=== PATIENT | male | born 1945 | race Caucasian/White ===

== ENCOUNTER 2021-12-27 08:45 | Observation (INO) | payer MEDICARE, OTHER, SELFPAY ==
[2021-12-14 14:57] LABS: Magnesium 2.3 mg/dL (1.6-2.6)
[2021-12-27] VITALS (10 sets, daily range): BP systolic 100–146; BP diastolic 70–91; PULSE 62–79; RESP 16–18; TEMP 36.1–36.7; O2SAT 94–100; BMI 33.5
--- NOTE | 2021-12-27 06:53 | RAD_ITS ---
STUDY: X-RAY - PELVIS AND LEFT HIP REASON FOR EXAM: Male, 76 years old. Post Op -- AP both hips on single anthony/lateral of op hip PACU TECHNIQUE: 2 views of the pelvis and hip. COMPARISON: None. FINDINGS: Status post surgical resection of the left femoral head and neck. The proximal one third femoral prosthetic component is well placed within the intramedullary cavity as well as the acetabular cup. Both prosthetic components demonstrate good bony contact and alignment. Expected postoperative changes of the overlying soft tissues including gas and swelling. Surgical kurtis are also present. No occult fractures are present. Pre-existing right hip prosthesis is unremarkable. Numerous surgical clips are seen in the left upper thigh region. Diffuse atherosclerotic calcifications noted. RAD/Hip Min 2 Views (Portable) IMPRESSION: Status post total left hip arthroplasty. Electronically Signed: Luigi Hensley MD at 13:45 EDT ,
--- NOTE | 2021-12-27 06:54 | OP.PCM_ITS ---
Report of Operation Date of Procedure: 12/27/21 Pre-Operative Diagnosis: Left hip primary osteoarthritis Post-Operative Diagnosis: Left hip primary osteoarthritis Surgery/Procedure Performed:: Left posterior robotic assisted total replacement Surgeon: Jeffery Black metal pattern maker: Roberth Smith Type of Anesthesia: Spinal Anesthesiologist: Bj Garcia Special Medications: 2 g Ancef, 1 g TXA at incision, 1 g TXA closure, 10 mg Decadron, joint cocktail (5 mg Duramorph, 30 mL of 0.5% Ropivicaine, 1000 units of epinephrine, 30 mg of Toradol) Specimen's removed: Bony cuts Estimated Blood Loss (mL): 250 Fluids Replaced: 1000 mL crystalloid Description of Procedure: Findings: Adequate reduction with stability of the hip and equal leg lengths measured intraoperatively. Components used: 1. Seymour Accolade 2 size 7 stem, 127 neck angle 2. Seymour trident 2 52 mm acetabular shell 3. Seymour X3 polyethylene liner, alpha code e 4. Rachel Biolox delta 36 mm, 0 mm neck femoral head Brief history operative indications: 76-year-old male with history of left femoral popliteal bypass presented with severe osteoarthritis. Patient failed conservative measures. X-rays were consistent with severe joint space narrowing, [id number] arthritis subchondral sclerosis and osteophyte formation. Risks and benefits were discussed with the patient which included but were not limited to blood loss, DVTs, PEs, infection, neurovascular damage, and dislocation. In light of all this patient did agree to proceed with a total hip arthroplasty. Procedure: On the date of procedure the patient's l hip was marked in the preoperative area. Patient was then taken back to the operating room where anesthesia assumed control of the C-spine and airway and administered anesthetic. Patient was transferred to the operating table and placed in the lateral decubitus position with the affected hip up. The patient was secured in the bed with the lateral positioners and leg lengths were checked. The L lower extremity was then prepped out in a sterile fashion using chlorhexidine while the surgeon scrubbed. Upon reentering the room the L lower extremity was draped in the standard orthopedic fashion and the incision was marked. A timeout was called and everyone agreed upon the side, the site, the procedure be performed, antibiotics given, and patient's identity. At this time our attention was directed towards the iliac crest where the pins were placed for the robotic assisted markers. Incision was made through skin, subcutaneous tissue, and fat down to fascia. The fascia was then incised and a Charley retractor was placed. The soft tissue was then cleared from the posterior external rotators and the piriformis was identified. Piriformis was taken down and tagged. The remainder of the short external rotators were taken down. Capsulotomy was made and the posterior capsule was tagged. The retractors were then placed inside the capsule. Prior to dislocating the hip preoperative leg lengths were registered. Hip was then dislocated and the femoral neck was identified and a cleanup cut was made. At this time a power corkscrew was used to remove the femoral head. At this time all bony debris was removed from the acetabulum. Attention was then turned to the femur where the proximal femur was appropriately exposed using a field retractor. The hot box operator was used to remove the lateral bone. Canal finder was used to verify the canal. The proximal femoral femur was then sequentially broached to a size 7 broach which had an appropriate fit. The broach was left in place. Our attention was then directed to the acetabulum and the anterior retractor was placed and a Gelpi was used to retract the posterior capsule superiorly. All soft tissue debris was removed from the pulvinar and labrum of the joint. The acetabulum was then sequentially reamed to 52 millimeters. At this time a and 52 mm Rachel tRIDENT 2 cup was opened and impacted into place. Once it was securely fastened our attention was again turned towards the femur and the high offset neck was chosen and a 36 mm head with 0 mm offset was trialed. The hip was properly reduced using traction and external rotation. Stability was checked with the appropriate amount of shuck, no impingement with external rotation, and stable at 90? flexion and 90? internal rotation. Leg lengths were checked and were found to be equal on the table. Once the hip was determined to be stable the trial components were dislocated, and the polyethylene liner was placed and security was verified. The proximal femur was again exposed and the components were removed from the wound. The final components were verified and opened. The wound was copiously irrigated out with normal saline. The acetabulum was checked for any residual debris. The final components were placed and impacted. Traction and external rotation were again used to reduce the hip. After adequate reduction the hip remained stable with appropriate leg lengths. The wound was then copiously irrigated with normal saline once more, and hemostasis was obtained. The posterior capsule and piriformis were repaired through drill holes to the greater trochanter . Robotic pins and checkpoints were removed. Closure was then done using #1 Vicryl to close the fascia. A 2-0 Vicryl interrupted sutures were used to close the subcutaneous skin. Skin kurtis were used for final skin closure. A sterile dressing was placed. Patient was awakened by anesthesia and [facility] Patient was then transferred to the PACU for recovery. Postoperative plan: Patient will get 24 hours postop antibiotics. Patient will get in-house physical therapy and will be weight-bear as tolerated. Patient will follow up in office in 2 weeks for a wound check and x-rays. Aspirin 81 mg p.o. twice daily for DVT prophylaxis. Also patient will begin his Plavix tomorrow. During the course of the procedure the physician collar sewer (PE) played a vital role. Their intimate knowledge of my steps in the procedure aided in safe and expedient completion of the procedure. The PE played a vital rolls in positioning particularly in obtaining the appropriate positioning of the sacral bump. The PE was also vital in the retraction of soft tissues during the exposure and especially the femoral work as this is a vital part of the procedure to prevent complications and fractures. The PE was also vital and protecting soft tissues during times of bony cuts and reaming. He also played a vital role in closure with my direct supervision. The PE was also important during reduction and dislocation of the joint and trials intraoperatively. Complications No intraoperative complications Admit VTE Documentation VTE Present on Admission: No VTE Mechan Device Prophylaxis: SCD's and Thigh High HENRY Hose VTE Pharm Prophylaxis ordered?: Yes
[2021-12-27] MEDS: Lactated Ringers 1,000 ML 999 ML IV ×2 (07:58→10:00)
[2021-12-27] MEDS: Magnesium 1 GM over 15 mins IV (07:59)
[2021-12-27] MEDS: Acetaminophen 500 MG Tablet 1000 MG PO ×2 (08:00→21:29)
[2021-12-27] MEDS: Gabapentin 600 MG Tablet PO (08:00)
--- NOTE | 2021-12-27 10:00 | HIP_PTH ---
PATIENT: MAGDALENO LUI LOC: MS3 U#:[id number] AGE/SX: 76/M ROOM: [facility] RE12/27/[address]: Dr. Jeffery Black MD : 1945 BED: 1 DIS: 12/28/2021 SPEC #: [id number] RECD: 12/27/21 13:54 STATUS: LIZ REQ #: [id number] SONJA: 12/27/21 10:[address]: Jeffery Black DEPT: SURGICAL PATHOLOGY RECD BY: Geoffrey Medina ENTERED: 12/28/21 07:44 SP TYPE: TOTAL HIP OTHR DR: MD Dr. Sahara Rice Dr., MD Dr. Joey Romar, DO Dr. Paige Pierce, MD Tissues: Hip, NOS Procedures: Decalcification bone/plaque Surgery Specimen Level IV HEADER OPERATION: ERAS, robotic assisted total hip arthroplasty, posterior PRE-OP DIAGNOSIS: Left hip primary osteoarthritis TISSUE SUBMITTED: Bone left hip MICROSCOPIC DIAGNOSIS Bone and tissue of left hip, total hip resection: Consistent with degenerative changes. AM:félix 01/03/2022 MICROSCOPIC DESCRIPTION Slides are reviewed. GROSS DESCRIPTION Received is one container labeled with the patient's name and designated bone of left hip. The specimen consists of a chery femoral head measuring 6.5 x 5 x 5 cm. The articular surface is smooth and glistening. No bone erosions are identified. Minimal osteophyte formation is noted. Also present in the specimen container are multiple bone reamings measuring in aggregate 6 x 5 x 1.5 cm. [place] [employer] Assessor sections are submitted in two cassettes after decalcification. / AM:félix 12/28/2021 TC:5 [facility]: [id number], [id number]
[2021-12-27] MEDS: Cefazolin 2 GM in 0.9% Normal Saline 100 ML IV (10:22)
[2021-12-27] MEDS: dexAMETHasone 10 MG/ML Vial IV (10:36)
[2021-12-27 10:50] LABS: Bedside Glucose 138 mg/dL (74-106)
[2021-12-27] MEDS: Lactated Ringers 1,000 ML 15 ML IV (11:16)
--- NOTE | 2021-12-27 14:58 | PCM.PN.HOSP ---
Subjective Subjective Consult requested for postoperative medical management Patient underwent a left posterior robotic assisted total hip replacement by Dr. Black today. Postoperatively, the patient feels well. Objective Data Objective Data Vital Signs: Vital Signs Temp Pulse Resp BP Pulse Ox O2 Del Method O2 Flow Rate 36.4 C L 68 18 119/71 100 Nasal Cannula 2 12/27/21 13:58 12/27/21 13:58 12/27/21 13:58 12/27/21 13:58 12/27/21 13:58 12/27/21 13:58 12/27/21 13:58 Oxygen Flow Rate (L/min) 2 Oxygen Delivery Method Nasal Cannula Weight: 97 kg Body Mass Index (BMI) 33.5 Intake & Output: Intake and Output for Last 24 Hours 12/25/21 12/26/21 12/27/21 23:59 23:59 23:59 Intake Total 2332 / 2332 Balance 233 / 233 Lab / Micro Data Labs: Laboratory Results - last 24 hr 12/27/21 07:56: POC Glucose 138 H Micro: Microbiology 12/14/21 14:11 Swab (Method) Nasal Screen MRSA/MSSA - Final Radiography Diagnostic Testing: Radiology Impression Hip X-Ray 12/27/21 06:53 IMPRESSION: Status post total left hip arthroplasty. Electronically Signed: Luigi Hensley MD at 13:45 EDT Reading Location ID and State: [facility] / [place] , Service support , Physical Exam Const alert and no apparent distress HEENT head/scalp atraumatic Resp normal respiratory effort, no retractions, no use of accessory muscles and clear to auscultation bilaterally Cardio regular rate, regular rhythm, S1 normal heart sound and S2 normal heart sound GI normal to inspection, nondistended, normoactive bowel sounds, soft to palpation, non-tender and non-distended Extremity normal to inspection Extremity Narrative: +1 dorsalis pedal and pedal pulses bilaterally. Normal cap refill of the lower extremities. Sensation grossly intact in lower extremities. Psych affect normal Assessment & Plan Assessment/Plan (1) Peripheral arterial disease: PLAN: Patient is status post AAA repair, left carotid endarterectomy as well as a femoral bypass on the left. His femoral bypass was complicated by hematoma. They proceeded with a posterior approach with this surgery for his hip today given his history. Pulse checks have been ordered hourly for the next 24hours by orthopedics. Continue with aspirin, atorvastatin, clopidogrel. Any changes to his leg indicating ischemia such as increased pain, cyanosis and so forth, patient may need emergent scans to evaluate that and/or vascular surgery consultation. Thus far, however, the patient is very stable and I am not anticipating any complications such as that. (2) S/P hip replacement: PLAN: Status post left posterior robotic assisted total replacement on the . Management per orthopedics PLAN: Plan VTE prophylaxis: Per orthopedics. Patient has been ordered aspirin 81 mg twice daily. Thank you for the consult. The hospital service will follow along while patient is in the hospital. Case was discussed with the patient's segment other who is at bedside. Charges/Coding Visit Charges Inpatient E&M: 45991 Subs Hosp L2
[2021-12-27] MEDS: Ensure Surgery 237 ML LIQUID PO (17:39)
[2021-12-27] MEDS: Cefazolin 1 GM/50 ML BAG IV (17:40)
[2021-12-27] MEDS: Aspirin 81 MG TAB.CHEW PO (21:29)
[2021-12-27] MEDS: Atorvastatin Calcium 80 MG Tablet PO (21:29)
[2021-12-27] MEDS: Senna/Docusate Sodium 1 Tablet 2 TABLET PO (21:29)
[2021-12-28 01:58] VITALS: BMI 33.5
[2021-12-28] MEDS: Cefazolin 1 GM/50 ML BAG IV (03:08)
[2021-12-28 03:23] VITALS: BP 139/84; PULSE 70; RESP 18; TEMP 36.6; O2SAT 97
[2021-12-28 05:28] LABS: Hematocrit 36.8 % (40-54); Hemoglobin 12.5 g/dL (13.0-16.5); Mean Corpuscular Hgb 30.9 pg (27.0-32.0); Mean Corpuscular Volume 91.1 fL (80-94); Mean Platelet Vol. 9.5 fl (6.2-12.0); Platelet Count 234 K/mm3 (150-450); RBC Distribution Width SD 50.1 fl (35.1-43.9); Red Blood Count 4.04 M/mm3 (4.6-6.2); White Blood Count 14.2 K/mm3 (4.4-11.0)
[2021-12-28 05:53] LABS: Anion Gap 7 (5-15); BUN 17 mg/dL (7-18); BUN/Creat Ratio 19.6 RATIO (10-20); Calcium,Total 8.5 mg/dL (8.5-10.1); Chloride 106 mmol/L (98-107); Creatinine, Serum 0.87 mg/dL (0.70-1.30); EST Glomerular Filtration Rate 90 mL/min (>60); Est Glom Filt Rate - Afr Amer 109 mL/min (>60); Estimated Creatinine Clearance 65.42 ml/min; Glucose 110 mg/dL (74-106); Potassium 4.6 mmol/L (3.5-5.1); Sodium Level 138 mmol/L (136-145)
[2021-12-28] MEDS: Acetaminophen 500 MG Tablet 1000 MG PO ×2 (05:54→13:59)
[2021-12-28 05:58] VITALS: BMI 33.5
--- NOTE | 2021-12-28 07:26 | PCM.PN.HOSP ---
Subjective Subjective DOS 12/28/21 CC: Frequent urination overnight Pt reports feeling well with minimal pain. Denies any known bleeding. No cp or SOB. Drinking well, no nausea. Reports he was thirsty and urinated frequently overnight but no other complaints. Pt underwent L posterior robotic assisted total hip replacement by Dr. Black 12/27. Objective Data Objective Data Vital Signs: Vital Signs Temp Pulse Resp BP Pulse Ox O2 Del Method O2 Flow Rate 97.8 F 70 18 139/84 H 97 Room Air 4 12/28/21 03:23 12/28/21 03:23 12/28/21 03:23 12/28/21 03:23 12/28/21 03:23 12/28/21 03:23 12/27/21 14:10 Oxygen Flow Rate (L/min) 4 Oxygen Delivery Method Room Air Weight: 97 kg Body Mass Index (BMI) 33.5 Intake & Output: Intake and Output for Last 24 Hours 12/26/21 12/27/21 12/28/21 23:59 23:59 23:59 Intake Total 4382 / 4382 650 / 650 Output Total 200 / 200 400 / 400 Balance 4182 / 4182 250 / 250 Lab / Micro Data Result Diagrams: 12/28/21 05:00 12/28/21 05:00 Labs: Laboratory Results - last 24 hr 12/27/21 07:56: POC Glucose 138 H 12/28/21 05:00: WBC 14.2 H, RBC 4.04 L, Hgb 12.5 L, Hct 36.8 L, MCV 91.1, MCH 30.9, MCHC 34.0, RDW Std Deviation 50.1 H, RDW Coeff of Valeria 15.0 H, Plt Count 234, MPV 9.5 12/28/21 05:00: Sodium 138, Potassium 4.6, Chloride 106, Carbon Dioxide 25.0, Anion Gap 7, BUN 17, Creatinine 0.87, Estim Creat Clear Calc 65.42, Est GFR (MDRD) Af Amer 109, Est GFR (MDRD) Non-Af 90, BUN/Creatinine Ratio 19.6, Glucose 110 H, Calcium 8.5 Micro: Microbiology 12/14/21 14:11 Swab (Method) Nasal Screen MRSA/MSSA - Final Radiography Diagnostic Testing: Radiology Impression Hip X-Ray 12/27/21 06:53 IMPRESSION: Status post total left hip arthroplasty. Electronically Signed: Luigi Hensley MD at 13:45 EDT Reading Location ID and State: [facility] / [place] , Service support , Physical Exam Const alert and oriented x3 HEENT head/scalp atraumatic Eyes EOMs intact bilaterally Neck supple Resp normal respiratory effort and clear to auscultation bilaterally Cardio regular rate and regular rhythm GI soft to palpation, non-tender and non-distended Extremity Extremity Narrative: No edema Neuro moves all extremities Psych affect normal Assessment & Plan Assessment/Plan (1) Peripheral arterial disease: (2) S/P hip replacement: PLAN: Plan 1. Peripheral Arterial disease hx of AAA repair, L CEA, and L femoral bypass Continue asa, statin, clopidogrel Pulse checks ordere Pt denies pain, bleeding, swelling, or other concerns 2. s/p hip replacement L post robetic assisted total replacement on 12/27 Management per primary 3. Elevated glucose Glucose 110 this AM Minimally elevated, can f/u outpt with PCP for A1c and further monitoring No hx of diabetes noted Radha Dawkins MD Charges/Coding Visit Charges OBSV E&M: 56940 Subsequent observation care L2
[2021-12-28 08:28] VITALS: O2SAT 96
[2021-12-28 08:45] VITALS: O2SAT 96
[2021-12-28 09:03] VITALS: BP 126/68; PULSE 68; RESP 18; TEMP 36.8; O2SAT 97
[2021-12-28 09:16] VITALS: BMI 33.5
[2021-12-28] MEDS: Senna/Docusate Sodium 1 Tablet 2 TABLET PO (09:25)
[2021-12-28] MEDS: Ensure Surgery 237 ML LIQUID PO (09:25)
[2021-12-28] MEDS: Famotidine 20 MG Tablet PO (09:25)
[2021-12-28] MEDS: Clopidogrel Bisulfate 75 MG Tablet PO (09:25)
[2021-12-28] MEDS: Cholecalciferol (VIT D3) 25 MCG TABLET (1,000 UNITS) PO (09:25)
[2021-12-28] MEDS: Aspirin 81 MG TAB.CHEW PO (09:25)
--- NOTE | 2021-12-28 09:49 | CASEMGMT ---
Social Work SW in to meet with pt and validate advanced directives. Pt confirmed has HCPOA and LW. Pt named , Jenny Latif, as agent. Pt made aware documents are not on file at [facility]. SW informed pt if would like documents on file to bring in copy and drop off at Medical Records department. Pt voiced understanding. IRENA Samuels
--- NOTE | 2021-12-28 10:43 | PN.ORTHO_ITS ---
Subjective Subjective The patient was sitting in bedside chair upon examination. Patient denies any chest pain, shortness of breath, dizziness, lightheadedness, nausea or vomiting, or calf pain. Pain is controlled on medications. No adverse overnight events. Patient just finished physical therapy and states overall he did well. He has very little pain. Patient denies any numbness and tingling or complaints in the left lower extremity. He did have a previous history of femoral artery bypass. He has neurovascularly intact. Objective Data Objective Data Vital Signs: Vital Signs Temp Pulse Resp BP Pulse Ox O2 Del Method O2 Flow Rate 98.2 F 68 18 126/68 H 97 Room Air 4 12/28/21 09:03 12/28/21 09:03 12/28/21 09:03 12/28/21 09:03 12/28/21 09:03 12/28/21 09:03 12/27/21 14:10 Oxygen Flow Rate (L/min) 4 Oxygen Delivery Method Room Air Weight: 97 kg Body Mass Index (BMI) 33.5 Intake & Output: Intake and Output for Last 24 Hours 12/26/21 12/27/21 12/28/21 23:59 23:59 23:59 Intake Total 4382 / 4382 650 / 650 Output Total 200 / 200 700 / 700 Balance 4182 / 4182 -50 / -50 Lab / Micro Data Result Diagrams: 12/28/21 05:00 12/28/21 05:00 Labs: Laboratory Results - last 24 hr 12/27/21 07:56: POC Glucose 138 H 12/28/21 05:00: WBC 14.2 H, RBC 4.04 L, Hgb 12.5 L, Hct 36.8 L, MCV 91.1, MCH 30.9, MCHC 34.0, RDW Std Deviation 50.1 H, RDW Coeff of Valeria 15.0 H, Plt Count 234, MPV 9.5 12/28/21 05:00: Sodium 138, Potassium 4.6, Chloride 106, Carbon Dioxide 25.0, Anion Gap 7, BUN 17, Creatinine 0.87, Estim Creat Clear Calc 65.42, Est GFR (MDRD) Af Amer 109, Est GFR (MDRD) Non-Af 90, BUN/Creatinine Ratio 19.6, Glucose 110 H, Calcium 8.5 Micro: Microbiology 12/14/21 14:11 Swab (Method) Nasal Screen MRSA/MSSA - Final Radiography Diagnostic Testing: Radiology Impression Hip X-Ray 12/27/21 06:53 IMPRESSION: Status post total left hip arthroplasty. Electronically Signed: Luigi Hensley MD at 13:45 EDT Reading Location ID and State: [facility] / [place] , Service support , Physical Exam Narrative Vital signs stable and afebrile. SCDs and HENRY hose are in place bilaterally. Patient is able to plantarflex and dorsiflex actively. Sensation is intact to light touch to saphenous, sural, superficial and deep peroneal, and tibial distribution. Dressing is clean dry and intact. Negative Homans bilaterally, negative signs and symptoms of DVT. Const alert, oriented x3 and no apparent distress Assessment & Plan Assessment/Plan (1) Status post total hip replacement, left: PLAN: 1. S/P left posterior total hip arthroplasty POD #1 2. Continue Pain Medications: Tylenol and oxycodone. 3. DVT Prophylaxis: Take 81 mg aspirin twice daily for 4 weeks postoperatively for DVT prophylaxis. Patient denies previous history of DVT or pulmonary emb olism 4. PT/OT: Weightbearing as tolerated with walker. He will continue with posterior hip dislocation precautions for 3 months postoperatively. These were discussed with the patient in the room. He voiced understanding agreement. 5. H & H: 12.5/36.8, asymptomatic. Postoperative anemia secondary to acute blood loss from surgery without any intra operative complications. 6. Reactive leukocytosis: Currently 14.2, afebrile. Patient did receive Decadron intraoperatively 7. Continue postoperative medical management per medicine 8. Encouraged Incentive Spirometry 9. Disposition: Overall patient is doing very well. I discussed case with the hospitalist and they are okay for patient being discharged home. Patient's pain is very well controlled. He does not want to take any narcotics and only wants to utilize extra strength Tylenol. I did explain to them that I will give him a very small amount of the narcotic just in case he has [id number] pain that he needs something in addition to Tylenol. He voiced understanding agreement with this. He would like his medications E scribed to [facility]. He will follow-up per postop instructions. He will contact her office upon discharge with any concerns or questions. I have reviewed the [place] Automated Rx Reporting System (OARRS) report for this patient for refill pattern and other prescriber involvement as part of the appropriate surveillance for the provision of acute and chronic controlled medications. The report was requested and reviewed on the date of this entry and was considered in the prescribing process. This dictation was created using voice recognition software. Phonetic and/or grammatical errors may exist.
--- NOTE | 2021-12-28 10:46 | DCINST_ITS ---
Discharge Instructions Diet Discharge Diet: No restrictions Activity Discharge Activity: May Not Drive (No driving until you can walk 100 feet without the use of cane or walker and no longer taking narcotics) May shower in (days): 1 (only if incision is dry and without drainage. Do NOT soak/submerge in tub/pool/parsons/stream/hot tub.)) Ice area for (Minutes): 20 (Every 1-2 hours while [address] barrier between ice and skin.) Weight Bearing Status: Weight bearing as tolerated Keep extremity elevated above heart level: Operative Extremity Additional Activity Instructions:: Follow [facility] Post-op Instructions. Once postoperative dressing has been removed only use gentle soap and water over the incision. Do not use any ointments, Neosporin, salves, alcohol pads over the incision for 6 weeks postoperatively. Do not submerge underwater for 6 weeks postoperatively. Wear elastic stockings for 2 weeks. Do NOT use alcohol with narcotic pain medication. Do NOT make important decisions while taking narcotic medication. If you have problems with taking your medication (rash, itching, nausea, etc.) call the office at once. Continue with posterior hip dislocation precautions for 3 months postoperatively Dressing / Incision Call your doctor if your incision/area has: Continuous Slow Oozing, Sudden Increased Bleeding, Increased Pain/ Swelling, Increased Redness and Foul Smelling Discharge Call your doctor if you observe: Fever of 101 or Higher, Shortness of breath, Chest pain, Calf discomfort and Uncontrolled pain Remove Dressing in: 4 days (Okay to remove on January 01, 2022) Additional Dressing/Incision Instructions:: Follow [facility] Post-op Instructions. Once postoperative dressing has been removed, only use gentle soap and water over the incision. Do not use any ointments, Neosporin, salves, alcohol pads over the incision for 6 weeks postoperatively. Do not submerge underwater for 6 weeks postoperatively. Continue with HENRY hose/elastic stockings for 2 weeks postoperatively. May remove at nighttime but needs to be placed back on the leg during the day. Do NOT use alcohol with narcotic pain medication. Do NOT make important decisions while taking narcotic medication. If you have problems with taking your medication (rash, itching, nausea, etc.) call the office at once. Follow Up Care Test Results: Test results from this visit will be discussed in further detail at your follow- up appointment, if applicable. Discharge Plan Admission Admit Date/Time: 12/27/21 08:45 Attending Provider: Jeffery Black Primary Care Provider: Malvin Freire Consulting Providers: Anna Sevilla ; Sahara Penn ; Sahara Betancourt ; Radha Dawkins Discharge Orders/Prescriptions Prescriptions: New acetaminophen 500 mg Tablet 1,000 mg PO TID Qty: 100 0RF Rx Instructions: Do not take more than 3000 mg Tylenol in a 24-hour period. famotidine 20 mg Tablet 20 mg PO DAILY Qty: 30 0RF aspirin 81 mg Tablet,Chewable 81 mg PO BID Qty: 0 0RF Rx Instructions: Take 81 mg aspirin twice daily for 4 weeks postoperatively for DVT prophyl axis. oxycodone 5 mg Tablet 5 - 10 mg PO Q4H PRN PRN (Reason: Pain Score 4-10) 2 Days Qty: 8 0RF sennosides-docusate sodium [Stool Softener-Stimulant Laxat] 8.6-50 mg Tablet 2 tab PO BID Qty: 20 0RF Rx Instructions: Take until first bowel movement, then as needed Continued atorvastatin 80 mg tablet 80 mg PO QHS Label Comments: TAKE 1 TABLET BY MOUTH EVERY DAY clopidogrel 75 mg tablet 75 mg PO DAILY Label Comments: STOP 6 DAYS PRIOR, LAST DOSE ON 12/20/21 amoxicillin-pot clavulanate 875-125 mg tablet 1 tab PO BID Label Comments: TAKE 1 TABLET BY MOUTH TWICE A DAY FOR 14 DAYS- HAS 2 DAYS LEFT WILL COMPLETE ON 12/15/21 cholecalciferol (vitamin D3) [Vitamin D3] 25 mcg (1,000 unit) Tablet 1,000 mcg PO DAILY aspirin 81 mg Capsule 81 mg PO DAILY Referrals / Follow Up: Mlavin Freire DO [Primary Care Provider] - Roberth Smith PA-C [Med Staff - [facility]] - 01/08/22 2:00 pm Physical,Therapy [Other] - 01/01/22 1:00 pm Disposition Disposition (needs filled in before D/C Order can be placed): Home, Self Care
[2021-12-28 11:46] VITALS: BP 124/70; PULSE 87; RESP 18; TEMP 36.5; O2SAT 95
[2021-12-28] MEDS: Amox/Clavulanate 875 MG Tablet PO (11:47)
--- NOTE | 2021-12-28 12:03 | CASEMGMT ---
ITALO KAUR Assessment: Face to Face with pt for initial transition planning/care coordination assessment. ITALO KAUR introduced self and role at [facility], pt voices understanding and consents to assessment. Pt is A/O x4 and answers all questions appropriately at this time. Pt lying in bed in no distress. Care providers, pharmacy, and demographics verified/updated. Admitting Dx: L total hip with DEMI, post PCP:Mouna Specialists:diallo Black; Vascular team at [facility] Preferred Pharmacy: [facility] Insurance: [facility], [employer] Prescription Benefit: yes LW/HPOA: Pt reports he has a LW/DPOA and his DPOA is his Jenny Latif. He is aware this is not on file at [facility] and he may bring in to be scanned into his chart. LNOK: Jenny Latif, Living Arrangements: Pt lives with in a two story house with 2 steps to enter with a rail. Pt reports he was I in ADL's prior and denies concerns at home. Transportation: Pt drives self and denies concerns with transportation. Pt will transport him to medical appts post surgery. DME/HHC/SNF: Pt has a walk in shower, FWW, cane, shower chair and grab bars in the bathroom. [facility] and denies SNF stays. Pt states no concerns with going home at time of dc. Pt has outpt therapy set up at [facility] to start on Saturday. Pt states no further concerns/needs. CM to follow. Advised pt to ask CM if any further question/concerns/needs arise, voices understanding. Pt Goal: Home with outpt therapy set up Plan: Home with outpt therapy set up
--- NOTE | 2021-12-28 12:08 | CASEMGMT ---
ITALO CM in to discuss WANG form with patient. RN CM explained WANG form, patient voiced understanding. Pt signed form and filed in chart. Pt provided with a copy of signed WANG form. Patient had no further questions or concerns at this time.
[2021-12-28 12:59] VITALS: O2SAT 97
[2021-12-28 13:53] VITALS: BMI 33.5
== END 2021-12-28 14:29 | disposition home or self-care (01) ==
LOC: SDC 08:49 → MS3 08:49
PROVIDERS: Anesthesiology; Admitting Provider Specialist; PCP Student in an Organized Health Care Education/Training Program; Referring Provider Specialist; Visit Provider Specialist
PROC: 8E0Y0CZ Robotic Assisted Procedure of Lower Extremity, Open Approach (ICD-10-PCS; CPT 27130; principal; 2021-12-27 09:30)
DX: M16.12 Unilateral primary osteoarthritis, left hip (principal); I73.9 Peripheral vascular disease, unspecified; R35.0 Frequency of micturition; Z87.891 Personal history of nicotine dependence; Z79.02 Long term (current) use of antithrombotics/antiplatelets; Z79.82 Long term (current) use of aspirin; Z79.899 Other long term (current) drug therapy; R73.9 Hyperglycemia, unspecified
CPT/HCPCS: 27130; S2900; 01214; 36415; 73502; 80048; 82962; 83735; 85027; 87077; 87081; 88305; 88311; 96365; 96366; 97110; 97116; 97162; 97166; 97530; 97535; 99218; 99251; C1776; J7050; J7120; G0378; G0463; J2405; J3475

== ENCOUNTER 2023-07-16 14:30 | Outpatient (RCR) | payer MEDICARE, OTHER, SELFPAY ==
[2023-07-09 13:09] VITALS: BP 160/75; PULSE 91; RESP 18; TEMP 36.2; BMI 34.4
--- NOTE | 2023-07-09 16:19 | PCM.WC.HP ---
History of Present Illness Date of Service: 07/09/23 Chief Complaint: Surgical wound dehiscence/nonhealing abdominal surgical wound History of Wound: This is a 77-year-old male with a very extensive and complicated past medical history. The patient underwent surgical repair of a ventral hernia in December [address] Pierce at [facility]. The hernia had developed at a prior surgical site, as the patient has multiple previous surgical on September 28, 2008, the patient underwent left femoral?tibial artery bypass surgery. He underwent open ruptured abdominal aneurysm repair on July 11, 2012. It appears as though the patient subsequently required a second surgical intervention for an abdominal aortic aneurysm. He underwent left carotid endarterectomy on June 04, 2017. A left femoral pseudoaneurysm repair was performed in 2021. Subsequent to his abdominal surgeries, the patient underwent his ventral abdominal hernia repair in December 2022. He has developed a draining sinus in the inferior third of his vertical midline incision. The draining sinus is to the right and slightly inferior to his umbilicus. Cultures of the drainage from the site were performed at [facility] on July 03, 2023. Attempts have been made to obtain the culture results, which are awaited. According to the patient, he was told he had a staph infection, and has been treated with Bactrim double strength every 12 hours for total of 14 days, which continues to this day. He remains under the care of his surgeon, Dr. Pierce, and has an appointment with Dr. Pierce in 2 weeks. In an effort to identify the possible cause of the persistent sinus tract, the patient has had a CT scan at [facility] within the last 6 to 8 weeks, and effort will be made to obtain the results. The patient also informs that he is scheduled to undergo an ultrasound of the abdominal wall next week, at [facility]. It has been confirmed by the patient that prosthetic mesh was utilized in the repair of his ventral abdominal hernia. The patient has been using dilute peroxide to the small sinus tract opening on the anterior abdominal wall. The patient is on chronic systemic anticoagulation with apixaban 5 mg p.o. twice daily. He is mildly obese, with a BMI of 34.4. [facility] Medical History Arthritis BPH (benign prostatic hyperplasia) Carotid artery stenosis Dehiscence of postoperative wound of abdomen Diverticulosis Former smoker History of anemia History of cerebrovascular accident History of deep vein thrombosis History of echocardiogram History of steroid therapy Hx of abdominal aortic aneurysm Hyperlipidemia Insomnia Irritable bowel syndrome Osteoarthritis PAC (premature atrial contraction) Peripheral arterial disease Peripheral arterial occlusive disease PVCs (premature ventricular contractions) Stroke/cerebrovascular accident TIA (transient ischemic attack) Ventral hernia Home Medications aspirin 81 mg capsule 81 mg PO DAILY 12/13/21 [History Last Taken 12/23/21] atorvastatin 80 mg tablet 80 mg PO QHS 12/13/21 [History Last Taken Unknown] cholecalciferol (vitamin D3) 25 mcg (1,000 unit) tablet (Vitamin D3) 1,000 mcg PO DAILY 12/13/21 [History Last Taken Unknown] acetaminophen 500 mg tablet 1,000 mg (2 x 500 mg) PO TID #100 tabs 12/28/21 [Rx Last Taken Unknown] aspirin 81 mg chewable tablet 81 mg PO BID #0 tabs 12/28/21 [Rx Last Taken Unknown] famotidine 20 mg tablet 20 mg PO DAILY #30 tabs 12/28/21 [Rx Last Taken Unknown] oxycodone 5 mg tablet 5 - 10 mg (1 - 2 x 5 mg) PO Q4H PRN PRN Pain Score 4-10 2 days #8 tabs 12/28/21 [Rx Last Taken Unknown] sennosides 8.6 mg-docusate sodium 50 mg tablet (Stool Softener-Stimulant Laxative) 2 tab PO BID #20 tabs 12/28/21 [Rx Last Taken Unknown] apixaban 5 mg (74 tabs) tablets in a dose pack (Eliquis DVT-PE Treat 30D Start) mg PO 07/09/23 [History Last Taken Unknown] cephalexin 500 mg capsule 500 mg PO Q12.TCU 07/09/23 [History Last Taken Unknown] finasteride 5 mg tablet 5 mg PO DAILY 07/09/23 [History Last Taken Unknown] pantoprazole 40 mg tablet,delayed release 40 mg PO BID 07/09/23 [History Last Taken Unknown] sulfamethoxazole 800 mg-trimethoprim 160 mg tablet 1 tab PO BID 07/09/23 [History Last Taken Unknown] tamsulosin 0.4 mg capsule 0.4 mg PO DAILY 07/09/23 [History Last Taken Unknown] Allergy/AdvReac Type Severity Reaction Status Date / Time No Known Allergies Allergy Verified 12/27/21 07:48 Surgical History History of aortic aneurysm repair History of evacuation of hematoma History of femoropopliteal bypass History of left-sided carotid endarterectomy History of ventral hernia repair Hx of abdominal surgery Hx of surgical procedure Hx of total hip arthroplasty Hx of tracheostomy S/P hip replacement Status post carotid endarterectomy Social History Smoking Status: Former smoker Vital Signs Vital Signs Vital Signs: 07/09/23 13:09 Temperature 97.2 F L Temperature Source Temporal Pulse Rate 91 Respiratory Rate 18 Blood Pressure 160/75 H Blood Pressure Mean 103 Blood Pressure Source Monitor Blood Pressure Position Semi-Fowlers Blood Pressure Location Left Arm Oxygen Delivery Method Room Air Weight Weight: 220 lb Body Mass Index (BMI) 34.4 Physical Exam Const alert, oriented x3, no apparent distress and well nourished Constitutional Narrative: The patient is alert, oriented, and appropriate. He is mildly obese, with a BMI of 34.4. General Appearance: cooperative, comfortable, well kempt and well developed Orientation / Consciousness: awake, oriented to person, oriented to place and oriented to time Exam Limitations: no limitations HEENT normocephalic, head/scalp atraumatic and hearing grossly normal bilaterally Head and Scalp: normal to inspection, normocephalic and atraumatic Nose: external nose normal External Ear: external ears normal Eyes PERRL and EOMs intact bilaterally General Eye: normal appearance of both eyes Resp normal respiratory effort, normal air movement, no retractions, no use of accessory muscles and clear to auscultation bilaterally Effort and Inspection: able to speak in complete sentences and symmetric chest movement Cardio regular rate, regular rhythm, S1 normal heart sound and S2 normal heart sound Extremity no calf tenderness General Extremity: Negative for clubbing or cyanosis Skin Wound Narrative: The patient's abdomen is mildly obese. A generally well-healed vertical midline incision is noted on the abdomen, extending both above and below the umbilicus. There is a small sinus tract opening to the right and slightly inferior to the patient's umbilicus. There is no surrounding erythema. Gentle probing of the opening reveals a sinus tract which extends tangentially and superiorly approximately 8 cm. The external opening is only several millimeters in diameter. No drainage is noted at this time. Neuro oriented x3, CN's II-XII intact bilaterally, moves all extremities and no focal motor deficits Sensorium / Orientation: awake, alert, oriented to person, oriented to place and oriented to time Psych Appearance: grossly normal and appropriate Attitude: calm Activity / Motor Behavior: appropriate eye contact Speech: normal speech Mood & Affect: euthymic mood Thought Process: normal thought process Thought Content: normal thought content Attention / Concentration: attention grossly intact Debridement Note Debridement Note Post-Debridement Measurements and Additional Note: Post-Debridement Measurements/Treatment - Nurse 1 - General Ulcer Assessment Start: 07/09/23 13:03 Freq: Status: Active Protocol: LIA Activity Type Activity Date Activity User E-sign Co-sign Detail Recorded Client Recorded Date Recorded By Document 07/09/23 13:09 [employer] 07/09/23 13:14 [employer] 07/09/23 13:09 WC - Today's Visit Information Type of service Follow-up Visit (Physician/BUSINESS SPECIALIST ) Arrival Mode Ambulatory Accompanied by Patient Identification Verified (Name & Yes ) Height and Weight Height 5 ft 7 in Weight 220 lb Weight in Pounds 220.0 lbs Body Mass Index (BMI) 34.4 BMI Classification Obese BSA - Nany 2.11 Vital Signs Temperature (97.8 F-99.1 F) 97.2 F L Temperature Source Temporal Pulse Rate (60-100) 91 Pulse Location Monitor Respiratory Rate (12-18) 18 Respiratory rate source Observation Oxygen Delivery Method Room Air Blood Pressure (90/60-120/80) 160/75 H Blood Pressure Mean 103 Source Monitor Position Semi-Fowlers Blood Pressure Location Left Arm History Since Last Visit- (Skip if this is Patient's initial visit) Left Footwear Regular Shoe Right Footwear Regular Shoe Pain Scale: 0-10 Numeric Is Patient Pain Free? Yes - Nurse 1 - General Ulcer Measurement Start: 07/09/23 13:03 Freq: Status: Active Protocol: Activity Type Activity Date Activity User E-sign Co-sign Detail Recorded Client Recorded Date Recorded By Document 07/09/23 13:09 [employer] 07/09/23 13:14 [employer] 07/09/23 13:09 Wound Center Nurse 1 #1 abd -Current Size (cm) - Length 0.3 -Current Size (cm) - Width 0.5 -Current Size (cm) - Depth 0.8 -Total Square Cm 0.15 -Date of Last Picture (Recall this 07/09/23 field) -Photo Taken Yes -Exudate Amt Medium -Exudate Type Serosanguineous -Wound Margin Distinct, Outline Attached -Granulation Amt Large (67-100%) -Granulation Quality Red -Texture (Cleo-wound Skin Appearance) Assessed -Moisture (Cleo-wound Skin Appearance) Assessed -Color (Cleo-wound Skin Appearance) Assessed -Temperature (Cleo-wound Skin No Abnormality Appearance) (Pt Warm) -Tenderness on Palpation (Cleo-wound No Skin Appearance) -Ulcer Cleansing Rinsed/ Irrigated with Saline -Foul Odor after Cleansing No -Anesthetic Used 5% Lidocaine Gel - Nurse 2 - General Ulcer CM Notes Start: 07/09/23 13:03 Freq: Status: Active Protocol: Activity Type Activity Date Activity User E-sign Co-sign Detail Recorded Client Recorded Date Recorded By Document 07/09/23 13:45 Laptop 07/09/23 13:49 07/09/23 13:45 Wound Center Nurse 2 -Correct Patient No -Correct Side, Site, Position No -Correct Procedure No -Procedure Performed No -Wound/Ulcer Outcome Not Healed Pain Scale: 0-10 Numeric Is Patient Pain Free? Yes - Nurse 3 - General Ulcer D/C NN Start: 07/09/23 13:03 Freq: Status: Active Protocol: Activity Type Activity Date Activity User E-sign Co-sign Detail Recorded Client Recorded Date Recorded By Document 07/09/23 14:26 Desktop 07/09/23 14:27 07/09/23 14:26 Wound Care Center Nurse 3 #1 abd -Ulcer Cleansing Wound Cleanser -Primary Dressing Applied Nugauze, Plain 1/4in -Other Dressing saline moistened nugauze -Primary Dressing Covered/Secured with Dry Gauze, Secured with Tape -Nugauze, Plain 1/4in 1 Treatment Response Procedure Tolerated Well Pain Scale: 0-10 Numeric Is Patient Pain Free? Yes Teaching: Wound Center Dressing Your Wound -Person Taught Patient,Family -Teaching Method Discussion, Demonstration -Response to teaching Verbalize understanding WC - Visit Discharge Discharge Condition Stable Ambulatory Status Ambulatory Transportation Private Auto Medication Reconcilliation completed & No provided to patient/care provider Clinical Summary of Care Provided Yes Assessment/Plan Assessment/Plan (1) Dehiscence of postoperative wound of abdomen: CODE(S): T81.31XA - Disruption of external operation (surgical) wound, not elsewhere classified, initial encounter (2) History of ventral hernia repair: CODE(S): Z98.890 - Other specified postprocedural states; Z87.19 - Personal history of other diseases of the digestive system (3) Status post total hip replacement, left: CODE(S): Z96.642 - Presence of left artificial hip joint (4) Peripheral arterial disease: CODE(S): I73.9 - Peripheral vascular disease, unspecified (5) S/P hip replacement: CODE(S): Z96.649 - Presence of unspecified artificial hip joint (6) Status post carotid endarterectomy: CODE(S): Z98.890 - Other specified postprocedural states (7) History of aortic aneurysm repair: CODE(S): Z98.890 - Other specified postprocedural states; Z86.79 - Personal history of other diseases of the circulatory system (8) History of femoropopliteal bypass: CODE(S): Z98.890 - Other specified postprocedural states (9) PVCs (premature ventricular contractions): CODE(S): I49.3 - Ventricular premature depolarization (10) PAC (premature atrial contraction): CODE(S): I49.1 - Atrial premature depolarization (11) History of anemia: CODE(S): Z86.2 - Personal history of diseases of the blood and blood-forming organs and certain disorders involving the immune mechanism (12) History of cerebrovascular accident: CODE(S): Z86.73 - Personal history of transient ischemic attack (TIA), and cerebral infarction without residual deficits (13) History of deep vein thrombosis: CODE(S): Z86.718 - Personal history of other venous thrombosis and embolism (14) Hyperlipidemia: CODE(S): E78.5 - Hyperlipidemia, unspecified (15) Irritable bowel syndrome: CODE(S): K58.9 - Irritable bowel syndrome without diarrhea (16) Insomnia: CODE(S): G47.00 - Insomnia, unspecified (17) Osteoarthritis: CODE(S): M19.90 - Unspecified osteoarthritis, unspecified site (18) Carotid artery stenosis: CODE(S): I65.29 - Occlusion and stenosis of unspecified carotid artery (19) Peripheral arterial occlusive disease: CODE(S): I77.9 - Disorder of arteries and arterioles, unspecified (20) Ventral hernia: CODE(S): K43.9 - Ventral hernia without obstruction or gangrene (21) BPH (benign prostatic hyperplasia): CODE(S): N40.0 - Benign prostatic hyperplasia without lower urinary tract symptoms (22) Diverticulosis: CODE(S): K57.90 - Diverticulosis of intestine, part unspecified, without perforation or abscess without bleeding PLAN: Plan This is a 77-year-old male with a very complicated and extensive medical history, and multiple prior surgical procedures. He has had open abdominal surgery in the past, for repair of a a ruptured abdominal aneurysm. Patient developed a ventral incisional hernia, for which she underwent surgical repair by Dr. Pierce at [facility] in [facility] in December 2022. He has developed a draining sinus tract within his incision, and the lower third of the incision. He has been using peroxide topically. We are to implement the use of quarter inch moistened Nu Gauze which will be packed into the wound on a daily basis. The patient and his have been instructed in the appropriate means of packing. There is concern with respect to the healing of the site. These concerns involve the possibility of a draining sinus secondary to prosthetic mesh infection, or a stitch abscess. It would appear as though his other managing physicians may be suspicious of a similar etiology, as the patient has previously undergone a CT scan of the area, the report of which will be soft. Furthermore, another of the patient's medical providers has ordered an ultrasound of the abdominal wall which is scheduled for next week. We will await these results. The patient is scheduled for the ultrasound study 1 week from today, and will follow-up henceforth the following week for reevaluation, at which time it is hoped that the results of recent cultures, prior CT scan, and abdominal wall ultrasound will be available to us. In the event that there is evidence of infected prosthetic mesh, there may be a poor prognosis in terms of healing the patient's draining sinus tract. In addition, the morphology of the patient's nonhealing site is not optimal for healing by secondary intention. Total time: 55 minutes
[2023-07-16 14:57] VITALS: BP 119/86; PULSE 62; RESP 18; TEMP 36.4; BMI 34.4
--- NOTE | 2023-07-16 16:05 | PCM.WC.HP ---
History of Present Illness Date of Service: 07/16/23 Chief Complaint: Surgical wound dehiscence/nonhealing abdominal surgical wound History of Wound: This is a 77-year-old male with a very extensive and complicated past medical history. The patient underwent surgical repair of a ventral hernia in December [address] Pierce at [facility]. The hernia had developed at a prior surgical site, as the patient has had multiple previous surgeries. On September 28, 2008, the patient underwent left femoral?tibial artery bypass surgery. He underwent open ruptured abdominal aneurysm repair on July 11, 2012. It appears as though the patient subsequently required a second surgical intervention for an abdominal aortic aneurysm. He underwent left carotid endarterectomy on June 04, 2017. A left femoral pseudoaneurysm repair was performed in 2021. Subsequent to his abdominal surgeries, the patient underwent his ventral abdominal hernia repair in December 2022. He has developed a draining sinus in the inferior third of his vertical midline incision. The draining sinus is to the right and slightly inferior to his umbilicus. Cultures of the drainage from the site were performed at [facility] on July 03, 2023. Culture results were positive for Staphylococcus aureus, the patient has been treated with Bactrim double strength orally twice daily since that time, and has several doses remaining. He remains under the care of his surgeon, Dr. Pierce, and has an appointment with Dr. Pierce in several weeks. In an effort to identify the possible cause of the persistent sinus tract, the patient had a CT scan at [facility] on April 19, 2023, which revealed postsurgical changes of the anterior abdominal wall, without definite focal rim-enhancing fluid collection to suggest an abscess. The other soft tissues including abdominopelvic wall are unremarkable. The patient also informs that he underwent an ultrasound of the abdominal wall earlier today at [facility], the results of which will be sought. It has been confirmed by the patient that prosthetic mesh was utilized in the repair of his ventral abdominal hernia. The patient had been using dilute peroxide to the small sinus tract opening on the anterior abdominal wall prior to his presentation. The patient is on chronic systemic anticoagulation with apixaban 5 mg p.o. twice daily. He is mildly obese, with a BMI of 34.4. [facility] Medical History Arthritis BPH (benign prostatic hyperplasia) Carotid artery stenosis Dehiscence of postoperative wound of abdomen Diverticulosis Former smoker History of anemia History of cerebrovascular accident History of deep vein thrombosis History of echocardiogram History of steroid therapy Hx of abdominal aortic aneurysm Hyperlipidemia Insomnia Irritable bowel syndrome Osteoarthritis PAC (premature atrial contraction) Peripheral arterial disease Peripheral arterial occlusive disease PVCs (premature ventricular contractions) Stroke/cerebrovascular accident TIA (transient ischemic attack) Ventral hernia Home Medications aspirin 81 mg capsule 81 mg PO DAILY 12/13/21 [History Last Taken 12/23/21] atorvastatin 80 mg tablet 80 mg PO QHS 12/13/21 [History Last Taken Unknown] cholecalciferol (vitamin D3) 25 mcg (1,000 unit) tablet (Vitamin D3) 1,000 mcg PO DAILY 12/13/21 [History Last Taken Unknown] acetaminophen 500 mg tablet 1,000 mg (2 x 500 mg) PO TID #100 tabs 12/28/21 [Rx Last Taken Unknown] aspirin 81 mg chewable tablet 81 mg PO BID #0 tabs 12/28/21 [Rx Last Taken Unknown] famotidine 20 mg tablet 20 mg PO DAILY #30 tabs 12/28/21 [Rx Last Taken Unknown] oxycodone 5 mg tablet 5 - 10 mg (1 - 2 x 5 mg) PO Q4H PRN PRN Pain Score 4-10 2 days #8 tabs 12/28/21 [Rx Last Taken Unknown] sennosides 8.6 mg-docusate sodium 50 mg tablet (Stool Softener-Stimulant Laxative) 2 tab PO BID #20 tabs 12/28/21 [Rx Last Taken Unknown] apixaban 5 mg (74 tabs) tablets in a dose pack (Eliquis DVT-PE Treat 30D Start) mg PO 07/09/23 [History Last Taken Unknown] cephalexin 500 mg capsule 500 mg PO Q12.TCU 07/09/23 [History Last Taken Unknown] finasteride 5 mg tablet 5 mg PO DAILY 07/09/23 [History Last Taken Unknown] pantoprazole 40 mg tablet,delayed release 40 mg PO BID 07/09/23 [History Last Taken Unknown] sulfamethoxazole 800 mg-trimethoprim 160 mg tablet 1 tab PO BID 07/09/23 [History Last Taken Unknown] tamsulosin 0.4 mg capsule 0.4 mg PO DAILY 07/09/23 [History Last Taken Unknown] Allergy/AdvReac Type Severity Reaction Status Date / Time No Known Allergies Allergy Verified 12/27/21 07:48 Surgical History History of aortic aneurysm repair History of evacuation of hematoma History of femoropopliteal bypass History of left-sided carotid endarterectomy History of ventral hernia repair Hx of abdominal surgery Hx of surgical procedure Hx of total hip arthroplasty Hx of tracheostomy S/P hip replacement Status post carotid endarterectomy Social History Smoking Status: Former smoker Vital Signs Vital Signs Vital Signs: 07/16/23 14:57 Temperature 97.6 F L Temperature Source Temporal Pulse Rate 62 Respiratory Rate 18 Blood Pressure 119/86 H Blood Pressure Mean 97 Blood Pressure Source Monitor Blood Pressure Position Semi-Fowlers Blood Pressure Location Left Arm Weight Weight: 220 lb Body Mass Index (BMI) 34.4 Physical Exam Const alert, oriented x3, no apparent distress and well nourished Constitutional Narrative: The patient is alert, oriented, and appropriate. He is mildly obese, with a BMI of 34.4. General Appearance: cooperative, comfortable, well kempt and well developed Orientation / Consciousness: awake, oriented to person, oriented to place and oriented to time Exam Limitations: no limitations HEENT normocephalic, head/scalp atraumatic and hearing grossly normal bilaterally Head and Scalp: normal to inspection, normocephalic and atraumatic Nose: external nose normal External Ear: external ears normal Eyes PERRL and EOMs intact bilaterally General Eye: normal appearance of both eyes Resp normal respiratory effort, normal air movement, no retractions, no use of accessory muscles and clear to auscultation bilaterally Effort and Inspection: able to speak in complete sentences and symmetric chest movement Cardio regular rate, regular rhythm, S1 normal heart sound and S2 normal heart sound Extremity no calf tenderness General Extremity: Negative for clubbing or cyanosis Skin Wound Narrative: The patient's abdomen is mildly obese. A generally well-healed vertical midline incision is noted on the abdomen, extending both above and below the umbilicus. There is a small sinus tract opening to the right and slightly inferior to the patient's umbilicus. There is no surrounding erythema. Gentle probing of the opening reveals a sinus tract which extends tangentially and superiorly. Dimensions are documented elsewhere. The external opening is only several millimeters in diameter. No drainage is noted at this time. Neuro oriented x3, CN's II-XII intact bilaterally, moves all extremities and no focal motor deficits Sensorium / Orientation: awake, alert, oriented to person, oriented to place and oriented to time Psych Appearance: grossly normal and appropriate Attitude: calm Activity / Motor Behavior: appropriate eye contact Speech: normal speech Mood & Affect: euthymic mood Thought Process: normal thought process Thought Content: normal thought content Attention / Concentration: attention grossly intact Debridement Note Debridement Note Wound debrided: Nonhealing surgical abdominal wound. Laterality: Not Applicable Type of Debridement: Excisional debridement Anesthesia Used: 5% Lidocaine Gel Depth: Down to and including healthy tissue and in the subcutaneous layer Percentage of wound debrided: 100 Instrument Used: 3mm curette Tissue Removed: Bioburden and nonviable tissue Severity: Fat Layer Exposed Amount of bleeding with debridement: Mild Bleeding Controlled with: Compression and gauze Patient tolerated procedure: Patient tolerated procedure well Post-Debridement Measurements and Additional Note: Post-Debridement Measurements/Treatment - Nurse 1 - General Ulcer Assessment Start: 07/09/23 13:03 Freq: Status: Active Protocol: .FENG Activity Type Activity Date Activity User E-sign Co-sign Detail Recorded Client Recorded Date Recorded By Document 07/09/23 13:09 KW Desktop 07/09/23 13:14 KW Document 07/16/23 14:57 RB Desktop 07/16/23 14:59 RB 07/09/23 07/16/23 13:09 14:57 - Today's Visit Information Type of service Follow-up Visit Follow-up Visit (Physician/WHARF TALLY CLERK (Physician/WHARF TALLY CLERK ) ) Arrival Mode Ambulatory Ambulatory Transfer Assistance None Accompanied by Patient Identification Verified (Name & Yes Yes ) Patient Requires Transmission-Based No Precautions Height and Weight Height 5 ft 7 in Weight 220 lb Weight in Pounds 220.0 lbs Body Mass Index (BMI) 34.4 34.4 BMI Classification Obese Obese BSA - Nany 2.11 Vital Signs Temperature (97.8 F-99.1 F) 97.2 F L 97.6 F L Temperature Source Temporal Temporal Pulse Rate (60-100) 91 62 Pulse Location Monitor Monitor Respiratory Rate (12-18) 18 18 Respiratory rate source Observation Observation Oxygen Delivery Method Room Air Blood Pressure (90/60-120/80) 160/75 H 119/86 H Blood Pressure Mean 103 97 Source Monitor Monitor Position Semi-Fowlers Semi-Fowlers Blood Pressure Location Left Arm Left Arm History Since Last Visit- (Skip if this is Patient's initial visit) Have you changed medications since your No last visit? Any new allergies or adverse reactions No Had a fall/change in ADL's that may No increase risk of falls Signs or symptoms of abuse and/or No neglect since last visit Have you been in the hospital since your No last visit? Has dressing in place as prescribed Yes Has compression in place as prescribed No Has offloadiing in place as prescribed No Experienced any changes in pain level or No management Left Footwear Regular Shoe Right Footwear Regular Shoe Pain Scale: 0-10 Numeric Is Patient Pain Free? Yes Yes WC - Nurse 1 - General Ulcer Measurement Start: 07/09/23 13:03 Freq: Status: Active Protocol: Activity Type Activity Date Activity User E-sign Co-sign Detail Recorded Client Recorded Date Recorded By Document 07/09/23 13:09 KW Desktop 07/09/23 13:14 KW Document 07/16/23 14:57 RB Desktop 07/16/23 14:59 RB 07/09/23 07/16/23 13:09 14:57 Wound Center Nurse 1 #1 abd -Combined with other wound No -Current Size (cm) - Length 0.3 0.6 -Current Size (cm) - Width 0.5 0.7 -Current Size (cm) - Depth 0.8 1.5 -Total Square Cm 0.15 0.42 -Date of Last Picture (Recall this 07/09/23 field) -Photo Taken Yes -Tunneling Yes -Tunneling Position (O'clock) 12 -Tunneling Distance (cm) 1.5 -Exudate Amt Medium Medium -Exudate Type Serosanguineous Serosanguineous -Wound Margin Distinct, Distinct, Outline Outline Attached Attached -Granulation Amt Large (67-100%) Medium (34-66%) -Granulation Quality [place] -Slough/Fibrin Yes -Necrosis Amt Medium (34-66%) -Necrotic Tissue Type Adherent Slough -Structure Exposed N/A -Texture (Cleo-wound Skin Appearance) Assessed Assessed, Scarring -Moisture (Cleo-wound Skin Appearance) Assessed Assessed -Color (Cleo-wound Skin Appearance) Assessed Assessed -Temperature (Cleo-wound Skin No Abnormality No Abnormality Appearance) (Pt Warm) (Pt Warm) -Tenderness on Palpation (Cleo-wound No No Skin Appearance) -Ulcer Cleansing Rinsed/ Wound Cleanser Irrigated with Saline -Foul Odor after Cleansing No No -Anesthetic Used 5% Lidocaine 5% Lidocaine Gel Gel WC - Nurse 2 - General Ulcer CM Notes Start: 07/09/23 13:03 Freq: Status: Active Protocol: Activity Type Activity Date Activity User E-sign Co-sign Detail Recorded Client Recorded Date Recorded By Document 07/09/23 13:45 Laptop 07/09/23 13:49 Document 07/16/23 15:14 Laptop 07/16/23 15:15 07/09/23 07/16/23 13:45 15:14 Wound Center Nurse 2 #1 abd -Time 15:14 -Correct Patient No Yes -Correct Side, Site, Position No Yes -Correct Procedure No Yes -Procedure Performed No Yes -Type of Procedure Debridement -Clinical Debridement Subcutaneous -Tissue Removed Subcutaneous -Post Debridement (cm) - Length 0.8 -Post Debridement (cm) - Width 0.9 -Post Debridement (cm) - Depth 4.8 -Total Square (Post) (cm) 0.72 -Area of Debridement (cm) - Length 0.8 -Area of Debridement (cm) - Width 0.9 -Total Square (Area) (cm) 0.72 -Tunneling No -Undermining/Tunneling Yes -Undermining/Tunneling Starts (O'clock 12 ) -Maximum Distance (cm) 4.8 -Circular Undermining No -Wound/Ulcer Outcome Not Healed Not Healed -Ulcer Cleansing Rinsed/ Irrigated with Saline -Foul Odor after Cleansing No -Bioengineered Tissue No -Bleeding Controlled with Pressure -Treatment Response Procedure Tolerated Well -Offloading No -Debridement - Subq, 1st 20sq cm Yes Pain Scale: 0-10 Numeric Is Patient Pain Free? Yes Yes GINNA - Nurse 3 - General Ulcer D/C NN Start: 07/09/23 13:03 Freq: Status: Active Protocol: Activity Type Activity Date Activity User E-sign Co-sign Detail Recorded Client Recorded Date Recorded By Document 07/09/23 14:26 RB Desktop 07/09/23 14:27 RB Document 07/16/23 15:38 RB Desktop 07/16/23 15:38 RB 07/09/23 07/16/23 14:26 15:38 Wound Care Center Nurse 3 #1 abd -Ulcer Cleansing Wound Cleanser -Primary Dressing Applied Nugauze, Plain Nugauze, 1/4in Iodoform 1/4in -Other Dressing saline moistened moistened nugauze nugauze -Primary Dressing Covered/Secured with Dry Gauze, Dry Gauze, Secured with Secured with Tape Tape -Nugauze, Iodoform 1/4in 1 -Nugauze, Plain 1/4in 1 Treatment Response Procedure Procedure Tolerated Well Tolerated Well Pain Scale: 0-10 Numeric Is Patient Pain Free? Yes Yes Teaching: Wound Center Dressing Your Wound -Person Taught Patient,Family -Teaching Method Discussion, Demonstration -Response to teaching Verbalize understanding WC - Visit Discharge Discharge Condition Stable Stable Ambulatory Status Ambulatory Ambulatory Transportation Private Auto Private Auto Medication Reconcilliation completed & No No provided to patient/care provider Clinical Summary of Care Provided Yes Yes Assessment/Plan Assessment/Plan (1) Dehiscence of postoperative wound of abdomen: CODE(S): T81.31XA - Disruption of external operation (surgical) wound, not elsewhere classified, initial encounter (2) History of ventral hernia repair: CODE(S): Z98.890 - Other specified postprocedural states; Z87.19 - Personal history of other diseases of the digestive system (3) Status post total hip replacement, left: CODE(S): Z96.642 - Presence of left artificial hip joint (4) Peripheral arterial disease: CODE(S): I73.9 - Peripheral vascular disease, unspecified (5) S/P hip replacement: CODE(S): Z96.649 - Presence of unspecified artificial hip joint (6) Status post carotid endarterectomy: CODE(S): Z98.890 - Other specified postprocedural states (7) History of aortic aneurysm repair: CODE(S): Z98.890 - Other specified postprocedural states; Z86.79 - Personal history of other diseases of the circulatory system (8) History of femoropopliteal bypass: CODE(S): Z98.890 - Other specified postprocedural states (9) PVCs (premature ventricular contractions): CODE(S): I49.3 - Ventricular premature depolarization (10) PAC (premature atrial contraction): CODE(S): I49.1 - Atrial premature depolarization (11) History of anemia: CODE(S): Z86.2 - Personal history of diseases of the blood and blood-forming organs and certain disorders involving the immune mechanism (12) History of cerebrovascular accident: CODE(S): Z86.73 - Personal history of transient ischemic attack (TIA), and cerebral infarction without residual deficits (13) History of deep vein thrombosis: CODE(S): Z86.718 - Personal history of other venous thrombosis and embolism (14) Hyperlipidemia: CODE(S): E78.5 - Hyperlipidemia, unspecified (15) Irritable bowel syndrome: CODE(S): K58.9 - Irritable bowel syndrome without diarrhea (16) Insomnia: CODE(S): G47.00 - Insomnia, unspecified (17) Osteoarthritis: CODE(S): M19.90 - Unspecified osteoarthritis, unspecified site (18) Carotid artery stenosis: CODE(S): I65.29 - Occlusion and stenosis of unspecified carotid artery (19) Peripheral arterial occlusive disease: CODE(S): I77.9 - Disorder of arteries and arterioles, unspecified (20) Ventral hernia: CODE(S): K43.9 - Ventral hernia without obstruction or gangrene (21) BPH (benign prostatic hyperplasia): CODE(S): N40.0 - Benign prostatic hyperplasia without lower urinary tract symptoms (22) Diverticulosis: CODE(S): K57.90 - Diverticulosis of intestine, part unspecified, without perforation or abscess without bleeding PLAN: Plan This is a 77-year-old male with a very complicated and extensive medical history, and multiple prior surgical procedures. He has had open abdominal surgery in the past, for repair of a a ruptured abdominal aneurysm. The patient developed a ventral incisional hernia, for which she underwent surgical repair by Dr. Pierce at [facility] in [facility] in December 2022. He has developed a draining sinus tract within his incision, and the lower third of the incision. He had been using peroxide topically. We are to continue the use of quarter inch moistened Nu Gauze which will be packed into the wound on a daily basis. The patient and his have been instructed in the appropriate means of packing. There is concern with respect to the healing of the site. These concerns involve the possibility of a draining sinus secondary to prosthetic mesh infection, or a stitch abscess. It would appear as though his other managing physicians may be suspicious of a similar etiology, as the patient has previously undergone a CT scan of the area, the report of which will be soft. Furthermore, another of the patient's medical providers has ordered an ultrasound of the abdominal wall, and an ultrasound of the abdominal wall earlier today. The results of today's diagnostic study will be requested. In the event that there is evidence of infected prosthetic mesh, there may be a poor prognosis in terms of healing the patient's draining sinus tract. In addition, the morphology of the patient's nonhealing site is not optimal for healing by secondary intention. Total time: 26 minutes
--- NOTE | 2023-07-23 16:26 | HP.PCM_ITS ---
History of Present Illness Date of Service: 07/23/23 Chief Complaint: Surgical wound dehiscence/nonhealing abdominal surgical wound History of Wound: This is a 77-year-old male with a very extensive and complicated past medical history. The patient underwent surgical repair of a ventral hernia in December [address] Pierce at [facility]. The hernia had developed at a prior surgical site, as the patient has had multiple previous surgeries. On September 28, 2008, the patient underwent left femoral?tibial artery bypass surgery. He underwent open ruptured abdominal aneurysm repair on July 11, 2012. It appears as though the patient subsequently required a second surgical intervention for an abdominal aortic aneurysm. He underwent left carotid endarterectomy on June 04, 2017. A left femoral pseudoaneurysm repair was performed in 2021. Subsequent to his abdominal surgeries, the patient underwent his ventral abdominal hernia repair in December 2022. He has developed a draining sinus in the inferior third of his vertical midline incision. The draining sinus is to the right and slightly inferior to his umbilicus. Cultures of the drainage from the site were performed at [facility] on July 03, 2023. Culture results were positive for Staphylococcus aureus, the patient has been treated with Bactrim double strength orally twice daily since that time, and has several doses remaining. He remains under the care of his surgeon, Dr. Pierce, and has an appointment with Dr. Pierce in several weeks. In an effort to identify the possible cause of the persistent sinus tract, the patient had a CT scan at [facility] on April 19, 2023, which revealed postsurgical changes of the anterior abdominal wall, without definite focal rim-enhancing fluid collection to suggest an abscess. The other soft tissues including abdominopelvic wall are unremarkable. The patient also informs that he underwent an ultrasound of the abdominal wall earlier today at [facility], the results of which will be sought. It has been confirmed by the patient that prosthetic mesh was utilized in the repair of his ventral abdominal hernia. The patient had been using dilute peroxide to the small sinus tract opening on the anterior abdominal wall prior to his presentation. The patient is on chronic systemic anticoagulation with apixaban 5 mg p.o. twice daily. He is mildly obese, with a BMI of 34.4. [facility] Medical History Arthritis BPH (benign prostatic hyperplasia) Carotid artery stenosis Dehiscence of postoperative wound of abdomen Diverticulosis Former smoker History of anemia History of cerebrovascular accident History of deep vein thrombosis History of echocardiogram History of steroid therapy Hx of abdominal aortic aneurysm Hyperlipidemia Insomnia Irritable bowel syndrome Osteoarthritis PAC (premature atrial contraction) Peripheral arterial disease Peripheral arterial occlusive disease PVCs (premature ventricular contractions) Stroke/cerebrovascular accident TIA (transient ischemic attack) Ventral hernia Home Medications aspirin 81 mg capsule 81 mg PO DAILY 12/13/21 [History Last Taken 12/23/21] atorvastatin 80 mg tablet 80 mg PO QHS 12/13/21 [History Last Taken Unknown] cholecalciferol (vitamin D3) 25 mcg (1,000 unit) tablet (Vitamin D3) 1,000 mcg PO DAILY 12/13/21 [History Last Taken Unknown] acetaminophen 500 mg tablet 1,000 mg (2 x 500 mg) PO TID #100 tabs 12/28/21 [Rx Last Taken Unknown] aspirin 81 mg chewable tablet 81 mg PO BID #0 tabs 12/28/21 [Rx Last Taken U nknown] famotidine 20 mg tablet 20 mg PO DAILY #30 tabs 12/28/21 [Rx Last Taken Unknown] oxycodone 5 mg tablet 5 - 10 mg (1 - 2 x 5 mg) PO Q4H PRN PRN Pain Score 4-10 2 days #8 tabs 12/28/21 [Rx Last Taken Unknown] sennosides 8.6 mg-docusate sodium 50 mg tablet (Stool Softener-Stimulant Laxative) 2 tab PO BID #20 tabs 12/28/21 [Rx Last Taken Unknown] apixaban 5 mg (74 tabs) tablets in a dose pack (Eliquis DVT-PE Treat 30D Start) mg PO 07/09/23 [History Last Taken Unknown] cephalexin 500 mg capsule 500 mg PO Q12.TCU 07/09/23 [History Last Taken Unknown] finasteride 5 mg tablet 5 mg PO DAILY 07/09/23 [History Last Taken Unknown] pantoprazole 40 mg tablet,delayed release 40 mg PO BID 07/09/23 [History Last Taken Unknown] sulfamethoxazole 800 mg-trimethoprim 160 mg tablet 1 tab PO BID 07/09/23 [History Last Taken Unknown] tamsulosin 0.4 mg capsule 0.4 mg PO DAILY 07/09/23 [History Last Taken Unknown] Allergy/AdvReac Type Severity Reaction Status Date / Time No Known Allergies Allergy Verified 12/27/21 07:48 Surgical History History of aortic aneurysm repair History of evacuation of hematoma History of femoropopliteal bypass History of left-sided carotid endarterectomy History of ventral hernia repair Hx of abdominal surgery Hx of surgical procedure Hx of total hip arthroplasty Hx of tracheostomy S/P hip replacement Status post carotid endarterectomy Social History Smoking Status: Former smoker Vital Signs Vital Signs Vital Signs: Weight Weight: 220 lb Body Mass Index (BMI) 34.4 Physical Exam Const alert, oriented x3, no apparent distress and well nourished Constitutional Narrative: The patient is alert, oriented, and appropriate. He is mildly obese, with a BMI of 34.4. General Appearance: cooperative, comfortable, well kempt and well developed Orientation / Consciousness: awake, oriented to person, oriented to place and oriented to time Exam Limitations: no limitations HEENT normocephalic, head/scalp atraumatic and hearing grossly normal bilaterally Head and Scalp: normal to inspection, normocephalic and atraumatic Nose: external nose normal External Ear: external ears normal Eyes PERRL and EOMs intact bilaterally General Eye: normal appearance of both eyes Resp normal respiratory effort, normal air movement, no retractions, no use of accessory muscles and clear to auscultation bilaterally Effort and Inspection: able to speak in complete sentences and symmetric chest movement Cardio regular rate, regular rhythm, S1 normal heart sound and S2 normal heart sound Extremity no calf tenderness General Extremity: Negative for clubbing or cyanosis Skin Wound Narrative: The patient's abdomen is mildly obese. A generally well-healed vertical midline incision is noted on the abdomen, extending both above and below the umbilicus. There is a small sinus tract opening to the right and slightly inferior to the patient's umbilicus. There is no surrounding erythema. Gentle probing of the opening reveals a tunneled wound which extends tangentially and superiorly. Dimensions are documented elsewhere. The external opening is only several millimeters in diameter. No drainage is noted at this time. There is no odor. Neuro oriented x3, CN's II-XII intact bilaterally, moves all extremities and no focal motor deficits Sensorium / Orientation: awake, alert, oriented to person, oriented to place and oriented to time Psych Appearance: grossly normal and appropriate Attitude: calm Activity / Motor Behavior: appropriate eye contact Speech: normal speech Mood & Affect: euthymic mood Thought Process: normal thought process Thought Content: normal thought content Attention / Concentration: attention grossly intact Debridement Note Debridement Note Wound debrided: Nonhealing surgical abdominal wound. Laterality: Not Applicable Type of Debridement: Excisional debridement Anesthesia Used: 5% Lidocaine Gel Depth: Down to and including healthy tissue and in the subcutaneous layer Percentage of wound debrided: 100 Instrument Used: 3mm curette Tissue Removed: Bioburden and nonviable tissue Severity: Fat Layer Exposed Amount of bleeding with debridement: Mild Bleeding Controlled with: Compression and gauze Patient tolerated procedure: Patient tolerated procedure well Post-Debridement Measurements and Additional Note: Post-Debridement Measurements/Treatment - Nurse 1 - General Ulcer Assessment Start: 07/09/23 13:03 Freq: Status: Active Protocol: LIA Activity Type Activity Date Activity User E-sign Co-sign Detail Recorded Client Recorded Date Recorded By Document 07/09/23 13:09 KW Desktop 07/09/23 13:14 KW Document 07/16/23 14:57 RB Desktop 07/16/23 14:59 RB 07/09/23 07/16/23 13:09 14:57 - Today's Visit Information Type of service Follow-up Visit Follow-up Visit (Physician/FASHION STYLING INTERN (Physician/FASHION STYLING INTERN ) ) Arrival Mode Ambulatory Ambulatory Transfer Assistance None Accompanied by Patient Identification Verified (Name & Yes Yes ) Patient Requires Transmission-Based No Precautions Height and Weight Height 5 ft 7 in Weight 220 lb Weight in Pounds 220.0 lbs Body Mass Index (BMI) 34.4 34.4 BMI Classification Obese Obese BSA - Nany 2.11 Vital Signs Temperature (97.8 F-99.1 F) 97.2 F L 97.6 F L Temperature Source Temporal Temporal Pulse Rate (60-100) 91 62 Pulse Location Monitor Monitor Respiratory Rate (12-18) 18 18 Respiratory rate source Observation Observation Oxygen Delivery Method Room Air Blood Pressure (90/60-120/80) 160/75 H 119/86 H Blood Pressure Mean 103 97 Source Monitor Monitor Position Semi-Fowlers Semi-Fowlers Blood Pressure Location Left Arm Left Arm History Since Last Visit- (Skip if this is Patient's initial visit) Have you changed medications since your No last visit? Any new allergies or adverse reactions No Had a fall/change in ADL's that may No increase risk of falls Signs or symptoms of abuse and/or No neglect since last visit Have you been in the hospital since your No last visit? Has dressing in place as prescribed Yes Has compression in place as prescribed No Has offloadiing in place as prescribed No Experienced any changes in pain level or No management Left Footwear Regular Shoe Right Footwear Regular Shoe Pain Scale: 0-10 Numeric Is Patient Pain Free? Yes Yes WC - Nurse 1 - General Ulcer Measurement Start: 07/09/23 13:03 Freq: Status: Active Protocol: Activity Type Activity Date Activity User E-sign Co-sign Detail Recorded Client Recorded Date Recorded By Document 07/09/23 13:09 KW Desktop 07/09/23 13:14 KW Document 07/16/23 14:57 RB Desktop 07/16/23 14:59 RB 07/09/23 07/16/23 13:09 14:57 Wound Center Nurse 1 #1 abd -Combined with other wound No -Current Size (cm) - Length 0.3 0.6 -Current Size (cm) - Width 0.5 0.7 -Current Size (cm) - Depth 0.8 1.5 -Total Square Cm 0.15 0.42 -Date of Last Picture (Recall this 07/09/23 field) -Photo Taken Yes -Tunneling Yes -Tunneling Position (O'clock) 12 -Tunneling Distance (cm) 1.5 -Exudate Amt Medium Medium -Exudate Type Serosanguineous Serosanguineous -Wound Margin Distinct, Distinct, Outline Outline Attached Attached -Granulation Amt Large (67-100%) Medium (34-66%) -Granulation Quality Red Excello -Slough/Fibrin Yes -Necrosis Amt Medium (34-66%) -Necrotic Tissue Type Adherent Slough -Structure Exposed N/A -Texture (Cleo-wound Skin Appearance) Assessed Assessed, Scarring -Moisture (Cleo-wound Skin Appearance) Assessed Assessed -Color (Cleo-wound Skin Appearance) Assessed Assessed -Temperature (Cleo-wound Skin No Abnormality No Abnormality Appearance) (Pt Warm) (Pt Warm) -Tenderness on Palpation (Cleo-wound No No Skin Appearance) -Ulcer Cleansing Rinsed/ Wound Cleanser Irrigated with Saline -Foul Odor after Cleansing No No -Anesthetic Used 5% Lidocaine 5% Lidocaine Gel Gel WC - Nurse 2 - General Ulcer CM Notes Start: 07/09/23 13:03 Freq: Status: Active Protocol: Activity Type Activity Date Activity User E-sign Co-sign Detail Recorded Client Recorded Date Recorded By Document 07/09/23 13:45 Laptop 07/09/23 13:49 Document 07/16/23 15:14 Laptop 07/16/23 15:15 07/09/23 07/16/23 13:45 15:14 Wound Center Nurse 2 #1 abd -Time 15:14 -Correct Patient No Yes -Correct Side, Site, Position No Yes -Correct Procedure No Yes -Procedure Performed No Yes -Type of Procedure Debridement -Clinical Debridement Subcutaneous -Tissue Removed Subcutaneous -Post Debridement (cm) - Length 0.8 -Post Debridement (cm) - Width 0.9 -Post Debridement (cm) - Depth 4.8 -Total Square (Post) (cm) 0.72 -Area of Debridement (cm) - Length 0.8 -Area of Debridement (cm) - Width 0.9 -Total Square (Area) (cm) 0.72 -Tunneling No -Undermining/Tunneling Yes -Undermining/Tunneling Starts (O'clock 12 ) -Maximum Distance (cm) 4.8 -Circular Undermining No -Wound/Ulcer Outcome Not Healed Not Healed -Ulcer Cleansing Rinsed/ Irrigated with Saline -Foul Odor after Cleansing No -Bioengineered Tissue No -Bleeding Controlled with Pressure -Treatment Response Procedure Tolerated Well -Offloading No -Debridement - Subq, 1st 20sq cm Yes Pain Scale: 0-10 Numeric Is Patient Pain Free? Yes Yes WC - Nurse 3 - General Ulcer D/C NN Start: 07/09/23 13:03 Freq: Status: Active Protocol: Activity Type Activity Date Activity User E-sign Co-sign Detail Recorded Client Recorded Date Recorded By Document 07/09/23 14:26 RB Desktop 07/09/23 14:27 RB Document 07/16/23 15:38 RB Desktop 07/16/23 15:38 RB 07/09/23 07/16/23 14:26 15:38 Wound Care Center Nurse 3 #1 abd -Ulcer Cleansing Wound Cleanser -Primary Dressing Applied Nugauze, Plain Nugauze, 1/4in Iodoform 1/4in -Other Dressing saline moistened moistened nugauze nugauze -Primary Dressing Covered/Secured with Dry Gauze, Dry Gauze, Secured with Secured with Tape Tape -Nugauze, Iodoform 1/4in 1 -Nugauze, Plain 1/4in 1 Treatment Response Procedure Procedure Tolerated Well Tolerated Well Pain Scale: 0-10 Numeric Is Patient Pain Free? Yes Yes Teaching: Wound Center Dressing Your Wound -Person Taught Patient,Family -Teaching Method Discussion, Demonstration -Response to teaching Verbalize understanding WC - Visit Discharge Discharge Condition Stable Stable Ambulatory Status Ambulatory Ambulatory Transportation Private Auto Private Auto Medication Reconcilliation completed & No No provided to patient/care provider Clinical Summary of Care Provided Yes Yes Assessment/Plan Assessment/Plan (1) Dehiscence of postoperative wound of abdomen: CODE(S): T81.31XA - Disruption of external operation (surgical) wound, not elsewhere classified, initial encounter (2) History of ventral hernia repair: CODE(S): Z98.890 - Other specified postprocedural states; Z87.19 - Personal history of other diseases of the digestive system (3) Status post total hip replacement, left: CODE(S): Z96.642 - Presence of left artificial hip joint (4) Peripheral arterial disease: CODE(S): I73.9 - Peripheral vascular disease, unspecified (5) S/P hip replacement: CODE(S): Z96.649 - Presence of unspecified artificial hip joint (6) Status post carotid endarterectomy: CODE(S): Z98.890 - Other specified postprocedural states (7) History of aortic aneurysm repair: CODE(S): Z98.890 - Other specified postprocedural states; Z86.79 - Personal history of other diseases of the circulatory system (8) History of femoropopliteal bypass: CODE(S): Z98.890 - Other specified postprocedural states (9) PVCs (premature ventricular contractions): CODE(S): I49.3 - Ventricular premature depolarization (10) PAC (premature atrial contraction): CODE(S): I49.1 - Atrial premature depolarization (11) History of anemia: CODE(S): Z86.2 - Personal history of diseases of the blood and blood-fo rming organs and certain disorders involving the immune mechanism (12) History of cerebrovascular accident: CODE(S): Z86.73 - Personal history of transient ischemic attack (TIA), and cerebral infarction without residual deficits (13) History of deep vein thrombosis: CODE(S): Z86.718 - Personal history of other venous thrombosis and embolism (14) Hyperlipidemia: CODE(S): E78.5 - Hyperlipidemia, unspecified (15) Irritable bowel syndrome: CODE(S): K58.9 - Irritable bowel syndrome without diarrhea (16) Insomnia: CODE(S): G47.00 - Insomnia, unspecified (17) Osteoarthritis: CODE(S): M19.90 - Unspecified osteoarthritis, unspecified site (18) Carotid artery stenosis: CODE(S): I65.29 - Occlusion and stenosis of unspecified carotid artery (19) Peripheral arterial occlusive disease: CODE(S): I77.9 - Disorder of arteries and arterioles, unspecified (20) Ventral hernia: CODE(S): K43.9 - Ventral hernia without obstruction or gangrene (21) BPH (benign prostatic hyperplasia): CODE(S): N40.0 - Benign prostatic hyperplasia without lower urinary tract symptoms (22) Diverticulosis: CODE(S): K57.90 - Diverticulosis of intestine, part unspecified, without perforation or abscess without bleeding PLAN: Plan This is a 77-year-old male with a very complicated and extensive medical history, and multiple prior surgical procedures. He has had open abdominal s urgery in the past, for repair of a a ruptured abdominal aneurysm. The patient developed a ventral incisional hernia, for which he underwent surgical repair by Dr. Pierce at [facility] in [place], [place] in December 2022. He has developed a draining sinus tract within his incision, in the lower third of the incision. He had been using peroxide topically. We are to continue the use of quarter-inch moistened Nu Gauze which will be packed into the wound on a daily basis. The patient and his have been instructed in the appropriate means of packing. There is concern with respect to the healing of the site. These concerns involve the possibility of a draining sinus secondary to prosthetic mesh infection, or a stitch abscess. It would appear as though his other managing physicians may be suspicious of a similar etiology, as the patient has previously undergone a CT scan of the area. More recently, the patient underwent an ultrasound of the abdominal wall. These radiological studies were performed at [facility]. I have spoken by phone earlier this week with Dr. Shah, a radiologist at [facility]. According to reports, in discussion with Dr. Shah, there appears to be a fluid collection adjacent to the hernia mesh on the anterior abdominal wall. There remains a question as to whether there is evidence of infected prosthetic mesh. Ther efore, we are to request discs of the radiology images, which will then be reviewed with Dr. Earl, at [facility]. Will then be determined whether additional imaging studies will be warranted in an effort to determine whether the mass may be infected. In the event that there is evidence of infected prosthetic mesh, there may be a poor prognosis in terms of healing the patient's draining sinus tract. Furthermore, the morphology of the patient's nonhealing site is not optimal for healing by secondary intention, given that it is a tunneled wound with extension subcutaneously. The patient has a conflict and returning in 1 week for reassessment, and will follow-up, therefore, in 2 weeks. Consideration may be given to the use of negative pressure wound therapy using a Wound VAC. Total time: 28 minutes
== END 2023-07-16 23:59 | disposition home or self-care (01) ==
LOC: WC 14:30
PROVIDERS: PCP Student in an Organized Health Care Education/Training Program; Referring Provider Student in an Organized Health Care Education/Training Program; Visit Provider Surgery
DX: T81.31XA Disruption of external operation (surgical) wound, not elsewhere classified, initial encounter (principal); Z96.642 Presence of left artificial hip joint; I49.1 Atrial premature depolarization; M19.90 Unspecified osteoarthritis, unspecified site; K57.90 Diverticulosis of intestine, part unspecified, without perforation or abscess without bleeding; I73.9 Peripheral vascular disease, unspecified; K58.9 Irritable bowel syndrome, unspecified; E78.5 Hyperlipidemia, unspecified; I65.29 Occlusion and stenosis of unspecified carotid artery; N40.0 Benign prostatic hyperplasia without lower urinary tract symptoms; I49.3 Ventricular premature depolarization; G47.00 Insomnia, unspecified; E66.9 Obesity, unspecified; Z68.34 Body mass index [BMI] 34.0-34.9, adult; Z79.82 Long term (current) use of aspirin; Z79.01 Long term (current) use of anticoagulants; Z98.890 Other specified postprocedural states; Z86.73 Personal history of transient ischemic attack (TIA), and cerebral infarction without residual deficits; Z87.891 Personal history of nicotine dependence; Z86.718 Personal history of other venous thrombosis and embolism; Z86.79 Personal history of other diseases of the circulatory system
CPT/HCPCS: 11042; 99213; G0463

== ENCOUNTER 2023-08-06 10:00 | Outpatient (RCR) | payer MEDICARE, OTHER, SELFPAY ==
[2023-07-17 00:57] VITALS: BP 119/86; PULSE 62; RESP 18; TEMP 36.4; BMI 34.4
[2023-07-23 15:12] VITALS: BP 145/94; PULSE 80; RESP 18; TEMP 36.2; BMI 34.4
[2023-08-06 10:03] VITALS: BP 135/71; PULSE 78; RESP 18; TEMP 35.7; BMI 34.4
--- NOTE | 2023-08-06 10:22 | HP.PCM_ITS ---
History of Present Illness Date of Service: 08/06/23 Chief Complaint: Surgical wound dehiscence/nonhealing abdominal surgical wound History of Wound: This is a 77-year-old male with a very extensive and complicated past medical history. The patient underwent surgical repair of a ventral hernia in December [address] Pierce at [facility]. The hernia had developed at a prior surgical site, as the patient has had multiple previous surgeries. On September 28, 2008, the patient underwent left femoral?tibial artery bypass surgery. He underwent open ruptured abdominal aneurysm repair on July 11, 2012. It appears as though the patient subsequently required a second surgical intervention for an abdominal aortic aneurysm. He underwent left carotid endarterectomy on June 04, 2017. A left femoral pseudoaneurysm repair was performed in 2021. Subsequent to his abdominal surgeries, the patient underwent his ventral abdominal hernia repair in December 2022. He has developed a draining sinus in the inferior third of his vertical midline incision. The draining sinus is to the right and slightly inferior to his umbilicus. Cultures of the drainage from the site were performed at [facility] on July 03, 2023. Culture results were positive for Staphylococcus aureus, the patient has been treated with Bactrim double strength orally twice daily since that time, and has several doses remaining. He remains under the care of his surgeon, Dr. Pierce, and has an appointment with Dr. Pierce in several weeks. In an effort to identify the possible cause of the persistent sinus tract, the patient had a CT scan at [facility] on April 19, 2023, which revealed postsurgical changes of the anterior abdominal wall, without definite focal rim-enhancing fluid collection to suggest an abscess. The other soft tissues including abdominopelvic wall are unremarkable. The patient also informs that he underwent an ultrasound of the abdominal wall earlier today at [facility], the results of which will be sought. It has been confirmed by the patient that prosthetic mesh was utilized in the repair of his ventral abdominal hernia. The patient had been using dilute peroxide to the small sinus tract opening on the anterior abdominal wall prior to his presentation. The patient is on chronic systemic anticoagulation with apixaban 5 mg p.o. twice daily. He is mildly obese, with a BMI of 34.4. [facility] Medical History (Updated 08/06/23 @ 10:[address] Soren Hancock MD) Surgical wound dehiscence Dehiscence of postoperative wound of abdomen Diverticulosis BPH (benign prostatic hyperplasia) Ventral hernia Peripheral arterial occlusive disease Carotid artery stenosis Osteoarthritis Insomnia Irritable bowel syndrome Hyperlipidemia History of deep vein thrombosis History of cerebrovascular accident History of anemia PAC (premature atrial contraction) PVCs (premature ventricular contractions) Peripheral arterial disease History of steroid therapy Arthritis TIA (transient ischemic attack) Stroke/cerebrovascular accident Former smoker History of echocardiogram Hx of abdominal aortic aneurysm Home Medications ?Medication ?Instructions ?Recorded ?Last Taken ?Type aspirin 81 mg capsule 81 mg PO DAILY 12/13/21 12/23/21 History atorvastatin 80 mg tablet 80 mg PO QHS 12/13/21 Unknown History cholecalciferol (vitamin D3) 25 1,000 mcg PO DAILY 12/13/21 Unknown History mcg (1,000 unit) tablet (Vitamin D3) acetaminophen 500 mg tablet 1,000 mg (2 x 500 mg) PO TID #100 12/28/21 Unknown Rx tabs aspirin 81 mg chewable tablet 81 mg PO BID #0 tabs 12/28/21 Unknown Rx famotidine 20 mg tablet 20 mg PO DAILY #30 tabs 12/28/21 Unknown Rx oxycodone 5 mg tablet 5 - 10 mg (1 - 2 x 5 mg) PO Q4H 12/28/21 Unknown Rx PRN PRN Pain Score 4-10 2 days #8 tabs sennosides 8.6 mg-docusate sodium 2 tab PO BID #20 tabs 12/28/21 Unknown Rx 50 mg tablet (Stool Softener-Stimulant Laxative) apixaban 5 mg (74 tabs) tablets in mg PO 07/09/23 Unknown History a dose pack (Eliquis DVT-PE Treat 30D Start) cephalexin 500 mg capsule 500 mg PO Q12.TCU 07/09/23 Unknown History finasteride 5 mg tablet 5 mg PO DAILY 07/09/23 Unknown History pantoprazole 40 mg tablet,delayed 40 mg PO BID 07/09/23 Unknown History release sulfamethoxazole 800 1 tab PO BID 07/09/23 Unknown History mg-trimethoprim 160 mg tablet tamsulosin 0.4 mg capsule 0.4 mg PO DAILY 07/09/23 Unknown History Allergy/AdvReac Type Severity Reaction Status Date / Time No Known Allergies Allergy Verified 12/27/21 07:48 Surgical History History of ventral hernia repair History of femoropopliteal bypass History of aortic aneurysm repair Status post carotid endarterectomy S/P hip replacement Hx of tracheostomy History of evacuation of hematoma Hx of total hip arthroplasty Hx of surgical procedure History of left-sided carotid endarterectomy Hx of abdominal surgery Social History Smoking Status: Former smoker Vital Signs Vital Signs Vital Signs: 08/06/23 10:03 Temperature 96.3 F L Temperature Source Temporal Pulse Rate 78 Respiratory Rate 18 Blood Pressure 135/71 H Blood Pressure Mean 92 Blood Pressure Source Monitor Blood Pressure Position Semi-Fowlers Blood Pressure Location Left Arm Weight Weight: 220 lb Body Mass Index (BMI) 34.4 Physical Exam Const alert, oriented x3, no apparent distress and well nourished Constitutional Narrative: The patient is alert, oriented, and appropriate. He is mildly obese, with a BMI of 34.4. General Appearance: cooperative, comfortable, well kempt and well developed Orientation / Consciousness: awake, oriented to person, oriented to place and oriented to time Exam Limitations: no limitations HEENT normocephalic, head/scalp atraumatic and hearing grossly normal bilaterally Head and Scalp: normal to inspection, normocephalic and atraumatic Nose: external nose normal External Ear: external ears normal Eyes PERRL and EOMs intact bilaterally General Eye: normal appearance of both eyes Resp normal respiratory effort, normal air movement, no retractions, no use of accessory muscles and clear to auscultation bilaterally Effort and Inspection: able to speak in complete sentences and symmetric chest movement Cardio regular rate, regular rhythm, S1 normal heart sound and S2 normal heart sound Extremity no calf tenderness General Extremity: Negative for clubbing or cyanosis Skin Wound Narrative: The patient's abdomen is mildly obese. A generally well-healed vertical midline incision is noted on the abdomen, extending both above and below the umbilicus. There is a small opening to the right and slightly inferior to the patient's umbilicus. There is no surrounding erythema. Gentle probing of the opening reveals a tunneled wound which extends tangentially and superiorly. Dimensions are documented elsewhere. The depth of the wound has decreased significantly. The base of the wound appears generally pink and healthy in appearance, with active granulation tissue. The external opening is several millimeters in diameter. No drainage is noted at this time. There is no odor. Neuro oriented x3, CN's II-XII intact bilaterally, moves all extremities and no focal motor deficits Sensorium / Orientation: awake, alert, oriented to person, oriented to place and oriented to time Psych Appearance: grossly normal and appropriate Attitude: calm Activity / Motor Behavior: appropriate eye contact Speech: normal speech Mood & Affect: euthymic mood Thought Process: normal thought process Thought Content: normal thought content Attention / Concentration: attention grossly intact Debridement Note Debridement Note Wound debrided: Nonhealing surgical abdominal wound. Laterality: Not Applicable Type of Debridement: Excisional debridement Anesthesia Used: 5% Lidocaine Gel Depth: Down to and including healthy tissue and in the subcutaneous layer Percentage of wound debrided: 100 Instrument Used: 3mm curette Tissue Removed: Bioburden and nonviable tissue Severity: Fat Layer Exposed Amount of bleeding with debridement: Mild Bleeding Controlled with: Compression and gauze Patient tolerated procedure: Patient tolerated procedure well Post-Debridement Measurements and Additional Note: Post-Debridement Measurements/Treatment [facility] Nurse 1 - General Ulcer Assessment Start: 07/23/23 15:12 Freq: Status: Active Protocol: GINNA.FENG Activity Type Activity Date Activity User E-sign Co-sign Detail Recorded Client Recorded Date Recorded By Document 07/23/23 15:12 Desktop 07/23/23 15:14 Document 08/06/23 10:03 wound center 08/06/23 10:05 RB 07/23/23 08/06/23 15:12 10:03 - Today's Visit Information Type of service Follow-up Visit Follow-up Visit (Physician/RN PSYCHIATRIC (Physician/RN PSYCHIATRIC ) ) Arrival Mode Ambulatory Ambulatory Transfer Assistance None None Patient Identification Verified (Name & Yes Yes ) Patient Requires Transmission-Based No No Precautions Height and Weight Body Mass Index (BMI) 34.4 34.4 BMI Classification Obese Obese Vital Signs Temperature (97.8 F-99.1 F) 97.2 F L 96.3 F L Temperature Source Oral Temporal Pulse Rate (60-100) 80 78 Pulse Location Monitor Monitor Respiratory Rate (12-18) 18 18 Respiratory rate source Observation Observation Blood Pressure (90/60-120/80) 145/94 H 135/71 H Blood Pressure Mean 111 92 Source Monitor Monitor Position Semi-Fowlers Semi-Fowlers Blood Pressure Location Left Arm Left Arm History Since Last Visit- (Skip if this is Patient's initial visit) Have you changed medications since your No No last visit? Any new allergies or adverse reactions No No Had a fall/change in ADL's that may No No increase risk of falls Signs or symptoms of abuse and/or No No neglect since last visit Have you been in the hospital since your No No last visit? Has dressing in place as prescribed Yes Yes Has compression in place as prescribed No No Has offloadiing in place as prescribed No No Experienced any changes in pain level or No No management Pain Scale: 0-10 Numeric Is Patient Pain Free? Yes Yes WC - Nurse 1 - General Ulcer Measurement Start: 07/23/23 15:12 Freq: Status: Active Protocol: Activity Type Activity Date Activity User E-sign Co-sign Detail Recorded Client Recorded Date Recorded By Document 07/23/23 15:12 Desktop 07/23/23 15:14 RB Document 08/06/23 10:03 wound center 08/06/23 10:05 RB 07/23/23 08/06/23 15:12 10:03 Wound Center Nurse 1 #1 abd -Combined with other wound No No -Current Size (cm) - Length 0.7 0.9 -Current Size (cm) - Width 0.8 0.9 -Current Size (cm) - Depth 5.5 1 -Total Square Cm 0.56 0.81 -Tunneling Yes Yes -Tunneling Position (O'clock) 12 1 -Tunneling Distance (cm) 5.5 2 -Undermining/Tunneling No No -Circular Undermining No No -Exudate Amt Large Large -Exudate Type Serosanguineous Serosanguineous -Wound Margin Distinct, Thickened & Outline Rolled Under Attached -Granulation Amt Medium (34-66%) Medium (34-66%) -Granulation Quality [place] -Slough/Fibrin Yes Yes -Necrosis Amt Medium (34-66%) Medium (34-66%) -Necrotic Tissue Type Adherent Slough Adherent Slough -Structure Exposed N/A N/A -Texture (Cleo-wound Skin Appearance) Assessed Scarring -Moisture (Cleo-wound Skin Appearance) Assessed Assessed -Color (Cleo-wound Skin Appearance) Erythema Assessed -Temperature (Cleo-wound Skin No Abnormality No Abnormality Appearance) (Pt Warm) (Pt Warm) -Tenderness on Palpation (Cleo-wound No No Skin Appearance) -Ulcer Cleansing Wound Cleanser Wound Cleanser -Foul Odor after Cleansing No No -Anesthetic Used 5% Lidocaine 4% Lidocaine Gel Solution - Nurse 2 - General Ulcer CM Notes Start: 07/23/23 15:12 Freq: Status: Active Protocol: Activity Type Activity Date Activity User E-sign Co-sign Detail Recorded Client Recorded Date Recorded By Document 07/23/23 15:37 Laptop 07/23/23 15:39 Document 08/06/23 10:15 [place] [id number] 08/06/23 10:18 DS 07/23/23 08/06/23 15:37 10:15 Wound Center Nurse 2 #1 abd -Time 15:38 10:15 -Correct Patient Yes Yes -Correct Side, Site, Position Yes Yes -Correct Procedure Yes Yes -Procedure Performed Yes Yes -Type of Procedure Debridement Debridement -Clinical Debridement Subcutaneous Subcutaneous -Tissue Removed Subcutaneous Subcutaneous -Post Debridement (cm) - Length 0.8 1.0 -Post Debridement (cm) - Width 0.8 0.9 -Post Debridement (cm) - Depth 4.8 2.0 -Total Square (Post) (cm) 0.64 0.90 -Area of Debridement (cm) - Length 0.8 1.0 -Area of Debridement (cm) - Width 0.8 0.9 -Total Square (Area) (cm) 0.64 0.90 -Tunneling No No -Undermining/Tunneling No No -Circular Undermining No No -Wound/Ulcer Outcome Not Healed Not Healed -Ulcer Cleansing Rinsed/ Rinsed/ Irrigated with Irrigated with Saline Saline -Foul Odor after Cleansing No -Bioengineered Tissue No -Bleeding Controlled with Pressure Pressure -Treatment Response Procedure Procedure Tolerated Well Tolerated Well -Offloading No -Debridement - Subq, 1st 20sq cm Yes Yes Pain Scale: 0-10 Numeric Is Patient Pain Free? Yes Yes GINNA - Nurse 3 - General Ulcer D/C NN Start: 07/23/23 15:12 Freq: Status: Active Protocol: Activity Type Activity Date Activity User E-sign Co-sign Detail Recorded Client Recorded Date Recorded By Document 07/23/23 15:39 Laptop 07/23/23 15:40 07/23/23 15:39 Wound Care Center Nurse 3 #1 abd -Ulcer Cleansing Rinsed/ Irrigated with Saline -Foul Odor after Cleansing No -Primary Dressing Applied Nugauze, Plain 1/4in -Nugauze, Plain 1/4in 1 Pain Scale: 0-10 Numeric Is Patient Pain Free? Yes WC - Visit Discharge Discharge Condition Stable Ambulatory Status Ambulatory Transportation Private Auto Accompanied by Medication Reconcilliation completed & Yes provided to patient/care provider Clinical Summary of Care Provided Yes Assessment/Plan Assessment/Plan (1) Surgical wound dehiscence: CODE(S): T81.31XA - Disruption of external operation (surgical) wound, not elsewhere classified, initial encounter QUALIFIERS: Encounter type: subsequent encounter Qualified Code(s): T81.31XD - Disruption of external operation (surgical) wound, not elsewhere classified, subsequent encounter (2) History of ventral hernia repair: CODE(S): Z98.890 - Other specified postprocedural states; Z87.19 - Personal history of other diseases of the digestive system (3) Status post total hip replacement, left: CODE(S): Z96.642 - Presence of left artificial hip joint (4) Peripheral arterial disease: CODE(S): I73.9 - Peripheral vascular disease, unspecified (5) S/P hip replacement: CODE(S): Z96.649 - Presence of unspecified artificial hip joint (6) Status post carotid endarterectomy: CODE(S): Z98.890 - Other specified postprocedural states (7) History of aortic aneurysm repair: CODE(S): Z98.890 - Other specified postprocedural states; Z86.79 - Personal history of other diseases of the circulatory system (8) History of femoropopliteal bypass: CODE(S): Z98.890 - Other specified postprocedural states (9) PVCs (premature ventricular contractions): CODE(S): I49.3 - Ventricular premature depolarization (10) PAC (premature atrial contraction): CODE(S): I49.1 - Atrial premature depolarization (11) History of anemia: CODE(S): Z86.2 - Personal history of diseases of the blood and blood-for abby organs and certain disorders involving the immune mechanism (12) History of cerebrovascular accident: CODE(S): Z86.73 - Personal history of transient ischemic attack (TIA), and cerebral infarction without residual deficits (13) History of deep vein thrombosis: CODE(S): Z86.718 - Personal history of other venous thrombosis and embolism (14) Hyperlipidemia: CODE(S): E78.5 - Hyperlipidemia, unspecified (15) Irritable bowel syndrome: CODE(S): K58.9 - Irritable bowel syndrome without diarrhea (16) Insomnia: CODE(S): G47.00 - Insomnia, unspecified (17) Osteoarthritis: CODE(S): M19.90 - Unspecified osteoarthritis, unspecified site (18) Carotid artery stenosis: CODE(S): I65.29 - Occlusion and stenosis of unspecified carotid artery (19) Peripheral arterial occlusive disease: CODE(S): I77.9 - Disorder of arteries and arterioles, unspecified (20) Ventral hernia: CODE(S): K43.9 - Ventral hernia without obstruction or gangrene (21) BPH (benign prostatic hyperplasia): CODE(S): N40.0 - Benign prostatic hyperplasia without lower urinary tract symptoms (22) Diverticulosis: CODE(S): K57.90 - Diverticulosis of intestine, part unspecified, without perforation or abscess without bleeding PLAN: Plan This is a 77-year-old male with a very complicated and extensive medical history, and multiple prior surgical procedures. He has had open abdominal baig rgery in the past, for repair of a a ruptured abdominal aneurysm. The patient developed a ventral incisional hernia, for which he underwent surgical repair by Dr. Pierce at [facility] in [place], [place] in December 2022. He has developed a draining sinus tract within his incision, in the lower third of the incision. He had been using peroxide topically. We are to continue the use of quarter-inch moistened Nu Gauze which will be packed into the wound on a daily basis. The patient and his have been instructed in the appropriate means of packing. There has been significant improvement within the last several weeks. There is concern, however, with respect to the healing of the site. These concerns involve the possibility of a draining sinus secondary to prosthetic mesh infection, or a stitch abscess. It would appear as though his other managing physicians may be suspicious of a similar etiology, as the patient has previously undergone a CT scan of the area. More recently, the patient underwent an ultrasound of the abdominal wall. These radiological studies were performed at [facility]. I have spoken by phone earlier this week with Dr. Shah, a radiologist at [facility]. According to reports, in discussion with Dr. Shah, there appears to be a fluid collection adjacent to the hernia mesh on the anterior abdominal wall. There remains a question as to whether there is evidence of infected prosthetic mesh. Therefore, we have requested the discs of the radiology images to be sent to [facility]. They were received yesterday. The intent was to review with our local radiologist. However, he is on vacation this week, and unavailable. Therefore, review and discussion regarding these discs will await his return. It will then be determined whether additional imaging studies will be warranted in an effort to determine whether the mass may be infected. In the event that there is evidence of infected prosthetic mesh, there may be a poor prognosis in terms of healing the patient's draining sinus tract. Furthermore, the morphology of the patient's nonhealing site is not optimal for healing by secondary intention, given that it is a tunneled wound with extension subcutaneously. However, the improvement noted today is encouraging, as the tunneled wound demonstrates less depth and with evidence of healing. The patient is to follow-up in 2 weeks for reassessment. Consideration may be given to the use of negative pressure wound therapy using a Wound VAC. Total time: 26 minutes
== END 2023-08-16 23:59 | disposition home or self-care (01) ==
LOC: WC 10:00
PROVIDERS: PCP Student in an Organized Health Care Education/Training Program; Referring Provider Student in an Organized Health Care Education/Training Program; Visit Provider Surgery
DX: T81.31XA Disruption of external operation (surgical) wound, not elsewhere classified, initial encounter (principal); T81.89XA Other complications of procedures, not elsewhere classified, initial encounter; Z96.642 Presence of left artificial hip joint; N40.0 Benign prostatic hyperplasia without lower urinary tract symptoms; M19.90 Unspecified osteoarthritis, unspecified site; Z79.01 Long term (current) use of anticoagulants; G47.00 Insomnia, unspecified; K57.90 Diverticulosis of intestine, part unspecified, without perforation or abscess without bleeding; I73.9 Peripheral vascular disease, unspecified; I49.3 Ventricular premature depolarization; Z87.891 Personal history of nicotine dependence; E78.5 Hyperlipidemia, unspecified; K43.9 Ventral hernia without obstruction or gangrene; K58.9 Irritable bowel syndrome, unspecified; Y84.9 Medical procedure, unspecified as the cause of abnormal reaction of the patient, or of later complication, without mention of misadventure at the time of the procedure; Z79.899 Other long term (current) drug therapy
CPT/HCPCS: 11042

== ENCOUNTER → 2023-08-23 | Outpatient (CLI) | payer MEDICARE, OTHER, SELFPAY ==
--- NOTE | 2023-08-23 12:46 | CT_ITS ---
STUDY: CT ABDOMEN AND PELVIS WITH CONTRAST REASON FOR EXAM: Male, 78 years old. DRAIING WOUND, SUSPECT MESH INFECTION. Prior ventral hernia repair with mesh. RADIATION DOSAGE (If Supplied By Facility): CTDIvol = ( 24.3 ) mGy, DLP = ( 1740.04 ) mGycm TECHNIQUE: Transaxial images were obtained from the dome of the diaphragm to the symphysis pubis without oral contrast. Oral and amp; IV Readi-CAT and amp; 100mL Isovue-370 was administered. Sagittal and coronal images were reconstructed. Individualized dose optimization techniques were used for this CT. COMPARISON: None. FINDINGS: Mild increased linear markings at the lung bases suggestive of linear atelectasis and/or scarring. Coronary artery calcification. There is decreased attenuation of the liver consistent with steatosis. Findings suggestive of small gallstones along the dependent portion of the gallbladder lumen. Normal spleen. There is diffuse atrophy of the pancreas. Normal bilateral adrenal glands. There is a 4.2 cm x 3 cm cyst in the lower lateral aspect of the right kidney. There is a 3.9 cm x 3.9 sono persistent anterior lower pole of the left kidney. Normal left kidney. Normal visualized stomach. Normal small intestine. Normal colon. The appendix is visualized and appears normal. There is diffuse atherosclerotic calcification of the abdominal aorta and its major visceral branches. There is evidence of aneurysmal dilatation of the distal abdominal aorta with a transverse dimension of 2.7 cm. Mural thrombus is seen. There is also evidence of aneurysmal dilatation of the right common iliac artery measuring 2.1 cm. Normal inferior vena cava. Normal retroperitoneum. There is evidence of prior ventral hernia repair. There is evidence of a soft tissue prominence deep to the umbilicus within the subcutaneous tissue in the midline measuring 2.6 cm x 2.8 cm. I suspect a 2.3 cm x 0.8 cm subtle fluid collection along the superior aspect of the operative site.. Normal abdominal wall. The patient is status post bilateral hip replacements with beam hardening artifact in the pelvis limiting evaluation. CT/Abdomen/Pelvis W IV Cont ONLY IMPRESSION: Postoperative changes at the site of the ventral hernia repair with a tiny subtle fluid collection. A tiny air bubble is seen deep to the anterior abdominal wall at the operative site. Infrarenal abdominal aortic aneurysm as well as aneurysmal dilatation of the right common iliac artery. Bilateral renal cysts. Electronically Signed: Jose Ramon Earl MD at 14:29 EDT ,
[2023-08-23 13:25] LABS: CREATININE FINGERSTICK < 1.0 mg/dL (0.70-1.30); EGFR FINGERSTICK > 60.0000 mL/min (>60)
[2023-09-03 14:51] VITALS: BP 130/67; PULSE 66; RESP 18; TEMP 35.9
== END | disposition home or self-care (01) ==
PROVIDERS: PCP Student in an Organized Health Care Education/Training Program; Referring Provider Surgery; Visit Provider Surgery
DX: T81.89XA Other complications of procedures, not elsewhere classified, initial encounter (principal)
CPT/HCPCS: 74177; Q9967; A4216

== ENCOUNTER 2023-09-03 15:00 | Outpatient (RCR) | payer MEDICARE, OTHER, SELFPAY ==
[2023-08-17 01:13] VITALS: BP 119/86; PULSE 62; RESP 18; TEMP 36.4; BMI 34.4
[2023-08-20 14:17] VITALS: BP 122/47; PULSE 69; RESP 18; TEMP 36.3; BMI 34.4
--- NOTE | 2023-08-20 16:35 | HP.PCM_ITS ---
History of Present Illness Date of Service: 08/20/23 Chief Complaint: Surgical wound dehiscence/nonhealing abdominal surgical wound History of Wound: This is an 78-year-old male with a very extensive and complicated past medical history. The patient underwent surgical repair of a ventral hernia in December [address] Pierce at [facility]. The hernia had developed at a prior surgical site, as the patient has had multiple previous surgeries. On September 28, 2008, the patient underwent left femoral?tibial artery bypass surgery. He underwent open ruptured abdominal aneurysm repair on July 11, 2012. It appears as though the patient subsequently required a second surgical intervention for an abdominal aortic aneurysm. He underwent left carotid endarterectomy on June 04, 2017. A left femoral pseudoaneurysm repair was performed in 2021. Subsequent to his abdominal surgeries, the patient underwent his ventral abdominal hernia repair in December 2022. He has developed a draining sinus in the inferior third of his vertical midline incision. The draining sinus is to the right and slightly inferior to his umbilicus. Cultures of the drainage from the site were performed at [facility] on July 03, 2023. Culture results were positive for Staphylococcus aureus. The p atient was treated with Bactrim double strength orally twice daily. He remains under the care of his surgeon, Dr. Pierce. In an effort to identify the possible cause of the persistent sinus tract, the patient had a CT scan at [facility] on April 19, 2023, which revealed postsurgical changes of the anterior abdominal wall, without definite focal rim-enhancing fluid collection to suggest an abscess. The other soft tissues including abdominopelvic wall are unremarkable. The patient also informed that he underwent an ultrasound of the abdominal wall at [facility]. It has been confirmed by the patient that prosthetic mesh was utilized in the repair of his ventral abdominal hernia. The patient had been using dilute peroxide to the small sinus tract opening on the anterior abdominal wall prior to his presentation. The patient is on chronic systemic anticoagulation with apixaban 5 mg p.o. twice daily. He is mildly obese, with a BMI of 34.4. [facility] Medical History Surgical wound dehiscence Dehiscence of postoperative wound of abdomen Diverticulosis BPH (benign prostatic hyperplasia) Ventral hernia Peripheral arterial occlusive disease Carotid artery stenosis Osteoarthritis Insomnia Irritable bowel syndrome Hyperlipidemia History of deep vein thrombosis History of cerebrovascular accident History of anemia PAC (premature atrial contraction) PVCs (premature ventricular contractions) Peripheral arterial disease History of steroid therapy Arthritis TIA (transient ischemic attack) Stroke/cerebrovascular accident Former smoker History of echocardiogram Hx of abdominal aortic aneurysm Home Medications ?Medication ?Instructions ?Recorded ?Last Taken ?Type aspirin 81 mg capsule 81 mg PO DAILY 12/13/21 12/23/21 History atorvastatin 80 mg tablet 80 mg PO QHS 12/13/21 Unknown History cholecalciferol (vitamin D3) 25 1,000 mcg PO DAILY 12/13/21 Unknown History mcg (1,000 unit) tablet (Vitamin D3) acetaminophen 500 mg tablet 1,000 mg (2 x 500 mg) PO TID #100 12/28/21 Unknown Rx tabs aspirin 81 mg chewable tablet 81 mg PO BID #0 tabs 12/28/21 Unknown Rx famotidine 20 mg tablet 20 mg PO DAILY #30 tabs 12/28/21 Unknown Rx oxycodone 5 mg tablet 5 - 10 mg (1 - 2 x 5 mg) PO Q4H 12/28/21 Unknown Rx PRN PRN Pain Score 4-10 2 days #8 tabs sennosides 8.6 mg-docusate sodium 2 tab PO BID #20 tabs 12/28/21 Unknown Rx 50 mg tablet (Stool Softener-Stimulant Laxative) apixaban 5 mg (74 tabs) tablets in mg PO 07/09/23 Unknown History a dose pack ([place] DVT-PE Treat 30D Start) cephalexin 500 mg capsule 500 mg PO Q12.TCU 07/09/23 Unknown History finasteride 5 mg tablet 5 mg PO DAILY 07/09/23 Unknown History pantoprazole 40 mg tablet,delayed 40 mg PO BID 07/09/23 Unknown History release sulfamethoxazole 800 1 tab PO BID 07/09/23 Unknown History mg-trimethoprim 160 mg tablet tamsulosin 0.4 mg capsule 0.4 mg PO DAILY 07/09/23 Unknown History Allergy/AdvReac Type Severity Reaction Status Date / Time No Known Allergies Allergy Verified 12/27/21 07:48 Surgical History History of ventral hernia repair History of femoropopliteal bypass History of aortic aneurysm repair Status post carotid endarterectomy S/P hip replacement Hx of tracheostomy History of evacuation of hematoma Hx of total hip arthroplasty Hx of surgical procedure History of left-sided carotid endarterectomy Hx of abdominal surgery Social History Smoking Status: Former smoker Vital Signs Vital Signs Vital Signs: 08/20/23 14:17 Temperature 97.4 F L Temperature Source Temporal Pulse Rate 69 Respiratory Rate 18 Blood Pressure 122/47 H Blood Pressure Mean 72 Blood Pressure Source Monitor Blood Pressure Position Semi-Fowlers Blood Pressure Location Left Arm Weight Weight: 220 lb Body Mass Index (BMI) 34.4 Physical Exam Const alert, oriented x3, no apparent distress and well nourished Constitutional Narrative: The patient is alert, oriented, and appropriate. He is mildly obese, with a BMI of 34.4. General Appearance: cooperative, comfortable, well kempt and well developed Orientation / Consciousness: awake, oriented to person, oriented to place and oriented to time Exam Limitations: no limitations HEENT normocephalic, head/scalp atraumatic and hearing grossly normal bilaterally Head and Scalp: normal to inspection, normocephalic and atraumatic Nose: external nose normal External Ear: external ears normal Eyes PERRL and EOMs intact bilaterally General Eye: normal appearance of both eyes Resp normal respiratory effort, normal air movement, no retractions, no use of accessory muscles and clear to auscultation bilaterally Effort and Inspection: able to speak in complete sentences and symmetric chest movement Cardio regular rate, regular rhythm, S1 normal heart sound and S2 normal heart sound Extremity no calf tenderness General Extremity: Negative for clubbing or cyanosis Skin Wound Narrative: The patient's abdomen is mildly obese. A generally well-healed vertical midline incision is noted on the abdomen, extending both above and below the umbilicus. There is a small opening to the right and slightly inferior to the patient's umbilicus. There is no surrounding erythema. Gentle probing of the opening reveals a tunneled wound, with a current depth of approximately 3 cm. Overall dimensions are documented elsewhere. The depth of the wound has decreased slightly. The base of the wound appears generally pink and healthy in appearance, with active granulation tissue. The external opening is several millimeters in diameter. Purulent drainage is noted. Therefore, swab cultures have been obtained today for aerobic and anaerobic bacterial growth. Neuro oriented x3, CN's II-XII intact bilaterally, moves all extremities and no focal motor deficits Sensorium / Orientation: awake, alert, oriented to person, oriented to place and oriented to time Psych Appearance: grossly normal and appropriate Attitude: calm Activity / Motor Behavior: appropriate eye contact Speech: normal speech Mood & Affect: euthymic mood Thought Process: normal thought process Thought Content: normal thought content Attention / Concentration: attention grossly intact Debridement Note Debridement Note Wound debrided: Nonhealing surgical abdominal wound. Laterality: Not Applicable Type of Debridement: Excisional debridement Anesthesia Used: 5% Lidocaine Gel Depth: Down to and including healthy tissue and in the subcutaneous layer Percentage of wound debrided: 100 Instrument Used: 5mm curette Tissue Removed: Bioburden and nonviable tissue Severity: Fat Layer Exposed Amount of bleeding with debridement: Mild Bleeding Controlled with: Compression and gauze Patient tolerated procedure: Patient tolerated procedure well Debridement Free Text: Because of the presence of purulent drainage, swab cultures have been obtained today for the purpose of aerobic and anaerobic bacterial culture. 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 ) Arrival Mode Ambulatory Patient Identification Verified (Name & Yes ) Patient Requires Transmission-Based No Precautions Height and Weight Body Mass Index (BMI) 34.4 BMI Classification Obese Vital Signs Temperature (97.8 F-99.1 F) 97.4 F L Temperature Source Temporal Pulse Rate (60-100) 69 Pulse Location Monitor Respiratory Rate (12-18) 18 Respiratory rate source Observation Blood Pressure (90/60-120/80) 122/47 H Blood Pressure Mean 72 Source Monitor Position Semi-Fowlers Blood Pressure Location Left Arm History Since Last Visit- (Skip if this is Patient's initial visit) Have you changed medications since your Yes last visit? Any new allergies or adverse reactions No Had a fall/change in ADL's that may No increase risk of falls Signs or symptoms of abuse and/or No neglect since last visit Have you been in the hospital since your No last visit? Has dressing in place as prescribed Yes Has compression in place as prescribed N/A Has offloadiing in place as prescribed N/A Experienced any changes in pain level or No management Left Footwear Regular Shoe Right Footwear Regular Shoe Pain Scale: 0-10 Numeric Is Patient Pain Free? Yes WC - Nurse 1 - General Ulcer Measurement Start: 08/20/23 14:16 Freq: Status: Active Protocol: Activity Type Activity Date Activity User E-sign Co-sign Detail Recorded Client Recorded Date Recorded By Document 08/20/23 14:17 [id number] 08/20/23 14:25 JF 08/20/23 14:17 Wound Center Nurse 1 #1 abd -Combined with other wound No -Current Size (cm) - Length 0.7 -Current Size (cm) - Width 0.8 -Current Size (cm) - Depth 1.2 -Total Square Cm 0.56 -Photo Taken Yes -Epithelialization Small 1-33% -Tunneling No -Undermining/Tunneling No -Circular Undermining No -Exudate Amt Medium -Exudate Type Yellow/Green -Wound Margin Flat & Intact -Granulation Amt Large (67-100%) -Granulation Quality Red -Slough/Fibrin Yes -Necrosis Amt Small (1-33%) -Necrotic Tissue Type Eschar -Structure Exposed N/A -Texture (Cleo-wound Skin Appearance) Assessed -Color (Cleo-wound Skin Appearance) Assessed -Temperature (Cleo-wound Skin No Abnormality Appearance) (Pt Warm) -Tenderness on Palpation (Cleo-wound No Skin Appearance) -Ulcer Cleansing Wound Cleanser -Foul Odor after Cleansing No -Anesthetic Used 5% Lidocaine Gel Lower Limb Edema Present NA WC - Nurse 2 - General Ulcer CM Notes Start: 08/20/23 14:16 Freq: Status: Active Protocol: Activity Type Activity Date Activity User E-sign Co-sign Detail Recorded Client Recorded Date Recorded By Document 08/20/23 14:45 DS [id number] 08/20/23 14:54 DS 08/20/23 14:45 Wound Center Nurse 2 #1 abd -Time 14:40 -Correct Patient Yes -Correct Side, Site, Position Yes -Correct Procedure Yes -Procedure Performed Yes -Type of Procedure Debridement -Clinical Debridement Subcutaneous -Tissue Removed Subcutaneous -Post Debridement (cm) - Length 0.8 -Post Debridement (cm) - Width 0.8 -Post Debridement (cm) - Depth 3.0 -Total Square (Post) (cm) 0.64 -Area of Debridement (cm) - Length 0.8 -Area of Debridement (cm) - Width 0.8 -Total Square (Area) (cm) 0.64 -Tunneling No -Undermining/Tunneling No -Circular Undermining No -Wound/Ulcer Outcome Not Healed -Ulcer Cleansing Rinsed/ Irrigated with Saline -Bleeding Controlled with Pressure -Treatment Response Procedure Tolerated Well -Debridement - Subq, 1st 20sq cm Yes Pain Scale: 0-10 Numeric Is Patient Pain Free? Yes - Nurse 3 - General Ulcer D/C NN Start: 08/20/23 14:16 Freq: Status: Active Protocol: Activity Type Activity Date Activity User E-sign Co-sign Detail Recorded Client Recorded Date Recorded By Document 08/20/23 14:58 wound center 08/20/23 14:59 08/20/23 14:58 Wound Care Center Nurse 3 #1 abd -Other Dressing PT OWN NUGAUZE 03/21 IN -Primary Dressing Covered/Secured with Dry Gauze, Secured with Tape Pain Scale: 0-10 Numeric Is Patient Pain Free? Yes - Visit Discharge Discharge Condition Stable Ambulatory Status Ambulatory,Cane Transportation Private Auto Medication Reconcilliation completed & No provided to patient/care provider Clinical Summary of Care Provided Yes Assessment/Plan Assessment/Plan (1) Surgical wound dehiscence: CODE(S): T81.31XA - Disruption of external operation (surgical) wound, not elsewhere classified, initial encounter QUALIFIERS: Encounter type: subsequent encounter Qualified Code(s): T81.31XD - Disruption of external operation (surgical) wound, not elsewhere classified, subsequent encounter (2) History of ventral hernia repair: CODE(S): Z98.890 - Other specified postprocedural states; Z87.19 - Personal history of other diseases of the digestive system (3) Status post total hip replacement, left: CODE(S): Z96.642 - Presence of left artificial hip joint (4) Peripheral arterial disease: CODE(S): I73.9 - Peripheral vascular disease, unspecified (5) S/P hip replacement: CODE(S): Z96.649 - Presence of unspecified artificial hip joint (6) Status post carotid endarterectomy: CODE(S): Z98.890 - Other specified postprocedural states (7) History of aortic aneurysm repair: CODE(S): Z98.890 - Other specified postprocedural states; Z86.79 - Personal history of other diseases of the circulatory system (8) History of femoropopliteal bypass: CODE(S): Z98.890 - Other specified postprocedural states (9) PVCs (premature ventricular contractions): CODE(S): I49.3 - Ventricular premature depolarization (10) PAC (premature atrial contraction): CODE(S): I49.1 - Atrial premature depolarization (11) History of anemia: CODE(S): Z86.2 - Personal history of diseases of the blood and blood- forming organs and certain disorders involving the immune mechanism (12) History of cerebrovascular accident: CODE(S): Z86.73 - Personal history of transient ischemic attack (TIA), and cerebral infarction without residual deficits (13) History of deep vein thrombosis: CODE(S): Z86.718 - Personal history of other venous thrombosis and embolism (14) Hyperlipidemia: CODE(S): E78.5 - Hyperlipidemia, unspecified (15) Irritable bowel syndrome: CODE(S): K58.9 - Irritable bowel syndrome without diarrhea (16) Insomnia: CODE(S): G47.00 - Insomnia, unspecified (17) Osteoarthritis: CODE(S): M19.90 - Unspecified osteoarthritis, unspecified site (18) Carotid artery stenosis: CODE(S): I65.29 - Occlusion and stenosis of unspecified carotid artery (19) Peripheral arterial occlusive disease: CODE(S): I77.9 - Disorder of arteries and arterioles, unspecified (20) Ventral hernia: CODE(S): K43.9 - Ventral hernia without obstruction or gangrene (21) BPH (benign prostatic hyperplasia): CODE(S): N40.0 - Benign prostatic hyperplasia without lower urinary tract symptoms (22) Diverticulosis: CODE(S): K57.90 - Diverticulosis of intestine, part unspecified, without perforation or abscess without bleeding PLAN: Plan This is an 78-year-old male with a very complicated and extensive medical history, and multiple prior surgical procedures. He has had open abdominal surgery in the past, for repair of a a ruptured abdominal aneurysm. The patient developed a ventral incisional hernia, for which he underwent surgical repair by Dr. Pierce at [facility] in [place], [place] in December 2022. He has developed a draining sinus tract within his incision, in the lower third of the incision. He had been using peroxide topically. We are to continue the use of quarter-inch moistened Nu Gauze which will be packed into the wound on a daily basis. The patient and his have been instructed in the appropriate means of packing. Overall, there has been little change in the status of the patient's wound, though its depth has slowly decreased. There has recently been noted to be purulent drainage from the site. There is concern involving the possibility of a draining sinus secondary to prosthetic mesh infection. It would appear as though his other managing physicians may be suspicious of a similar etiology, as the patient has previously undergone a CT scan of the area, as well as an ultrasound. These radiological studies were performed at [facility]. I have spoken by phone with Dr. Shah, a radiologist at [facility]. According to reports, in discussion with Dr. Shah, there appears to be a fluid collection adjacent to the hernia mesh on the anterior abdominal wall. There remains a question as to whether there is evidence of infected prosthetic mesh. Therefore, we requested the discs of the radiology images to be sent to [facility]. They have been received, and I have reviewed these films with Dr. Earl, [facility]'s radiologist. It has been recommended that a repeat CT scan of the abdomen and pelvis be performed with oral and intravenous contrast. This diagnostic imaging study is to be ordered. In the event that there is evidence of infected prosthetic mesh, there may be a poor prognosis in terms of healing the patient's draining sinus tract. Furthermore, the morphology of the patient's nonhealing site is not optimal for healing by secondary intention, given that it is a tunneled wound with extension subcutaneously. The patient is to follow-up in 2 weeks for reassessment. Culture results will be reviewed once available, and antibiotic management prescribed accordingly. It is hoped that the patient's CT scan will be completed prior to his next clinic visit. Finally, the patient is scheduled to undergo cardiac catheterization at [facility] in [place], [place], on September 04, 2023. Total time: 28 minutes
--- NOTE | 2023-09-03 16:47 | HP.PCM_ITS ---
History of Present Illness Date of Service: 09/03/23 Chief Complaint: Surgical wound dehiscence/nonhealing abdominal surgical wound History of Wound: This is an 78-year-old male with a very extensive and complicated past medical history. The patient underwent surgical repair of a ventral hernia in December [address] Pierce at [facility]. The hernia had developed at a prior surgical site, as the patient has had multiple previous surgeries. On September 28, 2008, the patient underwent left femoral?tibial artery bypass surgery. He underwent open ruptured abdominal aneurysm repair on July 11, 2012. It appears as though the patient subsequently required a second surgical intervention for an abdominal aortic aneurysm. He underwent left carotid endarterectomy on June 04, 2017. A left femoral pseudoaneurysm repair was performed in 2021. Subsequent to his abdominal surgeries, the patient underwent his ventral abdominal hernia repair in December 2022. He has developed a draining sinus in the inferior third of his vertical midline incision. The draining sinus is to the right and slightly inferior to his umbilicus. Cultures of the drainage from the site were performed at [facility] on July 03, 2023. Culture results were positive for Staphylococcus aureus. The p atient was treated with Bactrim double strength orally twice daily. He remains under the care of his surgeon, Dr. Pierce. In an effort to identify the possible cause of the persistent sinus tract, the patient had a CT scan at [facility] on April 19, 2023, which revealed postsurgical changes of the anterior abdominal wall, without definite focal rim-enhancing fluid collection to suggest an abscess. The other soft tissues including abdominopelvic wall are unremarkable. The patient also informed that he underwent an ultrasound of the abdominal wall at [facility]. It has been confirmed by the patient that prosthetic mesh was utilized in the repair of his ventral abdominal hernia. The patient had been using dilute peroxide to the small sinus tract opening on the anterior abdominal wall prior to his presentation. The patient is on chronic systemic anticoagulation with apixaban 5 mg p.o. twice daily. He is mildly obese, with a BMI of 34.4. [facility] Medical History Surgical wound dehiscence Dehiscence of postoperative wound of abdomen Diverticulosis BPH (benign prostatic hyperplasia) Ventral hernia Peripheral arterial occlusive disease Carotid artery stenosis Osteoarthritis Insomnia Irritable bowel syndrome Hyperlipidemia History of deep vein thrombosis History of cerebrovascular accident History of anemia PAC (premature atrial contraction) PVCs (premature ventricular contractions) Peripheral arterial disease History of steroid therapy Arthritis TIA (transient ischemic attack) Stroke/cerebrovascular accident Former smoker History of echocardiogram Hx of abdominal aortic aneurysm Home Medications ?Medication ?Instructions ?Recorded ?Last Taken ?Type aspirin 81 mg capsule 81 mg PO DAILY 12/13/21 12/23/21 History atorvastatin 80 mg tablet 80 mg PO QHS 12/13/21 Unknown History cholecalciferol (vitamin D3) 25 1,000 mcg PO DAILY 12/13/21 Unknown History mcg (1,000 unit) tablet (Vitamin D3) acetaminophen 500 mg tablet 1,000 mg (2 x 500 mg) PO TID #100 12/28/21 Unknown Rx tabs aspirin 81 mg chewable tablet 81 mg PO BID #0 tabs 12/28/21 Unknown Rx famotidine 20 mg tablet 20 mg PO DAILY #30 tabs 12/28/21 Unknown Rx oxycodone 5 mg tablet 5 - 10 mg (1 - 2 x 5 mg) PO Q4H 12/28/21 Unknown Rx PRN PRN Pain Score 4-10 2 days #8 tabs sennosides 8.6 mg-docusate sodium 2 tab PO BID #20 tabs 12/28/21 Unknown Rx 50 mg tablet (Stool Softener-Stimulant Laxative) apixaban 5 mg (74 tabs) tablets in mg PO 07/09/23 Unknown History a dose pack ([facility] DVT-PE Treat 30D Start) cephalexin 500 mg capsule 500 mg PO Q12.TCU 07/09/23 Unknown History finasteride 5 mg tablet 5 mg PO DAILY 07/09/23 Unknown History pantoprazole 40 mg tablet,delayed 40 mg PO BID 07/09/23 Unknown History release sulfamethoxazole 800 1 tab PO BID 07/09/23 Unknown History mg-trimethoprim 160 mg tablet tamsulosin 0.4 mg capsule 0.4 mg PO DAILY 07/09/23 Unknown History Allergy/AdvReac Type Severity Reaction Status Date / Time No Known Allergies Allergy Verified 12/27/21 07:48 Surgical History History of ventral hernia repair History of femoropopliteal bypass History of aortic aneurysm repair Status post carotid endarterectomy S/P hip replacement Hx of tracheostomy History of evacuation of hematoma Hx of total hip arthroplasty Hx of surgical procedure History of left-sided carotid endarterectomy Hx of abdominal surgery Social History Smoking Status: Former smoker Vital Signs Vital Signs Vital Signs: Weight Weight: 220 lb Body Mass Index (BMI) 34.4 Physical Exam Const alert, oriented x3, no apparent distress and well nourished Constitutional Narrative: The patient is alert, oriented, and appropriate. He is mildly obese, with a BMI of 34.4. General Appearance: cooperative, comfortable, well kempt and well developed Orientation / Consciousness: awake, oriented to person, oriented to place and oriented to time Exam Limitations: no limitations HEENT normocephalic, head/scalp atraumatic and hearing grossly normal bilaterally Head and Scalp: normal to inspection, normocephalic and atraumatic Nose: external nose normal External Ear: external ears normal Eyes PERRL and EOMs intact bilaterally General Eye: normal appearance of both eyes Resp normal respiratory effort, normal air movement, no retractions, no use of accessory muscles and clear to auscultation bilaterally Effort and Inspection: able to speak in complete sentences and symmetric chest movement Cardio regular rate, regular rhythm, S1 normal heart sound and S2 normal heart sound Extremity no calf tenderness General Extremity: Negative for clubbing or cyanosis Skin Wound Narrative: The patient's abdomen is mildly obese. A generally well-healed vertical midline incision is noted on the abdomen, extending both above and below the umbilicus. There is a small opening to the right and slightly inferior to the patient's umbilicus. There is no surrounding erythema. Gentle probing of the opening reveals that the tunneled wound persists, but has decreased significantly in depth. Overall dimensions are documented elsewhere. The wound appears generally pink and healthy in appearance, with active granulation tissue. The external opening is only several millimeters in diameter. No drainage or odor are noted. Neuro oriented x3, CN's II-XII intact bilaterally, moves all extremities and no focal motor deficits Sensorium / Orientation: awake, alert, oriented to person, oriented to place and oriented to time Psych Appearance: grossly normal and appropriate Attitude: calm Activity / Motor Behavior: appropriate eye contact Speech: normal speech Mood & Affect: euthymic mood Thought Process: normal thought process Thought Content: normal thought content Attention / Concentration: attention grossly intact Debridement Note Debridement Note Wound debrided: Nonhealing surgical abdominal wound. Laterality: Not Applicable Type of Debridement: Excisional debridement Anesthesia Used: 5% Lidocaine Gel Depth: Down to and including healthy tissue and in the subcutaneous layer Percentage of wound debrided: 100 Instrument Used: 3mm curette Tissue Removed: Bioburden and nonviable tissue Severity: Fat Layer Exposed Amount of bleeding with debridement: Mild Bleeding Controlled with: Compression and gauze Patient tolerated procedure: Patient tolerated procedure well Post-Debridement Measurements and Additional Note: Post-Debridement Measurements/Treatment - Nurse 1 - General Ulcer Assessment Start: 08/20/23 14:16 Freq: Status: Active Protocol: LIA Activity Type Activity Date Activity User E-sign Co-sign Detail Recorded Client Recorded Date Recorded By Document 08/20/23 14:17 BETHANY [id number] 08/20/23 14:25 BETHANY 08/20/23 14:17 - Today's Visit Information Type of service Follow-up Visit (Physician/[employer] STENOGRAPHER ) Arrival Mode Ambulatory Patient Identification Verified (Name & Yes ) Patient Requires Transmission-Based No Precautions Height and Weight Body Mass Index (BMI) 34.4 BMI Classification Obese Vital Signs Temperature (97.8 F-99.1 F) 97.4 F L Temperature Source Temporal Pulse Rate (60-100) 69 Pulse Location Monitor Respiratory Rate (12-18) 18 Respiratory rate source Observation Blood Pressure (90/60-120/80) 122/47 H Blood Pressure Mean 72 Source Monitor Position Semi-Fowlers Blood Pressure Location Left Arm History Since Last Visit- (Skip if this is Patient's initial visit) Have you changed medications since your Yes last visit? Any new allergies or adverse reactions No Had a fall/change in ADL's that may No increase risk of falls Signs or symptoms of abuse and/or No neglect since last visit Have you been in the hospital since your No last visit? Has dressing in place as prescribed Yes Has compression in place as prescribed N/A Has offloadiing in place as prescribed N/A Experienced any changes in pain level or No management Left Footwear Regular Shoe Right Footwear Regular Shoe Pain Scale: 0-10 Numeric Is Patient Pain Free? Yes - Nurse 1 - General Ulcer Measurement Start: 08/20/23 14:16 Freq: Status: Active Protocol: Activity Type Activity Date Activity User E-sign Co-sign Detail Recorded Client Recorded Date Recorded By Document 08/20/23 14:17 [id number] 08/20/23 14:25 08/20/23 14:17 Wound Center Nurse 1 #1 abd -Combined with other wound No -Current Size (cm) - Length 0.7 -Current Size (cm) - Width 0.8 -Current Size (cm) - Depth 1.2 -Total Square Cm 0.56 -Photo Taken Yes -Epithelialization Small 1-33% -Tunneling No -Undermining/Tunneling No -Circular Undermining No -Exudate Amt Medium -Exudate Type Yellow/Green -Wound Margin Flat & Intact -Granulation Amt Large (67-100%) -Granulation Quality Red -Slough/Fibrin Yes -Necrosis Amt Small (1-33%) -Necrotic Tissue Type Eschar -Structure Exposed N/A -Texture (Cleo-wound Skin Appearance) Assessed -Color (Cleo-wound Skin Appearance) Assessed -Temperature (Cleo-wound Skin No Abnormality Appearance) (Pt Warm) -Tenderness on Palpation (Cleo-wound No Skin Appearance) -Ulcer Cleansing Wound Cleanser -Foul Odor after Cleansing No -Anesthetic Used 5% Lidocaine Gel Lower Limb Edema Present NA WC - Nurse 2 - General Ulcer CM Notes Start: 08/20/23 14:16 Freq: Status: Active Protocol: Activity Type Activity Date Activity User E-sign Co-sign Detail Recorded Client Recorded Date Recorded By Document 08/20/23 14:45 DS [id number] 08/20/23 14:54 DS Document 09/03/23 15:00 DS 1 09/03/23 15:03 DS 08/20/23 09/03/23 14:45 15:00 Wound Center Nurse 2 #1 abd -Time 14:40 15:02 -Correct Patient Yes Yes -Correct Side, Site, Position Yes Yes -Correct Procedure Yes Yes -Procedure Performed Yes Yes -Type of Procedure Debridement Debridement -Clinical Debridement Subcutaneous Subcutaneous -Tissue Removed Subcutaneous Subcutaneous -Post Debridement (cm) - Length 0.8 0.3 -Post Debridement (cm) - Width 0.8 0.9 -Post Debridement (cm) - Depth 3.0 0.8 -Total Square (Post) (cm) 0.64 0.27 -Area of Debridement (cm) - Length 0.8 0.3 -Area of Debridement (cm) - Width 0.8 0.9 -Total Square (Area) (cm) 0.64 0.27 -Tunneling No No -Undermining/Tunneling No No -Circular Undermining No No -Wound/Ulcer Outcome Not Healed Not Healed -Ulcer Cleansing Rinsed/ Rinsed/ Irrigated with Irrigated with Saline Saline -Bleeding Controlled with Pressure Pressure -Treatment Response Procedure Procedure Tolerated Well Tolerated Well -Debridement - Subq, 1st 20sq cm Yes Yes Pain Scale: 0-10 Numeric Is Patient Pain Free? Yes Yes - Nurse 3 - General Ulcer D/C NN Start: 08/20/23 14:16 Freq: Status: Active Protocol: Activity Type Activity Date Activity User E-sign Co-sign Detail Recorded Client Recorded Date Recorded By Document 08/20/23 14:58 KW wound center 08/20/23 14:59 KW Document 09/03/23 15:10 KW g 09/03/23 15:11 KW 08/20/23 09/03/23 14:58 15:10 Wound Care Center Nurse 3 #1 abd -Other Dressing PT OWN NUGAUZE PT OWN NUGAUZE 1/4 IN MOISTENED -Primary Dressing Covered/Secured with Dry Gauze, Dry Gauze, Secured with Secured with Tape Tape Pain Scale: 0-10 Numeric Is Patient Pain Free? Yes Yes - Visit Discharge Discharge Condition Stable Stable Ambulatory Status Ambulatory,Cane Ambulatory,Cane Transportation Private Auto Private Auto Medication Reconcilliation completed & No No provided to patient/care provider Clinical Summary of Care Provided Yes Yes Charges/Coding Procedures Integumentary [id number]: [id number] Rhonda subq tissue 20 sq cm/< Assessment/Plan Assessment/Plan (1) Surgical wound dehiscence: CODE(S): T81.31XA - Disruption of external operation (surgical) wound, not elsewhere classified, initial encounter QUALIFIERS: Encounter type: subsequent encounter Qualified Code(s): T81.31XD - Disruption of external operation (surgical) wound, not elsewhere classified, subsequent encounter (2) History of ventral hernia repair: CODE(S): Z98.890 - Other specified postprocedural states; Z87.19 - Personal history of other diseases of the digestive system (3) Status post total hip replacement, left: CODE(S): Z96.642 - Presence of left artificial hip joint (4) Peripheral arterial disease: CODE(S): I73.9 - Peripheral vascular disease, unspecified (5) S/P hip replacement: CODE(S): Z96.649 - Presence of unspecified artificial hip joint (6) Status post carotid endarterectomy: CODE(S): Z98.890 - Other specified postprocedural states (7) History of aortic aneurysm repair: CODE(S): Z98.890 - Other specified postprocedural states; Z86.79 - Personal history of other diseases of the circulatory system (8) History of femoropopliteal bypass: CODE(S): Z98.890 - Other specified postprocedural states (9) PVCs (premature ventricular contractions): CODE(S): I49.3 - Ventricular premature depolarization (10) PAC (premature atrial contraction): CODE(S): I49.1 - Atrial premature depolarization (11) History of anemia: CODE(S): Z86.2 - Personal history of diseases of the blood and blood- forming organs and certain disorders involving the immune mechanism (12) History of cerebrovascular accident: CODE(S): Z86.73 - Personal history of transient ischemic attack (TIA), and cerebral infarction without residual deficits (13) History of deep vein thrombosis: CODE(S): Z86.718 - Personal history of other venous thrombosis and embolism (14) Hyperlipidemia: CODE(S): E78.5 - Hyperlipidemia, unspecified (15) Irritable bowel syndrome: CODE(S): K58.9 - Irritable bowel syndrome without diarrhea (16) Insomnia: CODE(S): G47.00 - Insomnia, unspecified (17) Osteoarthritis: CODE(S): M19.90 - Unspecified osteoarthritis, unspecified site (18) Carotid artery stenosis: CODE(S): I65.29 - Occlusion and stenosis of unspecified carotid artery (19) Peripheral arterial occlusive disease: CODE(S): I77.9 - Disorder of arteries and arterioles, unspecified (20) Ventral hernia: CODE(S): K43.9 - Ventral hernia without obstruction or gangrene (21) BPH (benign prostatic hyperplasia): CODE(S): N40.0 - Benign prostatic hyperplasia without lower urinary tract symptoms (22) Diverticulosis: CODE(S): K57.90 - Diverticulosis of intestine, part unspecified, without perforation or abscess without bleeding PLAN: Plan This is an 78-year-old male with a very complicated and extensive medical history, and multiple prior surgical procedures. He has had open abdominal surgery in the past, for repair of a a ruptured abdominal aneurysm. The patient developed a ventral incisional hernia, for which he underwent surgical repair by Dr. Pierce at [facility] in [place], [place] in December 2022. He developed a draining sinus tract within his incision, in the lower third of the incision. He had been using peroxide topically. We are to continue the use of quarter- inch moistened Nu Gauze which will be packed into the wound on a daily basis. The patient and his have been instructed in the appropriate means of packin g. Overall, there has been improvement in the status of the patient's wound, with decrease in depth of the tunneled wound. With concern involving the possibility of a draining sinus secondary to prosthetic mesh infection, the patient underwent a CT scan of the abdomen on August 23, 2023. The results revealed no suspicion of infection or abscess related to the mesh which was suspected to be implanted at the time of the patient's recent hernia repair. The morphology of the patient's nonhealing site is not optimal for healing by secondary intention, given that it is a tunneled wound with extension subcutaneously. Nonetheless, there has been improvement in recent weeks. Culture results from 2 weeks ago were positive for Staphylococcus aureus, and the patient is soon to complete a course of Bactrim double strength p.o. twice daily, for total of 14 days. At this juncture, the patient's wound shows significant improvement since his last visit, likely due to current management and the course of antibiotics which is nearly completed. The patient is to follow-up in 2 weeks for reassessment. The patient is scheduled to undergo cardiac catheterization at [facility] in [place], [place], tomorrow. 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 His rotary lithographic press operator may feel inclined to postpone cardiac intervention temporarily. Total time: 25 minutes
--- NOTE | 2023-09-09 13:38 | HP.PCM_ITS ---
History of Present Illness Chief Complaint: Surgical wound dehiscence/nonhealing abdominal surgical wound History of Wound: This is an 78-year-old male with a very extensive and complicated past medical history. The patient underwent surgical repair of a ventral hernia in December [address] Pierce at [facility]. The hernia had developed at a prior surgical site, as the patient has had multiple previous surgeries. On September 28, 2008, the patient underwent left femoral?tibial artery bypass surgery. He underwent open ruptured abdominal aneurysm repair on July 11, 2012. It appears as though the patient subsequently required a second surgical intervention for an abdominal aortic aneurysm. He underwent left ca rotid endarterectomy on June 04, 2017. A left femoral pseudoaneurysm repair was performed in 2021. Subsequent to his abdominal surgeries, the patient underwent his ventral abdominal hernia repair in December 2022. He has developed a draining sinus in the inferior third of his vertical midline incision. The draining sinus is to the right and slightly inferior to his umbilicus. Cultures of the drainage from the site were performed at [facility] on July 03, 2023. Culture results were positive for Staphylococcus aureus. The patient was treated with Bactrim double strength orally twice daily. He remains under the care of his surgeon, Dr. Pierce. In an effort to identify the possible cause of the persistent sinus tract, the patient had a CT scan at [facility] on April 19, 2023, which revealed postsurgical changes of the anterior abdominal wall, without definite focal rim-enhancing fluid collection to suggest an abscess. The other soft tissues including abdominopelvic wall are unremarkable. The patient also informed that he underwent an ultrasound of the abdominal wall at [facility]. It has been confirmed by the patient that prosthetic mesh was utilized in the repair of his ventral abdominal hernia. The patient had been using dilute peroxide to the small sinus tract opening on the anterior abdominal wall prior to his presentation. The patient is on chronic systemic anticoagulation with apixaban 5 mg p.o. twice daily. He is mildly obese, with a BMI of 34.4. ON LICENSE OF [facility] Medical History Surgical wound dehiscence Dehiscence of postoperative wound of abdomen Diverticulosis BPH (benign prostatic hyperplasia) Ventral hernia Peripheral arterial occlusive disease Carotid artery stenosis Osteoarthritis Insomnia Irritable bowel syndrome Hyperlipidemia History of deep vein thrombosis History of cerebrovascular accident History of anemia PAC (premature atrial contraction) PVCs (premature ventricular contractions) Peripheral arterial disease History of steroid therapy Arthritis TIA (transient ischemic attack) Stroke/cerebrovascular accident Former smoker History of echocardiogram Hx of abdominal aortic aneurysm Home Medications ?Medication ?Instructions ?Recorded ?Last Taken ?Type aspirin 81 mg capsule 81 mg PO DAILY 12/13/21 12/23/21 History atorvastatin 80 mg tablet 80 mg PO QHS 12/13/21 Unknown History cholecalciferol (vitamin D3) 25 1,000 mcg PO DAILY 12/13/21 Unknown History mcg (1,000 unit) tablet (Vitamin D3) acetaminophen 500 mg tablet 1,000 mg (2 x 500 mg) PO TID #100 12/28/21 Unknown Rx tabs aspirin 81 mg chewable tablet 81 mg PO BID #0 tabs 12/28/21 Unknown Rx famotidine 20 mg tablet 20 mg PO DAILY #30 tabs 12/28/21 Unknown Rx oxycodone 5 mg tablet 5 - 10 mg (1 - 2 x 5 mg) PO Q4H 12/28/21 Unknown Rx PRN PRN Pain Score 4-10 2 days #8 tabs sennosides 8.6 mg-docusate sodium 2 tab PO BID #20 tabs 12/28/21 Unknown Rx 50 mg tablet (Stool Softener-Stimulant Laxative) apixaban 5 mg (74 tabs) tablets in mg PO 07/09/23 Unknown History a dose pack (Eliquis DVT-PE Treat 30D Start) cephalexin 500 mg capsule 500 mg PO Q12.TCU 07/09/23 Unknown History finasteride 5 mg tablet 5 mg PO DAILY 07/09/23 Unknown History pantoprazole 40 mg tablet,delayed 40 mg PO BID 07/09/23 Unknown History release sulfamethoxazole 800 1 tab PO BID 07/09/23 Unknown History mg-trimethoprim 160 mg tablet tamsulosin 0.4 mg capsule 0.4 mg PO DAILY 07/09/23 Unknown History Allergy/AdvReac Type Severity Reaction Status Date / Time No Known Allergies Allergy Verified 12/27/21 07:48 Surgical History History of ventral hernia repair History of femoropopliteal bypass History of aortic aneurysm repair Status post carotid endarterectomy S/P hip replacement Hx of tracheostomy History of evacuation of hematoma Hx of total hip arthroplasty Hx of surgical procedure History of left-sided carotid endarterectomy Hx of abdominal surgery Social History Smoking Status: Former smoker Vital Signs Vital Signs Vital Signs: Weight Weight: 220 lb Body Mass Index (BMI) 34.4 Debridement Note Debridement Note Post-Debridement Measurements and Additional Note: Post-Debridement Measurements/Treatment WC - Nurse 1 - General Ulcer Assessment Start: 08/20/23 14:16 Freq: Status: Active Protocol: LIA Activity Type Activity Date Activity User E-sign Co-sign Detail Recorded Client Recorded Date Recorded By Document 08/20/23 14:17 BETHANY [id number] 08/20/23 14:25 BETHANY 08/20/23 14:17 GINNA - Today's Visit Information Type of service Follow-up Visit (Physician/[employer] ) Arrival Mode Ambulatory Patient Identification Verified (Name & Yes ) Patient Requires Transmission-Based No Precautions Height and Weight Body Mass Index (BMI) 34.4 BMI Classification Obese Vital Signs Temperature (97.8 F-99.1 F) 97.4 F L Temperature Source Temporal Pulse Rate (60-100) 69 Pulse Location Monitor Respiratory Rate (12-18) 18 Respiratory rate source Observation Blood Pressure (90/60-120/80) 122/47 H Blood Pressure Mean 72 Source Monitor Position Semi-Fowlers Blood Pressure Location Left Arm History Since Last Visit- (Skip if this is Patient's initial visit) Have you changed medications since your Yes last visit? Any new allergies or adverse reactions No Had a fall/change in ADL's that may No increase risk of falls Signs or symptoms of abuse and/or No neglect since last visit Have you been in the hospital since your No last visit? Has dressing in place as prescribed Yes Has compression in place as prescribed N/A Has offloadiing in place as prescribed N/A Experienced any changes in pain level or No management Left Footwear Regular Shoe Right Footwear Regular Shoe Pain Scale: 0-10 Numeric Is Patient Pain Free? Yes WC - Nurse 1 - General Ulcer Measurement Start: 08/20/23 14:16 Freq: Status: Active Protocol: Activity Type Activity Date Activity User E-sign Co-sign Detail Recorded Client Recorded Date Recorded By Document 08/20/23 14:17 BETHANY [id number] 08/20/23 14:25 08/20/23 14:17 Wound Center Nurse 1 #1 abd -Combined with other wound No -Current Size (cm) - Length 0.7 -Current Size (cm) - Width 0.8 -Current Size (cm) - Depth 1.2 -Total Square Cm 0.56 -Photo Taken Yes -Epithelialization Small 1-33% -Tunneling No -Undermining/Tunneling No -Circular Undermining No -Exudate Amt Medium -Exudate Type Yellow/Green -Wound Margin Flat & Intact -Granulation Amt Large (67-100%) -Granulation Quality Red -Slough/Fibrin Yes -Necrosis Amt Small (1-33%) -Necrotic Tissue Type Eschar -Structure Exposed N/A -Texture (Cleo-wound Skin Appearance) Assessed -Color (Cleo-wound Skin Appearance) Assessed -Temperature (Cleo-wound Skin No Abnormality Appearance) (Pt Warm) -Tenderness on Palpation (Cleo-wound No Skin Appearance) -Ulcer Cleansing Wound Cleanser -Foul Odor after Cleansing No -Anesthetic Used 5% Lidocaine Gel Lower Limb Edema Present NA - Nurse 2 - General Ulcer CM Notes Start: 08/20/23 14:16 Freq: Status: Active Protocol: Activity Type Activity Date Activity User E-sign Co-sign Detail Recorded Client Recorded Date Recorded By Document 08/20/23 14:45 DS [id number] 08/20/23 14:54 DS Document 09/03/23 15:00 DS 1 09/03/23 15:03 DS 08/20/23 09/03/23 14:45 15:00 Wound Center Nurse 2 #1 abd -Time 14:40 15:02 -Correct Patient Yes Yes -Correct Side, Site, Position Yes Yes -Correct Procedure Yes Yes -Procedure Performed Yes Yes -Type of Procedure Debridement Debridement -Clinical Debridement Subcutaneous Subcutaneous -Tissue Removed Subcutaneous Subcutaneous -Post Debridement (cm) - Length 0.8 0.3 -Post Debridement (cm) - Width 0.8 0.9 -Post Debridement (cm) - Depth 3.0 0.8 -Total Square (Post) (cm) 0.64 0.27 -Area of Debridement (cm) - Length 0.8 0.3 -Area of Debridement (cm) - Width 0.8 0.9 -Total Square (Area) (cm) 0.64 0.27 -Tunneling No No -Undermining/Tunneling No No -Circular Undermining No No -Wound/Ulcer Outcome Not Healed Not Healed -Ulcer Cleansing Rinsed/ Rinsed/ Irrigated with Irrigated with Saline Saline -Bleeding Controlled with Pressure Pressure -Treatment Response Procedure Procedure Tolerated Well Tolerated Well -Debridement - Subq, 1st 20sq cm Yes Yes Pain Scale: 0-10 Numeric Is Patient Pain Free? Yes Yes WC - Nurse 3 - General Ulcer D/C NN Start: 08/20/23 14:16 Freq: Status: Active Protocol: Activity Type Activity Date Activity User E-sign Co-sign Detail Recorded Client Recorded Date Recorded By Document 08/20/23 14:58 KW wound center 08/20/23 14:59 KW Document 09/03/23 15:10 KW g 09/03/23 15:11 KW 08/20/23 09/03/23 14:58 15:10 Wound Care Center Nurse 3 #1 abd -Other Dressing PT OWN NUGAUZE PT OWN NUGAUZE /4 IN MOISTENED -Primary Dressing Covered/Secured with Dry Gauze, Dry Gauze, Secured with Secured with Tape Tape Pain Scale: 0-10 Numeric Is Patient Pain Free? Yes Yes WC - Visit Discharge Discharge Condition Stable Stable Ambulatory Status Ambulatory,Cane Ambulatory,Cane Transportation Private Auto Private Auto Medication Reconcilliation completed & No No provided to patient/care provider Clinical Summary of Care Provided Yes Yes Lab / Micro Data Attestation: I reviewed the patient's lab results. Lab results narrative: Laboratory Tests 12/28/21 05:00 WBC 14.2 H Hgb 12.5 L Hct 36.8 L Plt Count 234 Labs: CT/Abdomen/Pelvis W IV Cont ONLY IMPRESSION: Postoperative changes at the site of the ventral hernia repair with a tiny subtle fluid collection. A tiny air bubble is seen deep to the anterior abdominal wall at the operative site. Infrarenal abdominal aortic aneurysm as well as aneurysmal dilatation of the right common iliac artery. Bilateral renal cysts.
== END 2023-09-15 23:59 | disposition home or self-care (01) ==
LOC: WC 15:00
PROVIDERS: PCP Student in an Organized Health Care Education/Training Program; Referring Provider Student in an Organized Health Care Education/Training Program; Visit Provider Surgery
DX: T81.31XA Disruption of external operation (surgical) wound, not elsewhere classified, initial encounter (principal); I49.1 Atrial premature depolarization; I49.3 Ventricular premature depolarization; G47.00 Insomnia, unspecified; I73.9 Peripheral vascular disease, unspecified; N40.0 Benign prostatic hyperplasia without lower urinary tract symptoms; I65.29 Occlusion and stenosis of unspecified carotid artery; K58.9 Irritable bowel syndrome, unspecified; M19.90 Unspecified osteoarthritis, unspecified site; E78.5 Hyperlipidemia, unspecified; K57.90 Diverticulosis of intestine, part unspecified, without perforation or abscess without bleeding; E66.9 Obesity, unspecified; Z68.34 Body mass index [BMI] 34.0-34.9, adult; Z79.82 Long term (current) use of aspirin; Z79.01 Long term (current) use of anticoagulants; Z79.899 Other long term (current) drug therapy; Z87.891 Personal history of nicotine dependence; Z86.14 Personal history of Methicillin resistant Staphylococcus aureus infection; Z86.718 Personal history of other venous thrombosis and embolism; Z86.73 Personal history of transient ischemic attack (TIA), and cerebral infarction without residual deficits; Z96.642 Presence of left artificial hip joint
CPT/HCPCS: 11042; 87070; 87075; 87077; 87186; 87205

== ENCOUNTER 2023-09-10 13:26 | Inpatient (IN) | payer MEDICARE, OTHER, SELFPAY ==
[2023-09-10 13:34] VITALS: BP 117/74; PULSE 94; RESP 16; TEMP 36.3; BMI 32.7; BMI 35.6
[2023-09-10 17:00] VITALS: O2SAT 94
[2023-09-10] MEDS: Potassium Chloride Oral Tablet 20 MEQ PO (17:25)
--- NOTE | 2023-09-10 20:20 | HP.PCM_ITS ---
[facility] - General General Date of Admission: 09/10/23 Date of Service: 09/10/23 Chief Complaint: Here for rehabilitation. HPI Narrative MAGDALENO LUI, is a 78 Male with past medical history of hyperlipidemia, ventral hernia s/p hernia repair with mesh (12/2022) complicated with upper GI bleed, cellulitis of lower leg and right lower leg DVT (completed 6 months of Eliquis - last taken 07/2023), AAA s/p repair in 2012, CVA in 2012, (residual right upper extremity tremors)- had been previously on Plavix, but hasn't taken since December 2022, PVD s/p left femoral-tibial bypass graft 2008 and left leg aneurysm repair 2021, BPH, history of urinary retention, and carotid stenosis s/p left carotid endarterectomy in 2017. He has chronic lower abdominal wound following his ventral hernia repair and follows with [facility] wound center every 2 weeks. He packs his abdominal wound with rope gauze daily and is on Bactrim. He was doing well and had a routine follow up with his PCP where he was noted to have accelerated heart rate and had irregular heart rhythm. EKG performed in PCP office showing sinus tachycardia, frequent PVC's, Holter monitor revealed short runs of NSVT, short runs of SVT, no atrial fibrillation. He denies any chest pain, shortness of breath, syncope, PND, or orthopnea. He underwent nuclear medicine stress test on May 22, 2023, which revealed a small area of inferior lateral ischemia and moderate size inferior infarct. Transthoracic echocardiogram on 05/22/2023 revleaed EF of 55 to 60%, mild aortic stenosis. He presented for elective heart catheterization which revealed multivessel disease. He underwent coronary artery bypass graft x 2, on pump with beating heart on 09/06/[address] Starks. His postop JABARI showed EF 35%. He tolerated the procedure well was transferred to the CV SICU in stable condition. Epinephrine for hemodynamic support and Levophed for blood pressure support. Extubated his operative day and tolerated oxygen per nasal cannula. Postop day #1. Levophed is off. Will wean epinephrine off. 1gm calcium chloride IV today. Keep in ICU today. Diuresed. Started on low dose beta ollie in the afternoon after epi was off. Postop day #2. Beta ollie titrated up. PO amiodarone added for PVCs and short run of atrial fibrillation. Added mag oxide. Daily Lasix with po potassium, Discontinue pleural chest tubes. Transfer to stepdown. POD #3- discontinue mediastinal chest tube today, add oral calcium replacement in the form of TUMs. LifeVest fitting is pending. Patient has been skilled for inpatient rehab. Continue to increase activity and ambulation as able with a walker. Patient cleared for discharge to SNF. Continue Lasix 20mg daily for 5 days, Amiodarone 400mg bid for 4 days, then decrease to Amiodarone 200mg daily for 4 days. Lower chest/upper abdominal sutures may be removed 09/17/2023. LifeVest in place. 09/10/2023 Admit to TCU with debility, here for rehabilitation, strengthening, prior to discharge home with . [facility] Medical History (Updated 09/10/23 @ 20:[address] Yusuf Corbett MD) Surgical wound dehiscence Dehiscence of postoperative wound of abdomen Diverticulosis BPH (benign prostatic hyperplasia) Ventral hernia Peripheral arterial occlusive disease Carotid artery stenosis Osteoarthritis Insomnia Irritable bowel syndrome Hyperlipidemia History of deep vein thrombosis History of cerebrovascular accident History of anemia PAC (premature atrial contraction) PVCs (premature ventricular contractions) Peripheral arterial disease History of steroid therapy Arthritis TIA (transient ischemic attack) Stroke/cerebrovascular accident Former smoker History of echocardiogram Hx of abdominal aortic aneurysm Home Medications ?Medication ?Instructions ?Recorded ?Last Taken ?Type aspirin 81 mg capsule 81 mg PO DAILY blood thinner 12/13/21 12/23/21 History atorvastatin 80 mg tablet 80 mg PO QHS cholesterol 12/13/21 Unknown History cholecalciferol (vitamin D3) 25 1,000 mcg PO DAILY 12/13/21 Unknown History mcg (1,000 unit) tablet (Vitamin D3) aspirin 81 mg chewable tablet 81 mg PO BID #0 tabs 12/28/21 Unknown Rx famotidine 20 mg tablet 20 mg PO DAILY #30 tabs 12/28/21 Unknown Rx sennosides 8.6 mg-docusate sodium 2 tab PO BID #20 tabs 12/28/21 Unknown Rx 50 mg tablet (Stool Softener-Stimulant Laxative) apixaban 5 mg (74 tabs) tablets in mg PO 07/09/23 Unknown History a dose pack (Eliquis DVT-PE Treat 30D Start) cephalexin 500 mg capsule 500 mg PO Q12.TCU 07/09/23 Unknown History finasteride 5 mg tablet 5 mg PO DAILY bladder 07/09/23 Unknown History pantoprazole 40 mg tablet,delayed 40 mg PO BID reflux 07/09/23 Unknown History release sulfamethoxazole 800 1 tab PO BID 07/09/23 Unknown History mg-trimethoprim 160 mg tablet tamsulosin 0.4 mg capsule 0.4 mg PO DAILY bladder 07/09/23 Unknown History acetaminophen 500 mg tablet 650 mg PO Q4H PRN pain 09/10/23 Unknown History amiodarone 200 mg tablet 200 mg PO BID heart 09/10/23 Unknown History calcium carbonate 400 mg PO TID supplement 09/10/23 Unknown History docusate calcium 240 mg capsule 240 mg PO BID bowels 09/10/23 Unknown History (Surfak) ergocalciferol (vitamin D2) 50 mcg 25 mcg PO DAILY supplement 09/10/23 Unknown History (2,000 unit) capsule furosemide 20 mg tablet 20 mg PO DAILY fluid pill 09/10/23 Unknown History magnesium oxide 400 mg PO BID supplement 09/10/23 Unknown History metoprolol succinate 25 mg 25 mg PO DAILY BP/pulse 09/10/23 Unknown History tablet,extended release 24 hr (Toprol XL) oxycodone 5 mg tablet 5 mg PO Q6H PRN PRN Pain Score 4-10 09/10/23 Unknown History potassium chloride 20 mEq 20 meq PO BID supplement 09/10/23 Unknown History tablet,extended release (K-Tab) Allergy/AdvReac Type Severity Reaction Status Date / Time No Known Allergies Allergy Verified 12/27/21 07:48 Family History (Updated 09/10/23 @ 20:[address] Yusuf Corbett MD) Father Ruptured aneurysm of artery Mother Myocardial infarction Sister Cancer Brother CVA (cerebral vascular accident) Son Diabetes CAD (coronary artery disease) s/p stent. Daughter No problems noted. Surgical History (Updated 09/10/23 @ 20:[address] Yusuf Corbett MD) History of coronary artery bypass graft x 2 History of ventral hernia repair History of femoropopliteal bypass History of aortic aneurysm repair Status post carotid endarterectomy S/P hip replacement Hx of tracheostomy History of evacuation of hematoma Hx of total hip arthroplasty Hx of surgical procedure History of left-sided carotid endarterectomy Hx of abdominal surgery Social History (Updated 09/10/23 @ 20:[address] Yusuf Corbett MD) household members: spouse Smoking Status: Former smoker alcohol intake: never substance use type: does not use ROS Constitutional Constitutional: Denies chills, fever(s) or weight gain ENT HEENT: Denies headache(s), nasal congestion or nasal discharge Cardiovascular Cardiovascular: Denies chest pain or palpitations Respiratory/Chest Respiratory/Chest: Denies cough, excessive phlegm production or shortness of breath with exertion Gastrointestinal Gastrointestinal: Denies abdominal pain, nausea or vomiting Genitourinary Genitourinary: Denies dysuria Musculoskeletal Musculoskeletal: Denies joint pain or joint swelling Integumentary Integumentary: Denies rash or wounds Neurologic Neurologic: Denies focal weakness, numbness or tingling Psychiatric Psychiatric: Denies anxiety, auditory hallucinations, depression, homicidal ideation or suicidal ideation Vital Signs Vital Signs Vital Signs: 09/10/23 13:34 09/10/23 13:34 09/10/23 17:00 Temperature 97.4 F L Temperature Source Temporal Pulse Rate 94 Pulse Rhythm Regular Pulse Strength Normal (2+) Respiratory Rate 16 Respiratory Effort Normal Non-Labored Respiratory Depth Normal Respiratory Pattern Normal Blood Pressure 117/74 Blood Pressure Mean 88 Blood Pressure Source Monitor Blood Pressure Position Semi-Fowlers Blood Pressure Location Left Arm Pulse Ox 94 Oxygen Delivery Method Room Air Room Air Room Air Oxygen Flow Rate (L/min) 95 Weight Weight: 103.419 kg Body Mass Index (BMI) 32.7 Physical Exam Const alert General Appearance: cooperative HEENT normocephalic Eyes PERRL and EOMs intact bilaterally Neck supple, no JVD and no carotid bruits Chest Chest Narrative: LifeVest. Midline sternal incision clean/dry/intact. Resp normal respiratory effort, normal air movement and clear to auscultation bilaterally Cardio regular rate and regular rhythm GI normal to inspection, nondistended, normoactive bowel sounds, non-tender and non-distended Extremity normal capillary refill General Extremity: Negative for edema Skin no rashes or lesions noted Wound Narrative: Abdominal wound dressed. Psych affect normal Appearance: appropriate Assessment & Plan Assessment/Plan (1) Debility: (2) Coronary artery disease: (3) Status post coronary artery bypass graft: (4) NSVT (nonsustained ventricular tachycardia): (5) Atrial fibrillation: (6) Acute HFrEF (heart failure with reduced ejection fraction): (7) Stroke/cerebrovascular accident: (8) Peripheral vascular disease: (9) Carotid artery stenosis: (10) BPH (benign prostatic hyperplasia): (11) Dehiscence of postoperative wound of abdomen: PLAN: Plan 78 year old male with below past medical history hospitalized for cabg x [address] Starks, complicated by nsvt, atrial fibrillation, admitted to TCU with debility, here for rehabilitation, strengthening, prior to discharge home with . * Debility - PT/OT. * Pain - Tylenol 1000mg q6 prn pain (1-3), Oxycodone 5mg q6 prn pain (4-10). * Bowel - Miralax 17gm daily, senna/colace 2 tablets bid. * Adult immunization - Administer pneumonia vaccine, covid vaccine, flu vaccine as appropriate. * DVT prophylaxis - Hold, monitor. * Atrial fibrillation - Metoprolol succinate 25mg daily, Amiodarone 400mg bid thru 09/14/2023, then 200mg daily thru 09/19/2023. * CAD s/p cabg x 2 - Metoprolol succinate 25mg daily, Aspirin 81mg daily. * Hyperlipidemia - Atorvastatin 80mg qhs. * Indigestion - TUMS 500mg tidcm prn. * Vitamin D deficiency - D3 25mcg daily. * BPH - Finasteride 5mg daily, Tamsulosin 0.4mg daily. * Acute HFrEF (EF 35%) - Metoprolol succinate 25mg daily, Furosemide 20mg daily thru 09/16/2023. * Hypomagnesemia - Magnesium Chloride 128mg bid. * Tinea Corporis - Nystatin powder topical bid. * Gastric ulcer - Pantoprazole 40mg bid. * Hypokalemia - KCL 20meq bidcm. * NSVT - LifeVest x 3 months. * Abdominal wound - Consult wound nurse.
[2023-09-10] MEDS: Nystatin Powder 15gm Bottle 1 APPLIC TOPICAL (21:10)
[2023-09-10] MEDS: Senna/Docusate Sodium 1 Tablet 2 TABLET PO (21:11)
[2023-09-10] MEDS: Amiodarone 200 MG Tablet 400 MG PO (21:11)
[2023-09-10] MEDS: Pantoprazole Sodium 40 MG Tablet PO (21:12)
[2023-09-10] MEDS: Magnesium Chloride 64 MG Delay Rel.Tablet 128 MG PO (21:12)
[2023-09-10] MEDS: Atorvastatin Calcium 80 MG Tablet PO (21:12)
[2023-09-10 21:25] VITALS: PULSE 84; RESP 16; O2SAT 93
[2023-09-11 05:34] LABS: Absolute Lymphocyte Count 0.98 X10^3/uL (0.83-4.51); Absolute Neutrophil Count 7.3 X10^3/uL (2.0-7.7); Basophil# 0.07 X10^3/uL; Basophil% 0.7 % (0-1); Eosinophil# 0.57 X10^3/uL; Eosinophils% 5.8 % (0-5); Hematocrit 35.1 % (40-54); Hemoglobin 11.2 g/dL (13.0-16.5); Lymphocyte # 0.98 X10^3/ul (0.83-4.51); Lymphocyte % 9.9 % (19-41); Mean Corp Hgb Conc 31.9 g/dL (32-36); Mean Corpuscular Hgb 29.2 pg (27.0-32.0); Mean Corpuscular Volume 91.6 fL (80-94); Mean Platelet Vol. 8.5 fl (6.2-12.0); Monocyte# 0.87 X10^3/uL; Monocyte% 8.8 % (0-10); NRBC Flagged by Analyzer 0 % (0-5); Platelet Count 276 K/mm3 (150-450); RBC Distribution Width CV 15.5 % (11.6-14.6); RBC Distribution Width SD 52.5 fl (35.1-43.9); Red Blood Count 3.83 M/mm3 (4.6-6.2); White Blood Count 9.9 K/mm3 (4.4-11.0)
[2023-09-11 05:53] LABS: Anion Gap 5 (5-15); BUN 25 mg/dL (7-18); BUN/Creat Ratio 22.5 RATIO (10-20); Calcium,Total 9.4 mg/dL (8.5-10.1); Chloride 106 mmol/L (98-107); Creatinine, Serum 1.11 mg/dL (0.70-1.30); EST Glomerular Filtration Rate 68 mL/min (>60); Est Glom Filt Rate - Afr Amer 82 mL/min (>60); Estimated Creatinine Clearance 63.94 ml/min; Glucose 117 mg/dL (74-106); Potassium 4.4 mmol/L (3.5-5.1); Sodium Level 139 mmol/L (136-145)
[2023-09-11 06:00] VITALS: BMI 32.7
[2023-09-11] MEDS: Potassium Chloride Oral Tablet 20 MEQ PO ×2 (08:45→17:15)
[2023-09-11] MEDS: Cholecalciferol (VIT D3) 25 MCG TABLET (1,000 UNITS) PO (08:45)
[2023-09-11] MEDS: Finasteride 5 MG Tablet PO (08:45)
[2023-09-11] MEDS: Senna/Docusate Sodium 1 Tablet 2 TABLET PO (08:45)
[2023-09-11] MEDS: Tamsulosin HCl 0.4 MG Capsule PO (08:45)
[2023-09-11] MEDS: Magnesium Chloride 64 MG Delay Rel.Tablet 128 MG PO ×2 (08:45→21:33)
[2023-09-11 08:46] VITALS: BP 140/81; PULSE 79
[2023-09-11] MEDS: Amiodarone 200 MG Tablet 400 MG PO ×2 (08:46→21:33)
[2023-09-11] MEDS: Furosemide 20 MG Tablet PO (08:46)
[2023-09-11] MEDS: Polyethylene Glycol 3350 17 GM PACKET PO (08:46)
[2023-09-11] MEDS: Metoprolol(XL)Succ 25 MG Tablet PO (08:46)
[2023-09-11] MEDS: Pantoprazole Sodium 40 MG Tablet PO ×2 (08:46→21:34)
[2023-09-11] MEDS: Aspirin 81 MG TAB.CHEW PO (08:46)
[2023-09-11] MEDS: Nystatin Powder 15gm Bottle 1 APPLIC TOPICAL ×2 (08:47→21:32)
--- NOTE | 2023-09-11 09:41 | PCM.PN.DRR ---
Documented by User: Renuka Alejandro 09/11/23 10:30 TCU RX Drug Regimen Review Subjective/Objective Subjective/Objective: Subjective: TCU Admission. 78 YOM hospitalized for cabg x [address] Starks, complicated by nsvt, atrial fibrillation. Admitted to TCU with debility for strengthening and rehabilitation. Objective: Allergies No Known Allergies Allergy (Verified 12/27/21 07:48) Current Medications Generic Name Dose Route Start Last Admin Trade Name Freq PRN Reason Stop Dose Admin Acetaminophen 1,000 mg 09/10/23 20:52 Acetaminophen 500 Mg Tablet PO Q6H PRN PRN Pain Score 1-3 Amiodarone HCl 200 mg 09/15/23 10:00 Amiodarone 200 Mg Tablet PO 09/19/23 10:01 DAILY VICKIE Amiodarone HCl 400 mg 09/10/23 22:00 09/11/23 08:46 Amiodarone 200 Mg Tablet PO 09/14/23 22:01 400 mg BID VICKIE Administration Aspirin 81 mg 09/11/23 08:00 09/11/23 08:46 Aspirin 81 Mg Tab.Chew PO 81 mg DAILYCM VICKIE Administration Atorvastatin Calcium 80 mg 09/10/23 22:00 09/10/23 21:12 Atorvastatin Calcium 80 Mg Tablet PO 80 mg QHS VICKIE Administration Calcium Carbonate 500 mg 09/10/23 16:37 Calcium Carbonate 500 Mg Tablet PO 10/10/23 16:38 TIDCM PRN HEARTBURN OR INDIGESTION Cholecalciferol 25 mcg 09/11/23 08:00 09/11/23 08:45 Cholecalciferol (Vit D3) 25 Mcg Tablet (1,000 Units) PO 25 mcg DAILYCM VICKIE Administration Finasteride 5 mg 09/11/23 10:00 09/11/23 08:45 Finasteride 5 Mg Tablet PO 5 mg DAILY VICKIE Administration Furosemide 20 mg 09/11/23 10:00 09/11/23 08:46 Furosemide 20 Mg Tablet PO 09/16/23 10:01 20 mg DAILY VICKIE Administration Protocol Magnesium Chloride 128 mg 09/10/23 22:00 09/11/23 08:45 Magnesium Chloride 64 Mg Delay Rel.Tablet PO 128 mg BID VICKIE Administration Metoprolol Succinate 25 mg 09/11/23 10:00 09/11/23 08:46 Metoprolol(Xl)Succ 25 Mg Tablet PO 25 mg DAILY VICKIE Administration Protocol Nystatin 1 applic 09/10/23 22:00 09/11/23 08:47 Nystatin Powder 15gm Bottle TOPICAL 1 applic BID VICKIE Administration Protocol Oxycodone HCl 5 mg 09/10/23 20:52 Oxycodone 5 Mg Tablet PO Q4H PRN PRN Pain Score 4-10 Pantoprazole Sodium 40 mg 09/10/23 22:00 09/11/23 08:46 Pantoprazole Sodium 40 Mg Tablet PO 40 mg BID VICKIE Administration Polyethylene Glycol 17 gm 09/11/23 10:00 09/11/23 08:46 Polyethylene Glycol 3350 17 Gm Packet PO 17 gm DAILY VICKIE Administration Potassium Chloride 20 meq 09/10/23 17:00 09/11/23 08:45 Potassium Chloride Oral Tablet 20 Meq PO 09/15/23 17:01 20 meq BIDCM VICKIE Administration Senna/Docusate Sodium 2 tablet 09/10/23 22:00 09/11/23 08:45 Senna/Docusate Sodium 1 Tablet PO 2 tablet BID VICKIE Administration Tamsulosin HCl 0.4 mg 09/11/23 08:30 09/11/23 08:45 Tamsulosin Hcl 0.4 Mg Capsule PO 0.4 mg DAILY@0830 VICKIE Administration Tuberculin PPD 0.1 ml 09/11/23 10:00 Tuberculin,Purif.Prot.Deriv. 50 Tu/Ml Vial ID 09/11/23 10:01 X1 ONE Tuberculin PPD 0.1 ml 09/18/23 10:00 Tuberculin,Purif.Prot.Deriv. 50 Tu/Ml Vial ID 09/18/23 10:01 X1 ONE Problem List Peripheral vascular disease (Acute) Stroke/cerebrovascular accident (Acute) Acute HFrEF (heart failure with reduced ejection fraction) (Acute) Atrial fibrillation (Acute) NSVT (nonsustained ventricular tachycardia) (Acute) Status post coronary artery bypass graft (Acute) Coronary artery disease (Acute) Debility (Acute) Dehiscence of postoperative wound of abdomen (Acute) BPH (benign prostatic hyperplasia) (Acute) Carotid artery stenosis (Acute) Vital Signs Temp Pulse Resp BP Pulse Ox O2 Del Method O2 Flow Rate 97.4 F L 79 16 140/81 H 93 Room Air 95 09/10/23 13:34 09/11/23 08:46 09/10/23 21:25 09/11/23 08:46 09/10/23 21:25 09/10/23 21:25 09/10/23 13:34 Oxygen Flow Rate (L/min) 95 Oxygen Delivery Method Room Air Weight: 103.419 kg Body Mass Index (BMI) 32.7 Sodium 139 mmol/L (136-145) 09/11/23 05:24 Potassium 4.4 mmol/L (3.5-5.1) 09/11/23 05:24 Chloride 106 mmol/L (98-107) 09/11/23 05:24 Carbon Dioxide 28.0 mmol/L (21.0-32.0) 09/11/23 05:24 Anion Gap 5 (5-15) 09/11/23 05:24 BUN 25 mg/dL (7-18) H 09/11/23 05:24 Creatinine 1.11 mg/dL (0.70-1.30) 09/11/23 05:24 Est GFR (MDRD) Af Amer 82 mL/min (>60) 09/11/23 05:24 Est GFR (MDRD) Non-Af 68 mL/min (>60) 09/11/23 05:24 BUN/Creatinine Ratio 22.5 RATIO (10-20) H 09/11/23 05:24 Glucose 117 mg/dL (74-106) H 09/11/23 05:24 Assessment/Plan: 1. Pain: acetaminophen 1000mg PO Q6H PRN pain 1-3 and oxycodone 5mg PO Q6H PRN pain 4-10. Resident has not had any PRN doses. Please continue to monitor for increased pain and PRN usage. 2. Bowel: Miralax 17gm PO daily and senna/docusate 2T PO BID. No documented bowel movement at this time. Please continue to monitor for constipation and diarrhea. 3. Atrial fibrillation/CAD s/p CABG/Acute HFrEF: metoprolol succinate 25mg PO daily, amiodarone 400mg PO BID thru 09/13 then 200mg daily thru 09/19/23, aspirin 81mg PO daily and furosemide 20mg PO daily thru 09/16/23. Please continue to monitor BP (last 140/81), HR (last 79), potassium (last 4.4mmol/L), sodium (last 139mmol/L), SOB, S/S of bleeding, hemoglobin (last 11.2g/dL), edema and renal function (SCr 1.11mg/dL). Per H&P, resident had PVCs and a short run of atrial fibrillation post-op. Please consider anticoagulation if clinically indicated, CHADsVASC >2. Thanks. However, with only a short run of atrial fibrillation, anticoagulation may not be necessary. Resident with LifeVest for NSVT. 4. Hyperlipidemia: atorvastatin 80mg PO QHS. Please consider ordering a lipid panel or obtaining a previous panel from PCP if available. No lipid panel in the chart. Thanks. Please continue to monitor for muscle pain. 5. BPH: finasteride 5mg PO daily and tamsulosin 0.4mg PO daily. Please continue to monitor for S/S of BPH and BP. 6. Gastric ulcer: pantoprazole 40mg PO BID. Please continue to monitor for S/S of bleeding and diarrhea (BEERs medication). 7. Hypokalemia: potassium chloride 20mEq PO BIDCM. Please continue to monitor potassium (last 4.4mmol/L). 8. Indigestion: calcium carbonate 500mg PO TIDCM PRN indigestion or heartburn. No PRN doses have been given. Please continue to monitor for PRN usage, indigestion and calcium (last 9.4mmo/L). 9. Hypomagnesemia: magnesium chloride 128mg PO BID. Please continue to monitor magnesium (last from 2021). 10. Vitamin D deficiency: cholecalciferol 25mcg PO daily. Please consider ordering a vitamin D level as there is no level on the chart. Thanks. Assessment/Plan for indications treated with psychotropic medications: None Medical chart and medication regimen reviewed. The following medication irregularities or issues were identified: 1. Atrial fibrillation: metoprolol succinate 25mg PO daily, amiodarone 400mg PO BID thru 09/13 then 200mg daily thru 09/19/23. Per H&P, resident had PVCs and a short run of atrial fibrillation post-op. Please consider anticoagulation if clinically indicated, CHADsVASC >2. Thanks. However, with only a short run of atrial fibrillation, anticoagulation may not be necessary. 2. Atorvastatin 80mg PO QHS. Please consider ordering a lipid panel or obtaining a previous panel from PCP if available. No lipid panel in the chart. Thanks. 3. Cholecalciferol 25mcg PO daily. Please consider ordering a vitamin D level as there is no level on the chart. Thanks. Date Date of Note:: 09/11/23 Documented by User: Dr. Yusuf Corbett MD 09/11/23 11:35 TCU RX Drug Regimen Review Provider Comments Provider responsibility Provider Comments to Recommendations by Pharmacy: Agree
[2023-09-11] MEDS: Tuberculin,Purif.prot.deriv. 50 TU/ML Vial 0.1 ML ID (10:13)
[2023-09-11 13:19] VITALS: BP 111/63; PULSE 68; RESP 18; TEMP 36.2; O2SAT 96
--- NOTE | 2023-09-11 13:35 | NURSING ---
student accounts coordinator Note, Activity Asset: Duong Alfonso is independent in his choice of daily activities. Kaden stated he welcomes visits from the grinder needle tip and therapy dog when available. He will watch tv and read the paper. He also asked for crossword and word search puzzles and was given several. His will visits when she can and bring him items he may need. Staff will remind him of weekly activities, encourage social activities and respect his right to say no.
--- NOTE | 2023-09-11 13:45 | CASEMGMT ---
Social Work SW received copy of patient's Medical Directive and Living Will from , Jenny. Copy of Health Directive has been placed in patient chart and sent to medical records. SIXTO Ramos
--- NOTE | 2023-09-11 16:21 | CASEMGMT ---
Social Work- TCU Admit note SW met with patient and , Jenny at bedside to complete initial intake admission. SW introduced self and role. Patient confirmed demographics and contact information. Patient informed SW that prior to admission he was residing in home with his , Jenny. Patient informed SW that he ambulate with cane outside. Patient informed SW that he has Advance Directive; Living Will and POA with , Jenny Latif is decision maker. Patient confirmed code status: Full Code. Patient informed SW that prior to admission, he was receiving home health care via [facility] wound care and previously had PT/OT. In addition, patient goes to wound clinic. SW educated patient on Medicare coverage and benefits. Patient has /Medicare covered 100% first 20 day; 20th day is 09/28. Patient was informed of co-pay 204/day for days 21-100. Patient's goal is to return home with resumption of home health care. SW will continue to follow for discharge planning. SIXTO Ramos
[2023-09-11 19:56] VITALS: PULSE 75; RESP 16; O2SAT 95
[2023-09-11] MEDS: Atorvastatin Calcium 80 MG Tablet PO (21:34)
[2023-09-12 05:52] LABS: Cholesterol 116 mg/dL (200); High Density Lipoprotein 34 mg/dL; Triglycerides 118 mg/dL; Very Low Density Lipoprotein 24 mg/dL (5-40)
[2023-09-12] MEDS: Potassium Chloride Oral Tablet 20 MEQ PO ×2 (07:38→18:10)
[2023-09-12] MEDS: Aspirin 81 MG TAB.CHEW PO (07:38)
[2023-09-12] MEDS: Tamsulosin HCl 0.4 MG Capsule PO (07:39)
[2023-09-12] MEDS: Magnesium Chloride 64 MG Delay Rel.Tablet 128 MG PO ×2 (07:39→23:37)
[2023-09-12] MEDS: Amiodarone 200 MG Tablet 400 MG PO ×2 (07:39→23:39)
[2023-09-12] MEDS: Furosemide 20 MG Tablet PO (07:39)
[2023-09-12] MEDS: Cholecalciferol (VIT D3) 25 MCG TABLET (1,000 UNITS) PO (07:39)
[2023-09-12] MEDS: Pantoprazole Sodium 40 MG Tablet PO ×2 (07:40→23:37)
[2023-09-12] MEDS: Finasteride 5 MG Tablet PO (07:40)
[2023-09-12 07:41] VITALS: BP 149/78; PULSE 72
[2023-09-12] MEDS: Metoprolol(XL)Succ 25 MG Tablet PO (07:41)
[2023-09-12] MEDS: Nystatin Powder 15gm Bottle 1 APPLIC TOPICAL (07:44)
[2023-09-12 09:04] LABS: Vitamin D,25 Hydroxy 22.5 ng/mL
[2023-09-12 14:55] VITALS: BP 123/66; PULSE 72; RESP 19; TEMP 36; O2SAT 93
[2023-09-12 23:30] VITALS: BP 131/82; PULSE 77; O2SAT 96
[2023-09-12] MEDS: Senna/Docusate Sodium 1 Tablet 2 TABLET PO (23:37)
[2023-09-12] MEDS: Atorvastatin Calcium 80 MG Tablet PO (23:38)
[2023-09-13 06:00] VITALS: BMI 32.5
[2023-09-13] MEDS: Potassium Chloride Oral Tablet 20 MEQ PO ×2 (09:39→17:28)
[2023-09-13] MEDS: Aspirin 81 MG TAB.CHEW PO (09:39)
[2023-09-13] MEDS: Cholecalciferol (VIT D3) 25 MCG TABLET (1,000 UNITS) PO (09:39)
[2023-09-13] MEDS: Magnesium Chloride 64 MG Delay Rel.Tablet 128 MG PO ×2 (09:40→21:43)
[2023-09-13] MEDS: Amiodarone 200 MG Tablet 400 MG PO ×2 (09:40→21:43)
[2023-09-13] MEDS: Tamsulosin HCl 0.4 MG Capsule PO (09:40)
[2023-09-13] MEDS: Furosemide 20 MG Tablet PO (09:40)
[2023-09-13] MEDS: Polyethylene Glycol 3350 17 GM PACKET PO (09:40)
[2023-09-13 09:41] VITALS: BP 110/64; PULSE 80
[2023-09-13] MEDS: Finasteride 5 MG Tablet PO (09:41)
[2023-09-13] MEDS: Metoprolol(XL)Succ 25 MG Tablet PO (09:41)
[2023-09-13] MEDS: Senna/Docusate Sodium 1 Tablet 2 TABLET PO ×2 (09:41→21:45)
[2023-09-13] MEDS: Pantoprazole Sodium 40 MG Tablet PO ×2 (09:41→21:43)
[2023-09-13] MEDS: Nystatin Powder 15gm Bottle 1 APPLIC TOPICAL ×2 (09:48→21:43)
[2023-09-13 15:20] VITALS: BP 127/70; PULSE 63; RESP 16; TEMP 36.3; O2SAT 93
--- NOTE | 2023-09-13 16:12 | CHAPLAIN ---
Type of Pastoral Visit ___ Initial Visit ___ Follow-up Visit ___ On-call Visit ___ General Patient Visit ___ Spiritual Assessment ___ Family Conference ___ Bereavement ___ Rapid Response ___ Code Blue ___ Other (describe below) Pastoral Care Referral From ___ Patient ___ Family ___ Nurse ___ Physician ___ Bulk Tank Car Unloader ___ Observation Nurse ___ Other (describe below) Sacrament/Intervention ___ Active listening ___ Anointing ___ Moravian ___ Bereavement ___ Communion ___ Anastacia exploration ___ ___ Life review ___ Prayer ___ Reconciliation ___ Sacrament of Sick ___ Supportive presence ___ Wedding ___ Other (describe below) Pastoral Comments brief introduction to self and role as patient is resting in bed; spouse is with him; pt and spouse are welcoming but express that patient is feeling tired due to a busy day in TCU; offer of return next week is welcomed
[2023-09-13] MEDS: Atorvastatin Calcium 80 MG Tablet PO (21:44)
[2023-09-14 06:00] VITALS: BMI 32.5
[2023-09-14] MEDS: Aspirin 81 MG TAB.CHEW PO (08:23)
[2023-09-14] MEDS: Potassium Chloride Oral Tablet 20 MEQ PO ×2 (08:24→17:30)
[2023-09-14] MEDS: Cholecalciferol (VIT D3) 25 MCG TABLET (1,000 UNITS) PO (08:24)
[2023-09-14] MEDS: Amiodarone 200 MG Tablet 400 MG PO ×2 (08:25→23:01)
[2023-09-14] MEDS: Tamsulosin HCl 0.4 MG Capsule PO (08:25)
[2023-09-14] MEDS: Furosemide 20 MG Tablet PO (08:26)
[2023-09-14] MEDS: Magnesium Chloride 64 MG Delay Rel.Tablet 128 MG PO ×2 (08:26→23:02)
[2023-09-14] MEDS: Polyethylene Glycol 3350 17 GM PACKET PO (08:27)
[2023-09-14] MEDS: Finasteride 5 MG Tablet PO (08:27)
[2023-09-14] MEDS: Senna/Docusate Sodium 1 Tablet 2 TABLET PO (08:28)
[2023-09-14] MEDS: Pantoprazole Sodium 40 MG Tablet PO ×2 (08:28→23:02)
[2023-09-14 08:29] VITALS: BP 122/58; PULSE 70
[2023-09-14] MEDS: Metoprolol(XL)Succ 25 MG Tablet PO (08:29)
[2023-09-14] MEDS: Nystatin Powder 15gm Bottle 1 APPLIC TOPICAL ×2 (08:31→23:07)
[2023-09-14 15:26] VITALS: BP 118/61; PULSE 71; RESP 16; TEMP 36.4; O2SAT 94
--- NOTE | 2023-09-14 15:56 | NURSING ---
Patient c/o not being able to sleep. Dr. Corbett notified. New order received for Melatonin 10mg po qhs. Patient updated, verbalized understanding.
[2023-09-14 20:07] VITALS: PULSE 66
[2023-09-14] MEDS: Atorvastatin Calcium 80 MG Tablet PO (23:02)
[2023-09-14] MEDS: MELATONIN 10 MG TABLET PO (23:07)
[2023-09-15 06:00] VITALS: BMI 32.2
[2023-09-15] MEDS: Potassium Chloride Oral Tablet 20 MEQ PO ×2 (08:52→16:46)
[2023-09-15] MEDS: Cholecalciferol (VIT D3) 25 MCG TABLET (1,000 UNITS) PO (08:52)
[2023-09-15] MEDS: Aspirin 81 MG TAB.CHEW PO (08:52)
[2023-09-15] MEDS: Tamsulosin HCl 0.4 MG Capsule PO (08:52)
[2023-09-15 09:54] VITALS: BP 109/64; PULSE 70
[2023-09-15] MEDS: Metoprolol(XL)Succ 25 MG Tablet PO (09:54)
[2023-09-15] MEDS: Magnesium Chloride 64 MG Delay Rel.Tablet 128 MG PO ×2 (09:54→21:49)
[2023-09-15] MEDS: Furosemide 20 MG Tablet PO (09:54)
[2023-09-15] MEDS: Pantoprazole Sodium 40 MG Tablet PO ×2 (09:54→21:50)
[2023-09-15] MEDS: Amiodarone 200 MG Tablet PO (09:55)
[2023-09-15] MEDS: Nystatin Powder 15gm Bottle 1 APPLIC TOPICAL ×2 (09:56→21:50)
[2023-09-15] MEDS: Finasteride 5 MG Tablet PO (09:56)
[2023-09-15 11:20] VITALS: PULSE 70; RESP 16; O2SAT 96
[2023-09-15 12:33] VITALS: BP 109/64; PULSE 70; RESP 16; TEMP 35.9; O2SAT 96
[2023-09-15] MEDS: MELATONIN 10 MG TABLET PO (21:49)
[2023-09-15] MEDS: Atorvastatin Calcium 80 MG Tablet PO (21:49)
[2023-09-16 06:00] VITALS: BMI 35.4
[2023-09-16 09:08] VITALS: BP 118/66; PULSE 92
[2023-09-16] MEDS: Finasteride 5 MG Tablet PO (09:08)
[2023-09-16] MEDS: Metoprolol(XL)Succ 25 MG Tablet PO (09:08)
[2023-09-16] MEDS: Magnesium Chloride 64 MG Delay Rel.Tablet 128 MG PO ×2 (09:09→20:41)
[2023-09-16] MEDS: Furosemide 20 MG Tablet PO (09:09)
[2023-09-16] MEDS: Nystatin Powder 15gm Bottle 1 APPLIC TOPICAL ×2 (09:09→20:42)
[2023-09-16] MEDS: Aspirin 81 MG TAB.CHEW PO (09:09)
[2023-09-16] MEDS: Amiodarone 200 MG Tablet PO (09:09)
[2023-09-16] MEDS: Cholecalciferol (VIT D3) 25 MCG TABLET (1,000 UNITS) PO (09:09)
[2023-09-16] MEDS: Pantoprazole Sodium 40 MG Tablet PO ×2 (09:09→20:42)
[2023-09-16] MEDS: Tamsulosin HCl 0.4 MG Capsule PO (09:09)
[2023-09-16 13:40] VITALS: BP 119/65; PULSE 73; RESP 16; TEMP 36.1; O2SAT 95
[2023-09-16] MEDS: Atorvastatin Calcium 80 MG Tablet PO (20:41)
[2023-09-16] MEDS: MELATONIN 10 MG TABLET PO (20:42)
[2023-09-16 20:48] VITALS: RESP 16
[2023-09-17 06:00] VITALS: BMI 35.6
--- NOTE | 2023-09-17 08:32 | NURSING ---
Partner Alliance Manager Note; MDS for 09/17/2023 Compete
[2023-09-17 09:25] VITALS: BP 128/69; PULSE 66
[2023-09-17] MEDS: Pantoprazole Sodium 40 MG Tablet PO ×2 (09:25→21:22)
[2023-09-17] MEDS: Amiodarone 200 MG Tablet PO (09:25)
[2023-09-17] MEDS: Tamsulosin HCl 0.4 MG Capsule PO (09:25)
[2023-09-17] MEDS: Aspirin 81 MG TAB.CHEW PO (09:25)
[2023-09-17] MEDS: Nystatin Powder 15gm Bottle 1 APPLIC TOPICAL ×2 (09:25→21:22)
[2023-09-17] MEDS: Cholecalciferol (VIT D3) 25 MCG TABLET (1,000 UNITS) PO (09:25)
[2023-09-17] MEDS: Metoprolol(XL)Succ 25 MG Tablet PO (09:25)
[2023-09-17] MEDS: Magnesium Chloride 64 MG Delay Rel.Tablet 128 MG PO ×2 (09:25→21:22)
[2023-09-17] MEDS: Finasteride 5 MG Tablet PO (09:25)
[2023-09-17] MEDS: COVID VAC 23-24(12UP)(ANDU)/PF 50 MCG/0.5 ML SYR/VIAL IM (11:07)
--- NOTE | 2023-09-17 14:27 | RAD_ITS ---
STUDY: X-RAY CHEST REASON FOR EXAM: Male, 78 years old. Follow up status post coronary artery bypass grafting. TECHNIQUE: Frontal and lateral views of the chest. COMPARISON: March 09, 2005 FINDINGS: Cardiomegaly, sternotomy wires, changes of coronary artery bypass grafting, left atrial appendage closure device, mild hyperinflation with mild interstitial prominence and scarring at the left base with diffuse thoracic osteopenia with moderate spondylosis and increased kyphosis. No abnormality of the visualized soft tissue structures of the upper abdomen. RAD/Chest PA and Lateral IMPRESSION: Postcoronary artery bypass graft changes without acute or active cardiopulmonary disease. Electronically Signed: Rogers Nichols MD at 14:53 EDT ,
[2023-09-17 15:14] VITALS: BP 112/70; PULSE 69; RESP 15; TEMP 36.5
--- NOTE | 2023-09-17 15:58 | CASEMGMT ---
Social Work BIMS () and PHQ-9 (0) completed for MDS assessment. Rachel Faustin, PLAYER MANAGER DESULFURIZER HAND
[2023-09-17] MEDS: Atorvastatin Calcium 80 MG Tablet PO (21:22)
[2023-09-17] MEDS: MELATONIN 10 MG TABLET PO (21:22)
[2023-09-18 05:51] LABS: Absolute Neutrophil Count 7.9 X10^3/uL (2.0-7.7); Eosinophil# 0.52 X10^3/uL; Eosinophils% 5.1 % (0-5); Hematocrit 31.7 % (40-54); Hemoglobin 10.2 g/dL (13.0-16.5); Lymphocyte % 6.9 % (19-41); Mean Corp Hgb Conc 32.2 g/dL (32-36); Mean Corpuscular Hgb 29.1 pg (27.0-32.0); Mean Corpuscular Volume 90.6 fL (80-94); Mean Platelet Vol. 8.6 fl (6.2-12.0); Monocyte# 0.73 X10^3/uL; Monocyte% 7.2 % (0-10); NRBC Flagged by Analyzer 0 % (0-5); Neutrophil # 7.88 X10^3/uL (2.7-7.7); Neutrophil % 78.1 % (47-70); Platelet Count 357 K/mm3 (150-450); RBC Distribution Width CV 15.8 % (11.6-14.6); RBC Distribution Width SD 51.3 fl (35.1-43.9); White Blood Count 10.1 K/mm3 (4.4-11.0)
[2023-09-18 06:00] VITALS: BMI 35.0
[2023-09-18 07:04] LABS: Anion Gap 6 (5-15); BUN 26 mg/dL (7-18); BUN/Creat Ratio 23.6 RATIO (10-20); Calcium,Total 9.1 mg/dL (8.5-10.1); Chloride 107 mmol/L (98-107); EST Glomerular Filtration Rate 68 mL/min (>60); Est Glom Filt Rate - Afr Amer 83 mL/min (>60); Estimated Creatinine Clearance 64.52 ml/min; Glucose 114 mg/dL (74-106); Potassium 4.5 mmol/L (3.5-5.1); Sodium Level 137 mmol/L (136-145)
[2023-09-18] MEDS: Amiodarone 200 MG Tablet PO (09:39)
[2023-09-18] MEDS: Magnesium Chloride 64 MG Delay Rel.Tablet 128 MG PO ×2 (09:39→22:27)
[2023-09-18] MEDS: Pantoprazole Sodium 40 MG Tablet PO ×2 (09:39→22:28)
[2023-09-18] MEDS: Finasteride 5 MG Tablet PO (09:39)
[2023-09-18] MEDS: Cholecalciferol (VIT D3) 25 MCG TABLET (1,000 UNITS) PO (09:39)
[2023-09-18] MEDS: Aspirin 81 MG TAB.CHEW PO (09:39)
[2023-09-18 09:40] VITALS: BP 119/61; PULSE 76
[2023-09-18] MEDS: Metoprolol(XL)Succ 25 MG Tablet PO (09:40)
[2023-09-18] MEDS: Tamsulosin HCl 0.4 MG Capsule PO (09:40)
[2023-09-18] MEDS: Nystatin Powder 15gm Bottle 1 APPLIC TOPICAL (09:41)
--- NOTE | 2023-09-18 11:10 | CASEMGMT ---
Social Work IDT met with patient, and son for care plan meeting. Discussed patient's progress in PT/OT/SN. Educated to Medicare benefit. Inquired about DC plans. Pt would like to develop more strength prior to homegoing. SW agreed with pt/family to follow up on 09/22 to reevaluate and set DC date. Pt would prefer OP therapy; no DME needs. SW will continue to follow. Rachel Faustin, BUSINESS EDUCATION TEACHER ART TRACER
[2023-09-18] MEDS: Tuberculin,Purif.prot.deriv. 50 TU/ML Vial 0.1 ML ID (12:16)
[2023-09-18 12:25] VITALS: BP 111/66; PULSE 75; RESP 14; TEMP 36.7; O2SAT 93
--- NOTE | 2023-09-18 13:14 | CHAPLAIN ---
Type of Pastoral Visit ___ Initial Visit __x_ Follow-up Visit ___ On-call Visit ___ General Patient Visit ___ Spiritual Assessment ___ Family Conference ___ Bereavement ___ Rapid Response ___ Code Blue ___ Other (describe below) Pastoral Care Referral From _x__ Patient ___ Family ___ Nurse ___ Physician ___ Business And Services Instructor ___ Salesperson Toy Trains And Accessories ___ Other (describe below) Sacrament/Intervention _x__ Active listening ___ Anointing ___ Zoroastrian ___ Bereavement ___ Communion _x__ Anastacia exploration ___ ___ Life review _x__ Prayer ___ Reconciliation ___ Sacrament of Sick ___ Supportive presence ___ Wedding ___ Other (describe below) Pastoral Comments patient is more alert and vocal at this visit from a previous brief attempt; pt is resting up before therapy but is able and willing to talk; pt is more upbeat and optimistic about his progress, his going home in a few days, and his plans for more recovery time; pt has strong anastacia and long time connection to a local hoahaoism; casual visit with words of hope and support
[2023-09-18] MEDS: Senna/Docusate Sodium 1 Tablet 2 TABLET PO (22:26)
[2023-09-18] MEDS: Atorvastatin Calcium 80 MG Tablet PO (22:27)
[2023-09-18] MEDS: MELATONIN 10 MG TABLET PO (22:27)
[2023-09-18 22:30] VITALS: O2SAT 96
[2023-09-19 06:00] VITALS: BMI 35.1
[2023-09-19] MEDS: Magnesium Chloride 64 MG Delay Rel.Tablet 128 MG PO ×2 (08:43→20:28)
[2023-09-19] MEDS: Amiodarone 200 MG Tablet PO (08:43)
[2023-09-19] MEDS: Senna/Docusate Sodium 1 Tablet 2 TABLET PO (08:43)
[2023-09-19] MEDS: Pantoprazole Sodium 40 MG Tablet PO ×2 (08:44→20:29)
[2023-09-19] MEDS: Finasteride 5 MG Tablet PO (08:44)
[2023-09-19] MEDS: Aspirin 81 MG TAB.CHEW PO (08:44)
[2023-09-19] MEDS: Cholecalciferol (VIT D3) 25 MCG TABLET (1,000 UNITS) PO (08:45)
[2023-09-19 08:50] VITALS: BP 116/65; PULSE 79
[2023-09-19] MEDS: Metoprolol(XL)Succ 25 MG Tablet PO (08:50)
[2023-09-19 10:00] VITALS: PULSE 70; RESP 18
[2023-09-19 15:27] VITALS: BP 142/74; PULSE 82; RESP 21; TEMP 36.6; O2SAT 96
[2023-09-19] MEDS: Atorvastatin Calcium 80 MG Tablet PO (20:28)
[2023-09-19] MEDS: Tamsulosin HCl 0.4 MG Capsule PO (20:28)
[2023-09-19] MEDS: MELATONIN 10 MG TABLET PO (20:28)
[2023-09-20 06:00] VITALS: BMI 34.9
[2023-09-20 08:28] VITALS: BP 112/70; PULSE 74
[2023-09-20] MEDS: Metoprolol(XL)Succ 25 MG Tablet PO (08:28)
[2023-09-20] MEDS: Pantoprazole Sodium 40 MG Tablet PO ×2 (08:29→21:39)
[2023-09-20] MEDS: Cholecalciferol (VIT D3) 25 MCG TABLET (1,000 UNITS) PO (08:29)
[2023-09-20] MEDS: Magnesium Chloride 64 MG Delay Rel.Tablet 128 MG PO ×2 (08:29→21:38)
[2023-09-20] MEDS: Aspirin 81 MG TAB.CHEW PO (08:29)
[2023-09-20] MEDS: Finasteride 5 MG Tablet PO (08:29)
[2023-09-20 08:30] VITALS: BP 112/70; PULSE 74; RESP 16; TEMP 36.1; O2SAT 95
[2023-09-20] MEDS: Senna/Docusate Sodium 1 Tablet 2 TABLET PO (21:38)
[2023-09-20] MEDS: MELATONIN 10 MG TABLET PO (21:40)
[2023-09-20] MEDS: Tamsulosin HCl 0.4 MG Capsule PO (21:40)
[2023-09-20] MEDS: Atorvastatin Calcium 80 MG Tablet PO (21:40)
[2023-09-21 09:33] VITALS: BP 140/73; PULSE 69; RESP 16; TEMP 36.9; O2SAT 98
[2023-09-21] MEDS: Aspirin 81 MG TAB.CHEW PO (09:36)
[2023-09-21 09:37] VITALS: PULSE 69
[2023-09-21] MEDS: Magnesium Chloride 64 MG Delay Rel.Tablet 128 MG PO ×2 (09:37→22:52)
[2023-09-21] MEDS: Finasteride 5 MG Tablet PO (09:37)
[2023-09-21] MEDS: Cholecalciferol (VIT D3) 25 MCG TABLET (1,000 UNITS) PO (09:37)
[2023-09-21] MEDS: Metoprolol(XL)Succ 25 MG Tablet PO (09:37)
[2023-09-21] MEDS: Pantoprazole Sodium 40 MG Tablet PO ×2 (09:37→22:53)
--- NOTE | 2023-09-21 14:50 | NURSING ---
dressing changed to umbilical area, beverly ring noted to old drsg. 4x4 folded in quarters placed after cleansing w/0.9 NS. at side, feels its trying to close. states he has been going to wound center for awhile to heal this area.
[2023-09-21 16:57] VITALS: BMI 34.5
[2023-09-21 18:09] VITALS: PULSE 68; RESP 17; O2SAT 94
[2023-09-21] MEDS: Tamsulosin HCl 0.4 MG Capsule PO (22:52)
[2023-09-21] MEDS: Atorvastatin Calcium 80 MG Tablet PO (22:53)
[2023-09-21] MEDS: MELATONIN 10 MG TABLET PO (22:53)
[2023-09-22 06:00] VITALS: BMI 34.6
[2023-09-22 08:01] VITALS: BP 133/70; PULSE 72; RESP 16; TEMP 36.3; O2SAT 96
[2023-09-22] MEDS: Cholecalciferol (VIT D3) 25 MCG TABLET (1,000 UNITS) PO (08:05)
[2023-09-22] MEDS: Aspirin 81 MG TAB.CHEW PO (08:05)
[2023-09-22 08:06] VITALS: PULSE 72
[2023-09-22] MEDS: Magnesium Chloride 64 MG Delay Rel.Tablet 128 MG PO ×2 (08:06→20:46)
[2023-09-22] MEDS: Finasteride 5 MG Tablet PO (08:06)
[2023-09-22] MEDS: Metoprolol(XL)Succ 25 MG Tablet PO (08:06)
[2023-09-22] MEDS: Pantoprazole Sodium 40 MG Tablet PO ×2 (08:06→20:47)
[2023-09-22 17:21] VITALS: PULSE 63; RESP 16; O2SAT 96
[2023-09-22] MEDS: Atorvastatin Calcium 80 MG Tablet PO (20:46)
[2023-09-22] MEDS: Tamsulosin HCl 0.4 MG Capsule PO (20:47)
[2023-09-22] MEDS: MELATONIN 10 MG TABLET PO (20:47)
--- NOTE | 2023-09-22 20:52 | NURSING ---
Addendum entered by Ishaan Doll 09/22/23 20:56: Life vest education provided during battery change, patient able to follow life vest prompts appropriately. A&Ox4 to person/place/time/situation. Original Note: Life vest battery changed at this time, Life vest on and functioning properly.
[2023-09-23 06:00] VITALS: BMI 34.5
[2023-09-23 08:00] VITALS: BP 104/69; PULSE 88; RESP 18; TEMP 36.2; O2SAT 95
[2023-09-23 08:12] VITALS: PULSE 88
[2023-09-23] MEDS: Aspirin 81 MG TAB.CHEW PO (08:12)
[2023-09-23] MEDS: Pantoprazole Sodium 40 MG Tablet PO ×2 (08:12→20:36)
[2023-09-23] MEDS: Finasteride 5 MG Tablet PO (08:12)
[2023-09-23] MEDS: Cholecalciferol (VIT D3) 25 MCG TABLET (1,000 UNITS) PO (08:12)
[2023-09-23] MEDS: Metoprolol(XL)Succ 25 MG Tablet PO (08:12)
[2023-09-23] MEDS: Magnesium Chloride 64 MG Delay Rel.Tablet 128 MG PO ×2 (08:12→20:37)
--- NOTE | 2023-09-23 09:03 | CASEMGMT ---
Addendum entered by Rachel Faustin 09/23/23 10:24: SW spoke with pt to update on DC plans. Pt agreed. BIMS () and PHQ-2 () completed for MDS assessment. Original Note: Social Work SW phoned to follow up on DC plans. stated she and pt were expecting to DC today. SW denied as pt nor contacted this worker or told another staff member about request to DC. SW reminded this worker would follow up today on setting DC date, if pt was ready as per the POC meeting, pt requested continued stay and agreed to follow up today. and this worker each apologized for misunderstanding. SW offered to set DC for 09/23, which will allow time for DC needs to be coordinated and DC paperwork completed by Dr and IDT. agreeable. SW inquired about HHC vs OP. Pt is electing OP at [facility] until cardiac rehab starts mid-October, per . SW agreed to make referral and [facility] to contact pt to schedule first appts. Pt has no DME needed. inquired about HHC for an RN. SW educated to homebound restrictions with HHC and cannot have OP and HHC. agreed to OP. SW updated IDT. Plan: DC 09/23 home with , Leatha Hansen PT/OT TIM JohnsonW
--- NOTE | 2023-09-23 12:25 | MDS.RN ---
Information for the MDS was obtained from review of the clinical record, interview of resident, staff, and direct observation of resident?s care.
--- NOTE | 2023-09-23 20:08 | DS.PCM_ITS ---
Providers Date of Admission: 09/10/23 Primary Care Physician: Dr. Malvin Freire DO Reason For Visit: CAD S/P CABGx2 Diagnosis Discharge Diagnosis (1) Debility: Status: Acute Code(s): R53.81 - Other malaise (2) Coronary artery disease: Status: Acute Code(s): I25.10 - Atherosclerotic heart disease of poarch coronary artery without angina pectoris (3) Status post coronary artery bypass graft: Status: Acute Code(s): Z95.1 - Presence of aortocoronary bypass graft (4) NSVT (nonsustained ventricular tachycardia): Status: Acute Code(s): I47.29 - Other ventricular tachycardia (5) Atrial fibrillation: Status: Acute Code(s): I48.91 - Unspecified atrial fibrillation (6) Acute HFrEF (heart failure with reduced ejection fraction): Status: Acute Code(s): I50.21 - Acute systolic (congestive) heart failure (7) Stroke/cerebrovascular accident: Status: Acute Code(s): I63.9 - Cerebral infarction, unspecified (8) Peripheral vascular disease: Status: Acute Code(s): I73.9 - Peripheral vascular disease, unspecified (9) Carotid artery stenosis: Status: Acute Code(s): I65.29 - Occlusion and stenosis of unspecified carotid artery (10) BPH (benign prostatic hyperplasia): Status: Acute Code(s): N40.0 - Benign prostatic hyperplasia without lower urinary tract symptoms (11) Dehiscence of postoperative wound of abdomen: Status: Acute Code(s): T81.31XA - Disruption of external operation (surgical) wound, not elsewhere classified, initial encounter Plan 78 year old male with below past medical history hospitalized for cabg x [address] Starks, complicated by nsvt, atrial fibrillation, admitted to TCU with debility, here for rehabilitation, strengthening, prior to discharge home with . * Debility - PT/OT. * Pain - Tylenol 1000mg q6 prn pain (1-3), Oxycodone 5mg q6 prn pain (4-10). * Bowel - Miralax 17gm daily, senna/colace 2 tablets bid. * Adult immunization - Administer pneumonia vaccine, covid vaccine, flu vaccine as appropriate. * DVT prophylaxis - Hold, monitor. * Atrial fibrillation - Metoprolol succinate 25mg daily, Amiodarone 400mg bid thru 09/14/2023, then 200mg daily thru 09/19/2023. * CAD s/p cabg x 2 - Metoprolol succinate 25mg daily, Aspirin 81mg daily. * Hyperlipidemia - Atorvastatin 80mg qhs. * Indigestion - TUMS 500mg tidcm prn. * Vitamin D deficiency - D3 25mcg daily. * BPH - Finasteride 5mg daily, Tamsulosin 0.4mg daily. * Acute HFrEF (EF 35%) - Metoprolol succinate 25mg daily, Furosemide 20mg daily thru 09/16/2023. * Hypomagnesemia - Magnesium Chloride 128mg bid. * Tinea Corporis - Nystatin powder topical bid. * Gastric ulcer - Pantoprazole 40mg bid. * Hypokalemia - KCL 20meq bidcm. * NSVT - LifeVest x 3 months. * Abdominal wound - Consult wound nurse. Medications at Discharge Home Medications aspirin 81 mg capsule 81 mg PO DAILY blood thinner 12/13/21 atorvastatin 80 mg tablet 80 mg PO QHS cholesterol 12/13/21 finasteride 5 mg tablet 5 mg PO DAILY bladder 07/09/23 tamsulosin 0.4 mg capsule 0.4 mg PO DAILY bladder 07/09/23 ergocalciferol (vitamin D2) 50 mcg (2,000 unit) capsule 25 mcg PO DAILY supplement 09/10/23 magnesium chloride 64 mg (magnesium chloride) tablet,delayed release (Mag 64) 128 mg (2 x 64 mg) PO BID 30 days #120 tabs 09/23/23 metoprolol succinate 25 mg tablet,extended release 24 hr 25 mg PO DAILY 30 days #30 tabs 09/23/23 pantoprazole 40 mg tablet,delayed release 40 mg PO BID 30 days #60 tabs 09/23/23 sennosides 8.6 mg-docusate sodium 50 mg tablet (Stool Softener-Stimulant Laxative) 2 tab PO BID 30 days #120 tabs 09/23/23 Hospital Course Operations - (cabg x 2.) Procedures None Summary of Care Provided Minutes Spent on Discharge: 35 Hospital Course: 78 year old male with below past medical history hospitalized for cabg x [address] Starks, complicated by nsvt, atrial fibrillation, admitted to TCU with debility, here for rehabilitation, strengthening, prior to discharge home with . Discharge home with 09/24/2023, Leatha Hansen PT/OT. Physical Exam Const alert General Appearance: cooperative HEENT normocephalic Eyes PERRL and EOMs intact bilaterally Neck supple, no JVD and no carotid bruits Resp normal respiratory effort, normal air movement and clear to auscultation bilaterally Cardio regular rate and regular rhythm GI normal to inspection, nondistended, normoactive bowel sounds, non-tender and non-distended Extremity normal capillary refill General Extremity: Negative for edema Skin no rashes or lesions noted General Skin Exam: no breakdown Psych affect normal Appearance: appropriate Weight / BMI Weight Weight: 100.153 kg Body Mass Index (BMI) 34.5 ABG / Lab / Microbiology Data 09/18/23 05:24 09/18/23 05:24 Microbiology: Microbiology 09/13/23 05:30 Nasal Secretion SARS-CoV-2 Antigen (Rapid) - Final D/C Instructions Discharge Diet: No restrictions Discharge Activity: Return to Normal Activity, May Shower and Use Walker Weight Bearing Status: Weight bearing as tolerated Call your doctor if you observe: Fever of 101 or Higher, Inability to urinate, Inability to have a bowel movement, Shortness of breath, Dizziness, Fainting spells, Swelling in the ankles, Chest pain and Uncontrolled pain Additional Instructions: Discharge home with 09/24/2023, Leatha Hansen PT/OT. Please Follow Up With: Amanuel Ashton MD When: As scheduled. Meaningful Use Info Meaningful Use Meaningful Use Diagnoses (Choose all that apply): None applicable Ischemic Stroke Statin Dosing Therapy Reference: STATIN DOSE THERAPY REFERENCE: * Patients > 75 years receive moderate or high dose statin therapy. * Patients 75 years or YOUNGER should receive HIGH intensity statin dose unless contraindicated. You will be required to document reason for non-treatment if statin daily dose does not meet guidelines. HIGH DOSE STATIN THERAPY DAILY Atorvastatin > than or = to 40 mg Rosuvastatin > than or = to 20 mg Amlodipine + Atorvastatin > than or = to 2.5/40 mg Ezetimibe + Simvastatin 10/80 mg Simvastatin 80mg Discharge Plan Admission Admit Date/Time: 09/10/23 13:26 Primary Reason for Your Visit: Debility. Attending Provider: Yusuf Corbett Chi Primary Care Provider: Romar,Malvin Instructions Additional Instructions / Restrictions: Discharge home with 09/24/2023, Leatha Hansen PT/OT. Discharge Orders/Prescriptions Prescriptions: New sennosides-docusate sodium [Stool Softener-Stimulant Laxat] 8.6-50 mg Tablet 2 tab PO BID 30 Days Qty: 120 0RF pantoprazole 40 mg Tablet,Delayed Release (Dr/Ec) 40 mg PO BID 30 Days Qty: 60 0RF metoprolol succinate 25 mg Tablet Extended Release 24 Hr 25 mg PO DAILY 30 Days Qty: 30 0RF magnesium chloride [Mag 64] 64 mg Tablet,Delayed Release (Dr/Ec) 128 mg PO BID 30 Days Qty: 120 0RF Continued atorvastatin 80 mg tablet 80 mg PO QHS Patient Comments: TAKE 1 TABLET BY MOUTH EVERY DAY aspirin 81 mg Capsule 81 mg PO DAILY ergocalciferol (vitamin D2) 50 mcg (2,000 unit) capsule 25 mcg PO DAILY tamsulosin 0.4 mg capsule 0.4 mg PO DAILY finasteride 5 mg tablet 5 mg PO DAILY Discontinued cholecalciferol (vitamin D3) [Vitamin D3] 25 mcg (1,000 unit) Tablet 1,000 mcg PO DAILY famotidine 20 mg Tablet 20 mg PO DAILY Qty: 30 0RF aspirin 81 mg Tablet,Chewable 81 mg PO BID Qty: 0 0RF Rx Instructions: Take 81 mg aspirin twice daily for 4 weeks postoperatively for DVT prophylaxis. sennosides-docusate sodium [Stool Softener-Stimulant Laxat] 8.6-50 mg Tablet 2 tab PO BID Qty: 20 0RF Rx Instructions: Take until first bowel movement, then as needed amiodarone 200 mg tablet 200 mg PO BID calcium carbonate 200 mg calcium (500 mg) tablet,chewable 400 mg PO TID docusate calcium [Surfak] 240 mg capsule 240 mg PO BID furosemide 20 mg tablet 20 mg PO DAILY magnesium oxide 400 mg magnesium tablet 400 mg PO BID potassium chloride [K-Tab] 20 mEq tablet extended release 20 meq PO BID metoprolol succinate [Toprol XL] 25 mg tablet extended release 24 hr 25 mg PO DAILY acetaminophen 500 mg Tablet 650 mg PO Q4H PRN (Reason: pain) Rx Instructions: Do not take more than 3000 mg Tylenol in a 24-hour period. oxycodone 5 mg Tablet 5 mg PO Q6H PRN PRN (Reason: Pain Score 4-10) sulfamethoxazole-trimethoprim 800-160 mg tablet 1 tab PO BID cephalexin 500 mg capsule 500 mg PO Q12.TCU pantoprazole 40 mg tablet,delayed release (DR/EC) 40 mg PO BID Eliquis DVT-PE Treat 30D Start 5 mg (74 tabs) tablets,dose pack PO Referrals / Follow Up: Shraddha Starks [Other] (Needs to f/u with surgeon after DC from TCU. ) Malvin Freire DO [Primary Care Provider] - Amanuel Ashton MD [Non-Staff] - 10/04/23 1:30 pm () Disposition Disposition (needs filled in before D/C Order can be placed): Home, Self Care
[2023-09-23] MEDS: Tamsulosin HCl 0.4 MG Capsule PO (20:37)
[2023-09-23] MEDS: Atorvastatin Calcium 80 MG Tablet PO (20:37)
[2023-09-23] MEDS: Senna/Docusate Sodium 1 Tablet 2 TABLET PO (20:38)
[2023-09-23] MEDS: MELATONIN 10 MG TABLET PO (20:38)
[2023-09-23 20:41] VITALS: BP 138/73; PULSE 69
[2023-09-24 05:40] LABS: Absolute Lymphocyte Count 0.89 X10^3/uL (0.83-4.51); Absolute Neutrophil Count 5.5 X10^3/uL (2.0-7.7); Basophil# 0.09 X10^3/uL; Basophil% 1.2 % (0-1); Eosinophils% 6.5 % (0-5); Hemoglobin 11.2 g/dL (13.0-16.5); Lymphocyte # 0.89 X10^3/ul (0.83-4.51); Lymphocyte % 11.5 % (19-41); Mean Corpuscular Hgb 29.2 pg (27.0-32.0); Mean Corpuscular Volume 91.1 fL (80-94); Mean Platelet Vol. 8.6 fl (6.2-12.0); Monocyte# 0.67 X10^3/uL; Monocyte% 8.7 % (0-10); NRBC Flagged by Analyzer 0 % (0-5); Neutrophil # 5.46 X10^3/uL (2.7-7.7); Neutrophil % 70.8 % (47-70); Platelet Count 313 K/mm3 (150-450); RBC Distribution Width SD 52.4 fl (35.1-43.9); Red Blood Count 3.84 M/mm3 (4.6-6.2); White Blood Count 7.7 K/mm3 (4.4-11.0)
[2023-09-24 08:56] VITALS: BP 138/68; PULSE 70
[2023-09-24] MEDS: Magnesium Chloride 64 MG Delay Rel.Tablet 128 MG PO (08:56)
[2023-09-24] MEDS: Senna/Docusate Sodium 1 Tablet 2 TABLET PO (08:56)
[2023-09-24] MEDS: Cholecalciferol (VIT D3) 25 MCG TABLET (1,000 UNITS) PO (08:56)
[2023-09-24] MEDS: Aspirin 81 MG TAB.CHEW PO (08:56)
[2023-09-24] MEDS: Finasteride 5 MG Tablet PO (08:56)
[2023-09-24] MEDS: Metoprolol(XL)Succ 25 MG Tablet PO (08:56)
[2023-09-24] MEDS: Pantoprazole Sodium 40 MG Tablet PO (08:56)
[2023-09-24 12:00] VITALS: BP 132/74; PULSE 65; RESP 18; TEMP 36.4; O2SAT 98
== END 2023-09-24 11:55 | disposition home or self-care (01) | DRG 949 ==
PROVIDERS: Admitting Provider Family Medicine Geriatric Medicine; PCP Student in an Organized Health Care Education/Training Program; Referring Provider Family Medicine Geriatric Medicine; Visit Provider Family Medicine Geriatric Medicine
DX: Z48.812 Encounter for surgical aftercare following surgery on the circulatory system (principal); I50.21 Acute systolic (congestive) heart failure; I47.29 Other ventricular tachycardia; E55.9 Vitamin D deficiency, unspecified; B35.4 Tinea corporis; I25.10 Atherosclerotic heart disease of native coronary artery without angina pectoris; I48.91 Unspecified atrial fibrillation; I73.9 Peripheral vascular disease, unspecified; I69.398 Other sequelae of cerebral infarction; E78.5 Hyperlipidemia, unspecified; E87.6 Hypokalemia; R25.1 Tremor, unspecified; K25.9 Gastric ulcer, unspecified as acute or chronic, without hemorrhage or perforation; Z79.01 Long term (current) use of anticoagulants; Z95.1 Presence of aortocoronary bypass graft; T81.31XD Disruption of external operation (surgical) wound, not elsewhere classified, subsequent encounter; N40.0 Benign prostatic hyperplasia without lower urinary tract symptoms; Z87.891 Personal history of nicotine dependence; Z86.718 Personal history of other venous thrombosis and embolism; Z79.899 Other long term (current) drug therapy; Z79.82 Long term (current) use of aspirin; Z23 Encounter for immunization; Y83.8 Other surgical procedures as the cause of abnormal reaction of the patient, or of later complication, without mention of misadventure at the time of the procedure
CPT/HCPCS: 36415; 71046; 80048; 80061; 80299; 82306; 85025; 87811; 90480; 94668; 97110; 97116; 97162; 97166; 97530; 97535; 97802; 91322

== ENCOUNTER 2023-10-15 13:30 | Outpatient (RCR) | payer MEDICARE, OTHER, SELFPAY ==
[2023-09-16 00:15] VITALS: BP 119/86; PULSE 62; RESP 18; TEMP 36.4; BMI 34.4
[2023-10-08 13:12] VITALS: BP 120/72; PULSE 78; RESP 18; TEMP 35.5; BMI 34.4
--- NOTE | 2023-10-09 12:47 | HP.PCM_ITS ---
History of Present Illness Date of Service: 10/08/23 Chief Complaint: Surgical wound dehiscence/nonhealing abdominal surgical wound History of Wound: This is an 78 year-old male with a very extensive and complicated past medical history. The patient underwent surgical repair of a ventral hernia in December [address] Pierce at [facility]. The hernia had developed at a prior surgical site, as the patient has had multiple previous surgeries. On September 28, 2008, the patient underwent left femoral?tibial artery bypass surgery. He underwent open ruptured abdominal aneurysm repair on July 11, 2012. It appears as though the patient subsequently required a second surgical intervention for an abdominal aortic aneurysm. He underwent left carotid endarterectomy on June 04, 2017. A left femoral pseudoaneurysm repair was performed in 2021. Subsequent to his abdominal surgeries, the patient underwent his ventral abdominal hernia repair in December 2022. 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 The draining sinus is to the right and slightly inferior to his umbilicus. Cultures of the drainage from the site were performed at [facility] on July 03, 2023. Culture results were positive for Staphylococcus aureus, and the patient was treated with Bactrim double strength orally twice daily since that time, and has several doses remaining. He remains under the care of his surgeon, Dr. Pierce. In an effort to identify the possible cause of the persistent sinus tract, the patient had a CT scan at [facility] on April 19, 2023, which revealed postsurgical changes of the anterior abdominal wall, without definite focal rim-enhancing fluid collection to suggest an abscess. The other soft tissues including abdominopelvic wall are unremarkable. The patient also underwent an ultrasound of the abdominal wall at [facility], the results of which were requested. It has been confirmed by the patient that prosthetic mesh was utilized in the repair of his ventral abdominal hernia. The patient had been using dilute peroxide to the small sinus tract opening on the anterior abdominal wall prior to his presentation. The patient is on chronic systemic anticoagulation with apixaban 5 mg p.o. twice daily. He is mildly obese, with a BMI of 34.4. [facility] Medical History Coronary artery disease Surgical wound dehiscence Dehiscence of postoperative wound of abdomen Diverticulosis BPH (benign prostatic hyperplasia) Ventral hernia Peripheral arterial occlusive disease Carotid artery stenosis Osteoarthritis Insomnia Irritable bowel syndrome Hyperlipidemia History of deep vein thrombosis History of cerebrovascular accident History of anemia PAC (premature atrial contraction) PVCs (premature ventricular contractions) Peripheral arterial disease History of steroid therapy Arthritis TIA (transient ischemic attack) Stroke/cerebrovascular accident Former smoker History of echocardiogram Hx of abdominal aortic aneurysm Home Medications ?Medication ?Instructions ?Recorded ?Last Taken ?Type aspirin 81 mg capsule 81 mg PO DAILY blood thinner 12/13/21 12/23/21 History atorvastatin 80 mg tablet 80 mg PO QHS cholesterol 12/13/21 Unknown History finasteride 5 mg tablet 5 mg PO DAILY bladder 07/09/23 Unknown History tamsulosin 0.4 mg capsule 0.4 mg PO DAILY bladder 07/09/23 Unknown History ergocalciferol (vitamin D2) 50 mcg 25 mcg PO DAILY supplement 09/10/23 Unknown History (2,000 unit) capsule magnesium chloride 64 mg 128 mg (2 x 64 mg) PO BID 30 days 09/23/23 Unknown Rx (magnesium chloride) #120 tabs tablet,delayed release (Mag 64) metoprolol succinate 25 mg 25 mg PO DAILY 30 days #30 tabs 09/23/23 Unknown Rx tablet,extended release 24 hr pantoprazole 40 mg tablet,delayed 40 mg PO BID 30 days #60 tabs 09/23/23 Unknown Rx release sennosides 8.6 mg-docusate sodium 2 tab PO BID 30 days #120 tabs 09/23/23 Unknown Rx 50 mg tablet (Stool Softener-Stimulant Laxative) Allergy/AdvReac Type Severity Reaction Status Date / Time No Known Allergies Allergy Verified 12/27/21 07:48 Family History Father Ruptured aneurysm of artery Mother Myocardial infarction Sister Cancer Brother CVA (cerebral vascular accident) Son Diabetes CAD (coronary artery disease) s/p stent. Daughter No problems noted. Surgical History History of coronary artery bypass graft History of coronary artery bypass graft x 2 History of ventral hernia repair History of femoropopliteal bypass History of aortic aneurysm repair Status post carotid endarterectomy S/P hip replacement Hx of tracheostomy History of evacuation of hematoma Hx of total hip arthroplasty Hx of surgical procedure History of left-sided carotid endarterectomy Hx of abdominal surgery Social History household members: spouse Smoking Status: Former smoker alcohol intake: never substance use type: does not use Vital Signs Vital Signs Vital Signs: 10/08/23 13:12 Temperature 95.9 F L Temperature Source Temporal Pulse Rate 78 Respiratory Rate 18 Blood Pressure 120/72 Blood Pressure Mean 88 Blood Pressure Source Monitor Blood Pressure Position Sitting Blood Pressure Location Left Arm Oxygen Delivery Method Room Air Weight Weight: 220 lb Body Mass Index (BMI) 34.4 Physical Exam Const alert, oriented x3 and no apparent distress Constitutional Narrative: The patient is obese. General Appearance: cooperative, comfortable, well kempt and well developed Orientation / Consciousness: awake, oriented to person, oriented to place and oriented to time Exam Limitations: no limitations HEENT normocephalic and head/scalp atraumatic Head and Scalp: normal to inspection Face and Sinus: normal facial exam Nose: external nose normal External Ear: external ears normal Eyes EOMs intact bilaterally General Eye: normal appearance of both eyes Neck no JVD Resp normal respiratory effort, normal air movement, no retractions and no use of accessory muscles Extremity normal to inspection and full ROM General Extremity: Negative for edema Skin Wound Narrative: The patient's abdomen is mildly obese. A well-healed vertical midline incision is noted on the abdomen, extending both above and below the umbilicus. There is a small opening within the incision to the right and slightly inferior to the patient's umbilicus. This opening is several millimeters in width, appearing to be larger in width than when the patient was last examined on September 03, 2023. There is no surrounding erythema or obvious signs of infection. Approximately 5 cm in depth, extending superiorly. There is no odor or drainage. The mid are documented elsewhere. Neuro oriented x3, CN's II-XII intact bilaterally, moves all extremities, no focal motor deficits and no sensory deficits noted Sensorium / Orientation: awake, alert, oriented to person, oriented to place and oriented to time Psych affect normal Appearance: appropriate Debridement Note Debridement Note Wound debrided: Nonhealing surgical abdominal wound. Laterality: Not Applicable Type of Debridement: Excisional debridement Anesthesia Used: 5% Lidocaine Gel Depth: Down to and including healthy tissue and in the subcutaneous layer Percentage of wound debrided: 100 Instrument Used: 3mm curette Tissue Removed: Bioburden and nonviable tissue Severity: Fat Layer Exposed Amount of bleeding with debridement: Mild Bleeding Controlled with: Compression and gauze Patient tolerated procedure: Patient tolerated procedure well Post-Debridement Measurements and Additional Note: Post-Debridement Measurements/Treatment GINNA - Nurse 1 - General Ulcer Assessment Start: 10/08/23 13:08 Freq: Status: Active Protocol: LIA Activity Type Activity Date Activity User E-sign Co-sign Detail Recorded Client Recorded Date Recorded By Document 10/08/23 13:12 KW l 10/08/23 13:23 KW 10/08/23 13:12 WC - Today's Visit Information Type of service Follow-up Visit (Physician/[employer]ER ) Arrival Mode Ambulatory,Cane Accompanied by Patient Identification Verified (Name & Yes ) Height and Weight Body Mass Index (BMI) 34.4 BMI Classification Obese Vital Signs Temperature (97.8 F-99.1 F) 95.9 F L Temperature Source Temporal Pulse Rate (60-100) 78 Pulse Location Monitor Respiratory Rate (12-18) 18 Respiratory rate source Observation Oxygen Delivery Method Room Air Blood Pressure (90/60-120/80) 120/72 Blood Pressure Mean 88 Source Monitor Position Sitting Blood Pressure Location Left Arm History Since Last Visit- (Skip if this is Patient's initial visit) Have you changed medications since your No last visit? Any new allergies or adverse reactions No Had a fall/change in ADL's that may No increase risk of falls Signs or symptoms of abuse and/or No neglect since last visit Have you been in the hospital since your Yes last visit? Has dressing in place as prescribed Yes Has compression in place as prescribed N/A Has offloadiing in place as prescribed N/A Experienced any changes in pain level or No management Left Footwear Regular Shoe Right Footwear Regular Shoe Pain Scale: 0-10 Numeric Is Patient Pain Free? Yes - Nurse 1 - General Ulcer Measurement Start: 10/08/23 13:08 Freq: Status: Active Protocol: Activity Type Activity Date Activity User E-sign Co-sign Detail Recorded Client Recorded Date Recorded By Document 10/08/23 13:12 KW l 10/08/23 13:23 KW 10/08/23 13:12 Wound Center Nurse 1 #1 abd -Current Size (cm) - Length 0.5 -Current Size (cm) - Width 0.8 -Current Size (cm) - Depth 2 -Total Square Cm 0.40 -Date of Last Picture (Recall this 10/08/23 field) -Exudate Amt Small -Exudate Type Serosanguineous -Wound Margin Distinct, Outline Attached -Granulation Amt Large (67-100%) -Granulation Quality Red -Texture (Cleo-wound Skin Appearance) Assessed,Rash -Moisture (Cleo-wound Skin Appearance) Assessed,Dry/ Scaly -Color (Cleo-wound Skin Appearance) Assessed, Erythema -Temperature (Cleo-wound Skin No Abnormality Appearance) (Pt Warm) -Tenderness on Palpation (Cleo-wound No Skin Appearance) -Ulcer Cleansing Rinsed/ Irrigated with Saline -Foul Odor after Cleansing No -Anesthetic Used 5% Lidocaine Gel WC - Nurse 2 - General Ulcer CM Notes Start: 10/08/23 13:08 Freq: Status: Active Protocol: Activity Type Activity Date Activity User E-sign Co-sign Detail Recorded Client Recorded Date Recorded By Document 10/08/23 13:32 DS 1 10/08/23 13:33 DS 10/08/23 13:32 Wound Center Nurse 2 -Time 13:25 -Correct Patient Yes -Correct Side, Site, Position Yes -Correct Procedure Yes -Procedure Performed Yes -Type of Procedure Debridement -Clinical Debridement Subcutaneous -Tissue Removed Subcutaneous -Post Debridement (cm) - Length 0.5 -Post Debridement (cm) - Width 0.7 -Post Debridement (cm) - Depth 5.0 -Total Square (Post) (cm) 0.35 -Area of Debridement (cm) - Length 0.5 -Area of Debridement (cm) - Width 0.7 -Total Square (Area) (cm) 0.35 -Tunneling No -Undermining/Tunneling No -Circular Undermining No -Wound/Ulcer Outcome Not Healed -Bleeding Controlled with Pressure -Treatment Response Procedure Tolerated Well -Debridement - Subq, 1st 20sq cm Yes Pain Scale: 0-10 Numeric Is Patient Pain Free? Yes - Nurse 3 - General Ulcer D/C NN Start: 10/08/23 13:08 Freq: Status: Active Protocol: Activity Type Activity Date Activity User E-sign Co-sign Detail Recorded Client Recorded Date Recorded By Document 10/08/23 13:44 RB wound 10/08/23 13:47 RB 10/08/23 13:44 Wound Care Center Nurse 3 #1 abd -Ulcer Cleansing Rinsed/ Irrigated with Saline -Primary Dressing Applied Nugauze, Plain 4in -Primary Dressing Covered/Secured with Dry Gauze, Secured with Tape -Other Covering silicone -Nugauze, Plain /4in 1 Treatment Response Procedure Tolerated Well Pain Scale: 0-10 Numeric Is Patient Pain Free? Yes WC - Visit Discharge Discharge Condition Stable Ambulatory Status Ambulatory Transportation Private [facility] Medication Reconcilliation completed & No provided to patient/care provider Clinical Summary of Care Provided Yes Charges/Coding Procedures Integumentary [id number]: [id number] Rhonda subq tissue 20 sq cm/< Assessment/Plan Assessment/Plan (1) Surgical wound dehiscence: CODE(S): T81.31XA - Disruption of external operation (surgical) wound, not elsewhere classified, initial encounter QUALIFIERS: Encounter type: subsequent encounter Qualified Code(s): T81.31XD - Disruption of external operation (surgical) wound, not elsewhere classified, subsequent encounter (2) History of ventral hernia repair: CODE(S): Z98.890 - Other specified postprocedural states; Z87.19 - Personal history of other diseases of the digestive system (3) Status post total hip replacement, left: CODE(S): Z96.642 - Presence of left artificial hip joint (4) Peripheral arterial disease: CODE(S): I73.9 - Peripheral vascular disease, unspecified (5) S/P hip replacement: CODE(S): Z96.649 - Presence of unspecified artificial hip joint (6) Status post carotid endarterectomy: CODE(S): Z98.890 - Other specified postprocedural states (7) History of aortic aneurysm repair: CODE(S): Z98.890 - Other specified postprocedural states; Z86.79 - Personal history of other diseases of the circulatory system (8) History of femoropopliteal bypass: CODE(S): Z98.890 - Other specified postprocedural states (9) PVCs (premature ventricular contractions): CODE(S): I49.3 - Ventricular premature depolarization (10) PAC (premature atrial contraction): CODE(S): I49.1 - Atrial premature depolarization (11) History of anemia: CODE(S): Z86.2 - Personal history of diseases of the blood and blood- forming organs and certain disorders involving the immune mechanism (12) History of cerebrovascular accident: CODE(S): Z86.73 - Personal history of transient ischemic attack (TIA), and cerebral infarction without residual deficits (13) History of deep vein thrombosis: CODE(S): Z86.718 - Personal history of other venous thrombosis and embolism (14) Hyperlipidemia: CODE(S): E78.5 - Hyperlipidemia, unspecified (15) Irritable bowel syndrome: CODE(S): K58.9 - Irritable bowel syndrome without diarrhea (16) Insomnia: CODE(S): G47.00 - Insomnia, unspecified (17) Osteoarthritis: CODE(S): M19.90 - Unspecified osteoarthritis, unspecified site (18) Carotid artery stenosis: CODE(S): I65.29 - Occlusion and stenosis of unspecified carotid artery (19) Peripheral arterial occlusive disease: CODE(S): I77.9 - Disorder of arteries and arterioles, unspecified (20) Ventral hernia: CODE(S): K43.9 - Ventral hernia without obstruction or gangrene (21) BPH (benign prostatic hyperplasia): CODE(S): N40.0 - Benign prostatic hyperplasia without lower urinary tract symptoms (22) Diverticulosis: CODE(S): K57.90 - Diverticulosis of intestine, part unspecified, without perforation or abscess without bleeding (23) Coronary artery disease: CODE(S): I25.10 - Atherosclerotic heart disease of torres martinez coronary artery without angina pectoris (24) History of coronary artery bypass graft: CODE(S): Z95.1 - Presence of aortocoronary bypass graft PLAN: Plan This is an 78-year-old male with a very complicated and extensive medical history, and multiple prior surgical procedures. He has had open abdominal surgery in the past, for repair of a a ruptured abdominal aneurysm. The patient developed a ventral incisional hernia, for which he underwent surgical repair by Dr. Pierce at [facility] in [place], [place] in December 2022. He developed a draining sinus tract within his incision, in the lower third of the incision. He had been using peroxide topically. Treatment was initiated at [facility] in June 2023. However, following the patient's most recent visit on September 03, 2023, the patient underwent cardiac catheterization at [facility] in [place], [place], following which she required urgent coronary revascularization by means of bypass grafting, which was performed on September 06, 2023. He was subsequently admitted to the [facility] on September 10, 2023, and discharged on September 23, 2023. He returns now to resume his care related to the surgical wound dehiscence of his abdominal wound. The wound to be somewhat larger than that noted at his last visit. We are to continue the use of quarter-inch moistened Nu Gauze which will be packed into the wound on a daily basis. The patient and his have been instructed in the appropriate means of packing. With concern involving the possibility of a draining sinus secondary to prosthetic mesh infection, the patient underwent a CT scan of the abdomen on August 23, 2023. The results revealed no suspicion of infection or abscess related to the mesh which was suspected to be implanted at the time of the patient's recent hernia repair. The morphology of the patient's nonhealing site is not optimal for healing by secondary intention, given that it is a tunneled wound with extension subcutaneously. If conservative manner failed to produce improvement, and aggressive approach may be necessary, and duration may be given to consultation with the Plastic Surgery service. The patient is to follow-up in 1 week for reassessment. Total time: 26 minutes
[2023-10-15 13:58] VITALS: BP 121/76; PULSE 92; RESP 18; TEMP 35.2; BMI 34.4
--- NOTE | 2023-10-16 09:59 | WC ---
PHOTO 10/08/23 ABD
--- NOTE | 2023-10-16 11:54 | PCM.WC.HP ---
History of Present Illness Date of Service: 10/15/23 Chief Complaint: Surgical wound dehiscence/nonhealing abdominal surgical wound History of Wound: This is an 78 year-old male with a very extensive and complicated past medical history. The patient underwent surgical repair of a ventral abdominal wall hernia in December [address] Pierce at [facility]. The hernia had developed at a prior surgical site, as the patient has had multiple previous surgeries. On September 28, 2008, the patient underwent left femoral?tibial artery bypass surgery. He underwent open ruptured abdominal aneurysm repair on July 11, 2012. It appears as though the patient subsequently required a second surgical intervention for an abdominal aortic aneurysm. He underwent left carotid endarterectomy on June 04, 2017. A left femoral pseudoaneurysm repair was performed in 2021. Subsequent to his abdominal surgeries, the patient underwent his ventral abdominal hernia repair in December 2022. 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 The draining sinus was to the right and slightly inferior to his umbilicus. Cultures of the drainage from the site were performed at [facility] on July 03, 2023. Culture results were positive for Staphylococcus aureus, and the patient was treated with Bactrim double strength orally twice daily at that time. He remains under the care of his surgeon, Dr. Pierce. In an effort to identify the possible cause of the persistent sinus tract, the patient had a CT scan at [facility] on April 19, 2023, which revealed postsurgical changes of the anterior abdominal wall, without definite focal rim-enhancing fluid collection to suggest an abscess. The other soft tissues including abdominopelvic wall are unremarkable. The patient also underwent an ultrasound of the abdominal wall at [facility], the results of which were requested. It has been confirmed by the patient that prosthetic mesh was utilized in the repair of his ventral abdominal hernia. The patient had been using dilute peroxide to the small sinus tract opening on the anterior abdominal wall prior to his presentation. The patient is on chronic systemic anticoagulation with Apixaban 5 mg p.o. twice daily. He is mildly obese, with a BMI of 34.4. [facility] Medical History Coronary artery disease Surgical wound dehiscence Dehiscence of postoperative wound of abdomen Diverticulosis BPH (benign prostatic hyperplasia) Ventral hernia Peripheral arterial occlusive disease Carotid artery stenosis Osteoarthritis Insomnia Irritable bowel syndrome Hyperlipidemia History of deep vein thrombosis History of cerebrovascular accident History of anemia PAC (premature atrial contraction) PVCs (premature ventricular contractions) Peripheral arterial disease History of steroid therapy Arthritis TIA (transient ischemic attack) Stroke/cerebrovascular accident Former smoker History of echocardiogram Hx of abdominal aortic aneurysm Home Medications ?Medication ?Instructions ?Recorded ?Last Taken ?Type aspirin 81 mg capsule 81 mg PO DAILY blood thinner 12/13/21 12/23/21 History atorvastatin 80 mg tablet 80 mg PO QHS cholesterol 12/13/21 Unknown History finasteride 5 mg tablet 5 mg PO DAILY bladder 07/09/23 Unknown History tamsulosin 0.4 mg capsule 0.4 mg PO DAILY bladder 07/09/23 Unknown History ergocalciferol (vitamin D2) 50 mcg 25 mcg PO DAILY supplement 09/10/23 Unknown History (2,000 unit) capsule magnesium chloride 64 mg 128 mg (2 x 64 mg) PO BID 30 days 09/23/23 Unknown Rx (magnesium chloride) #120 tabs tablet,delayed release (Mag 64) metoprolol succinate 25 mg 25 mg PO DAILY 30 days #30 tabs 09/23/23 Unknown Rx tablet,extended release 24 hr pantoprazole 40 mg tablet,delayed 40 mg PO BID 30 days #60 tabs 09/23/23 Unknown Rx release sennosides 8.6 mg-docusate sodium 2 tab PO BID 30 days #120 tabs 09/23/23 Unknown Rx 50 mg tablet (Stool Softener-Stimulant Laxative) Allergy/AdvReac Type Severity Reaction Status Date / Time No Known Allergies Allergy Verified 12/27/21 07:48 Family History Father Ruptured aneurysm of artery Mother Myocardial infarction Sister Cancer Brother CVA (cerebral vascular accident) Son Diabetes CAD (coronary artery disease) s/p stent. Daughter No problems noted. Surgical History History of coronary artery bypass graft History of coronary artery bypass graft x 2 History of ventral hernia repair History of femoropopliteal bypass History of aortic aneurysm repair Status post carotid endarterectomy S/P hip replacement Hx of tracheostomy History of evacuation of hematoma Hx of total hip arthroplasty Hx of surgical procedure History of left-sided carotid endarterectomy Hx of abdominal surgery Social History household members: spouse Smoking Status: Former smoker alcohol intake: never substance use type: does not use Vital Signs Vital Signs Vital Signs: 10/15/23 13:58 Temperature 95.3 F L Temperature Source Temporal Pulse Rate 92 Respiratory Rate 18 Blood Pressure 121/76 H Blood Pressure Mean 91 Blood Pressure Source Monitor Blood Pressure Position Semi-Fowlers Blood Pressure Location Left Arm Weight Weight: 220 lb Body Mass Index (BMI) 34.4 Physical Exam Const alert, oriented x3 and no apparent distress Constitutional Narrative: The patient is obese. General Appearance: cooperative, comfortable, well kempt and well developed Orientation / Consciousness: awake, oriented to person, oriented to place and oriented to time Exam Limitations: no limitations HEENT normocephalic and head/scalp atraumatic Head and Scalp: normal to inspection Face and Sinus: normal facial exam Nose: external nose normal External Ear: external ears normal Eyes EOMs intact bilaterally General Eye: normal appearance of both eyes Neck no JVD Resp normal respiratory effort, normal air movement, no retractions and no use of accessory muscles Extremity normal to inspection and full ROM General Extremity: Negative for edema Skin Wound Narrative: The patient's abdomen is mildly obese. A well-healed vertical midline incision is noted on the abdomen, extending both above and below the umbilicus. There is a small opening within the incision to the right and slightly inferior to the patient's umbilicus. This opening is several millimeters in width. The wound demonstrates a depth of approximately 5 cm, with tunneling extending superiorly. There is no surrounding erythema, though slight drainage is noted, which is purulent in appearance. There is also slight odor. Because of the presence of apparent purulent drainage, a swab culture has been obtained for aerobic and anaerobic bacterial culture. Wound dimensions are documented elsewhere. Neuro oriented x3, CN's II-XII intact bilaterally, moves all extremities, no focal motor deficits and no sensory deficits noted Sensorium / Orientation: awake, alert, oriented to person, oriented to place and oriented to time Psych affect normal Appearance: appropriate Debridement Note Debridement Note Wound debrided: Nonhealing surgical abdominal wound. Laterality: Not Applicable Type of Debridement: Excisional debridement Anesthesia Used: 5% Lidocaine Gel Depth: Down to and including healthy tissue and in the subcutaneous layer Percentage of wound debrided: 100 Instrument Used: 3mm curette Tissue Removed: Bioburden and nonviable tissue Severity: Fat Layer Exposed Amount of bleeding with debridement: Mild Bleeding Controlled with: Compression and gauze Patient tolerated procedure: Patient tolerated procedure well Debridement Free Text: Following the debridement, swab cultures were obtained for aerobic and anaerobic bacterial growth. Post-Debridement Measurements and Additional Note: Post-Debridement Measurements/Treatment - Nurse 1 - General Ulcer Assessment Start: 10/08/23 13:08 Freq: Status: Active Protocol: GINNA.WallitEXT Activity Type Activity Date Activity User E-sign Co-sign Detail Recorded Client Recorded Date Recorded By Document 10/08/23 13:12 KW l 10/08/23 13:23 KW Document 10/15/23 13:58 RB wound 10/15/23 14:00 RB 10/08/23 10/15/23 13:12 13:58 - Today's Visit Information Type of service Follow-up Visit Follow-up Visit (Physician/MANAGER OF SUSTAINABILITY (Physician/MANAGER OF SUSTAINABILITY ) ) Arrival Mode Ambulatory,Cane Ambulatory Transfer Assistance None Accompanied by Patient Identification Verified (Name & Yes Yes ) Patient Requires Transmission-Based No Precautions Height and Weight Body Mass Index (BMI) 34.4 34.4 BMI Classification Obese Obese Vital Signs Temperature (97.8 F-99.1 F) 95.9 F L 95.3 F L Temperature Source Temporal Temporal Pulse Rate (60-100) 78 92 Pulse Location Monitor Monitor Respiratory Rate (12-18) 18 18 Respiratory rate source Observation Observation Oxygen Delivery Method Room Air Blood Pressure (90/60-120/80) 120/72 121/76 H Blood Pressure Mean 88 91 Source Monitor Monitor Position Sitting Semi-Fowlers Blood Pressure Location Left Arm Left Arm History Since Last Visit- (Skip if this is Patient's initial visit) Have you changed medications since your No No last visit? Any new allergies or adverse reactions No No Had a fall/change in ADL's that may No No increase risk of falls Signs or symptoms of abuse and/or No No neglect since last visit Have you been in the hospital since your Yes No last visit? Has dressing in place as prescribed Yes Yes Has compression in place as prescribed N/A No Has offloadiing in place as prescribed N/A No Experienced any changes in pain level or No No management Left Footwear Regular Shoe Right Footwear Regular Shoe Pain Scale: 0-10 Numeric Is Patient Pain Free? Yes Yes WC - Nurse 1 - General Ulcer Measurement Start: 10/08/23 13:08 Freq: Status: Active Protocol: Activity Type Activity Date Activity User E-sign Co-sign Detail Recorded Client Recorded Date Recorded By Document 10/08/23 13:12 KW l 10/08/23 13:23 KW Document 10/15/23 13:58 RB wound 10/15/23 14:00 RB 10/08/23 10/15/23 13:12 13:58 Wound Center Nurse 1 #1 abd -Combined with other wound No -Current Size (cm) - Length 0.5 0.6 -Current Size (cm) - Width 0.8 0.6 -Current Size (cm) - Depth 2 2 -Total Square Cm 0.40 0.36 -Date of Last Picture (Recall this 10/08/23 field) -Photo Taken Yes -Tunneling No -Undermining/Tunneling No -Circular Undermining No -Exudate Amt Small Medium -Exudate Type Serosanguineous Serosanguineous -Wound Margin Distinct, Thickened & Outline Rolled Under Attached -Granulation Amt Large (67-100%) Medium (34-66%) -Granulation Quality [place] -Slough/Fibrin Yes -Necrosis Amt Medium (34-66%) -Necrotic Tissue Type Adherent Slough -Structure Exposed N/A -Texture (Cleo-wound Skin Appearance) Assessed,Rash Assessed -Moisture (Cleo-wound Skin Appearance) Assessed,Dry/ Assessed Scaly -Color (Cleo-wound Skin Appearance) Assessed, Assessed Erythema -Temperature (Cleo-wound Skin No Abnormality No Abnormality Appearance) (Pt Warm) (Pt Warm) -Tenderness on Palpation (Cleo-wound No No Skin Appearance) -Ulcer Cleansing Rinsed/ Wound Cleanser Irrigated with Saline -Foul Odor after Cleansing No No -Anesthetic Used 5% Lidocaine 5% Lidocaine Gel Gel WC - Nurse 2 - General Ulcer CM Notes Start: 10/08/23 13:08 Freq: Status: Active Protocol: Activity Type Activity Date Activity User E-sign Co-sign Detail Recorded Client Recorded Date Recorded By Document 10/08/23 13:32 DS 1 10/08/23 13:33 DS Document 10/15/23 14:27 JF 0000 07/30/24 14:31 JF 10/08/23 10/15/23 13:32 14:27 Wound Center Nurse 2 #1 abd -Time 13:25 14:27 -Correct Patient Yes Yes -Correct Side, Site, Position Yes Yes -Correct Procedure Yes Yes -Procedure Performed Yes Yes -Type of Procedure Debridement Debridement -Clinical Debridement Subcutaneous Subcutaneous -Tissue Removed Subcutaneous Subcutaneous -Post Debridement (cm) - Length 0.5 0.4 -Post Debridement (cm) - Width 0.7 0.7 -Post Debridement (cm) - Depth 5.0 4.8 -Total Square (Post) (cm) 0.35 0.28 -Area of Debridement (cm) - Length 0.5 0.4 -Area of Debridement (cm) - Width 0.7 0.7 -Total Square (Area) (cm) 0.35 0.28 -Tunneling No No -Undermining/Tunneling No No -Circular Undermining No No -Wound/Ulcer Outcome Not Healed Not Healed -Ulcer Cleansing Rinsed/ Irrigated with Saline -Foul Odor after Cleansing No -Bioengineered Tissue No -Bleeding Controlled with Pressure Pressure -Treatment Response Procedure Procedure Tolerated Well Tolerated Well -Offloading No -Debridement - Subq, 1st 20sq cm Yes Yes Pain Scale: 0-10 Numeric Is Patient Pain Free? Yes Yes - Nurse 3 - General Ulcer D/C NN Start: 10/08/23 13:08 Freq: Status: Active Protocol: Activity Type Activity Date Activity User E-sign Co-sign Detail Recorded Client Recorded Date Recorded By Document 10/08/23 13:44 RB wound 10/08/23 13:47 RB Document 10/15/23 16:24 [id number] 10/15/23 16:26 10/08/23 10/15/23 13:44 16:24 Wound Care Center Nurse 3 #1 abd -Ulcer Cleansing Rinsed/ Irrigated with Saline -Primary Dressing Applied Nugauze, Plain NonAdherent 1/4in Contact Layer, [place] -Primary Dressing Covered/Secured with Dry Gauze, Dry Gauze, Secured with Secured with Tape Tape -Other Covering silicone -Nugauze, Plain 1/4in 1 -Silvercel 1 Treatment Response Procedure Tolerated Well Pain Scale: 0-10 Numeric Is Patient Pain Free? Yes Yes - Visit Discharge Discharge Condition Stable Stable Ambulatory Status Ambulatory Ambulatory Transportation Private Auto Private Auto Medication Reconcilliation completed & No No provided to patient/care provider Clinical Summary of Care Provided Yes Yes Charges/Coding Procedures Integumentary [id number]: [id number] Rhonda subq tissue 20 sq cm/< Assessment/Plan Assessment/Plan (1) Surgical wound dehiscence: CODE(S): T81.31XA - Disruption of external operation (surgical) wound, not elsewhere classified, initial encounter QUALIFIERS: Encounter type: subsequent encounter Qualified Code(s): T81.31XD - Disruption of external operation (surgical) wound, not elsewhere classified, subsequent encounter (2) History of ventral hernia repair: CODE(S): Z98.890 - Other specified postprocedural states; Z87.19 - Personal history of other diseases of the digestive system (3) Status post total hip replacement, left: CODE(S): Z96.642 - Presence of left artificial hip joint (4) Peripheral arterial disease: CODE(S): I73.9 - Peripheral vascular disease, unspecified (5) S/P hip replacement: CODE(S): Z96.649 - Presence of unspecified artificial hip joint (6) Status post carotid endarterectomy: CODE(S): Z98.890 - Other specified postprocedural states (7) History of aortic aneurysm repair: CODE(S): Z98.890 - Other specified postprocedural states; Z86.79 - Personal history of other diseases of the circulatory system (8) History of femoropopliteal bypass: CODE(S): Z98.890 - Other specified postprocedural states (9) PVCs (premature ventricular contractions): CODE(S): I49.3 - Ventricular premature depolarization (10) PAC (premature atrial contraction): CODE(S): I49.1 - Atrial premature depolarization (11) History of anemia: CODE(S): Z86.2 - Personal history of diseases of the blood and blood-forming organs and certain disorders involving the immune mechanism (12) History of cerebrovascular accident: CODE(S): Z86.73 - Personal history of transient ischemic attack (TIA), and cerebral infarction without residual deficits (13) History of deep vein thrombosis: CODE(S): Z86.718 - Personal history of other venous thrombosis and embolism (14) Hyperlipidemia: CODE(S): E78.5 - Hyperlipidemia, unspecified (15) Irritable bowel syndrome: CODE(S): K58.9 - Irritable bowel syndrome without diarrhea (16) Insomnia: CODE(S): G47.00 - Insomnia, unspecified (17) Osteoarthritis: CODE(S): M19.90 - Unspecified osteoarthritis, unspecified site (18) Carotid artery stenosis: CODE(S): I65.29 - Occlusion and stenosis of unspecified carotid artery (19) Peripheral arterial occlusive disease: CODE(S): I77.9 - Disorder of arteries and arterioles, unspecified (20) Ventral hernia: CODE(S): K43.9 - Ventral hernia without obstruction or gangrene (21) BPH (benign prostatic hyperplasia): CODE(S): N40.0 - Benign prostatic hyperplasia without lower urinary tract symptoms (22) Diverticulosis: CODE(S): K57.90 - Diverticulosis of intestine, part unspecified, without perforation or abscess without bleeding (23) Coronary artery disease: CODE(S): I25.10 - Atherosclerotic heart disease of [place] coronary artery without angina pectoris (24) History of coronary artery bypass graft: CODE(S): Z95.1 - Presence of aortocoronary bypass graft PLAN: Plan This is an 78-year-old male with a very complicated and extensive medical history, and multiple prior surgical procedures. He has had open abdominal surgery in the past, for repair of a a ruptured abdominal aneurysm. The patient developed a ventral incisional hernia, for which he underwent surgical repair by Dr. Pierce at [facility] in [place], [place], in December 2022. He developed a draining sinus tract in the lower third of the incision. He had been using peroxide topically. Treatment was initiated at [facility] in June 2023. However, following the patient's most recent visit on September 03, 2023, the patient underwent cardiac catheterization at [facility] in [place], [place], following which he required urgent coronary revascularization by means of bypass grafting, which was performed on September 06, 2023. He was subsequently admitted to the [facility] on September 10, 2023, and discharged on September 23, 2023. [facility] to resume his care related to the surgical wound dehiscence of his abdominal wall. The patient's wound care regimen was interrupted by virtue of his coronary revascularization and subsequent rehabilitation, and little improvement has been noted in the dehiscent surgical wound. We are to continue the use of quarter-inch moistened Nu Gauze which will be packed into the wound on a daily basis. The patient and his have been instructed in the appropriate means of packing. With concern involving the possibility of a draining sinus secondary to prosthetic mesh infection, the patient underwent a CT scan of the abdomen on August 23, 2023. The results revealed no suspicion of infection or abscess related to the mesh which was suspected to be implanted at the time of the patient's recent hernia repair. The morphology of the patient's nonhealing site is not optimal for healing by secondary intention, given that it is a tunneled wound with extension subcutaneously. We are to seek consultation with the Plastic Surgery service to determine whether a more aggressive approach might be considered. Wound excision with primary closure may be an option, as well as other procedures that may involve a stage approach. As mentioned, a wound culture has been obtained for aerobic and anaerobic bacterial growth. Results will be awaited, responsive which will be tailored to the findings. The patient is to follow-up in 1 week for reassessment. Total time: 25 minutes
== END 2023-10-16 23:59 | disposition home or self-care (01) ==
LOC: WC 13:30
PROVIDERS: PCP Student in an Organized Health Care Education/Training Program; Referring Provider Student in an Organized Health Care Education/Training Program; Visit Provider Surgery
DX: T81.31XA Disruption of external operation (surgical) wound, not elsewhere classified, initial encounter (principal); I49.1 Atrial premature depolarization; I49.3 Ventricular premature depolarization; N40.0 Benign prostatic hyperplasia without lower urinary tract symptoms; E78.5 Hyperlipidemia, unspecified; I73.9 Peripheral vascular disease, unspecified; I25.10 Atherosclerotic heart disease of native coronary artery without angina pectoris; I65.29 Occlusion and stenosis of unspecified carotid artery; K58.9 Irritable bowel syndrome, unspecified; M19.90 Unspecified osteoarthritis, unspecified site; G47.00 Insomnia, unspecified; K57.90 Diverticulosis of intestine, part unspecified, without perforation or abscess without bleeding; E66.9 Obesity, unspecified; Z68.34 Body mass index [BMI] 34.0-34.9, adult; Z98.890 Other specified postprocedural states; Z79.01 Long term (current) use of anticoagulants; Z79.82 Long term (current) use of aspirin; Z79.899 Other long term (current) drug therapy; Z87.891 Personal history of nicotine dependence; Z86.718 Personal history of other venous thrombosis and embolism; Z86.73 Personal history of transient ischemic attack (TIA), and cerebral infarction without residual deficits; Z95.828 Presence of other vascular implants and grafts; Z95.820 Peripheral vascular angioplasty status with implants and grafts; Z96.642 Presence of left artificial hip joint; Z95.1 Presence of aortocoronary bypass graft
CPT/HCPCS: 11042; 87070; 87075; 87077; 87186; 87205

== ENCOUNTER 2023-11-04 13:30 | Outpatient (RCR) | payer MEDICARE, OTHER, SELFPAY ==
[2023-10-17 00:11] VITALS: BP 119/86; PULSE 62; RESP 18; TEMP 36.4; BMI 34.4
[2023-10-22 15:23] VITALS: BP 83/49; PULSE 66; RESP 18; TEMP 35.8; BMI 34.4
--- NOTE | 2023-10-23 09:02 | WC ---
PHOTO ABD 10/22/23
--- NOTE | 2023-10-23 13:33 | HP.PCM_ITS ---
History of Present Illness Date of Service: 10/22/23 Chief Complaint: Surgical wound dehiscence/nonhealing abdominal surgical wound History of Wound: This is an 78 year-old male with a very extensive and complicated past medical history. The patient underwent surgical repair of a ventral abdominal wall hernia in December [address] Pierce at [facility]. The hernia had developed at a prior surgical site, as the patient has had multiple previous surgeries. On September 28, 2008, the patient underwent left femoral?tibial artery bypass surgery. He underwent open ruptured abdominal aneurysm repair on July 11, 2012. It appears as though the patient subsequently required a second surgical intervention for an abdominal aortic aneurysm. He underwent left carotid endarterectomy on June 04, 2017. A left femoral pseudoaneurysm repair was performed in 2021. Subsequent to his abdominal surgeries, the patient underwent his ventral abdominal hernia repair in December 2022. 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 The draining sinus was to the right and slightly inferior to his umbilicus. Cultures of the drainage from the site were performed at [facility] on July 03, 2023. Culture results were positive for Staphylococcus aureus, and the patient was treated with Bactrim double strength orally twice daily at that time. He remains under the care of his surgeon, Dr. Pierce. 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 The other soft tissues including abdominopelvic wall are unremarkable. The patient also underwent an ultrasound of the abdominal wall at [facility], the results of which were requested. It has been stated by the patient that prosthetic mesh was utilized in the repair of his ventral abdominal hernia. The patient had been using dilute peroxide to the small sinus tract opening on the anterior abdominal wall prior to his presentation. The patient is on chronic systemic anticoagulation with Apixaban 5 mg p.o. twice daily. He is mildly obese, with a BMI of 34.4. [facility] Medical History Coronary artery disease Surgical wound dehiscence Dehiscence of postoperative wound of abdomen Diverticulosis BPH (benign prostatic hyperplasia) Ventral hernia Peripheral arterial occlusive disease Carotid artery stenosis Osteoarthritis Insomnia Irritable bowel syndrome Hyperlipidemia History of deep vein thrombosis History of cerebrovascular accident History of anemia PAC (premature atrial contraction) PVCs (premature ventricular contractions) Peripheral arterial disease History of steroid therapy Arthritis TIA (transient ischemic attack) Stroke/cerebrovascular accident Former smoker History of echocardiogram Hx of abdominal aortic aneurysm Home Medications ?Medication ?Instructions ?Recorded ?Last Taken ?Type aspirin 81 mg capsule 81 mg PO DAILY blood thinner 12/13/21 12/23/21 History atorvastatin 80 mg tablet 80 mg PO QHS cholesterol 12/13/21 Unknown History finasteride 5 mg tablet 5 mg PO DAILY bladder 07/09/23 Unknown History tamsulosin 0.4 mg capsule 0.4 mg PO DAILY bladder 07/09/23 Unknown History ergocalciferol (vitamin D2) 50 mcg 25 mcg PO DAILY supplement 09/10/23 Unknown History (2,000 unit) capsule magnesium chloride 64 mg 128 mg (2 x 64 mg) PO BID 30 days 09/23/23 Unknown Rx (magnesium chloride) #120 tabs tablet,delayed release (Mag 64) metoprolol succinate 25 mg 25 mg PO DAILY 30 days #30 tabs 09/23/23 Unknown Rx tablet,extended release 24 hr pantoprazole 40 mg tablet,delayed 40 mg PO BID 30 days #60 tabs 09/23/23 Unknown Rx release sennosides 8.6 mg-docusate sodium 2 tab PO BID 30 days #120 tabs 09/23/23 Unknown Rx 50 mg tablet (Stool Softener-Stimulant Laxative) Allergy/AdvReac Type Severity Reaction Status Date / Time No Known Allergies Allergy Verified 12/27/21 07:48 Family History Father Ruptured aneurysm of artery Mother Myocardial infarction Sister Cancer Brother CVA (cerebral vascular accident) Son Diabetes CAD (coronary artery disease) s/p stent. Daughter No problems noted. Surgical History History of coronary artery bypass graft History of coronary artery bypass graft x 2 History of ventral hernia repair History of femoropopliteal bypass History of aortic aneurysm repair Status post carotid endarterectomy S/P hip replacement Hx of tracheostomy History of evacuation of hematoma Hx of total hip arthroplasty Hx of surgical procedure History of left-sided carotid endarterectomy Hx of abdominal surgery Social History household members: spouse Smoking Status: Former smoker alcohol intake: never substance use type: does not use Vital Signs Vital Signs Vital Signs: 10/22/23 15:23 Temperature 96.5 F L Temperature Source Temporal Pulse Rate 66 Respiratory Rate 18 Blood Pressure 83/49 L Blood Pressure Mean 60 Blood Pressure Source Monitor Blood Pressure Position Semi-Fowlers Blood Pressure Location Left Arm Oxygen Delivery Method Room Air Weight Weight: 220 lb Body Mass Index (BMI) 34.4 Physical Exam Const alert, oriented x3 and no apparent distress Constitutional Narrative: The patient is obese. General Appearance: cooperative, comfortable, well kempt and well developed Orientation / Consciousness: awake, oriented to person, oriented to place and oriented to time Exam Limitations: no limitations HEENT normocephalic and head/scalp atraumatic Head and Scalp: normal to inspection Face and Sinus: normal facial exam Nose: external nose normal External Ear: external ears normal Eyes EOMs intact bilaterally General Eye: normal appearance of both eyes Neck no JVD Resp normal respiratory effort, normal air movement, no retractions and no use of accessory muscles Extremity normal to inspection and full ROM General Extremity: Negative for edema Skin Wound Narrative: The patient's abdomen is obese. A well-healed vertical midline incision is noted on the abdomen, extending both above and below the umbilicus. There is a small opening within the incision to the right and slightly inferior to the patient's umbilicus. This opening is several millimeters in width. The wound demonstrates a depth of more than 4 cm, with tunneling extending superiorly. There is no surrounding erythema, though slight drainage is noted, which is purulent in appearance. There is also slight odor. Because of the presence of purulent drainage, a swab culture was obtained 1 week ago, results of which were positive for Staphylococcus aureus. Wound dimensions are documented elsewhere. Neuro oriented x3, CN's II-XII intact bilaterally, moves all extremities, no focal motor deficits and no sensory deficits noted Sensorium / Orientation: awake, alert, oriented to person, oriented to place and oriented to time Psych affect normal Appearance: appropriate Debridement Note Debridement Note Wound debrided: Nonhealing surgical abdominal wound Laterality: Not Applicable Type of Debridement: Excisional debridement Anesthesia Used: 5% Lidocaine Gel Depth: Down to and including healthy tissue and in the subcutaneous layer Percentage of wound debrided: 100 Instrument Used: 3mm curette Tissue Removed: Bioburden and nonviable tissue Severity: Fat Layer Exposed Amount of bleeding with debridement: Mild Bleeding Controlled with: Compression and gauze Patient tolerated procedure: Patient tolerated procedure well Post-Debridement Measurements and Additional Note: Post-Debridement Measurements/Treatment GINNA - Nurse 1 - General Ulcer Assessment Start: 10/22/23 15:23 Freq: Status: Active Protocol: LIA Activity Type Activity Date Activity User E-sign Co-sign Detail Recorded Client Recorded Date Recorded By Document 10/22/23 15:23 DUANE 10/22/23 15:32 10/22/23 15:23 WC - Today's Visit Information Type of service Initial Visit Arrival Mode Ambulatory Accompanied by Patient Identification Verified (Name & Yes ) Height and Weight Body Mass Index (BMI) 34.4 BMI Classification Obese Vital Signs Temperature (97.8 F-99.1 F) 96.5 F L Temperature Source Temporal Pulse Rate (60-100) 66 Pulse Location Monitor Respiratory Rate (12-18) 18 Respiratory rate source Observation Oxygen Delivery Method Room Air Blood Pressure (90/60-120/80) 83/49 L Blood Pressure Mean 60 Source Monitor Position Semi-Fowlers Blood Pressure Location Left Arm History Since Last Visit- (Skip if this is Patient's initial visit) Have you changed medications since your No last visit? Any new allergies or adverse reactions No Had a fall/change in ADL's that may No increase risk of falls Signs or symptoms of abuse and/or No neglect since last visit Have you been in the hospital since your No last visit? Has dressing in place as prescribed Yes Has compression in place as prescribed N/A Has offloadiing in place as prescribed N/A Experienced any changes in pain level or No management Left Footwear Regular Shoe Right Footwear Regular Shoe Pain Scale: 0-10 Numeric Is Patient Pain Free? Yes GINNA - Nurse 1 - General Ulcer Measurement Start: 10/22/23 15:23 Freq: Status: Active Protocol: Activity Type Activity Date Activity User E-sign Co-sign Detail Recorded Client Recorded Date Recorded By Document 10/22/23 15:23 DUANE 10/22/23 15:32 KW 10/22/23 15:23 Wound Center Nurse 1 #1 abd -Current Size (cm) - Length 0.6 -Current Size (cm) - Width 0.8 -Current Size (cm) - Depth 1.2 -Total Square Cm 0.48 -Date of Last Picture (Recall this 10/22/23 field) -Epithelialization Small 1-33% -Exudate Amt Medium -Exudate Type Serosanguineous -Wound Margin Distinct, Outline Attached -Granulation Amt Large (67-100%) -Granulation Quality [place],Red -Texture (Cleo-wound Skin Appearance) Assessed -Moisture (Cleo-wound Skin Appearance) Assessed -Color (Cleo-wound Skin Appearance) Assessed -Temperature (Cleo-wound Skin No Abnormality Appearance) (Pt Warm) -Tenderness on Palpation (Cleo-wound No Skin Appearance) -Ulcer Cleansing Rinsed/ Irrigated with Saline -Foul Odor after Cleansing No -Anesthetic Used 5% Lidocaine Gel - Nurse 2 - General Ulcer CM Notes Start: 10/22/23 15:23 Freq: Status: Active Protocol: Activity Type Activity Date Activity User E-sign Co-sign Detail Recorded Client Recorded Date Recorded By Document 10/22/23 15:56 DS 1 10/22/23 15:58 DS 10/22/23 15:56 Wound Center Nurse 2 -Time 15:56 -Correct Patient Yes -Correct Side, Site, Position Yes -Correct Procedure Yes -Procedure Performed Yes -Type of Procedure Debridement -Clinical Debridement Subcutaneous -Tissue Removed Subcutaneous -Post Debridement (cm) - Length 0.5 -Post Debridement (cm) - Width 0.7 -Post Debridement (cm) - Depth 4.6 -Total Square (Post) (cm) 0.35 -Area of Debridement (cm) - Length 0.5 -Area of Debridement (cm) - Width 0.7 -Total Square (Area) (cm) 0.35 -Tunneling No -Undermining/Tunneling No -Circular Undermining No -Wound/Ulcer Outcome Not Healed -Bleeding Controlled with Pressure -Treatment Response Procedure Tolerated Well -Debridement - Subq, 1st 20sq cm Yes Pain Scale: 0-10 Numeric Is Patient Pain Free? Yes - Nurse 3 - General Ulcer D/C NN Start: 10/22/23 15:23 Freq: Status: Active Protocol: Activity Type Activity Date Activity User E-sign Co-sign Detail Recorded Client Recorded Date Recorded By Document 10/22/23 16:19 KW kl 10/22/23 16:20 KW 10/22/23 16:19 Wound Care Center Nurse 3 #1 abd -Primary Dressing Applied Nugauze, Plain 1/4in -Primary Dressing Covered/Secured with Dry Gauze, Secured with Tape -Nugauze, Plain 1/4in 1 Pain Scale: 0-10 Numeric Is Patient Pain Free? Yes Charges/Coding Procedures Integumentary [id number]: [id number] Rhonda subq tissue 20 sq cm/< Assessment/Plan Assessment/Plan (1) Surgical wound dehiscence: CODE(S): T81.31XA - Disruption of external operation (surgical) wound, not elsewhere classified, initial encounter QUALIFIERS: Encounter type: subsequent encounter Qualified Code(s): T81.31XD - Disruption of external operation (surgical) wound, not elsewhere classified, subsequent encounter (2) History of ventral hernia repair: CODE(S): Z98.890 - Other specified postprocedural states; Z87.19 - Personal history of other diseases of the digestive system (3) Status post total hip replacement, left: CODE(S): Z96.642 - Presence of left artificial hip joint (4) Peripheral arterial disease: CODE(S): I73.9 - Peripheral vascular disease, unspecified (5) S/P hip replacement: CODE(S): Z96.649 - Presence of unspecified artificial hip joint (6) Status post carotid endarterectomy: CODE(S): Z98.890 - Other specified postprocedural states (7) History of aortic aneurysm repair: CODE(S): Z98.890 - Other specified postprocedural states; Z86.79 - Personal history of other diseases of the circulatory system (8) History of femoropopliteal bypass: CODE(S): Z98.890 - Other specified postprocedural states (9) PVCs (premature ventricular contractions): CODE(S): I49.3 - Ventricular premature depolarization (10) PAC (premature atrial contraction): CODE(S): I49.1 - Atrial premature depolarization (11) History of anemia: CODE(S): Z86.2 - Personal history of diseases of the blood and blood- forming organs and certain disorders involving the immune mechanism (12) History of cerebrovascular accident: CODE(S): Z86.73 - Personal history of transient ischemic attack (TIA), and cerebral infarction without residual deficits (13) History of deep vein thrombosis: CODE(S): Z86.718 - Personal history of other venous thrombosis and embolism (14) Hyperlipidemia: CODE(S): E78.5 - Hyperlipidemia, unspecified (15) Irritable bowel syndrome: CODE(S): K58.9 - Irritable bowel syndrome without diarrhea (16) Insomnia: CODE(S): G47.00 - Insomnia, unspecified (17) Osteoarthritis: CODE(S): M19.90 - Unspecified osteoarthritis, unspecified site (18) Carotid artery stenosis: CODE(S): I65.29 - Occlusion and stenosis of unspecified carotid artery (19) Peripheral arterial occlusive disease: CODE(S): I77.9 - Disorder of arteries and arterioles, unspecified (20) Ventral hernia: CODE(S): K43.9 - Ventral hernia without obstruction or gangrene (21) BPH (benign prostatic hyperplasia): CODE(S): N40.0 - Benign prostatic hyperplasia without lower urinary tract symptoms (22) Diverticulosis: CODE(S): K57.90 - Diverticulosis of intestine, part unspecified, without perforation or abscess without bleeding (23) Coronary artery disease: CODE(S): I25.10 - Atherosclerotic heart disease of [place] coronary artery without angina pectoris (24) History of coronary artery bypass graft: CODE(S): Z95.1 - Presence of aortocoronary bypass graft PLAN: Plan This is an 78-year-old male with a very complicated and extensive medical history, and multiple prior surgical procedures. He has had open abdominal surgery in the past, for repair of a a ruptured abdominal aneurysm. The patient developed a ventral incisional hernia, for which he underwent surgical repair by Dr. Pierce at [facility] in [place], [place], in December 2022. He developed a draining sinus tract in the lower third of the incision. He had been using peroxide topically. Treatment was initiated at [facility] in June 2023. However, following the patient's Wound Center visit on September 03, 2023, the patient underwent cardiac catheterization at [facility] in [place], [place], following which he required urgent coronary revascularization by means of bypass grafting, which was performed on September 06, 2023. He was subsequently admitted to the [facility] on September 10, 2023, and discharged on September 23, 2023. He returned to the [facility] to resume his care related to the surgical wound dehiscence of his abdominal wall. The patient's wound care regimen was interrupted by virtue of his coronary revascularization and subsequent rehabilitation, and little change was noted in the dehiscent surgical wound. We are to continue the use of quarter-inch moistened Nu Gauze which will be packed into the wound on a daily basis. The patient and his have been instructed in the appropriate means of packing. With concern involving the possibility of a draining sinus secondary to prosthetic mesh infection, the patient underwent a CT scan of the abdomen on August 23, 2023. The results revealed no suspicion of infection or abscess related to the mesh which was suspected to be implanted at the time of the patient's recent hernia repair. The morphology of the patient's nonhealing site is not optimal for healing by secondary intention, given that it is a tunneled wound with extension subcutaneously. We are to seek consultation with the Plastic Surgery service to determine whether a more aggressive approach might be considered. Wound excision with primary closure may be an option, as well as other procedures that may involve a staged approach. A wound culture which was obtained 1 week ago was positive for Staphylococcus aureus, and the patient has been placed on doxycycline 100 mg p.o. twice daily for 10 days. The patient is to follow-up in 2 weeks with the Plastic Surgery service, Dr. Snell, for determination as to whether surgical intervention may be a viable option. The patient will return in routine follow-up in 3 weeks. Total time: 26 minutes
--- NOTE | 2023-11-04 12:13 | HP.PCM_ITS ---
History of Present Illness Date of Service: 11/04/23 Chief Complaint: Surgical wound dehiscence/nonhealing abdominal surgical wound History of Wound: Magdaleno Latif is a 78 year-old male with a complicated past medical history who presents for abdominal wound from a ventral hernia repair dehiscence. The hernia had developed at a prior surgical site, as the patient has had multiple previous aortic repairs and other vascular surgeries. On September 28, 2008, the patient underwent left femoral?tibial artery bypass surgery. He underwent open ruptured abdominal aneurysm repair on July 11, 2012. It appears as though the patient subsequently required a second surgical intervention for an abdominal aortic aneurysm. He underwent left carotid endarterectomy on June 04, 2017. A left femoral pseudoaneurysm repair was performed in 2021. The patient then underwent his abdominal hernia repair in December [address] Pierce at [facility]. 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 Has had wound problems ever since. He developed a GI bleed last year and was admitted to the hospital, at which time he had a blood clot in his leg. He was treated with anticoagulation, but is no longer on any anticoagulation because it was considered provoked. He continue to do wound care to the abdominal incision. The most recent cultures of the drainage from the site were performed at [facility] on July 03, 2023. Culture results were positive for Staphylococcus aureus, and the patient was treated with Bactrim double strength orally twice daily at that time. In an effort to identify the possible cause of the persistent sinus tract, the patient had a CT scan at [facility] on April 19, 2023, which revealed postsurgical changes of the anterior abdominal wall, without definite focal rim-enhancing fluid collection to suggest an abscess. The other soft tissues including abdominopelvic wall are unremarkable. It has been stated by the patient that prosthetic mesh was used in the repair of his ventral abdominal hernia. He has been following at our [facility] in [place] with Dr. Hancock ever since. In August 2023, he underwent cardiac catheterization at [facility] in [place], [place], following which he required urgent coronary revascularization by means of bypass grafting, which was performed on September 06, 2023. He was subsequently admitted to the [facility] on September 10, 2023, and discharged on September 23, 2023. He returned to the [facility] to resume his care related to the surgical wound dehiscence of his abdominal wall with Dr. Hancock, who referred the patient to me for surgical management and possible reconstruction. Dr. Hancock has been treating the wound with Nu Gauze packing and weekly wound care/debridements in the wound care center. A wound culture which was again obtained earlier this month and was positive for Staphylococcus aureus, and the patient finished a course of doxycycline 100 mg p.o. twice daily for 10 days. CURRENT VISIT, 04 November 2023: Today patient reports that he is doing quite well. He feels like the wound is getting smaller and so does his . Patient does not smoke [facility] Medical History Coronary artery disease Surgical wound dehiscence Dehiscence of postoperative wound of abdomen Diverticulosis BPH (benign prostatic hyperplasia) Ventral hernia Peripheral arterial occlusive disease Carotid artery stenosis Osteoarthritis Insomnia Irritable bowel syndrome Hyperlipidemia History of deep vein thrombosis History of cerebrovascular accident History of anemia PAC (premature atrial contraction) PVCs (premature ventricular contractions) Peripheral arterial disease History of steroid therapy Arthritis TIA (transient ischemic attack) Stroke/cerebrovascular accident Former smoker History of echocardiogram Hx of abdominal aortic aneurysm Home Medications ?Medication ?Instructions ?Recorded ?Last Taken ?Type aspirin 81 mg capsule 81 mg PO DAILY blood thinner 12/13/21 12/23/21 History atorvastatin 80 mg tablet 80 mg PO QHS cholesterol 12/13/21 Unknown History finasteride 5 mg tablet 5 mg PO DAILY bladder 07/09/23 Unknown History tamsulosin 0.4 mg capsule 0.4 mg PO DAILY bladder 07/09/23 Unknown History ergocalciferol (vitamin D2) 50 mcg 25 mcg PO DAILY supplement 09/10/23 Unknown History (2,000 unit) capsule magnesium chloride 64 mg 128 mg (2 x 64 mg) PO BID 30 days 09/23/23 Unknown Rx (magnesium chloride) #120 tabs tablet,delayed release (Mag 64) metoprolol succinate 25 mg 25 mg PO DAILY 30 days #30 tabs 09/23/23 Unknown Rx tablet,extended release 24 hr pantoprazole 40 mg tablet,delayed 40 mg PO BID 30 days #60 tabs 09/23/23 Unknown Rx release sennosides 8.6 mg-docusate sodium 2 tab PO BID 30 days #120 tabs 09/23/23 Unknown Rx 50 mg tablet (Stool Softener-Stimulant Laxative) Allergy/AdvReac Type Severity Reaction Status Date / Time No Known Allergies Allergy Verified 12/27/21 07:48 Family History Father Ruptured aneurysm of artery Mother Myocardial infarction Sister Cancer Brother CVA (cerebral vascular accident) Son Diabetes CAD (coronary artery disease) s/p stent. Daughter No problems noted. Surgical History History of coronary artery bypass graft History of coronary artery bypass graft x 2 History of ventral hernia repair History of femoropopliteal bypass History of aortic aneurysm repair Status post carotid endarterectomy S/P hip replacement Hx of tracheostomy History of evacuation of hematoma Hx of total hip arthroplasty Hx of surgical procedure History of left-sided carotid endarterectomy Hx of abdominal surgery Social History household members: spouse Smoking Status: Former smoker alcohol intake: never substance use type: does not use Vital Signs Vital Signs Vital Signs: Weight Weight: 220 lb Body Mass Index (BMI) 34.4 Physical Exam Const alert and oriented x3 General Appearance: cooperative HEENT normocephalic Eyes EOMs intact bilaterally Lymph Lymphatic: no lymphadenopathy noted Chest inspection of chest normal Resp normal respiratory effort and clear to auscultation bilaterally Cardio regular rate and regular rhythm GI non-distended GI Narrative: Abdominal examination Vertical laparotomy incision with small wound just inferior lateral to the umbilicus. Tunnels vertically 4 cm. No purulent drainage. Wound is about 1 cm x 1 cm. No palpable ventral hernia or umbilical hernia Nursing Assessment and Debridement Post-Debridement Measurements and Additional Note: Post-Debridement Measurements/Treatment WC - Nurse 1 - General Ulcer Assessment Start: 10/22/23 15:23 Freq: Status: Active Protocol: LIA Activity Type Activity Date Activity User E-sign Co-sign Detail Recorded Client Recorded Date Recorded By Document 11/04/23 13:30 DL [id number] 11/04/23 13:37 DL 11/04/23 13:30 - Today's Visit Information Type of service Follow-up Visit (Physician/[facility] ) Arrival Mode Ambulatory Transfer Assistance None Patient Identification Verified (Name & Yes ) Patient Requires Transmission-Based No Precautions Height and Weight Body Mass Index (BMI) 34.4 BMI Classification Obese Vital Signs Temperature (97.8 F-99.1 F) 96.9 F L Temperature Source Oral Pulse Rate (60-100 beats/min) 72 Pulse Location Monitor Respiratory Rate (12-18 breaths/min) 18 Blood Pressure (90/60-120/80 mm Hg) 111/64 Blood Pressure Mean (mm Hg) 79 Source Monitor History Since Last Visit- (Skip if this is Patient's initial visit) Have you changed medications since your No last visit? Any new allergies or adverse reactions No Had a fall/change in ADL's that may No increase risk of falls Signs or symptoms of abuse and/or No neglect since last visit Have you been in the hospital since your No last visit? Has dressing in place as prescribed Yes Has compression in place as prescribed N/A Has offloadiing in place as prescribed N/A Experienced any changes in pain level or No management Pain Scale: 0-10 Numeric Is Patient Pain Free? Yes WC - Nurse 1 - General Ulcer Measurement Start: 10/22/23 15:23 Freq: Status: Active Protocol: Activity Type Activity Date Activity User E-sign Co-sign Detail Recorded Client Recorded Date Recorded By Document 11/04/23 13:30 DL [id number] 11/04/23 13:37 DL 11/04/23 13:30 Wound Center Nurse 1 #1 abd -Current Size (cm) - Length 0.7 -Current Size (cm) - Width 0.7 -Current Size (cm) - Depth 0.7 -Total Square Cm 0.49 -Photo Taken Yes -Tunneling Position (O'clock) 1 -Tunneling Distance (cm) 4.2 -Exudate Amt Medium -Exudate Type Serosanguineous -Wound Margin Distinct, Outline Attached -Granulation Amt Large (67-100%) -Granulation Quality Red -Necrosis Amt None Present (0 %) -Structure Exposed N/A -Texture (Cleo-wound Skin Appearance) Not Assessed, Scarring -Color (Cleo-wound Skin Appearance) No Abnormality -Temperature (Cleo-wound Skin No Abnormality Appearance) (Pt Warm) -Ulcer Cleansing Rinsed/ Irrigated with Saline -Foul Odor after Cleansing No -Anesthetic Used 5% Lidocaine Gel WC - Nurse 2 - General Ulcer CM Notes Start: 10/22/23 15:23 Freq: Status: Active Protocol: Activity Type Activity Date Activity User E-sign Co-sign Detail Recorded Client Recorded Date Recorded By Document 11/04/23 13:15 0000 11/05/23 07:36 Document 11/04/23 14:08 [id number] 11/04/23 14:16 11/04/23 11/04/23 13:15 14:08 Wound Center Nurse 2 #1 abd -Time 07:34 -Correct Patient Yes Yes -Correct Side, Site, Position Yes Yes -Correct Procedure Yes Yes -Procedure Performed Yes Yes -Type of Procedure Debridement Debridement -Clinical Debridement Subcutaneous Subcutaneous -Tissue Removed Subcutaneous Subcutaneous -Post Debridement (cm) - Length 0.5 0.5 -Post Debridement (cm) - Width 0.6 0.6 -Post Debridement (cm) - Depth 4.6 4.6 -Total Square (Post) (cm) 0.30 0.30 -Area of Debridement (cm) - Length 0.5 0.5 -Area of Debridement (cm) - Width 0.6 0.6 -Total Square (Area) (cm) 0.30 0.30 -Tunneling No No -Undermining/Tunneling No No -Circular Undermining No No -Wound/Ulcer Outcome Not Healed Not Healed -Ulcer Cleansing Rinsed/ Rinsed/ Irrigated with Irrigated with Saline Saline -Foul Odor after Cleansing No No -Bioengineered Tissue No No -Bleeding Controlled with Pressure Pressure -Treatment Response Procedure Procedure Tolerated Well Tolerated Well -Offloading No No -Debridement - Subq, 1st 20sq cm Yes Yes Pain Scale: 0-10 Numeric Is Patient Pain Free? Yes Yes - Nurse 3 - General Ulcer D/C NN Start: 10/22/23 15:23 Freq: Status: Active Protocol: Activity Type Activity Date Activity User E-sign Co-sign Detail Recorded Client Recorded Date Recorded By Document 11/04/23 14:29 [id number] 11/04/23 14:31 JF Document 11/05/23 07:36 0000 11/05/23 07:36 JF 11/04/23 11/05/23 14:29 07:36 Wound Care Center Nurse 3 #1 abd -Ulcer Cleansing Rinsed/ Rinsed/ Irrigated with Irrigated with Saline Saline -Foul Odor after Cleansing No No -Primary Dressing Applied Nugauze, Nugauze, Iodoform 1/4in Iodoform 1in -Primary Dressing Covered/Secured with Dry Gauze, Dry Gauze, Secured with Secured with Tape Tape -Nugauze, Iodoform 1/4in 1 -Nugauze, Iodoform 1in 1 -Wound Comment(s) Iodoform packed per Treatment Response Procedure Tolerated Well Pain Scale: 0-10 Numeric Is Patient Pain Free? Yes Yes WC - Visit Discharge Discharge Condition Stable Stable Ambulatory Status Ambulatory,Cane Ambulatory Transportation Private Auto Private Auto Medication Reconcilliation completed & Yes provided to patient/care provider Clinical Summary of Care Provided Yes Debridement Note Debridement Note Post-Debridement Measurements and Additional Note: Post-Debridement Measurements/Treatment - Nurse 1 - General Ulcer Assessment Start: 10/22/23 15:23 Freq: Status: Active Protocol: LIA Activity Type Activity Date Activity User E-sign Co-sign Detail Recorded Client Recorded Date Recorded By Document 10/22/23 15:23 DUANE 10/22/23 15:32 KW 10/22/23 15:23 - Today's Visit Information Type of service Initial Visit Arrival Mode Ambulatory Accompanied by Patient Identification Verified (Name & Yes ) Height and Weight Body Mass Index (BMI) 34.4 BMI Classification Obese Vital Signs Temperature (97.8 F-99.1 F) 96.5 F L Temperature Source Temporal Pulse Rate (60-100) 66 Pulse Location Monitor Respiratory Rate (12-18) 18 Respiratory rate source Observation Oxygen Delivery Method Room Air Blood Pressure (90/60-120/80) 83/49 L Blood Pressure Mean 60 Source Monitor Position Semi-Fowlers Blood Pressure Location Left Arm History Since Last Visit- (Skip if this is Patient's initial visit) Have you changed medications since your No last visit? Any new allergies or adverse reactions No Had a fall/change in ADL's that may No increase risk of falls Signs or symptoms of abuse and/or No neglect since last visit Have you been in the hospital since your No last visit? Has dressing in place as prescribed Yes Has compression in place as prescribed N/A Has offloadiing in place as prescribed N/A Experienced any changes in pain level or No management Left Footwear Regular Shoe Right Footwear Regular Shoe Pain Scale: 0-10 Numeric Is Patient Pain Free? Yes WC - Nurse 1 - General Ulcer Measurement Start: 10/22/23 15:23 Freq: Status: Active Protocol: Activity Type Activity Date Activity User E-sign Co-sign Detail Recorded Client Recorded Date Recorded By Document 10/22/23 15:23 KW kl 10/22/23 15:32 KW 10/22/23 15:23 Wound Center Nurse 1 #1 abd -Current Size (cm) - Length 0.6 -Current Size (cm) - Width 0.8 -Current Size (cm) - Depth 1.2 -Total Square Cm 0.48 -Date of Last Picture (Recall this 10/22/23 field) -Epithelialization Small 1-33% -Exudate Amt Medium -Exudate Type Serosanguineous -Wound Margin Distinct, Outline Attached -Granulation Amt Large (67-100%) -Granulation Quality [place],Red -Texture (Cleo-wound Skin Appearance) Assessed -Moisture (Cleo-wound Skin Appearance) Assessed -Color (Cleo-wound Skin Appearance) Assessed -Temperature (Cleo-wound Skin No Abnormality Appearance) (Pt Warm) -Tenderness on Palpation (Cleo-wound No Skin Appearance) -Ulcer Cleansing Rinsed/ Irrigated with Saline -Foul Odor after Cleansing No -Anesthetic Used 5% Lidocaine Gel WC - Nurse 2 - General Ulcer CM Notes Start: 10/22/23 15:23 Freq: Status: Active Protocol: Activity Type Activity Date Activity User E-sign Co-sign Detail Recorded Client Recorded Date Recorded By Document 10/22/23 15:56 DS 1 10/22/23 15:58 DS 10/22/23 15:56 Wound Center Nurse 2 -Time 15:56 -Correct Patient Yes -Correct Side, Site, Position Yes -Correct Procedure Yes -Procedure Performed Yes -Type of Procedure Debridement -Clinical Debridement Subcutaneous -Tissue Removed Subcutaneous -Post Debridement (cm) - Length 0.5 -Post Debridement (cm) - Width 0.7 -Post Debridement (cm) - Depth 4.6 -Total Square (Post) (cm) 0.35 -Area of Debridement (cm) - Length 0.5 -Area of Debridement (cm) - Width 0.7 -Total Square (Area) (cm) 0.35 -Tunneling No -Undermining/Tunneling No -Circular Undermining No -Wound/Ulcer Outcome Not Healed -Bleeding Controlled with Pressure -Treatment Response Procedure Tolerated Well -Debridement - Subq, 1st 20sq cm Yes Pain Scale: 0-10 Numeric Is Patient Pain Free? Yes WC - Nurse 3 - General Ulcer D/C NN Start: 10/22/23 15:23 Freq: Status: Active Protocol: Activity Type Activity Date Activity User E-sign Co-sign Detail Recorded Client Recorded Date Recorded By Document 10/22/23 16:19 KW kl 10/22/23 16:20 KW 10/22/23 16:19 Wound Care Center Nurse 3 #1 abd -Primary Dressing Applied Nugauze, Plain 1/4in -Primary Dressing Covered/Secured with Dry Gauze, Secured with Tape -Nugauze, Plain 1/4in 1 Pain Scale: 0-10 Numeric Is Patient Pain Free? Yes Lab / Micro Data Attestation: I reviewed the patient's lab results. Labs: [facility] Imaging Services [address] [place] [address] Abdomen/Pelvis W IV Cont ONLY MR#: [id number] Acct: [id number] Name: MAGDALENO LATIF Rep #: [id number] : 1945 M 78 From: Jose Ramon Earl MD PCP: Dr. Malvin Freire, DO Status: REG CLI Study: Abdomen/Pelvis W IV Cont ONLY Date of Exam: 08/23/23 Exam# [id number] Ordering Dr: Soren Hancock MD STUDY: CT ABDOMEN AND PELVIS WITH CONTRAST REASON FOR EXAM: Male, 78 years old. DRAIING WOUND, SUSPECT MESH INFECTION. Prior ventral hernia repair with mesh. RADIATION DOSAGE (If Supplied By Facility): CTDIvol = ( 24.3 ) mGy, DLP = ( 1740.04 ) mGycm TECHNIQUE: Transaxial images were obtained from the dome of the diaphragm to the symphysis pubis without oral contrast. Oral and amp; IV Readi-CAT and amp; 100mL Isovue-370 was administered. Sagittal and coronal images were reconstructed. Individualized dose optimization techniques were used for this CT. COMPARISON: None. FINDINGS: Mild increased linear markings at the lung bases suggestive of linear atelectasis and/or scarring. Coronary artery calcification. There is decreased attenuation of the liver consistent with steatosis. Findings suggestive of small gallstones along the dependent portion of the gallbladder lumen. Normal spleen. There is diffuse atrophy of the pancreas. Normal bilateral adrenal glands. There is a 4.2 cm x 3 cm cyst in the lower lateral aspect of the right kidney. There is a 3.9 cm x 3.9 sono persistent anterior lower pole of the left kidney. Normal left kidney. Normal visualized stomach. Normal small intestine. Normal colon. The appendix is visualized and appears normal. There is diffuse atherosclerotic calcification of the abdominal aorta and its major visceral branches. There is evidence of aneurysmal dilatation of the distal abdominal aorta with a transverse dimension of 2.7 cm. Mural thrombus is seen. There is also evidence of aneurysmal dilatation of the right common iliac artery measuring 2.1 cm. Normal inferior vena cava. Normal retroperitoneum. There is evidence of prior ventral hernia repair. There is evidence of a soft tissue prominence deep to the umbilicus within the subcutaneous tissue in the midline measuring 2.6 cm x 2.8 cm. I suspect a 2.3 cm x 0.8 cm subtle fluid collection along the superior aspect of the operative site.. Normal abdominal wall. The patient is status post bilateral hip replacements with beam hardening artifact in the pelvis limiting evaluation. CT/Abdomen/Pelvis W IV Cont ONLY IMPRESSION: Postoperative changes at the site of the ventral hernia repair with a tiny subtle fluid collection. A tiny air bubble is seen deep to the anterior abdominal wall at the operative site. Infrarenal abdominal aortic aneurysm as well as aneurysmal dilatation of the right common iliac artery. Bilateral renal cysts. Electronically Signed: Jose Ramon Earl MD at 14:29 EDT , Charges/Coding Visit Charges Office Visits / Consults: 05294 OV L5 New 60min (25 modifier for debridement ) Procedures Integumentary [id number]: 39032 Rhonda subq tissue 20 sq cm/< Assessment/Plan Assessment/Plan (1) Chronic abdominal wound infection: CODE(S): S31.109A - Unspecified open wound of abdominal wall, unspecified quadrant without penetration into peritoneal cavity, initial encounter; L08.9 - Local infection of the skin and subcutaneous tissue, unspecified PLAN: Plan At this point the wound is getting smaller and smaller. I am going to recommend continued oJslyn Morrison as this seems to be working. I will work on obtaining the operative note from the ventral hernia repair. I also discussed the CT scan from August with one of the radiologist here in the hospital (we talked about a small area of herniation of fat into the midline through possible abdominal wall defect). After discussion with the radiologist, and the chronicity of the wound, we are also going to repeat a CT scan, but I am optimistic that the wound is healing and there is unlikely to be any fistulas. Follow-up in 1 week in the wound care center
[2023-11-04 13:30] VITALS: BP 111/64; PULSE 72; RESP 18; TEMP 36.1; BMI 34.4
== END 2023-11-16 23:59 | disposition home or self-care (01) ==
LOC: WC 13:30
PROVIDERS: PCP Student in an Organized Health Care Education/Training Program; Referring Provider Student in an Organized Health Care Education/Training Program; Visit Provider Surgery Plastic and Reconstructive Surgery
DX: T81.31XA Disruption of external operation (surgical) wound, not elsewhere classified, initial encounter (principal); Y83.8 Other surgical procedures as the cause of abnormal reaction of the patient, or of later complication, without mention of misadventure at the time of the procedure; L08.9 Local infection of the skin and subcutaneous tissue, unspecified; G47.00 Insomnia, unspecified; I25.10 Atherosclerotic heart disease of native coronary artery without angina pectoris; I49.3 Ventricular premature depolarization; K58.9 Irritable bowel syndrome, unspecified; K57.90 Diverticulosis of intestine, part unspecified, without perforation or abscess without bleeding; M19.90 Unspecified osteoarthritis, unspecified site; E78.5 Hyperlipidemia, unspecified; I73.9 Peripheral vascular disease, unspecified; N40.0 Benign prostatic hyperplasia without lower urinary tract symptoms; Z95.820 Peripheral vascular angioplasty status with implants and grafts; Z87.891 Personal history of nicotine dependence; Z86.73 Personal history of transient ischemic attack (TIA), and cerebral infarction without residual deficits; Z96.642 Presence of left artificial hip joint; Z79.01 Long term (current) use of anticoagulants; Z86.718 Personal history of other venous thrombosis and embolism
CPT/HCPCS: 11042

== ENCOUNTER → 2023-11-14 | Outpatient (CLI) | payer MEDICARE, OTHER, SELFPAY ==
--- NOTE | 2023-11-14 16:42 | CT_ITS ---
EXAM: CT ABDOMEN AND PELVIS WITH INTRAVENOUS CONTRAST CLINICAL INDICATION: HX HERNIA REPAIR TECHNIQUE: Helically acquired images were obtained of the abdomen and pelvis with intravenous contrast. This CT exam was performed using one or more of the following dose reduction techniques: automated exposure control, adjustment of the mA and/or kV according to patient size, and/or use of iterative reconstruction technique. CONTRAST: Oral and amp; IV and amp; 100mL Isovue-370 RADIATION DOSE: CTDIvol = 16.58 mGy, DLP = 1201.83 mGy-cm COMPARISON: August 23, 2023. There was increased soft tissue density and small pocket of low-attenuation in the ventral periumbilical abdominal wall. FINDINGS: LOWER THORAX: Dense calcifications or stents throughout right coronary artery branches. The heart is not fully included. At least mild calcifications on the left. Minimal similar irregular presumed scarring in the left lung base. No significant pericardial effusion. ABDOMEN: LIVER: Unremarkable. Homogeneous. No focal mass. GALLBLADDER AND BILE DUCTS: The gallbladder is mildly prominent size, no obvious stones, 3.6 cm AP. No gallbladder distention or wall edema. PANCREAS: Very atrophic fatty replaced pancreas prior exam. No focal cystic or solid mass. SPLEEN: Borderline splenomegaly, 13.3 cm craniocaudal, stable. ADRENALS: Unremarkable. No nodules. KIDNEYS AND URETERS: Similar bilateral renal cysts. Normal renal size and position. No hydronephrosis. STOMACH AND BOWEL: There is moderate contrast in the stomach. Contrast reached mid to distal small bowel, no obstruction. Moderate stool throughout most of the proximal half of the colon. Mild gas and minimal stool in the distal colon and rectum. Moderate diverticulosis of the descending and proximal sigmoid colon, no evidence of acute diverticulitis. PELVIS: APPENDIX: Small appendix is best seen on axial images. BLADDER: Unremarkable. REPRODUCTIVE: Unremarkable as visualized. No mass. ABDOMEN and PELVIS: INTRAPERITONEAL SPACE: Unremarkable. No ascites or other fluid collection. No free air. BONES/JOINTS: The margins of the xiphoid of the sternum are not completely approximated, roughly 7 mm space, a few sternal wires are included, new soft tissue stranding anterior to the sternum and the partially included substernal region. Bilateral hip prostheses and degenerative spine changes. Vacuum disc and mild spondylosis at multiple lumbar levels. Moderate annular disc bulge and facet joint hypertrophic change at L4-5 contributes to at least mild spinal stenosis, AP diameter of the canal in the midline roughly 9 mm similar to prior exam. SOFT TISSUES: Small pocket of low-attenuation is no longer clearly seen within the soft tissue thickening in the periumbilical abdominal wall. Mild-moderate fat-containing inguinal hernias, no evidence of inflammation or strangulation. VASCULATURE: Complex appearance of the aorta with mild ectasia and peripheral calcification, also multifocal eccentric intraluminal noncalcified plaque or eccentric thrombus, similar to prior exam. Mild aneurysmal dilatation of the right common iliac artery proximal to the bifurcation and distal to a fairly high-grade apparent stenosis at the right common iliac artery origin. 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 Similar aneurysmal dilatation with low-attenuation leftward thrombosis in the right superficial femoral artery, but it is patent, outer diameter roughly 2 cm. Diffuse calcifications of long segments of proximal SMA and celiac axis, no evidence of high-grade stenosis. Patent bypass graft expected region of the left SFA, mildly opacified, anterior to small opacified nonpatent chicken [place] artery. 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 Infrarenal aortic diameter maximum 3.4 cm AP by 3.2 cm transverse. LYMPH NODES: Unremarkable. No enlarged lymph nodes. CT/Abdomen/Pelvis WITH Contrast IMPRESSION: 1. The small pocket of loculated fluid in the periumbilical postoperative soft tissue density in the body wall is no longer apparent. 2. There is new increased soft tissue density anterior to the distal sternum anterior to new median sternotomy. 3. Moderate diverticulosis. No evidence of acute diverticulitis or appendicitis. 4. Advanced vascular findings as described, similar to prior exam. Multifocal mild aneurysmal dilatation. Patent left groin bypass graft. 5. Degenerative spine changes and at least mild spinal stenosis. Electronically Signed: Hayley Mcleod MD at 3:09 EDT ,
[2023-11-14 17:20] LABS: CREATININE FINGERSTICK 1.1 mg/dL (0.70-1.30); EGFR FINGERSTICK > 60.0000 mL/min (>60)
== END | disposition home or self-care (01) ==
LOC: CT 16:39
PROVIDERS: PCP Student in an Organized Health Care Education/Training Program; Referring Provider Surgery Plastic and Reconstructive Surgery; Visit Provider Surgery Plastic and Reconstructive Surgery
DX: Z09 Encounter for follow-up examination after completed treatment for conditions other than malignant neoplasm (principal); Z98.890 Other specified postprocedural states
CPT/HCPCS: 74177; Q9967

== ENCOUNTER 2023-12-09 14:15 | Outpatient (RCR) | payer MEDICARE, OTHER, SELFPAY ==
[2023-11-17 00:13] VITALS: BP 119/86; PULSE 62; RESP 18; TEMP 36.4; BMI 34.4
[2023-11-25 14:37] VITALS: BP 100/57; PULSE 69; RESP 16; TEMP 35.5; BMI 34.4
--- NOTE | 2023-11-26 10:18 | PN.PCM_ITS ---
History of Present Illness Date of Service: 11/25/23 Chief Complaint: Surgical wound dehiscence/nonhealing abdominal surgical wound History of Wound: Kaden Latif is a 78 year-old male with a complicated past medical history who presents for abdominal wound from a ventral hernia repair dehiscence. The hernia had developed at a prior surgical site, as the patient has had multiple previous aortic repairs and other vascular surgeries. On September 28, 2008, the patient underwent left femoral?tibial artery bypass surgery. He underwent open ruptured abdominal aneurysm repair on July 11, 2012. It appears as though the patient subsequently required a second surgical intervention for an abdominal aortic aneurysm. He underwent left carotid endarterectomy on June 04, 2017. A left femoral pseudoaneurysm repair was performed in 2021. The patient then underwent his abdominal hernia repair in December [address] Pierce at [facility]. 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 Has had wound problems ever since. He developed a GI bleed last year and was admitted to the hospital, at which time he had a blood clot in his leg. He was treated with anticoagulation, but is no longer on any anticoagulation because it was considered provoked. He continue to do wound care to the abdominal incision. The most recent cultures of the drainage from the site were performed at [facility] on July 03, 2023. Culture results were positive for Staphylococcus aureus, and the patient was treated with Bactrim double strength orally twice daily at that time. In an effort to identify the possible cause of the persistent sinus tract, the patient had a CT scan at [facility] on April 19, 2023, which revealed postsurgical changes of the anterior abdominal wall, without definite focal rim-enhancing fluid collection to suggest an abscess. The other soft tissues including abdominopelvic wall are unremarkable. It has been stated by the patient that prosthetic mesh was used in the repair of his ventral abdominal hernia. He has been following at our [facility] in [place] with Dr. Hancock ever since. In August 2023, he underwent cardiac catheterization at [facility] in [place], [place], following which he required urgent coronary revascularization by means of bypass grafting, which was performed on September 06, 2023. He was subsequently admitted to the [facility] on September 10, 2023, and discharged on September 23, 2023. He returned to the [facility] to resume his care related to the surgical wound dehiscence of his abdominal wall with Dr. Hancock, who referred the patient to me for surgical management and possible reconstruction. Dr. Hancock has been treating the wound with Nu Gauze packing and weekly wound care/debridements in the wound care center. A wound culture which was again obtained earlier this month and was positive for Staphylococcus aureus, and the patient finished a course of doxycycline 100 mg p.o. twice daily for 10 days. We talked extensively today about pressure offloading and not being able to sit in a wheelchair, as well as expectations for postoperative admission and rehabilitation with pressure offloading (no sitting must lay on side or prone for several weeks postoperatively). They endorsed understanding. Plan for the visit today was to meet with the nutrition counselor today in the wound care center clinic as a multidisciplinary effort to prepare him for surgery. I have ordered preoperative nutrition labs including A1c, prealbumin , CBC and CMP. Subjective Subjective 04 November 2023: Today patient reports that he is doing quite well. He feels like the wound is getting smaller and so does his . Patient does not smoke CURRENT VISIT, 25 Nov 2023: Patient reports that the wound is about the same size and has been draining some serosanguineous fluid. They have made no improvement. He had a CT scan performed. Objective Data Objective Data Vital Signs: Vital Signs Temp Pulse Resp BP O2 Del Method 95.9 F L 69 16 100/57 L Room Air 11/25/23 14:37 11/25/23 14:37 11/25/23 14:37 11/25/23 14:37 11/25/23 14:37 Oxygen Delivery Method Room Air Weight: 220 lb Body Mass Index (BMI) 34.4 Lab / Micro Data Attestation: I reviewed the patient's lab results. Radiography Diagnostic Testing: CT scan performed I reviewed the imaging CT abdomen pelvis from 14 November 2023: CT/Abdomen/Pelvis WITH Contrast IMPRESSION: 1. The small pocket of loculated fluid in the periumbilical postoperative soft tissue density in the body wall is no longer apparent. 2. There is new increased soft tissue density anterior to the distal sternum anterior to new median sternotomy. 3. Moderate diverticulosis. No evidence of acute diverticulitis or appendicitis. 4. Advanced vascular findings as described, similar to prior exam. Multifocal mild aneurysmal dilatation. Patent left groin bypass graft. 5. Degenerative spine changes and at least mild spinal stenosis. Charges/Coding Procedures Integumentary [id number]: [id number] Rhonda subq tissue 20 sq cm/< Physical Exam Const alert and oriented x3 General Appearance: cooperative HEENT normocephalic Eyes EOMs intact bilaterally Lymph Lymphatic: no lymphadenopathy noted Chest inspection of chest normal Resp normal respiratory effort and clear to auscultation bilaterally Cardio regular rate and regular rhythm GI non-distended GI Narrative: Abdominal examination Vertical laparotomy incision with small wound just inferior lateral to the umbilicus. Continues to tunnel vertically 4.6 cm. No purulent drainage. Wound measures 0.8 x 0.7 cm, but is deep down to fascia. No palpable ventral hernia or umbilical hernia Debridement Note Debridement Note Post-Debridement Measurements and Additional Note: Post-Debridement Measurements/Treatment WC - Nurse 1 - General Ulcer Assessment Start: 11/25/23 14:35 Freq: Status: Active Protocol: GINNA.FENG Activity Type Activity Date Activity User E-sign Co-sign Detail Recorded Client Recorded Date Recorded By Document 11/25/23 14:37 [id number] 11/25/23 14:42 11/25/23 14:37 WC - Today's Visit Information Type of service Follow-up Visit (Physician/[employer] APPLICATOR ) Arrival Mode Ambulatory Accompanied by Patient Identification Verified (Name & Yes ) Height and Weight Body Mass Index (BMI) 34.4 BMI Classification Obese Vital Signs Temperature (97.8 F-99.1 F) 95.9 F L Temperature Source Temporal Pulse Rate (60-100) 69 Pulse Location Monitor Respiratory Rate (12-18) 16 Respiratory rate source Observation Oxygen Delivery Method Room Air Blood Pressure (90/60-120/80) 100/57 L Blood Pressure Mean (mm Hg) 71 Source Monitor Position Semi-Fowlers Blood Pressure Location Left Arm History Since Last Visit- (Skip if this is Patient's initial visit) Have you changed medications since your No last visit? Any new allergies or adverse reactions No Had a fall/change in ADL's that may No increase risk of falls Signs or symptoms of abuse and/or No neglect since last visit Have you been in the hospital since your No last visit? Has dressing in place as prescribed Yes Has compression in place as prescribed N/A Has offloadiing in place as prescribed N/A Experienced any changes in pain level or No management Left Footwear Regular Shoe Right Footwear Regular Shoe Pain Scale: 0-10 Numeric Is Patient Pain Free? Yes - Nurse 1 - General Ulcer Measurement Start: 11/25/23 14:35 Freq: Status: Active Protocol: Activity Type Activity Date Activity User E-sign Co-sign Detail Recorded Client Recorded Date Recorded By Document 11/25/23 14:37 DUANE [id number] 11/25/23 14:42 11/25/23 14:37 Wound Center Nurse 1 #1 abd -Current Size (cm) - Length 0.8 -Current Size (cm) - Width 0.7 -Current Size (cm) - Depth 1.8 -Total Square Cm 0.56 -Exudate Amt Medium -Exudate Type Serosanguineous -Wound Margin Thickened -Granulation Amt Large (67-100%) -Granulation Quality Red -Necrosis Amt Small (1-33%) -Necrotic Tissue Type Adherent Slough -Texture (Cleo-wound Skin Appearance) Assessed -Moisture (Cleo-wound Skin Appearance) Assessed,Dry/ Scaly -Color (Cleo-wound Skin Appearance) Assessed -Temperature (Cleo-wound Skin No Abnormality Appearance) (Pt Warm) -Tenderness on Palpation (Cleo-wound No Skin Appearance) -Ulcer Cleansing Rinsed/ Irrigated with Saline -Foul Odor after Cleansing No -Anesthetic Used 5% Lidocaine Gel - Nurse 2 - General Ulcer CM Notes Start: 11/25/23 14:35 Freq: Status: Active Protocol: Activity Type Activity Date Activity User E-sign Co-sign Detail Recorded Client Recorded Date Recorded By Document 11/25/23 15:29 [id number] 11/25/23 15:32 11/25/23 15:29 Wound Center Nurse 2 -Time 15:30 -Correct Patient Yes -Correct Side, Site, Position Yes -Correct Procedure Yes -Procedure Performed Yes -Type of Procedure Debridement -Clinical Debridement Subcutaneous -Tissue Removed Subcutaneous -Post Debridement (cm) - Length 0.8 -Post Debridement (cm) - Width 0.7 -Post Debridement (cm) - Depth 4.6 -Total Square (Post) (cm) 0.56 -Area of Debridement (cm) - Length 0.8 -Area of Debridement (cm) - Width 0.7 -Total Square (Area) (cm) 0.56 -Tunneling No -Undermining/Tunneling No -Circular Undermining No -Wound/Ulcer Outcome Not Healed -Ulcer Cleansing Rinsed/ Irrigated with Saline -Foul Odor after Cleansing No -Bioengineered Tissue No -Bleeding Controlled with Pressure -Treatment Response Procedure Tolerated Well -Offloading No -Debridement - Subq, 1st 20sq cm Yes Pain Scale: 0-10 Numeric Is Patient Pain Free? Yes WC - Nurse 3 - General Ulcer D/C NN Start: 11/25/23 14:35 Freq: Status: Active Protocol: Activity Type Activity Date Activity User E-sign Co-sign Detail Recorded Client Recorded Date Recorded By Document 11/25/23 15:42 DL [id number] 11/25/23 15:49 DL 11/25/23 15:42 Wound Care Center Nurse 3 #1 abd -Ulcer Cleansing Wound Cleanser -Foul Odor after Cleansing No -Other Dressing iodoform 1in -Primary Dressing Covered/Secured with Dry Gauze, Secured with Tape -Other Covering ABD Treatment Response Procedure Tolerated Well Pain Scale: 0-10 Numeric Is Patient Pain Free? Yes WC - Visit Discharge Discharge Condition Stable Ambulatory Status Ambulatory Transportation Private Auto Assessment/Plan Assessment/Plan (1) Chronic abdominal wound infection: CODE(S): S31.109A - Unspecified open wound of abdominal wall, unspecified quadrant without penetration into peritoneal cavity, initial encounter; L08.9 - Local infection of the skin and subcutaneous tissue, unspecified PLAN: Plan I reviewed the operative note from the outside hospital. The mesh was placed underneath the fascia but there are Prolene sutures that were used to close the midline abdominal incision. I think it is possible that one of the Prolene stitches is colonized and causing a subacute localized infection that is keeping the wound open. Now that we have new imaging of his abdomen and pelvis, I think it is appropriate for referral to Dr. Go and general surgery. He and I can come up with a plan for debridement and excision of the wound in the operating room together and potential removal of the Prolene suture. I think given the patient's comorbidity and recent open heart surgery earlier this spring, we would anticipate doing it under local with some sedation. I would consider placing an irrigating wound VAC on top of the wound for a couple of days and wait for cultures to result before doing any definitive closure method. I will see the patient in a week in clinic, and make the referral to general surgery.
[2023-12-09 14:22] VITALS: BP 145/78; PULSE 69; RESP 18; TEMP 35.8; BMI 34.4
--- NOTE | 2023-12-10 07:03 | PCM.WC.PN ---
History of Present Illness Date of Service: 12/09/23 Chief Complaint: Surgical wound dehiscence/nonhealing abdominal surgical wound History of Wound: Kaden Latif is a 78 year-old male with a complicated past medical history who presents for abdominal wound from a ventral hernia repair dehiscence. The hernia had developed at a prior surgical site, as the patient has had multiple previous aortic repairs and other vascular surgeries. On September 28, 2008, the patient underwent left femoral?tibial artery bypass surgery. He underwent open ruptured abdominal aneurysm repair on July 11, 2012. It appears as though the patient subsequently required a second surgical intervention for an abdominal aortic aneurysm. He underwent left carotid endarterectomy on June 04, 2017. A left femoral pseudoaneurysm repair was performed in 2021. The patient then underwent his abdominal hernia repair in December [address] Pierce at [facility]. 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 Has had wound problems ever since. He developed a GI bleed last year and was admitted to the hospital, at which time he had a blood clot in his leg. He was treated with anticoagulation, but is no longer on any anticoagulation because it was considered provoked. He continue to do wound care to the abdominal incision. The most recent cultures of the drainage from the site were performed at [facility] on July 03, 2023. Culture results were positive for Staphylococcus aureus, and the patient was treated with Bactrim double strength orally twice daily at that time. In an effort to identify the possible cause of the persistent sinus tract, the patient had a CT scan at [facility] on April 19, 2023, which revealed postsurgical changes of the anterior abdominal wall, without definite focal rim-enhancing fluid collection to suggest an abscess. The other soft tissues including abdominopelvic wall are unremarkable. It has been stated by the patient that prosthetic mesh was used in the repair of his ventral abdominal hernia. He has been following at our [facility] in [place] with Dr. Hancock ever since. In August 2023, he underwent cardiac catheterization at [facility] in [place], [place], following which he required urgent coronary revascularization by means of bypass grafting, which was performed on September 06, 2023. He was subsequently admitted to the [facility] on September 10, 2023, and discharged on September 23, 2023. He returned to the [facility] to resume his care related to the surgical wound dehiscence of his abdominal wall with Dr. Hancock, who referred the patient to me for surgical management and possible reconstruction. Dr. Hancock has been treating the wound with Nu Gauze packing and weekly wound care/debridements in the wound care center. A wound culture which was again obtained earlier this month and was positive for Staphylococcus aureus, and the patient finished a course of doxycycline 100 mg p.o. twice daily for 10 days. We talked extensively today about pressure offloading and not being able to sit in a wheelchair, as well as expectations for postoperative admission and rehabilitation with pressure offloading (no sitting must lay on side or prone for several weeks postoperatively). They endorsed understanding. Plan for the visit today was to meet with the automotive consultant today in the wound care center clinic as a multidisciplinary effort to prepare him for surgery. I have ordered preoperative nutrition labs including A1c, prealbumin , CBC and CMP. Subjective Subjective 04 November 2023: Today patient reports that he is doing quite well. He feels like the wound is getting smaller and so does his . Patient does not smoke 25 Nov 2023: Patient reports that the wound is about the same size and has been draining some serosanguineous fluid. They have made no improvement. He had a CT scan performed. CURRENT VISIT, 09 Dec 2023: Patient doing well today overall. He has seen Dr. Go with general surgery. Reports that the wound is about the same. Objective Data Objective Data Vital Signs: Vital Signs Temp Pulse Resp BP O2 Del Method 96.4 F L 69 18 145/78 H Room Air 12/09/23 14:12/09/23 14:12/09/23 14:12/09/23 14:11/25/23 14:37 Oxygen Delivery Method Room Air Weight: 220 lb Body Mass Index (BMI) 34.4 Charges/Coding Procedures Integumentary 111xxx-113xx: [id number] Rhonda subq tissue 20 sq cm/< Physical Exam Narrative Const alert and oriented x3 General Appearance: cooperative HEENT normocephalic Eyes EOMs intact bilaterally Lymph Lymphatic: no lymphadenopathy noted Chest inspection of chest normal Resp normal respiratory effort and clear to auscultation bilaterally Cardio regular rate and regular rhythm GI non-distended GI Narrative: Abdominal examination Vertical laparotomy incision with small wound just inferior lateral to the umbilicus. No purulent drainage. Wound measures 1 x 1 cm, but is deep down to fascia and tunnels 3 cm. No palpable ventral hernia or umbilical hernia Debridement Note Debridement Note Wound debrided: Right abdominal wound Laterality: Right Type of Debridement: Excisional debridement Anesthesia Used: 4% Lidocaine Solution Depth: Down to and including healthy tissue Percentage of wound debrided: 100 Instrument Used: 7mm curette Severity: Fat Layer Exposed (And fascia) Amount of bleeding with debridement: Mild Bleeding Controlled with: Compression and gauze Patient tolerated procedure: Patient tolerated procedure well Post-Debridement Measurements and Additional Note: Post-Debridement Measurements/Treatment - Nurse 1 - General Ulcer Assessment Start: 11/25/23 14:35 Freq: Status: Active Protocol: LIA Activity Type Activity Date Activity User E-sign Co-sign Detail Recorded Client Recorded Date Recorded By Document 11/25/23 14:37 KW [id number] 11/25/23 14:42 KW Document 12/09/23 14:22 DL [id number] 12/09/23 14:29 DL 11/25/23 12/09/23 14:37 14:22 - Today's Visit Information Type of service Follow-up Visit Follow-up Visit (Physician/BURIAL VAULT SETTER (Physician/BURIAL VAULT SETTER ) ) Arrival Mode Ambulatory Ambulatory Transfer Assistance None Accompanied by Patient Identification Verified (Name & Yes Yes ) Patient Requires Transmission-Based No Precautions Height and Weight Body Mass Index (BMI) 34.4 34.4 BMI Classification Obese Obese Vital Signs Temperature (97.8 F-99.1 F) 95.9 F L 96.4 F L Temperature Source Temporal Temporal Pulse Rate (60-100) 69 69 Pulse Location Monitor Monitor Respiratory Rate (12-18) 16 18 Respiratory rate source Observation Observation Oxygen Delivery Method Room Air Blood Pressure (90/60-120/80) 100/57 L 145/78 H Blood Pressure Mean (mm Hg) 71 100 Source Monitor Monitor Position Semi-Fowlers Blood Pressure Location Left Arm History Since Last Visit- (Skip if this is Patient's initial visit) Have you changed medications since your No No last visit? Any new allergies or adverse reactions No No Had a fall/change in ADL's that may No No increase risk of falls Signs or symptoms of abuse and/or No No neglect since last visit Have you been in the hospital since your No No last visit? Has dressing in place as prescribed Yes Yes Has compression in place as prescribed N/A N/A Has offloadiing in place as prescribed N/A N/A Experienced any changes in pain level or No management Left Footwear Regular Shoe Right Footwear Regular Shoe Pain Scale: 0-10 Numeric Is Patient Pain Free? Yes Yes GINNA - Nurse 1 - General Ulcer Measurement Start: 11/25/23 14:35 Freq: Status: Active Protocol: Activity Type Activity Date Activity User E-sign Co-sign Detail Recorded Client Recorded Date Recorded By Document 11/25/23 14:37 KW [id number] 11/25/23 14:42 KW Document 12/09/23 14:22 DL [id number] 12/09/23 14:29 DL 11/25/23 12/09/23 14:37 14:22 Wound Center Nurse 1 #1 abd -Current Size (cm) - Length 0.8 0.3 -Current Size (cm) - Width 0.7 0.3 -Current Size (cm) - Depth 1.8 2.4 -Total Square Cm 0.56 0.09 -Photo Taken Yes -Exudate Amt Medium Large -Exudate Type Serosanguineous Serosanguineous -Wound Margin Thickened Distinct, Outline Attached -Granulation Amt Large (67-100%) Small (1-33%) -Granulation Quality Red Red -Necrosis Amt Small (1-33%) None Present (0 %) -Necrotic Tissue Type Adherent Slough -Structure Exposed N/A -Texture (Cleo-wound Skin Appearance) Assessed Scarring,Rash -Moisture (Cleo-wound Skin Appearance) Assessed,Dry/ Weeping Scaly -Color (Cleo-wound Skin Appearance) Assessed No Abnormality -Temperature (Cleo-wound Skin No Abnormality No Abnormality Appearance) (Pt Warm) (Pt Warm) -Tenderness on Palpation (Cleo-wound No Skin Appearance) -Ulcer Cleansing Rinsed/ Soap and Water Irrigated with Saline -Foul Odor after Cleansing No No -Anesthetic Used 5% Lidocaine 5% Lidocaine Gel Gel GINNA - Nurse 2 - General Ulcer CM Notes Start: 11/25/23 14:35 Freq: Status: Active Protocol: Activity Type Activity Date Activity User E-sign Co-sign Detail Recorded Client Recorded Date Recorded By Document 11/25/23 15:29 [id number] 11/25/23 15:32 Document 12/09/23 14:44 [id number] 12/09/23 14:57 11/25/23 12/09/23 15:29 14:44 Wound Center Nurse 2 #1 abd -Time 15:30 14:57 -Correct Patient Yes Yes -Correct Side, Site, Position Yes Yes -Correct Procedure Yes Yes -Procedure Performed Yes Yes -Type of Procedure Debridement Debridement -Clinical Debridement Subcutaneous Subcutaneous -Tissue Removed Subcutaneous Subcutaneous -Post Debridement (cm) - Length 0.8 1 -Post Debridement (cm) - Width 0.7 1 -Post Debridement (cm) - Depth 4.6 3 -Total Square (Post) (cm) 0.56 1 -Area of Debridement (cm) - Length 0.8 1 -Area of Debridement (cm) - Width 0.7 1 -Total Square (Area) (cm) 0.56 1 -Tunneling No No -Undermining/Tunneling No No -Circular Undermining No No -Wound/Ulcer Outcome Not Healed Not Healed -Ulcer Cleansing Rinsed/ Rinsed/ Irrigated with Irrigated with Saline Saline -Foul Odor after Cleansing No No -Bioengineered Tissue No No -Bleeding Controlled with Pressure Pressure -Treatment Response Procedure Procedure Tolerated Well Tolerated Well -Offloading No No -Debridement - Subq, 1st 20sq cm Yes Yes Pain Scale: 0-10 Numeric Is Patient Pain Free? Yes Yes - Nurse 3 - General Ulcer D/C NN Start: 11/25/23 14:35 Freq: Status: Active Protocol: Activity Type Activity Date Activity User E-sign Co-sign Detail Recorded Client Recorded Date Recorded By Document 11/25/23 15:42 [id number] 11/25/23 15:49 Document 12/09/23 15:13 [id number] 12/09/23 15:14 11/25/23 12/09/23 15:42 15:13 Wound Care Center Nurse 3 #1 abd -Ulcer Cleansing Wound Cleanser Rinsed/ Irrigated with Saline -Foul Odor after Cleansing No -Primary Dressing Applied Nugauze, Plain 1/4in -Other Dressing iodoform 1in -Primary Dressing Covered/Secured with Dry Gauze, Dry Gauze, Secured with Secured with Tape Tape -Other Covering ABD -Nugauze, Plain 1/4in 1 Treatment Response Procedure Tolerated Well Pain Scale: 0-10 Numeric Is Patient Pain Free? Yes Yes WC - Visit Discharge Discharge Condition Stable Ambulatory Status Ambulatory Transportation Private Auto Assessment/Plan Assessment/Plan (1) Chronic abdominal wound infection: CODE(S): S31.109A - Unspecified open wound of abdominal wall, unspecified quadrant without penetration into peritoneal cavity, initial encounter; L08.9 - Local infection of the skin and subcutaneous tissue, unspecified PLAN: I talked the patient and his today extensively about the risks of surgery, including bleeding, infection, damage to surrounding structures, surgical site dehiscence and wound formation, need for wound care, need for repeat operations, failure to obtain the desired result, DVT/PE (unfortunately his Caprini score is 10 given his past history of lower extremity DVT, albeit provoked and no longer on anticoagulation), and the risks of anesthesia including . All of their questions were answered, and they agreed to proceed with surgery. I have talked to Dr. Go (general surgery) and our plan is to perform a joint case (Dr. Go is primary surgeon) with Mr. Latif to open the wound and remove any foreign body/address any issues with the abdominal wall fascia, and then close the wound versus leave the wound open with an irrigating wound VAC followed by delayed primary closure. Patient is understand that we may not close the wound at the time of the initial surgery, and they have to take cultures and irrigate/washout wound first. Patient is going to discuss with his wet cleaner machine and get cardiac clearance for the upcoming surgery (recent coronary artery bypass surgery). We talked about the risk of anesthesia, but discussed how the coronary artery bypass should increase his ability to tolerate a necessary surgery like this surgery. He understands the risk of anesthesia including as noted above. Plan for 1 month of DVT prophylaxis postoperatively CPT codes for insurance prior authorization are as follows: [id number], [id number], [id number], [id number]
--- NOTE | 2023-12-10 09:32 | WC ---
PHOTO 12/09/23 ABD
== END 2023-12-16 23:59 | disposition home or self-care (01) ==
LOC: WC 14:15
PROVIDERS: PCP Student in an Organized Health Care Education/Training Program; Referring Provider Student in an Organized Health Care Education/Training Program; Visit Provider Surgery Plastic and Reconstructive Surgery
DX: T81.31XA Disruption of external operation (surgical) wound, not elsewhere classified, initial encounter (principal); S31.109A Unspecified open wound of abdominal wall, unspecified quadrant without penetration into peritoneal cavity, initial encounter; L76.82 Other postprocedural complications of skin and subcutaneous tissue; Y83.8 Other surgical procedures as the cause of abnormal reaction of the patient, or of later complication, without mention of misadventure at the time of the procedure; Z79.82 Long term (current) use of aspirin; Z79.84 Long term (current) use of oral hypoglycemic drugs; Z79.899 Other long term (current) drug therapy; Z86.718 Personal history of other venous thrombosis and embolism; Z95.820 Peripheral vascular angioplasty status with implants and grafts
CPT/HCPCS: 11042

== ENCOUNTER 2024-01-06 13:54 | Outpatient (RCR) | payer MEDICARE, OTHER, SELFPAY ==
[2023-12-17 00:34] VITALS: BP 119/86; PULSE 62; RESP 18; TEMP 36.4; BMI 34.4
[2024-01-06 13:54] VITALS: BP 139/74; PULSE 63; RESP 18; TEMP 36.2; BMI 34.4
--- NOTE | 2024-01-06 15:39 | WC ---
Left a message with Dr Ashton requesting a cardiac clearance on the nurse's line. Relayed request per Dr Snell request to pursue surgery for patient. Provided phone and fax number. Their contact is [phone] and their fax is [phone].
--- NOTE | 2024-01-07 06:20 | PN.PCM_ITS ---
History of Present Illness Date of Service: 01/06/24 Chief Complaint: Surgical wound dehiscence/nonhealing abdominal surgical wound History of Wound: Kaden Latif is a 78 year-old male with a complicated past medical history who presents for abdominal wound from a ventral hernia repair dehiscence. The hernia had developed at a prior surgical site, as the patient has had multiple previous aortic repairs and other vascular surgeries. On September 28, 2008, the patient underwent left femoral?tibial artery bypass surgery. He underwent open ruptured abdominal aneurysm repair on July 11, 2012. It appears as though the patient subsequently required a second surgical intervention for an abdominal aortic aneurysm. He underwent left carotid endarterectomy on June 04, 2017. A left femoral pseudoaneurysm repair was performed in 2021. The patient then underwent his abdominal hernia repair in December [address] Pierce at [facility]. 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 Has had wound problems ever since. He developed a GI bleed last year and was admitted to the hospital, at which time he had a blood clot in his leg. He was treated with anticoagulation, but is no longer on any anticoagulation because it was considered provoked. He continue to do wound care to the abdominal incision. The most recent cultures of the drainage from the site were performed at [facility] on July 03, 2023. Culture results were positive for Staphylococcus aureus, and the patient was treated with Bactrim double strength orally twice daily at that time. In an effort to identify the possible cause of the persistent sinus tract, the patient had a CT scan at [facility] on April 19, 2023, which revealed postsurgical changes of the anterior abdominal wall, without definite focal rim-enhancing fluid collection to suggest an abscess. The other soft tissues including abdominopelvic wall are unremarkable. It has been stated by the patient that prosthetic mesh was used in the repair of his ventral abdominal hernia. He has been following at our [facility] in [place] with Dr. Hancock ever since. In August 2023, he underwent cardiac catheterization at [facility] in [place], [place], following which he required urgent coronary revascularization by means of bypass grafting, which was performed on September 06, 2023. He was subsequently admitted to the [facility] on September 10, 2023, and discharged on September 23, 2023. He returned to the [facility] to resume his care related to the surgical wound dehiscence of his abdominal wall with Dr. Hancock, who referred the patient to me for surgical management and possible reconstruction. Dr. Hancock has been treating the wound with Nu Gauze packing and weekly wound care/debridements in the wound care center. A wound culture which was again obtained earlier this month and was positive for Staphylococcus aureus, and the patient finished a course of doxycycline 100 mg p.o. twice daily for 10 days. Subjective Subjective 04 November 2023: Today patient reports that he is doing quite well. He feels like the wound is getting smaller and so does his . Patient does not smoke 25 Nov 2023: Patient reports that the wound is about the same size and has been draining some serosanguineous fluid. They have made no improvement. He had a CT scan performed. 09 Dec 2023: Patient doing well today overall. He has seen Dr. Go with general surgery. Reports that the wound is about the same. CURRENT VISIT, 06 Jan 2024: Patient has been seen by his extras casting director and has had a recent echocardiogram. His ejection fraction was 35% and they recommended against any implantable device/defibrillator. He has been cleared by his extras casting director for surgery with Dr. Go from general surgery and myself (assisting Dr. Go). No changes in the wound. Continues to oscillate in size and drain serous fluid. Objective Data Objective Data Vital Signs: Vital Signs Temp Pulse Resp BP O2 Del Method 97.1 F L 63 18 139/74 H Room Air 01/06/24 13:54 01/06/24 13:54 01/06/24 13:54 01/06/24 13:54 01/06/24 13:54 Oxygen Delivery Method Room Air Weight: 220 lb Body Mass Index (BMI) 34.4 Charges/Coding Procedures Integumentary 111xxx-113xx: 37041 Rhonda subq tissue 20 sq cm/< Physical Exam Const alert and oriented x3 General Appearance: cooperative HEENT normocephalic Eyes EOMs intact bilaterally Lymph Lymphatic: no lymphadenopathy noted Chest inspection of chest normal Resp normal respiratory effort and clear to auscultation bilaterally Cardio regular rate and regular rhythm GI non-distended GI Narrative: Abdominal examination Vertical laparotomy incision with small wound just inferior lateral to the umbilicus. No purulent drainage. Wound measures 0.5 x 0.5 cm, but is deep down to fascia and tunnels 3 cm. No palpable ventral hernia or umbilical hernia Debridement Note Debridement Note Wound debrided: Right central abdomen Laterality: Right Type of Debridement: Excisional debridement Anesthesia Used: 4% Lidocaine Solution Depth: in the subcutaneous layer Percentage of wound debrided: 100 Instrument Used: 5mm curette Severity: Fat Layer Exposed Amount of bleeding with debridement: Mild Bleeding Controlled with: Compression and gauze Patient tolerated procedure: Patient tolerated procedure well Post-Debridement Measurements and Additional Note: Post-Debridement Measurements/Treatment - Nurse 1 - General Ulcer Assessment Start: 01/06/24 13:54 Freq: Status: Active Protocol: LIA Activity Type Activity Date Activity User E-sign Co-sign Detail Recorded Client Recorded Date Recorded By Document 01/06/24 13:54 KW [id number] 01/06/24 13:59 KW 01/06/24 13:54 WC - Today's Visit Information Type of service Follow-up Visit (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/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 ENGINEER ) Arrival Mode Ambulatory,Cane Accompanied by family Patient Identification Verified (Name & Yes ) Height and Weight Body Mass Index (BMI) 34.4 BMI Classification Obese Vital Signs Temperature (97.8 F-99.1 F) 97.1 F L Temperature Source Temporal Pulse Rate (60-100) 63 Pulse Location Monitor Respiratory Rate (12-18) 18 Respiratory rate source Observation Oxygen Delivery Method Room Air Blood Pressure (90/60-120/80) 139/74 H Blood Pressure Mean (mm Hg) 95 Source Monitor Position Semi-Fowlers Blood Pressure Location Left Arm History Since Last Visit- (Skip if this is Patient's initial visit) Have you changed medications since your No last visit? Any new allergies or adverse reactions No Had a fall/change in ADL's that may No increase risk of falls Signs or symptoms of abuse and/or No neglect since last visit Have you been in the hospital since your No last visit? Has dressing in place as prescribed Yes Has compression in place as prescribed N/A Has offloadiing in place as prescribed N/A Experienced any changes in pain level or No management Left Footwear Regular Shoe Right Footwear Regular Shoe Pain Scale: 0-10 Numeric Is Patient Pain Free? Yes - Nurse 1 - General Ulcer Measurement Start: 01/06/24 13:54 Freq: Status: Active Protocol: Activity Type Activity Date Activity User E-sign Co-sign Detail Recorded Client Recorded Date Recorded By Document 01/06/24 13:54 KW [id number] 01/06/24 13:59 KW 01/06/24 13:54 Wound Center Nurse 1 #1 abd -Current Size (cm) - Length 0.2 -Current Size (cm) - Width 0.5 -Current Size (cm) - Depth 2.4 -Total Square Cm 0.10 -Date of Last Picture (Recall this 01/06/24 field) -Exudate Amt Small -Exudate Type Serosanguineous -Wound Margin Distinct, Outline Attached -Texture (Cleo-wound Skin Appearance) Assessed -Moisture (Cleo-wound Skin Appearance) Assessed,Dry/ Scaly -Color (Cleo-wound Skin Appearance) Assessed -Temperature (Cleo-wound Skin No Abnormality Appearance) (Pt Warm) -Tenderness on Palpation (Cleo-wound No Skin Appearance) -Ulcer Cleansing Rinsed/ Irrigated with Saline -Foul Odor after Cleansing No -Anesthetic Used 5% Lidocaine Gel WC - Nurse 2 - General Ulcer CM Notes Start: 01/06/24 13:54 Freq: Status: Active Protocol: Activity Type Activity Date Activity User E-sign Co-sign Detail Recorded Client Recorded Date Recorded By Document 01/06/24 14:07 JF [id number] 01/06/24 14:13 01/06/24 14:07 Wound Center Nurse 2 -Time 14:12 -Correct Patient Yes -Correct Side, Site, Position Yes -Correct Procedure Yes -Procedure Performed Yes -Type of Procedure Debridement -Clinical Debridement Subcutaneous -Tissue Removed Subcutaneous -Post Debridement (cm) - Length 0.5 -Post Debridement (cm) - Width 0.5 -Post Debridement (cm) - Depth 3.0 -Total Square (Post) (cm) 0.25 -Area of Debridement (cm) - Length 0.5 -Area of Debridement (cm) - Width 0.5 -Total Square (Area) (cm) 0.25 -Tunneling No -Undermining/Tunneling No -Circular Undermining No -Wound/Ulcer Outcome Not Healed -Ulcer Cleansing Rinsed/ Irrigated with Saline -Foul Odor after Cleansing No -Bioengineered Tissue No -Bleeding Controlled with Pressure -Treatment Response Procedure Tolerated Well -Offloading No -Debridement - Subq, 1st 20sq cm Yes Pain Scale: 0-10 Numeric Is Patient Pain Free? Yes WC - Nurse 3 - General Ulcer D/C NN Start: 01/06/24 13:54 Freq: Status: Active Protocol: Activity Type Activity Date Activity User E-sign Co-sign Detail Recorded Client Recorded Date Recorded By Document 01/06/24 15:12 BETHANY [id number] 01/06/24 15:13 BETHANY 01/06/24 15:12 Wound Care Center Nurse 3 #1 abd -Ulcer Cleansing Rinsed/ Irrigated with Saline -Foul Odor after Cleansing No -Primary Dressing Applied Nugauze, Iodoform 1/4in -Primary Dressing Covered/Secured with Dry Gauze, Secured with Tape -Nugauze, Iodoform 1/4in 1 Pain Scale: 0-10 Numeric Is Patient Pain Free? Yes WC - Visit Discharge Discharge Condition Stable Ambulatory Status Ambulatory,Cane Transportation Private Auto Accompanied by and JOSELITO Medication Reconcilliation completed & No provided to patient/care provider Clinical Summary of Care Provided No Assessment/Plan Assessment/Plan (1) Chronic abdominal wound infection: CODE(S): S31.109A - Unspecified open wound of abdominal wall, unspecified quadrant without penetration into peritoneal cavity, initial encounter; L08.9 - Local infection of the skin and subcutaneous tissue, unspecified PLAN: I talked the patient and his today extensively about the risks of surgery, including bleeding, infection, damage to surrounding structures, surgical site dehiscence and wound formation, need for wound care, need for repeat operations, failure to obtain the desired result, DVT/PE (unfortunately his Caprini score is 10 given his past history of lower extremity DVT, albeit provoked and no longer on anticoagulation), and the risks of anesthesia including . All of their questions were answered, and they agreed to proceed with surgery. I have talked to Dr. Go (general surgery) and our plan is to perform a joint case (Dr. Go is primary surgeon) with Mr. Latif to open the wound and remove any foreign body/address any issues with the abdominal wall fascia, and then close the wound versus leave the wound open with an irrigating wound VAC followed by delayed primary closure. Patient is understand that we may not close the wound at the time of the initial surgery, and they have to take cultures and irrigate/washout wound first. Patient has been cleared by his extras casting director. He understands the risk of anesthesia including as noted above. Plan for 1 month of DVT prophylaxis postoperatively CPT codes for insurance prior authorization are as follows: [id number], [id number], [id number], [id number]
== END 2024-01-16 23:59 | disposition home or self-care (01) ==
LOC: WC 13:54
PROVIDERS: PCP Student in an Organized Health Care Education/Training Program; Referring Provider Student in an Organized Health Care Education/Training Program; Visit Provider Surgery Plastic and Reconstructive Surgery
DX: T81.31XA Disruption of external operation (surgical) wound, not elsewhere classified, initial encounter (principal); S31.109A Unspecified open wound of abdominal wall, unspecified quadrant without penetration into peritoneal cavity, initial encounter; L76.82 Other postprocedural complications of skin and subcutaneous tissue; Y83.8 Other surgical procedures as the cause of abnormal reaction of the patient, or of later complication, without mention of misadventure at the time of the procedure; Z79.82 Long term (current) use of aspirin; Z79.84 Long term (current) use of oral hypoglycemic drugs; Z79.899 Other long term (current) drug therapy; Z95.820 Peripheral vascular angioplasty status with implants and grafts
CPT/HCPCS: 11042

== ENCOUNTER 2024-02-06 16:29 | Observation (INO) | payer MEDICARE, OTHER, SELFPAY ==
--- NOTE | 2024-02-05 16:03 | CASEMGMT ---
ITALO KAUR NOTE: Per Kaye, OR charge nurse, pt is scheduled for surgery tomorrow, will be admitted after surgery, and pt will need a wound vac. Call placed to Kami wound nurse, and VM left to notify her of same. Jaya CERVANTESN RN CM
[2024-02-06] VITALS (13 sets, daily range): BP systolic 109–156; BP diastolic 70–89; PULSE 54–91; RESP 14–20; TEMP 36–36.5; O2SAT 94–99; BMI 32.4
[2024-02-06] MEDS: Lactated Ringers 1,000 ML 15 ML IV (13:18)
--- NOTE | 2024-02-06 14:01 | PCM.HP.STD ---
HPI - General General Date of Admission: 02/06/24 Date of Service: 02/06/24 Chief Complaint: Chronic draining abdominal wound HPI Narrative MAGDALENO LUI, is a 78 M who presents for elective surgery to explore an abdominal wound that has been persistently draining. He had a ventral abdominal hernia repaired several years ago. It sounds as though he has been having chronic wound issues ever since that surgery. He has been following up with wound center for quite some time without any significant improvement. He was seen by plastic surgery and I was asked to evaluate the patient's wound as well. He is scheduled for a combined surgery to explore his abdominal wound and excise any foreign bodies and provide closure versus wound VAC. [facility], [facility] Medical History Wears glasses DVT (deep venous thrombosis) Back pain Dietary restriction History of GI bleed Gastric reflux Shortness of breath on exertion Hypertension Cardiology follow-up encounter Chronic abdominal wound infection Coronary artery disease Surgical wound dehiscence Dehiscence of postoperative wound of abdomen Diverticulosis BPH (benign prostatic hyperplasia) Ventral hernia Peripheral arterial occlusive disease Carotid artery stenosis Osteoarthritis Insomnia Irritable bowel syndrome Hyperlipidemia History of deep vein thrombosis History of anemia PAC (premature atrial contraction) PVCs (premature ventricular contractions) Peripheral arterial disease Arthritis TIA (transient ischemic attack) Stroke/cerebrovascular accident Former smoker History of echocardiogram Hx of abdominal aortic aneurysm Home Medications ?Medication ?Instructions ?Recorded ?Last Taken ?Type aspirin 81 mg capsule 81 mg PO DAILY blood thinner 12/13/21 02/03/24 History atorvastatin 80 mg tablet 80 mg PO QHS cholesterol 12/13/21 02/05/24 21:00 History finasteride 5 mg tablet 5 mg PO DAILY bladder 07/09/23 02/05/24 09:00 History tamsulosin 0.4 mg capsule 0.4 mg PO QHS bladder 07/09/23 02/05/24 21:00 History pantoprazole 40 mg tablet,delayed 40 mg PO BID GERD 30 days #60 tabs 09/23/23 02/06/24 09:00 Rx release empagliflozin 10 mg tablet 10 mg PO DAILY DIABETES 12/09/23 02/05/24 09:00 History (Jardiance) metoprolol succinate 100 mg 100 mg PO DAILY HEART 02/03/24 02/06/24 09:00 History tablet,extended release 24 hr sacubitril 49 mg-valsartan 51 mg 1 tab PO BID BP 02/03/24 02/06/24 09:00 History tablet (Entresto) Allergy/AdvReac Type Severity Reaction Status Date / Time No Known Allergies Allergy Verified 02/06/24 13:12 Family History Father Ruptured aneurysm of artery Mother Myocardial infarction Sister Cancer Brother CVA (cerebral vascular accident) Son Diabetes CAD (coronary artery disease) s/p stent. Daughter No problems noted. Surgical History Hx of umbilical hernia repair History of coronary artery bypass graft History of coronary artery bypass graft x 2 History of ventral hernia repair History of femoropopliteal bypass History of aortic aneurysm repair Status post carotid endarterectomy S/P hip replacement Hx of tracheostomy History of evacuation of hematoma Hx of total hip arthroplasty Hx of surgical procedure History of left-sided carotid endarterectomy Hx of abdominal surgery Social History household members: spouse Smoking Status: Former smoker alcohol intake: never substance use type: does not use Vital Signs Vital Signs Vital Signs: 02/06/24 13:15 02/06/24 13:15 Temperature 97.6 F L Temperature Source Temporal Pulse Rate 54 L Respiratory Rate 16 Respiratory Pattern Normal Blood Pressure 149/72 H Blood Pressure Mean 97 Blood Pressure Source Monitor Blood Pressure Position Sitting Blood Pressure Location Right Arm Pulse Ox 99 Oxygen Delivery Method Room Air Weight Weight: 226 lb 3.108 oz Body Mass Index (BMI) 32.4 Physical Exam Const alert, oriented x3 and no apparent distress HEENT normocephalic Eyes PERRL and EOMs intact bilaterally GI GI Narrative: Abdomen soft nontender nondistended. Dressing overlying wound was briefly removed. He does have some skin excoriation from tape. There is a chronically draining sinus with purulent drainage emanating from the skin opening Assessment & Plan Assessment/Plan (1) Chronic abdominal wound infection: PLAN: Plan The patient is an 78-year-old male with a chronically draining wound following a hernia repair surgery several years ago. The plan is for abdominal wall exploration and debridement today with either closure versus wound VAC application. Surgery will begin shortly
--- NOTE | 2024-02-06 14:05 | PRE.ANES_ITS ---
ASA Classification* ASA Classification ASA Classification: 3 Assessment & Plan Anesthesia* Anesthesia Assessment Anesthesia Assessment: Discussed sedation and/or anesthesia options, risks, benefits, and alternatives with patient/parents/legal guardian/POA. Questions invited. The patient/parents/legal guardian/POA seems to understand and agrees to proceed with anesthesia plan. Reviewed the physical assessment, medical history, allergy history and patient home medications list prior to surgery/procedure/anesthetic and documented any changes. Performed airway and anesthesia risk assessments. Anesthesia Type Anesthesia Type: General History Source History Obtained from:: Patient and Chart Anesthesia Focused Assessment* Temperature: 97.6 F Pulse Rate: 54 Blood Pressure: 149/72 Respiratory Rate: 16 Pulse Ox: 99 Oxygen Delivery Method: Room Air Airway Assessment Mouth opens: >3 cm Mallampati Score: II Teeth Condition: Intact Neck Range of motion (ROM): Limited ROM (Somewhat decreased extension) Focused Labs Anesthesia Preop lab: CBC WBC 7.7 K/mm3 (4.4-11.0) 09/24/23 05:30 RBC 3.84 M/mm3 (4.6-6.2) L 09/24/23 05:30 Hgb 11.2 g/dL (13.0-16.5) L 09/24/23 05:30 Hct 35.0 % (40-54) L 09/24/23 05:30 Plt Count 313 K/mm3 (150-450) 09/24/23 05:30 CHEMISTRY Potassium 4.5 mmol/L (3.5-5.1) 09/18/23 05:24 Sodium 137 mmol/L (136-145) 09/18/23 05:24 Magnesium 2.3 mg/dL (1.6-2.6) 12/14/21 14:11 BUN 26 mg/dL (7-18) H 09/18/23 05:24 Creatinine 1.10 mg/dL (0.70-1.30) 09/18/23 05:24 Glucose 114 mg/dL (74-106) H 09/18/23 05:24 POC Glucose 138 mg/dL (74-106) H 12/27/21 07:56 COAG Pre-Assessment Diagnosis/Proposed Procedure Planned Operative Procedure(s): ABDOMINAL WALL EXPLORATION WITH DR MARTIN EXCISION ABD WOUND REMOVAL FOREIGN BODY IRRIGATING WOUND VAC Anesthesia History 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 When Was Last Pacemaker Check QUESTION #4 FULL TEXT: You/Your Family Experience fever (hyperthermia) with Anesthesia Last Oral Intake Last Oral intake: Last Oral Intake NPO since 09:00 02/06/24 13:15 Meds taken in AM with sips of Yes 02/06/24 13:15 water? Meds patient instructed to see med rec 02/06/24 13:15 take am of surgery Any additional information?: Yes NPO since: 09:00 (Patient had black coffee at 9 AM.) Meds taken in AM with sips of water?: Yes PONV PONV - test fixture assembler: PONV - test fixture assembler Female No 02/03/24 14:55 HX of Motion Sickness No 02/03/24 14:55 HX of N/V After Surgery No 02/03/24 14:55 Non-Smoker Yes 02/03/24 14:55 Duration of Surgery greater Yes 02/03/24 14:55 than 60 minutes Number of Risk Factors 2 02/03/24 14:55 PONV Score Moderate Risk 02/03/24 14:55 Height & Weight Height & Weight: Anesthesia: Height & Weight Height 5 ft 10 in 02/06/24 13:15 Weight: 102.6 kg 02/06/24 13:15 Body Mass Index (BMI) 32.4 02/06/24 13:15 Respiratory Assessment Respiratory Assessment - test fixture assembler: Respiratory Tract Infection Hx - test fixture assembler Hx Respiratory Tract Infection No 02/03/24 14:55 STOP Sleep Apnea STOP Sleep Apnea - test fixture assembler: STOP Sleep Apnea - test fixture assembler Hx Hypertension Yes: CONTROLLED WITH MED 02/03/24 14:55 Hx Sleep Apnea No 02/03/24 14:55 CPAP BIPAP Do you snore loudly (louder Yes 02/03/24 14:55 than talking or can be heard Do you often feel tired/ No 02/03/24 14:55 fatigued/ sleepy during daytime? Has anyone observed you stop No 02/03/24 14:55 breathing during sleep? STOP Results Positive 02/03/24 14:55 QUESTION #5 FULL TEXT : Do you snore loudly (louder than talking or can be heard through closed doors)? Tobacco Use History Tobacco Use History - test fixture assembler: Tobacco Use History - test fixture assembler Tobacco Use Smoking Status Former smoker 02/03/24 14:55 Hx Tobacco Use No 02/03/24 14:55 Years Smoking Packs Smoked per Day Smoking Cessation Date was No - quit smoking greater 02/03/24 14:55 within the last 15 years than 15 years ago Hx Smoking Cessation Date 09/15/74 02/03/24 14:55 Hx Smoking Cessation Counseling Hematologic Medial History Hematologic Hx - test fixture assembler: Hematologic Medical Hx - clinical documentation manager Hx of Blood Transfusion No 02/03/24 14:55 Hx of Transfusion in last 3 No 02/03/24 14:55 Months Date of Last Transfusion (if within last 3 months) Ever experience any problems No 02/03/24 14:55 with transfusion(s)? Specify any problems Hx of Preganancy in last 3 N/A 02/03/24 14:55 Months Nurse Filling Out Transfusion DSCHRIBER 02/03/24 14:55 & Questions: Date: 02/03/24 02/03/24 14:55 Time: 14:57 02/03/24 14:55 Patient unable to answer at this time (ie. confused, unrespo /Reproduction History /Reproductive History - test fixture assembler: /Reproductive Hx- test fixture assembler Hx Now No 02/03/24 14:55 Gestational Age (in weeks): EDC: Hx Hx Para Hx Section SAB No 02/03/24 14:55 Active Medications Active Medications: Current Medications Generic Name Dose Route Start Last Admin Trade Name Freq PRN Reason Stop Dose Admin Cefazolin Sodium 2 gm/ N/A 20 mls @ 400 mls/hr 02/06/24 14:15 IV 02/06/24 14:17 PREOP ONE Lactated Ringer's 1,000 mls @ 15 mls/hr 02/06/24 12:45 02/06/24 13:18 IV 02/12/24 02:04 15 mls/hr .Q48H VICKIE Administration Protocol PFSH Medical History Wears glasses DVT (deep venous thrombosis) Back pain Dietary restriction History of GI bleed Gastric reflux Shortness of breath on exertion Hypertension Cardiology follow-up encounter Chronic abdominal wound infection Coronary artery disease Surgical wound dehiscence Dehiscence of postoperative wound of abdomen Diverticulosis BPH (benign prostatic hyperplasia) Ventral hernia Peripheral arterial occlusive disease Carotid artery stenosis Osteoarthritis Insomnia Irritable bowel syndrome Hyperlipidemia History of deep vein thrombosis History of anemia PAC (premature atrial contraction) PVCs (premature ventricular contractions) Peripheral arterial disease Arthritis TIA (transient ischemic attack) Stroke/cerebrovascular accident Former smoker History of echocardiogram Hx of abdominal aortic aneurysm Home Medications ?Medication ?Instructions ?Recorded ?Last Taken ?Type aspirin 81 mg capsule 81 mg PO DAILY blood thinner 12/13/21 02/03/24 History atorvastatin 80 mg tablet 80 mg PO QHS cholesterol 12/13/21 02/05/24 21:00 History finasteride 5 mg tablet 5 mg PO DAILY bladder 07/09/23 02/05/24 09:00 History tamsulosin 0.4 mg capsule 0.4 mg PO QHS bladder 07/09/23 02/05/24 21:00 History pantoprazole 40 mg tablet,delayed 40 mg PO BID GERD 30 days #60 tabs 09/23/23 02/06/24 09:00 Rx release empagliflozin 10 mg tablet 10 mg PO DAILY DIABETES 12/09/23 02/05/24 09:00 History (Jardiance) metoprolol succinate 100 mg 100 mg PO DAILY HEART 02/03/24 02/06/24 09:00 History tablet,extended release 24 hr sacubitril 49 mg-valsartan 51 mg 1 tab PO BID BP 02/03/24 02/06/24 09:00 History tablet (Entresto) Allergy/AdvReac Type Severity Reaction Status Date / Time No Known Allergies Allergy Verified 02/06/24 13:12 Family History Father Ruptured aneurysm of artery Mother Myocardial infarction Sister Cancer Brother CVA (cerebral vascular accident) Son Diabetes CAD (coronary artery disease) s/p stent. Daughter No problems noted. Surgical History (Updated 02/06/24 @ 14:[address] Guille Mayes MD) Hx of umbilical hernia repair History of coronary artery bypass graft x 2 History of ventral hernia repair History of femoropopliteal bypass History of aortic aneurysm repair Status post carotid endarterectomy S/P hip replacement Hx of tracheostomy History of evacuation of hematoma Hx of total hip arthroplasty Hx of surgical procedure History of left-sided carotid endarterectomy Hx of abdominal surgery Social History household members: spouse Smoking Status: Former smoker alcohol intake: never substance use type: does not use Review of Systems (Anesthesia) ROS Narrative System reviewed and no additional complaints, except as documented.
--- NOTE | 2024-02-06 14:15 | WND_PTH ---
PATIENT: MAGDALENO LUI LOC: [facility] U#:[id number] AGE/SX: 78/M ROOM: MO310 RE02/06/[address]: Dr. Jeffery Go MD : 1945 BED: 1 DIS: 02/07/2024 SPEC #: [id number] RECD: 02/06/24 18:12 STATUS: LIZ DIEGO #: [id number] SONJA: 02/06/24 14:[address]: Jeffery Go DEPT: SURGICAL PATHOLOGY RECD BY: Priyanka Gonzalez ENTERED: 02/07/24 10:05 SP TYPE: Wound OTHR DR: DO Dr. Ramses Sebastian MD Tissues: Abdominal wall, NOS Procedures: Surgery Specimen Level IV HEADER OPERATION: Abdominal wall exploration PRE-OP DIAGNOSIS: Chronic abdominal wound infection TISSUE SUBMITTED: Abdominal wall tissue and mesh MICROSCOPIC DIAGNOSIS Abdominal wall tissue, excision: Fibrosis, acute and chronic inflammation and granulation. Abdominal wall mesh, removal: Unremarkable mesh material (gross diagnosis only). . 02/10/2024 MICROSCOPIC DESCRIPTION Slides are reviewed. GROSS DESCRIPTION Received in fixative is one container labeled with the patient's name and designated Abdominal wall tissue and mesh. The specimen consists of a piece of skin with underlying tissue measuring 12.0 x 1.0cm and up to 3.0cm in thickness. Also present in the container are four variable sized pieces of mesh with adherent tissue measuring in aggregate 4.0 x 3.0 x 0.2cm. Sections reveal focal indurated areas. Regional Sales Leader sections are submitted in four cassettes (mesh is for gross identification only). 02/07/2024 TC:2 CPT:43060,8300
--- NOTE | 2024-02-06 14:32 | PCM.HP.STD ---
HPI - General General Date of Admission: 02/06/24 Chief Complaint: Chronic draining abdominal wound HPI Narrative MAGDALENO LUI, is a 78 M who presents for abdominalwound excision and closure with myself and Dr. Go (general surgery). Current Encounter (DATE OF SURGERY H&P UPDATE): I saw and examined the patient this morning in pre-operative holding. We discussed risks and benefits of today's surgery and they would like to proceed. NO CHANGE in health history since last seen and evaluated. Ready to proceed with surgery. [facility] Medical History Wears glasses DVT (deep venous thrombosis) Back pain Dietary restriction History of GI bleed Gastric reflux Shortness of breath on exertion Hypertension Cardiology follow-up encounter Chronic abdominal wound infection Coronary artery disease Surgical wound dehiscence Dehiscence of postoperative wound of abdomen Diverticulosis BPH (benign prostatic hyperplasia) Ventral hernia Peripheral arterial occlusive disease Carotid artery stenosis Osteoarthritis Insomnia Irritable bowel syndrome Hyperlipidemia History of deep vein thrombosis History of anemia PAC (premature atrial contraction) PVCs (premature ventricular contractions) Peripheral arterial disease Arthritis TIA (transient ischemic attack) Stroke/cerebrovascular accident Former smoker History of echocardiogram Hx of abdominal aortic aneurysm Home Medications ?Medication ?Instructions ?Recorded ?Last Taken ?Type aspirin 81 mg capsule 81 mg PO DAILY blood thinner 12/13/21 02/03/24 History atorvastatin 80 mg tablet 80 mg PO QHS cholesterol 12/13/21 02/05/24 21:00 History finasteride 5 mg tablet 5 mg PO DAILY bladder 07/09/23 02/05/24 09:00 History tamsulosin 0.4 mg capsule 0.4 mg PO QHS bladder 07/09/23 02/05/24 21:00 History pantoprazole 40 mg tablet,delayed 40 mg PO BID GERD 30 days #60 tabs 09/23/23 02/06/24 09:00 Rx release empagliflozin 10 mg tablet 10 mg PO DAILY DIABETES 12/09/23 02/05/24 09:00 History (Jardiance) metoprolol succinate 100 mg 100 mg PO DAILY HEART 02/03/24 02/06/24 09:00 History tablet,extended release 24 hr sacubitril 49 mg-valsartan 51 mg 1 tab PO BID BP 02/03/24 02/06/24 09:00 History tablet (Entresto) Allergy/AdvReac Type Severity Reaction Status Date / Time No Known Allergies Allergy Verified 02/06/24 13:12 Family History Father Ruptured aneurysm of artery Mother Myocardial infarction Sister Cancer Brother CVA (cerebral vascular accident) Son Diabetes CAD (coronary artery disease) s/p stent. Daughter No problems noted. Surgical History (Updated 02/06/24 @ 14:[address] Guille Mayes MD) Hx of umbilical hernia repair History of coronary artery bypass graft x 2 History of ventral hernia repair History of femoropopliteal bypass History of aortic aneurysm repair Status post carotid endarterectomy S/P hip replacement Hx of tracheostomy History of evacuation of hematoma Hx of total hip arthroplasty Hx of surgical procedure History of left-sided carotid endarterectomy Hx of abdominal surgery Social History household members: spouse Smoking Status: Former smoker alcohol intake: never substance use type: does not use Vital Signs Vital Signs Vital Signs: 02/06/24 13:15 02/06/24 13:15 02/06/24 14:20 Temperature 97.6 F L 97.6 F L Temperature Source Temporal Pulse Rate 54 L 54 L Respiratory Rate 16 16 Respiratory Pattern Normal Blood Pressure 149/72 H 149/72 H Blood Pressure Mean 97 Blood Pressure Source Monitor Blood Pressure Position Sitting Blood Pressure Location Right Arm Pulse Ox 99 99 Oxygen Delivery Method Room Air Room Air Weight Weight: 226 lb 3.108 oz Body Mass Index (BMI) 32.4 Physical Exam Const alert, oriented x3 and no apparent distress HEENT normocephalic Eyes PERRL and EOMs intact bilaterally GI GI Narrative: Abdomen soft nontender nondistended. Dressing overlying wound was briefly removed. He does have some skin excoriation from tape. There is a chronically draining sinus with purulent drainage emanating from the skin opening Assessment & Plan Assessment/Plan (1) Chronic abdominal wound infection: PLAN: Plan The patient is an 78-year-old male with a chronically draining wound following a hernia repair surgery several years ago. The plan is for abdominal wall exploration and debridement today with either closure versus wound VAC application. Surgery will begin shortly
[2024-02-06] MEDS: Cefazolin 2 GM in Syringe IV ×2 (14:34→22:38)
--- NOTE | 2024-02-06 16:19 | PCM.POST.ANE ---
Anesthesia: Postop Eval I Current Vital Signs Temperature: 97.3 F Pulse Rate: 90 Blood Pressure: 117/81 Respiratory Rate: 16 Pulse Ox: 98 Oxygen Delivery Method: Simple Mask Oxygen Flow Rate (L/min): 6 Assessment Airway patent: Yes Spontaneous unlabored respirations: Yes Mental status: Awake and Calm nausea: No Vomiting: No Anesthesia Complication: No Fluid Hydration Crystalloid volume administer (ml): 1,500 Total IV fluid infused: 1,500 Progress Note Anesthesia document: Postop Eval 1 completed: Yes
--- NOTE | 2024-02-06 16:46 | OP.PCM_ITS ---
Operative Report (Standard) Operative Information Surgery/Procedure Performed: 1) Excision of abdominal wound down, including subcutaneous tissues and fascia, 7 x 3 cm (CPT 10913, 24085) 2) Intermediate closure of abdominal wound, 8 cm (CPT 77737) Surgeon: Ramses Snell Date of Procedure: 02/06/24 Procedure Start Time: 14:55 Procedure Stop Time: 16:04 Pre-Operative Diagnosis: Abdominal wound with potential mesh infection Post-Operative Diagnosis: same Select all DRAINS/GRAFTS/IMPLANTS that apply: Drains (19 Fr darwin drain) Drain details: Placed above fascial closure Type of Anesthesia: General Estimated Blood Loss: 5 cc Fluids Replaced: 800cc LR Specimen collected: Yes Description of specimen(s) removed: Infected mesh from the abdomen Description of surgery: INDICATIONS: Patient is an 78 YO male who underwent a ventral hernia repair with mesh several years ago at [facility] and has been seen at the wound care center for a chronically draining sinus adjacent to the umbilicus. Presents today for wound debridement and closure, and possible foreign body removal (Mesh) with my general surgery colleague, Dr. Go. Patient understands risks, benefits, and alternatives to the procedure and elected to proceed. PROCEDURE DETAILS: He was placed supine on the operative table with arms outstretched on arm boards. The abdomen is then prepped and draped in the usual sterile manner using Betadine. A time out was performed. An ellipse incision was made and I debrided a 7 x 3 cm wound around the draining sinus/foreign body including fascia with a 10 blade scalpel and Bovie. I then assisted Dr. Go with infected mesh removal (please see separate operative note from Dr. Go for this portion of the procedure). The fascia was closed by Dr. Go. Attention was then turned to wash out and closure. Irrisept and saline were used to wash the wound. A 19 Fr Darwin drain was placed at the base of the wound and tunneled out laterally. 2-0 Vicryl deep Keri's sutures were used to close the deep layer followed by a 3-0 Monocryl deep dermal and subcuticular closure for an 8 cm intermediate closure. Prineo was placed, as well as a binder. The patient was awaken and taken to the PACU in stable condition. Surgical Findings: Infected underlay mesh at the base of the wound, removed by Dr. Go (please see separate operative note) Coding And Reimbursement Specialist front line leader: Yes Carpenter Helper: Jaun Mcdonnell Tasks completed by study assistant: Retracting Complications Complications: No Admit VTE Documentation VTE Present on Admission: No VTE Mechan Device Prophylaxis: SCD's
--- NOTE | 2024-02-06 16:50 | OP.PCM_ITS ---
Problems Associated Problem List Diagnoses (1) Chronic abdominal wound infection: Operative Report (Standard) Operative Information Surgery/Procedure Performed: 1. Abdominal wall exploration 2. Debridement of infected mesh 3. Fascial closure Surgeon: Jeffery Go Date of Procedure: 02/06/24 Procedure Start Time: 14:55 Procedure Stop Time: 16:04 Pre-Operative Diagnosis: Chronic abdominal wound Post-Operative Diagnosis: Same Select all DRAINS/GRAFTS/IMPLANTS that apply: Drains Drain details: 19 Austrian round drain Type of Anesthesia: General Special Medications: Preoperative antibiotics Estimated Blood Loss: 10 cc Specimen collected: Yes Description of specimen(s) removed: Removed mesh Description of surgery: The patient is a 78-year-old male who underwent a ventral hernia repair with mesh several years ago at [facility]. It sounds as though he had a wound infection and had a wound VAC for period of time ever since that surgery he continued to have a chronically draining sinus just below the umbilicus. He has been seen through the wound center for quite some time. This wound has not shown any improvement. Patient was seen by plastic surgery and it was decided to do a combined surgery to excise what ever formed body or chronic abscess that was causing this ongoing wound. Patient was brought to the operating room today following informed consent. He was placed supine on the operative table with arms outstretched on arm boards. The abdomen is then prepped and draped in the usual sterile manner using Betadine. An ellipse incision was made. Bovie electrocautery was then used dissect down through subcutaneous tissue to the level of the fascia. It was quickly noted that the source of chronic infection was an exposed segment of mesh. This segment of mesh was about 2.5 cm x 2.5 cm. This was not incorporated into the surrounding tissues. Purulent drainage was surrounding this area. This segment of mesh was excised. There was another small fascial opening just inferior to this. I was able to open up the fascia slightly and excised some additional mesh in this area as well. This was all copiously irrigated. To provide coverage, I closed the fibrous scar tissue/fascia overlying these areas using 0 Vicryl. These sutures were placed in and interrupted manner.. The wound was then copiously irrigated some more. A drain was placed and the wound was then closed by Dr. Snell. Dressings were applied he was awakened anesthesia and taken the PACU in good condition. An abdominal binder was also placed Surgical Findings: Infected mesh Elevator Repair Mechanic laundry or dry cleaners counter clerk: Yes Lehr Attendant: Ramses Snell Tasks completed by orthopedic assistant: Opening and Closing Additional intellectual property legal assistant?: Yes Additional It Trainer #2: Jaun Mcdonnell Tasks completed by intellectual property legal assistant #2: Closing Additional intellectual property legal assistant?: No Complications Complications: No Admit VTE Documentation VTE Present on Admission: No VTE Mechan Device Prophylaxis: SCD's Multi Select Codes Integumentary Integumentary CPT Codes: 23522 Intmd rpr s/a/t/ext 2.6-7.5 Musculoskeletal Musculoskeletal CPT Codes: Other Procedure See Report ([id number]; )
--- NOTE | 2024-02-06 17:12 | POSTOPAN2_ITS ---
Anesthesia Postop Eval I Sum Postop Eval Completion status Anesthesia document: Postop Eval 1 completed: Yes Anesthesia Postop Eval I Summary Anesthesia Postop Eval I Summary: Anesthesia Postop Eval I: Assessment Summary Airway patent Yes 02/06/24 16:20 SNUFF GRINDER AND SCREENER.[email or web address] Spontaneous unlabored Yes 02/06/24 16:20 SNUFF GRINDER AND SCREENER.GLENNOBLuca respirations Mental status Awake,Calm 02/06/24 16:20 SNUFF GRINDER AND SCREENER.SKOBY nausea No 02/06/24 16:20 SNUFF GRINDER AND SCREENER.SKOBY Vomiting No 02/06/24 16:20 SNUFF GRINDER AND SCREENER.SKOBY Anesthesia Postop Eval I: Fluid Summary Crystalloid volume administer 1,500 02/06/24 16:20 SNUFF GRINDER AND SCREENER.SKOBY (ml) Colloids volume administered ( ml) Blood Product volume administered (ml) Total IV fluid infused 1,500 02/06/24 16:20 SNUFF GRINDER AND SCREENER.GLENNOBLuca Anesthesia Postop Eval I: Summary Notes Anesthesia Complication No 02/06/24 16:20 SNUFF GRINDER AND SCREENER.GLENNOBLuca Anesthesia Complication Comment: Post-operative progress note Anesthesia: Postop Eval II Evaluation Mental status: Awake and Calm Pain Level: 2 nausea: No Vomiting: No Complications Anesthesia Complication: No
--- NOTE | 2024-02-06 17:12 | PCM.POSTANE2 ---
Anesthesia Postop Eval I Sum Postop Eval Completion status Anesthesia document: Postop Eval 1 completed: Yes Anesthesia Postop Eval I Summary Anesthesia Postop Eval I Summary: Anesthesia Postop Eval I: Assessment Summary Airway patent Yes 02/06/24 16:20 MEN'S SWIM COACH.[email or web address] Spontaneous unlabored Yes 02/06/24 16:20 MEN'S SWIM COACH.GLENNOBLuca respirations Mental status Awake,Calm 02/06/24 16:20 MEN'S SWIM COACH.SKOBY nausea No 02/06/24 16:20 MEN'S SWIM COACH.SKOBY Vomiting No 02/06/24 16:20 MEN'S SWIM COACH.SKOBY Anesthesia Postop Eval I: Fluid Summary Crystalloid volume administer 1,500 02/06/24 16:20 MEN'S SWIM COACH.SKOBY (ml) Colloids volume administered ( ml) Blood Product volume administered (ml) Total IV fluid infused 1,500 02/06/24 16:20 MEN'S SWIM COACH.GLENNOBLuca Anesthesia Postop Eval I: Summary Notes Anesthesia Complication No 02/06/24 16:20 MEN'S SWIM COACH.GLENNOBLuca Anesthesia Complication Comment: Post-operative progress note Anesthesia: Postop Eval II Evaluation Mental status: Awake and Calm Pain Level: 2 nausea: No Vomiting: No Complications Anesthesia Complication: No
[2024-02-06 18:29] LABS: Creatinine, Serum 1.19 mg/dL (0.70-1.30); EST Glomerular Filtration Rate 62 mL/min (>60); Est Glom Filt Rate - Afr Amer 76 mL/min (>60); Estimated Creatinine Clearance 59.41 ml/min
[2024-02-06] MEDS: Tamsulosin HCl 0.4 MG Capsule PO (22:38)
[2024-02-06] MEDS: Acetaminophen 500 MG Tablet 1000 MG PO (22:38)
[2024-02-06] MEDS: Pantoprazole Sodium 40 MG Tablet PO (22:38)
[2024-02-06] MEDS: SACUBITRIL/VALSARTAN 49-51 MG TABLET 1 EACH PO (22:39)
[2024-02-06] MEDS: Atorvastatin Calcium 80 MG Tablet PO (22:39)
[2024-02-07 04:45] VITALS: BP 103/63; PULSE 57; RESP 18; TEMP 36.9; O2SAT 93
[2024-02-07] MEDS: Cefazolin 2 GM in Syringe IV (05:28)
[2024-02-07] MEDS: Acetaminophen 500 MG Tablet 1000 MG PO (05:28)
--- NOTE | 2024-02-07 07:19 | PCM.PN.SRG ---
Subjective Subjective Patient had no events overnight, his pain is well-controlled. Objective Data Objective Data Vital Signs: Vital Signs Temp Pulse Resp BP Pulse Ox O2 Del Method O2 Flow Rate 98.4 F 57 L 18 103/63 93 Room Air 2 02/07/24 04:45 02/07/24 04:45 02/07/24 04:45 02/07/24 04:45 02/07/24 04:45 02/07/24 04:45 02/06/24 16:45 Oxygen Flow Rate (L/min) 2 Oxygen Delivery Method Room Air Weight: 226 lb 3.108 oz Body Mass Index (BMI) 32.4 Intake & Output: Intake and Output for Last 24 Hours 02/05/24 02/06/24 02/07/24 23:59 23:59 23:59 Intake Total 40 / 40 1020 / 1020 Output Total 305 / 305 30 / 30 Balance -265 / -265 990 / 990 Lab / Micro Data 02/06/24 17:45 Labs: Laboratory Results - last 24 hr 02/06/24 17:45: Creatinine 1.19, Estim Creat Clear Calc 59.41, Est GFR (MDRD) Af Amer 76, Est GFR (MDRD) Non-Af 62 Physical Exam Const oriented x3 and no apparent distress Resp normal respiratory effort GI soft to palpation and non-tender Assessment & Plan Assessment/Plan (1) Abdominal wall hernia: PLAN: Patient had resection of infected mesh with complex wall closure. Drain is serosanguineous. I will discharge the patient home today on Keflex p.o. Follow-up with Dr. Snell on Saturday for drain removal. Michael Bond MD Pager: [facility] [address] [place] [address], [address] [place] [address] Office:
--- NOTE | 2024-02-07 07:21 | PCM.DC.SUM ---
Providers Date of Admission: 02/06/24 Primary Care Physician: Dr. Malvin Freire DO Reason For Visit: ABDOMINAL WOUND MESH REMOVAL AND CLOSURE Diagnosis Discharge Diagnosis (1) Abdominal wall hernia: Status: Acute Code(s): K43.9 - Ventral hernia without obstruction or gangrene Plan: Patient had resection of infected mesh with complex wall closure. Drain is serosanguineous. I will discharge the patient home today on Keflex p.o. Follow-up with Dr. Snell on Saturday for drain removal. Michael Bond MD Pager: [facility] [address] [place] [address], [address] [place] [phone] Office: Medications at Discharge Home Medications aspirin 81 mg capsule 81 mg PO DAILY blood thinner 12/13/21 atorvastatin 80 mg tablet 80 mg PO QHS cholesterol 12/13/21 finasteride 5 mg tablet 5 mg PO DAILY bladder 07/09/23 tamsulosin 0.4 mg capsule 0.4 mg PO QHS bladder 07/09/23 pantoprazole 40 mg tablet,delayed release 40 mg PO BID GERD 30 days #60 tabs 09/23/23 empagliflozin 10 mg tablet (Jardiance) 10 mg PO DAILY DIABETES 12/09/23 metoprolol succinate 100 mg tablet,extended release 24 hr 100 mg PO DAILY HEART 02/03/24 sacubitril 49 mg-valsartan 51 mg tablet (Entresto) 1 tab PO BID BP 02/03/24 cephalexin 500 mg capsule 500 mg PO BID #10 caps 02/07/24 Hospital Course Summary of Care Provided Hospital Course: Patient was admitted and taken for surgery by Dr. Snell and Dr. Go. He had infected mesh explanted with complex abdominal wall closure. Patient has a drain in place and he will be discharged home with a drain. He will follow-up on Saturday for possible drain removal. Weight / BMI Weight Weight: 226 lb 3.108 oz Body Mass Index (BMI) 32.4 ABG / Lab / Microbiology Data 02/06/24 17:45 Laboratory: Laboratory Results - last 24 hr 02/06/24 17:45: Creatinine 1.19, Estim Creat Clear Calc 59.41, Est GFR (MDRD) Af Amer 76, Est GFR (MDRD) Non-Af 62 D/C Instructions Discharge Diet: No restrictions Discharge Activity: Return to Normal Activity and May Not Shower (sponge bathe while drain is in place) Lifting Restrictions: Nothing over 15 pounds for 4 weeks Call your doctor if your incision/area has: Continuous Slow Oozing, Sudden Increased Bleeding, Increased Pain/ Swelling, Increased Redness, Foul Smelling Discharge and Swelling at the incision site Call your doctor if you observe: Fever of 101 or Higher Remove Dressing in: 1 day Cleanse incision/area with: Soap & Water Drain: Suction Additional Dressing/Incision Instructions: Tylenol and ibuprofen for pain control Record drain output Follow-up on Saturday with Dr. Shrestha for drain removal DC O2, CPAP, BIPAP Needs Additional Home O2 Discharge instructions: No DC home with Oxygen: No Please Follow Up With: Jeffery Go MD When: Please call to schedule 1 week follow up appointment. [phone] Meaningful Use Info Meaningful Use Meaningful Use Diagnoses (Choose all that apply): None applicable Ischemic Stroke Statin Dosing Therapy Reference: STATIN DOSE THERAPY REFERENCE: * Patients > 75 years receive moderate or high dose statin therapy. * Patients 75 years or YOUNGER should receive HIGH intensity statin dose unless contraindicated. You will be required to document reason for non-treatment if statin daily dose does not meet guidelines. HIGH DOSE STATIN THERAPY DAILY Atorvastatin > than or = to 40 mg Rosuvastatin > than or = to 20 mg Amlodipine + Atorvastatin > than or = to 2.5/40 mg Ezetimibe + Simvastatin 10/80 mg Simvastatin 80mg Discharge Plan Admission Admit Date/Time: 02/06/24 12:29 Attending Provider: Jeffery Go Primary Care Provider: Malvin Freire Consulting Providers: Ramses Snell Discharge Orders/Prescriptions Prescriptions: New cephalexin 500 mg capsule 500 mg PO BID Qty: 10 0RF Continued atorvastatin 80 mg tablet 80 mg PO QHS Patient Comments: TAKE 1 TABLET BY MOUTH EVERY DAY aspirin 81 mg Capsule 81 mg PO DAILY pantoprazole 40 mg Tablet,Delayed Release (Dr/Ec) 40 mg PO BID 30 Days Qty: 60 0RF metoprolol succinate 100 mg tablet extended release 24 hr 100 mg PO DAILY sacubitril-valsartan [Entresto] 49-51 mg tablet 1 tab PO BID tamsulosin 0.4 mg capsule 0.4 mg PO QHS finasteride 5 mg tablet 5 mg PO DAILY Jardiance 10 mg tablet 10 mg PO DAILY Referrals / Follow Up: Malvin Freire DO [Primary Care Provider] - Disposition Disposition (needs filled in before D/C Order can be placed): Home, Self Care
--- NOTE | 2024-02-07 07:31 | PCM.PN.BLA ---
Progress Note Post op day 1 from removal of infected mesh and abdominal wound debridement and closure over drain. Patient comfortable. Minimal pain. Passing flatus. No chest pain or SOB Physical Exam Const alert and oriented x3 HEENT normocephalic Eyes EOMs intact bilaterally Neck full ROM Resp normal respiratory effort Resp Narrative: Able to do 2 liters on IS Auscultation: clear to auscultation bilaterally Cardio regular rate and regular rhythm GI GI Narrative: Abdomen: incision c/d/i with tape in place. Low Drain SS. appropriate output. No signs of hematoma (no bruising or firmness). Abdomen is soft. Extremity normal to inspection Extremity Narrative: SCDs in place No swelling on the lower extremities. Assessment & Plan Assessment/Plan (1) Chronic abdominal wound infection: PLAN: Doing well. No problems at the site of the incision Drain care teaching before discharge F/u on Saturday in the wound care center with me for a wound check (10 Feb 2024) Procedures Integumentary 111xxx-113xx: [id number] Global Visit
[2024-02-07 07:32] VITALS: PULSE 60
--- NOTE | 2024-02-07 09:26 | CASEMGMT ---
ITALO CM into pt room, pt states he is ready for dc and feels safe to go home. Pt lives with and has a walker. Pt states we are well prepared. Denies needs at this time.
[2024-02-07 09:44] VITALS: BP 104/58; PULSE 62; RESP 16; TEMP 36.7; O2SAT 95
[2024-02-07] MEDS: Empagliflozin 10 MG Tablet PO (09:47)
[2024-02-07] MEDS: Pantoprazole Sodium 40 MG Tablet PO (09:47)
[2024-02-07] MEDS: Finasteride 5 MG Tablet PO (09:47)
[2024-02-07] MEDS: Enoxaparin 40 MG/0.4 ML Syringe SC (09:49)
--- NOTE | 2024-02-07 10:46 | PHA.DC_ITS ---
Pharmacy [facility] has performed discharge medication reconciliation and counseling for this patient. The patient's discharge medication list was reviewed for discrepancies and discrepancies were resolved. The patient was counseled on the following discharge medications and changes in medications for homegoing were reviewed. The Reason for Use, instructions for use, and potential side effects were reviewed for all new medications. The patient's questions regarding all of their medications were answered. 1. Cephalexin 500 mg PO BID x 5 days The patient was able to verbally demonstrate an understanding of their discharge medications. The patient was counselled on new medications by compounding pharmacy technician Singh. Medications at Discharge Home Medications aspirin 81 mg capsule 81 mg PO DAILY blood thinner 12/13/21 atorvastatin 80 mg tablet 80 mg PO QHS cholesterol 12/13/21 finasteride 5 mg tablet 5 mg PO DAILY bladder 07/09/23 tamsulosin 0.4 mg capsule 0.4 mg PO QHS bladder 07/09/23 pantoprazole 40 mg tablet,delayed release 40 mg PO BID GERD 30 days #60 tabs 09/23/23 empagliflozin 10 mg tablet (Jardiance) 10 mg PO DAILY DIABETES 12/09/23 metoprolol succinate 100 mg tablet,extended release 24 hr 100 mg PO DAILY HEART 02/03/24 sacubitril 49 mg-valsartan 51 mg tablet (Entresto) 1 tab PO BID BP 02/03/24 cephalexin 500 mg capsule 500 mg PO BID #10 caps 02/07/24
[2024-02-07 11:43] VITALS: BP 111/67; PULSE 64
[2024-02-07] MEDS: SACUBITRIL/VALSARTAN 49-51 MG TABLET 1 EACH PO (11:44)
[2024-02-07 11:45] VITALS: PULSE 64
[2024-02-07] MEDS: Metoprolol(XL)Succ 100 MG Tablet PO (11:45)
== END 2024-02-07 12:28 | disposition home or self-care (01) ==
PROVIDERS: Nurse Practitioner Family; Surgery Plastic and Reconstructive Surgery; Admitting Provider Surgery; PCP Student in an Organized Health Care Education/Training Program; Referring Provider Surgery; Visit Provider Surgery
PROC: (CPT 11005; principal; 2024-02-06 14:00)
PROC: (CPT 11043; 2024-02-06 14:00)
DX: T81.43XA Infection following a procedure, organ and space surgical site, initial encounter (principal); T85.79XA Infection and inflammatory reaction due to other internal prosthetic devices, implants and grafts, initial encounter; K43.9 Ventral hernia without obstruction or gangrene; Z87.891 Personal history of nicotine dependence; I10 Essential (primary) hypertension; I25.10 Atherosclerotic heart disease of native coronary artery without angina pectoris; Y82.8 Other medical devices associated with adverse incidents; N40.0 Benign prostatic hyperplasia without lower urinary tract symptoms; K21.9 Gastro-esophageal reflux disease without esophagitis; Z86.718 Personal history of other venous thrombosis and embolism; R06.02 Shortness of breath; Z79.82 Long term (current) use of aspirin; Z79.899 Other long term (current) drug therapy; I73.9 Peripheral vascular disease, unspecified; Z95.1 Presence of aortocoronary bypass graft
CPT/HCPCS: 11005; 11008; 11043; 11046; 12034; 00400; 36415; 82565; 87015; 87070; 87075; 87077; 87102; 87116; 87186; 87205; 87206; 88305; 94668; 96374; 96375; 99221; J7120; G0378; J2405

== ENCOUNTER 2024-02-10 15:15 | Outpatient (RCR) | payer MEDICARE, OTHER, SELFPAY ==
[2024-01-17 00:18] VITALS: BP 119/86; PULSE 62; RESP 18; TEMP 36.4; BMI 34.4
[2024-02-10 15:22] VITALS: BP 154/80; PULSE 65; RESP 18; TEMP 36.2; BMI 32.3
--- NOTE | 2024-02-10 17:34 | PN.PCM_ITS ---
History of Present Illness Date of Service: 02/10/24 Chief Complaint: Surgical wound dehiscence/nonhealing abdominal surgical wound History of Wound: History of Wound: Kaden Latif is a 78 year-old male with a complicated past medical history who presents for abdominal wound from a ventral hernia repair dehiscence. The hernia had developed at a prior surgical site, as the patient has had multiple previous aortic repairs and other vascular surgeries. On September 28, 2008, the patient underwent left femoral?tibial artery bypass surgery. He underwent open ruptured abdominal aneurysm repair on July 11, 2012. It appears as though the patient subsequently required a second surgical intervention for an abdominal aortic aneurysm. He underwent left carotid endarterectomy on June 04, 2017. A left femoral pseudoaneurysm repair was performed in 2021. The patient then underwent his abdominal hernia repair in December [address] Pierce at [facility]. 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 Has had wound problems ever since. He developed a GI bleed last year and was admitted to the hospital, at which time he had a blood clot in his leg. He was treated with anticoagulation, but is no longer on any anticoagulation because it was considered provoked. He continue to do wound care to the abdominal incision. The most recent cultures of the drainage from the site were performed at [facility] on July 03, 2023. Culture results were positive for Staphylococcus aureus, and the patient was treated with Bactrim double strength orally twice daily at that time. In an effort to identify the possible cause of the persistent sinus tract, the patient had a CT scan at [facility] on April 19, 2023, which revealed postsurgical changes of the anterior abdominal wall, without definite focal rim-enhancing fluid collection to suggest an abscess. The other soft tissues including abdominopelvic wall are unremarkable. It has been stated by the patient that prosthetic mesh was used in the repair of his ventral abdominal hernia. He has been following at our [facility] in [place] with Dr. Hancock ever since. In August 2023, he underwent cardiac catheterization at [facility] in [place], [place], following which he required urgent coronary revascularization by means of bypass grafting, which was performed on September 06, 2023. He was subsequently admitted to the [facility] on September 10, 2023, and discharged on September 23, 2023. He returned to the [facility] to resume his care related to the surgical wound dehiscence of his abdominal wall with Dr. Hancock, who referred the patient to me for surgical management and possible reconstruction. Dr. Hancock has been treating the wound with Nu Gauze packing and weekly wound care/debridements in the wound care center. A wound culture which was again obtained earlier this month and was positive for Staphylococcus aureus, and the patient finished a course of doxycycline 100 mg p.o. twice daily for 10 days. SURGERY PREFORMED 06 Feb 2024: Infected mesh removal/wound debridement and closure over drain. Cultures grew MSSA. Subjective Subjective 04 November 2023: Today patient reports that he is doing quite well. He feels like the wound is getting smaller and so does his . Patient does not smoke 25 Nov 2023: Patient reports that the wound is about the same size and has been draining some serosanguineous fluid. They have made no improvement. He had a CT scan performed. 09 Dec 2023: Patient doing well today overall. He has seen Dr. Go with general surgery. Reports that the wound is about the same. 06 Jan 2024: Patient has been seen by his hi teacher and has had a recent echocardiogram. His ejection fraction was 35% and they recommended against any implantable device/defibrillator. He has been cleared by his hi teacher for surgery with Dr. Go from general surgery and myself (assisting Dr. Go). No changes in the wound. Continues to oscillate in size and drain serous fluid. CURRENT VISIT, 10 Feb 2024: Doing well overall post op day 4 from infected mesh removal and closure of abdomen.. Pain controlled (only needed Tylenol). Passing flatus but no BM. No N/V. 35 cc from drain over the past 24 hours. Objective Data Objective Data Vital Signs: Vital Signs Temp Pulse Resp BP 97.1 F L 65 18 154/80 H 02/10/24 15:22 02/10/24 15:22 02/10/24 15:22 02/10/24 15:22 Weight: 225 lb 0.641 oz Body Mass Index (BMI) 32.3 Charges/Coding Procedures Integumentary 111xxx-113xx: 26226 Global Visit Physical Exam Narrative Abdomen: Incision c/d/i with Prineo tape in place. No induration of fluid collections. Drain SS. Resp normal respiratory effort Cardio regular rate Extremity Extremity Narrative: No swelling on lower extremities Debridement Note Debridement Note Post-Debridement Measurements and Additional Note: Post-Debridement Measurements/Treatment - Nurse 1 - General Ulcer Assessment Start: 02/10/24 15:21 Freq: Status: Active Protocol: LIA Activity Type Activity Date Activity User E-sign Co-sign Detail Recorded Client Recorded Date Recorded By Document 02/10/24 15:22 DL [id number] 02/10/24 15:32 DL 02/10/24 15:22 WC - Today's Visit Information Type of service Follow-up Visit (Physician/NUTRITION PARTNER ) Arrival Mode Ambulatory Transfer Assistance None Patient Identification Verified (Name & Yes ) Patient Requires Transmission-Based No Precautions Height and Weight Height 5 ft 10 in Weight 225 lb 0.641 oz Weight in Pounds 225.0 lbs Body Mass Index (BMI) 32.3 BMI Classification Obese BSA - Nany 2.19 Vital Signs Temperature (97.8 F-99.1 F) 97.1 F L Temperature Source Temporal Pulse Rate (60-100) 65 Pulse Location Monitor Respiratory Rate (12-18) 18 Respiratory rate source Observation Blood Pressure (90/60-120/80) 154/80 H Blood Pressure Mean (mm Hg) 104 Source Monitor History Since Last Visit- (Skip if this is Patient's initial visit) Have you changed medications since your No last visit? Any new allergies or adverse reactions No Had a fall/change in ADL's that may No increase risk of falls Signs or symptoms of abuse and/or No neglect since last visit Have you been in the hospital since your No last visit? Has dressing in place as prescribed Yes Has compression in place as prescribed N/A Has offloadiing in place as prescribed N/A Experienced any changes in pain level or No management Pain Scale: 0-10 Numeric Is Patient Pain Free? Yes - Nurse 1 - General Ulcer Measurement Start: 02/10/24 15:21 Freq: Status: Active Protocol: Activity Type Activity Date Activity User E-sign Co-sign Detail Recorded Client Recorded Date Recorded By Document 02/10/24 15:22 DL [id number] 02/10/24 15:32 DL 02/10/24 15:22 Wound Center Nurse 1 #1 abd/Post Op Hernia repair -Current Size (cm) - Length 0.1 -Current Size (cm) - Width 0.1 -Current Size (cm) - Depth 0.1 -Total Square Cm 0.01 -Photo Taken Yes -Exudate Amt None Present -Wound Margin Distinct, Outline Attached -Granulation Amt None Present (0 %) -Necrosis Amt None Present (0 %) -Structure Exposed N/A -Texture (Cleo-wound Skin Appearance) Scarring -Moisture (Cleo-wound Skin Appearance) No Abnormality -Color (Cleo-wound Skin Appearance) No Abnormality -Temperature (Cleo-wound Skin No Abnormality Appearance) (Pt Warm) -Ulcer Cleansing Not Cleansed -Foul Odor after Cleansing No -Wound Comment(s) NICO intact. Incision line intact, well aproximated. WC - Nurse 2 - General Ulcer CM Notes Start: 02/10/24 15:21 Freq: Status: Active Protocol: Activity Type Activity Date Activity User E-sign Co-sign Detail Recorded Client Recorded Date Recorded By Document 02/10/24 16:02 [facility] [id number] 02/10/24 16:13 [facility] 02/10/24 16:02 Wound Center Nurse 2 -Time 16:02 -Post Debridement (cm) - Length 0.1 -Post Debridement (cm) - Width 0.1 -Post Debridement (cm) - Depth 0.1 -Total Square (Post) (cm) 0.01 -Area of Debridement (cm) - Length 0.1 -Area of Debridement (cm) - Width 0.1 -Total Square (Area) (cm) 0.01 -Wound/Ulcer Outcome Not Healed -Bleeding Controlled with NA -Wound Comment(s) incision dry and intact. ok to leave open to air Pain Scale: 0-10 Numeric Is Patient Pain Free? Yes Assessment/Plan Assessment/Plan (1) Chronic abdominal wound infection: CODE(S): S31.109A - Unspecified open wound of abdominal wall, unspecified quadrant without penetration into peritoneal cavity, initial encounter; L08.9 - Local infection of the skin and subcutaneous tissue, unspecified PLAN: Expected course MSSA from cultures, placed patient on a course of Doxycycline (has finished Keflex) Will f/u with [facility] (Dr. Burleson) Patient to follow up with Dr. Go (General Surgery) in 2 days on 12 Feb 2024. O.K. to pull drain if consistently less than 30 cc per day. F/u with [facility] in 1 week to check progress.
--- NOTE | 2024-02-11 11:16 | WC ---
PHOTO 02/10/24 ABD HERNIA REPAIR POST OP
--- NOTE | 2024-02-12 15:15 | WC ---
Spoke to Jenny patient's spouse letting her know that a referral was sent to ID per Dr Snell's request. They will call her for an appt and can be seen here at the Wound center on based on availability. She verbalized understanding.
== END 2024-02-15 23:59 | disposition home or self-care (01) ==
LOC: WC 15:15
PROVIDERS: PCP Student in an Organized Health Care Education/Training Program; Referring Provider Student in an Organized Health Care Education/Training Program; Visit Provider Surgery Plastic and Reconstructive Surgery
DX: T81.31XA Disruption of external operation (surgical) wound, not elsewhere classified, initial encounter (principal); S31.109A Unspecified open wound of abdominal wall, unspecified quadrant without penetration into peritoneal cavity, initial encounter; L08.9 Local infection of the skin and subcutaneous tissue, unspecified; L76.82 Other postprocedural complications of skin and subcutaneous tissue; Z79.82 Long term (current) use of aspirin; Z79.84 Long term (current) use of oral hypoglycemic drugs; Z79.899 Other long term (current) drug therapy; Z86.718 Personal history of other venous thrombosis and embolism; Z95.820 Peripheral vascular angioplasty status with implants and grafts
CPT/HCPCS: 99213; G0463

== ENCOUNTER 2024-02-21 11:08 | Emergency (ER) | payer MEDICARE, OTHER, SELFPAY ==
[2024-02-21 11:08] VITALS: BP 164/74; PULSE 62; RESP 15; TEMP 36.4; O2SAT 96; BMI 32.8
--- NOTE | 2024-02-21 11:48 | EX.ED.DYSGE1 ---
HPI <JAIME Diaz - Last Filed: 02/21/24 14:20> History of Present Illness Chief Complaint: Wound Narrative Narrative: 78-year-old male with a complicated past medical history who has an abdominal wound from a ventral hernia repair dehiscence. 2 weeks ago he had exploratory surgery by Dr. Snell and [place] due to the nonhealing wound and found that the mesh was infected. Patient had been healing well and states he followed up in the office yesterday but this morning around 3 AM when he got up to use the restroom a small area of the incision started spurting blood. If he lays down it stops bleeding. He is on aspirin, no blood thinners. PFS <JAIME Diaz - Last Filed: 02/21/24 14:20> [facility] Medical History Wears glasses DVT (deep venous thrombosis) Back pain Dietary restriction History of GI bleed Gastric reflux Shortness of breath on exertion Hypertension Cardiology follow-up encounter Chronic abdominal wound infection Coronary artery disease Surgical wound dehiscence Dehiscence of postoperative wound of abdomen Diverticulosis BPH (benign prostatic hyperplasia) Ventral hernia Peripheral arterial occlusive disease Carotid artery stenosis Osteoarthritis Insomnia Irritable bowel syndrome Hyperlipidemia History of deep vein thrombosis History of anemia PAC (premature atrial contraction) PVCs (premature ventricular contractions) Peripheral arterial disease Arthritis TIA (transient ischemic attack) Stroke/cerebrovascular accident Former smoker History of echocardiogram Hx of abdominal aortic aneurysm Home Medications ?Medication ?Instructions ?Recorded ?Last Taken ?Type aspirin 81 mg capsule 81 mg PO DAILY blood thinner 12/13/21 02/03/24 History atorvastatin 80 mg tablet 80 mg PO QHS cholesterol 12/13/21 02/05/24 21:00 History finasteride 5 mg tablet 5 mg PO DAILY bladder 07/09/23 02/05/24 09:00 History tamsulosin 0.4 mg capsule 0.4 mg PO QHS bladder 07/09/23 02/05/24 21:00 History pantoprazole 40 mg tablet,delayed 40 mg PO BID GERD 30 days #60 tabs 09/23/23 02/06/24 09:00 Rx release empagliflozin 10 mg tablet 10 mg PO DAILY DIABETES 12/09/23 02/05/24 09:00 History (Jardiance) metoprolol succinate 100 mg 100 mg PO DAILY HEART 02/03/24 02/06/24 09:00 History tablet,extended release 24 hr sacubitril 49 mg-valsartan 51 mg 1 tab PO BID BP 02/03/24 02/06/24 09:00 History tablet (Entresto) doxycycline hyclate 100 mg capsule 100 mg PO BID 7 days #14 caps 02/10/24 Unknown Rx Allergy/AdvReac Type Severity Reaction Status Date / Time No Known Allergies Allergy Verified 02/21/24 11:14 Family History Father Ruptured aneurysm of artery Mother Myocardial infarction Sister Cancer Brother CVA (cerebral vascular accident) Son Diabetes CAD (coronary artery disease) s/p stent. Daughter No problems noted. Surgical History Hx of umbilical hernia repair History of coronary artery bypass graft x 2 History of ventral hernia repair History of femoropopliteal bypass History of aortic aneurysm repair Status post carotid endarterectomy S/P hip replacement Hx of tracheostomy History of evacuation of hematoma Hx of total hip arthroplasty Hx of surgical procedure History of left-sided carotid endarterectomy Hx of abdominal surgery Social History household members: spouse Smoking Status: Former smoker alcohol intake: never substance use type: does not use ROS <JAIME Diaz - Last Filed: 02/21/24 14:20> ROS ED ROS Narrative Constitutional: Negative for fever, chills, malaise. GI: Negative for abdominal pain, nausea, vomiting. Skin: Positive for postop wound. EXAM <JAIME Diaz - Last Filed: 02/21/24 14:20> Physical Exam Narrative Exam Narrative: CONST: Patient sitting in no acute distress. EYES: Normal inspection. NECK: Normal inspection. RESP: No respiratory distress, CTAB. CVS: Regular rate and rhythm, no murmur, no gallop. ABD: Soft and nontender, no guarding or rebound, nondistended. Midline abdominal incision has 0.5 cm area that has been bleeding just below the umbilicus. There is no active bleeding or gross dehiscence. Back: Normal inspection, no CVA tenderness. SKIN: Color normal, no rash, warm, dry, intact. EXTREMITIES: Normal appearance, no pedal edema. NEURO: Alert and answering questions appropriately. PSYCH: Normal affect. Const Vital Signs: 02/21/24 11:08 02/21/24 13:08 02/21/24 14:39 Temperature 97.6 F L 98.0 F Temperature Source Oral Pulse Rate 62 54 L 77 Respiratory Rate 15 16 16 Blood Pressure 164/74 H 127/73 H 127/73 H Blood Pressure Mean 104 91 91 Pulse Ox 96 96 97 Oxygen Delivery Method Room Air Room Air <Dr. Boris Miller DO - Last Filed: 02/21/24 16:04> Physical Exam Const Vital Signs: 02/21/24 11:08 02/21/24 13:08 02/21/24 14:39 Temperature 97.6 F L 98.0 F Temperature Source Oral Pulse Rate 62 54 L 77 Respiratory Rate 15 16 16 Blood Pressure 164/74 H 127/73 H 127/73 H Blood Pressure Mean 104 91 91 Pulse Ox 96 96 97 Oxygen Delivery Method Room Air Room Air MDM <JAIME Diaz - Last Filed: 02/21/24 14:20> [facility] MDM Narrative Medical decision making narrative: History gathered from: Patient, spouse Consults: Plastic surgery Differential: Abdominal incision dehiscence, seroma, abscess Patient is 2 weeks postop from exploratory surgery for he nonhealing midline abdominal wound and had infected mesh removed. He has a small area that has dehisced and was bleeding today and presents for evaluation. He otherwise looks well and has stable vital signs. There is no active bleeding while he was lying down. The rest of his incision looks good with no signs of infection and his abdomen is soft and nontender. Labs show normal white count of 6.6 and hemoglobin 12.8 which is higher than his previous baseline. I consulted plastic surgery and Dr. Snell evaluated the patient in the ED and opened the small area that was bleeding and states that was serous fluid and requested a CT scan of the abdomen/pelvis. The CT shows postoperative changes with a tissue defect and a small collection of air but no large seroma no evidence of abscess. I relayed these findings to plastic surgery who recommended packing it with iodoform gauze and patient is already scheduled for follow-up in their office on Saturday. He was discharged in stable condition. Lab Data Attestation: I reviewed the patient's lab results. Labs: Laboratory Results - last 24 hr 02/21/24 12:25 WBC 6.6 RBC 4.36 L Hgb 12.8 L Hct 39.4 L MCV 90.4 MCH 29.4 MCHC 32.5 RDW Std Deviation 51.2 H RDW Coeff of Valeria 15.4 H Plt Count 170 MPV 9.9 Immature Gran % (Auto) 0.900 Neut % (Auto) 71.8 H Lymph % (Auto) 12.7 L [place] % (Auto) 9.0 Eos % (Auto) 4.4 Baso % (Auto) 1.2 H Absolute Neuts (auto) 4.8 Absolute Lymphs (auto) 0.84 Nucleated RBC % 0 Sodium 144 Potassium 4.0 Chloride 113 H Carbon Dioxide 26.0 Anion Gap 5 BUN 23 H Creatinine 0.98 Estim Creat Clear Calc 72.59 Est GFR (MDRD) Af Amer 95 Est GFR (MDRD) Non-Af 79 BUN/Creatinine Ratio 23.6 H Glucose 108 H Calcium 8.5 Radiography Diagnostic Testing: Clinical Impression(s) from Imaging Studies Abdomen/Pelvis CT 02/21/24 13:28 IMPRESSION: Stable appearance of the abdominal aorta as described. Postoperative changes are seen in the anterior abdominal wall distal to the umbilicus with the tissue defect and small collection of air with thickening of the abdominal wall anteriorly. Electronically Signed: Jose Ramon Earl MD at 13:54 EST Reading Location ID and State: [address] [place] [address] , Service support , <Dr. Boris Miller, DO - Last Filed: 02/21/24 16:04> [facility] Narrative Medical decision making narrative: History gathered from: Patient, spouse Consults: Plastic surgery Differential: Abdominal incision dehiscence, seroma, abscess Patient is 2 weeks postop from exploratory surgery for he nonhealing midline abdominal wound and had infected mesh removed. He has a small area that has dehisced and was bleeding today and presents for evaluation. He otherwise looks well and has stable vital signs. There is no active bleeding while he was lying down. The rest of his incision looks good with no signs of infection and his abdomen is soft and nontender. Labs show normal white count of 6.6 and hemoglobin 12.8 which is higher than his previous baseline. I consulted plastic surgery and Dr. Snell evaluated the patient in the ED and opened the small area that was bleeding and states that was serous fluid and requested a CT scan of the abdomen/pelvis. The CT shows postoperative changes with a tissue defect and a small collection of air but no large seroma no evidence of abscess. I relayed these findings to plastic surgery who recommended packing it with iodoform gauze and patient is already scheduled for follow-up in their office on Saturday. He was discharged in stable condition. I, Dr Miller, have reviewed the above progress note and course of action in the ER; agree with the above. I have personally seen and evaluated this patient, gone over history and physical, and discussed disposition and treatment plan with the patient. Lab Data Labs: Laboratory Results - last 24 hr 02/21/24 12:25 WBC 6.6 RBC 4.36 L Hgb 12.8 L Hct 39.4 L MCV 90.4 MCH 29.4 MCHC 32.5 RDW Std Deviation 51.2 H RDW Coeff of Valeria 15.4 H Plt Count 170 MPV 9.9 Immature Gran % (Auto) 0.900 Neut % (Auto) 71.8 H Lymph % (Auto) 12.7 L [place] % (Auto) 9.0 Eos % (Auto) 4.4 Baso % (Auto) 1.2 H Absolute Neuts (auto) 4.8 Absolute Lymphs (auto) 0.84 Nucleated RBC % 0 Sodium 144 Potassium 4.0 Chloride 113 H Carbon Dioxide 26.0 Anion Gap 5 BUN 23 H Creatinine 0.98 Estim Creat Clear Calc 72.59 Est GFR (MDRD) Af Amer 95 Est GFR (MDRD) Non-Af 79 BUN/Creatinine Ratio 23.6 H Glucose 108 H Calcium 8.5 Radiography Diagnostic Testing: Clinical Impression(s) from Imaging Studies Abdomen/Pelvis CT 02/21/24 13:28 IMPRESSION: Stable appearance of the abdominal aorta as described. Postoperative changes are seen in the anterior abdominal wall distal to the umbilicus with the tissue defect and small collection of air with thickening of the abdominal wall anteriorly. Electronically Signed: Jose Ramon Earl MD at 13:54 EST , Discharge Plan Triage Chief Complaint: Wound ED Midlevel Provider: Tammy Walker ED Provider: Boris Miller Dx/Rx/DC Orders Clinical Impression: Dehiscence of postoperative wound of abdomen, Abdominal wall seroma Instructions: ED Seroma, Postsurgical Prescriptions: No Action atorvastatin 80 mg tablet 80 mg PO QHS Patient Comments: TAKE 1 TABLET BY MOUTH EVERY DAY aspirin 81 mg Capsule 81 mg PO DAILY pantoprazole 40 mg Tablet,Delayed Release (Dr/Ec) 40 mg PO BID 30 Days Qty: 60 0RF doxycycline hyclate 100 mg capsule 100 mg PO BID 7 Days Qty: 14 0RF metoprolol succinate 100 mg tablet extended release 24 hr 100 mg PO DAILY sacubitril-valsartan [Entresto] 49-51 mg tablet 1 tab PO BID tamsulosin 0.4 mg capsule 0.4 mg PO QHS finasteride 5 mg tablet 5 mg PO DAILY Jardiance 10 mg tablet 10 mg PO DAILY Primary Care Provider: Malvin Freire Referrals: Malvin Freire DO [Primary Care Provider] - Ramses Snell MD [Med Staff - Active Staff] - Activity Restrictions/Additional Instructions: Follow up with Dr. Snell as scheduled on Saturday Print Language: Ukrainian Disposition Disposition: Home, Self Care Discharge Date/Time: 02/21/24 14:41
[2024-02-21 12:32] LABS: Absolute Lymphocyte Count 0.84 X10^3/uL (0.83-4.51); Absolute Neutrophil Count 4.8 X10^3/uL (2.0-7.7); Basophil# 0.08 X10^3/uL; Basophil% 1.2 % (0-1); Eosinophil# 0.29 X10^3/uL; Eosinophils% 4.4 % (0-5); Hematocrit 39.4 % (40-54); Hemoglobin 12.8 g/dL (13.0-16.5); Lymphocyte # 0.84 X10^3/ul (0.83-4.51); Lymphocyte % 12.7 % (19-41); Mean Corp Hgb Conc 32.5 g/dL (32-36); Mean Corpuscular Hgb 29.4 pg (27.0-32.0); Mean Corpuscular Volume 90.4 fL (80-94); Mean Platelet Vol. 9.9 fl (6.2-12.0); NRBC Flagged by Analyzer 0 % (0-5); Neutrophil # 4.76 X10^3/uL (2.7-7.7); Neutrophil % 71.8 % (47-70); Platelet Count 170 K/mm3 (150-450); RBC Distribution Width CV 15.4 % (11.6-14.6); RBC Distribution Width SD 51.2 fl (35.1-43.9); Red Blood Count 4.36 M/mm3 (4.6-6.2); White Blood Count 6.6 K/mm3 (4.4-11.0)
[2024-02-21 12:48] LABS: Anion Gap 5 (5-15); BUN 23 mg/dL (7-18); BUN/Creat Ratio 23.6 RATIO (10-20); Calcium,Total 8.5 mg/dL (8.5-10.1); Chloride 113 mmol/L (98-107); Creatinine, Serum 0.98 mg/dL (0.70-1.30); EST Glomerular Filtration Rate 79 mL/min (>60); Est Glom Filt Rate - Afr Amer 95 mL/min (>60); Estimated Creatinine Clearance 72.59 ml/min; Glucose 108 mg/dL (74-106); Sodium Level 144 mmol/L (136-145)
[2024-02-21 13:08] VITALS: BP 127/73; PULSE 54; RESP 16; O2SAT 96
--- NOTE | 2024-02-21 13:28 | CT_ITS ---
STUDY: CT ABDOMEN AND PELVIS WITH CONTRAST REASON FOR EXAM: Male, 78 years old. Post op hernia wound. History of aneurysm repair. RADIATION DOSAGE (If Supplied By Facility): CTDIvol = ( 19.36 ) mGy, DLP = ( 1223.43 ) mGycm TECHNIQUE: Transaxial images were obtained from the dome of the diaphragm to the symphysis pubis without oral contrast. IV 100mL Isovue-300 was administered. Sagittal and coronal images were reconstructed. Individualized dose optimization techniques were used for this CT. COMPARISON: Comparison is made with prior study dated November 14, 2023. FINDINGS: Increased markings in the posterior medial segment of the left lower lobe suggestive of atelectasis and/or early infiltrate superimposed on scarring. Prior CABG. Coronary artery calcification. There is decreased attenuation of the liver consistent with steatosis. Normal gallbladder and extrahepatic biliary system. Normal spleen. There is diffuse atrophy of the pancreas. Normal bilateral adrenal glands. Stable bilateral renal cysts. Normal visualized stomach. Normal small intestine. Normal colon. The appendix is visualized and appears normal. Stable infrarenal abdominal aortic aneurysm with a transverse dimension of 2.7 cm. Mural thrombus is seen. 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 Normal inferior vena cava. Normal retroperitoneum. The urinary bladder is distended. Tissue defect in the anterior abdominal wall catheter to the umbilicus. There is evidence of soft tissue thickening as well as a collection of air measuring 2.6 x 2.6 cm. This is in keeping with recent postsurgical changes. There is thickening of the underlying anterior abdominal wall musculature. There are diffuse degenerative changes of the visualized lumbar spine. Status post bilateral hip replacement. CT/Abdomen/Pelvis W IV Cont ONLY IMPRESSION: Stable appearance of the abdominal aorta as described. Postoperative changes are seen in the anterior abdominal wall distal to the umbilicus with the tissue defect and small collection of air with thickening of the abdominal wall anteriorly. Electronically Signed: Jose Ramon Earl MD at 13:54 EST ,
[2024-02-21 14:39] VITALS: BP 127/73; PULSE 77; RESP 16; TEMP 36.7; O2SAT 97
--- NOTE | 2024-02-21 14:39 | ED.RN ---
DR MUHAMMAD ADVISED THIS NURSE TO PACK ABD WOUND WITH IODOFRM AND COVER WITH AN ABD. DR SAWYER ADVISED PT NOT TO CHANGE THE DRESSING UNTIL HE SEES DR JACKMAN IN OFFICE ON SATURDAY.
--- NOTE | 2024-02-21 15:12 | CON.PCM.SX_ITS ---
Assessment & Plan Assessment/Plan (1) Abdominal wall seroma: PLAN: Verbal consent obtained Procedure performed: Seroma drainage Patient was prepped and draped in sterile fashion. A timeout was performed. 5 cc of 1% lidocaine was injected. A 15 blade scalpel and hemostat was used to enter the seroma cavity and approximately 100 cc of seroma fluid was removed. No signs of infection. Patient tolerated the procedure well The wound was left open for the CT scan (which did not demonstrate any residual fluid collection). The wound was then packed with iodoform gauze and was hemostatic. I talked to the patient and his and son extensively about wound care over the weekend where they will change the packing once per day. On my exam after seroma drainage, the wound is superficial and the fascia is intact. Fascia appears intact on the CT scan. Dr. Go from general surgery also saw the patient in the emergency department and agrees with the plan. Follow-up in the wound care center in 3 days with me. HPI Consult Data Date of Consult: 02/21/24 HPI Narrative HPI Narrative: MAGDALENO LUI, is a 78 M who presents with draining abdominal wound status post excision of infected mesh with closure by general surgery (Dr. Go) and plastic surgery (myself) on 06 February 2024. He was doing well until this morning his reports that a lot of fluid was coming out of the central portion of the incision. Patient has been feeling well overall, no fevers or chills. Drain was removed and general surgery clinic approximately 1 week ago. Today in the emergency department he has stable vital signs and a hemoglobin of 12.8. White blood cell count 6.6. [facility] Medical History Wears glasses DVT (deep venous thrombosis) Back pain Dietary restriction History of GI bleed Gastric reflux Shortness of breath on exertion Hypertension Cardiology follow-up encounter Chronic abdominal wound infection Coronary artery disease Surgical wound dehiscence Dehiscence of postoperative wound of abdomen Diverticulosis BPH (benign prostatic hyperplasia) Ventral hernia Peripheral arterial occlusive disease Carotid artery stenosis Osteoarthritis Insomnia Irritable bowel syndrome Hyperlipidemia History of deep vein thrombosis History of anemia PAC (premature atrial contraction) PVCs (premature ventricular contractions) Peripheral arterial disease Arthritis TIA (transient ischemic attack) Stroke/cerebrovascular accident Former smoker History of echocardiogram Hx of abdominal aortic aneurysm Home Medications ?Medication ?Instructions ?Recorded ?Last Taken ?Type aspirin 81 mg capsule 81 mg PO DAILY blood thinner 12/13/21 02/03/24 History atorvastatin 80 mg tablet 80 mg PO QHS cholesterol 12/13/21 02/05/24 21:00 History finasteride 5 mg tablet 5 mg PO DAILY bladder 07/09/23 02/05/24 09:00 History tamsulosin 0.4 mg capsule 0.4 mg PO QHS bladder 07/09/23 02/05/24 21:00 History pantoprazole 40 mg tablet,delayed 40 mg PO BID GERD 30 days #60 tabs 09/23/23 02/06/24 09:00 Rx release empagliflozin 10 mg tablet 10 mg PO DAILY DIABETES 12/09/23 02/05/24 09:00 History (Jardiance) metoprolol succinate 100 mg 100 mg PO DAILY HEART 02/03/24 02/06/24 09:00 History tablet,extended release 24 hr sacubitril 49 mg-valsartan 51 mg 1 tab PO BID BP 02/03/24 02/06/24 09:00 History tablet (Entresto) doxycycline hyclate 100 mg capsule 100 mg PO BID 7 days #14 caps 02/10/24 Unknown Rx Allergy/AdvReac Type Severity Reaction Status Date / Time No Known Allergies Allergy Verified 02/21/24 11:14 Family History Father Ruptured aneurysm of artery Mother Myocardial infarction Sister Cancer Brother CVA (cerebral vascular accident) Son Diabetes CAD (coronary artery disease) s/p stent. Daughter No problems noted. Surgical History Hx of umbilical hernia repair History of coronary artery bypass graft x 2 History of ventral hernia repair History of femoropopliteal bypass History of aortic aneurysm repair Status post carotid endarterectomy S/P hip replacement Hx of tracheostomy History of evacuation of hematoma Hx of total hip arthroplasty Hx of surgical procedure History of left-sided carotid endarterectomy Hx of abdominal surgery Social History household members: spouse Smoking Status: Former smoker alcohol intake: never substance use type: does not use Physical Exam Narrative Abdomen: Draining sinus in the middle of the vertical abdominal incision. Some fluctuance. THe fluid is SS. No induration and no purulence Lab / Micro Data 02/21/24 12:25 02/21/24 12:25 Labs: Laboratory Results - last 24 hr 02/21/24 12:25: WBC 6.6, RBC 4.36 L, Hgb 12.8 L, Hct 39.4 L, MCV 90.4, MCH 29.4, MCHC 32.5, RDW Std Deviation 51.2 H, RDW Coeff of Valeria 15.4 H, Plt Count 170, MPV 9.9, Immature Gran % (Auto) 0.900, Neut % (Auto) 71.8 H, Lymph % (Auto) 12.7 L, [place] % (Auto) 9.0, Eos % (Auto) 4.4, Baso % (Auto) 1.2 H, Absolute Neuts (auto) 4.8, Absolute Lymphs (auto) 0.84, Nucleated RBC % 0, Sodium 144, Potassium 4.0, Chloride 113 H, Carbon Dioxide 26.0, Anion Gap 5, BUN 23 H, Creatinine 0.98, Estim Creat Clear Calc 72.59, Est GFR (MDRD) Af Amer 95, Est GFR (MDRD) Non-Af 79, BUN/Creatinine Ratio 23.6 H, Glucose 108 H, Calcium 8.5 Imaging Radiology Impression Abdomen/Pelvis CT 02/21/24 13:28 IMPRESSION: Stable appearance of the abdominal aorta as described. Postoperative changes are seen in the anterior abdominal wall distal to the umbilicus with the tissue defect and small collection of air with thickening of the abdominal wall anteriorly. Electronically Signed: Jose Ramon Earl MD at 13:54 EST , Charges/Coding Multi Select Codes Visit Charges Office Visit/Consults: 72061 OV L5 Est 40 min
== END 2024-02-21 14:41 | disposition home or self-care (01) ==
PROVIDERS: Physician Assistant; Emergency Provider Emergency Medicine; PCP Student in an Organized Health Care Education/Training Program; Visit Provider Emergency Medicine
DX: T81.31XA Disruption of external operation (surgical) wound, not elsewhere classified, initial encounter (principal); X58.XXXA Exposure to other specified factors, initial encounter; L76.34 Postprocedural seroma of skin and subcutaneous tissue following other procedure; I25.10 Atherosclerotic heart disease of native coronary artery without angina pectoris; I10 Essential (primary) hypertension; E78.5 Hyperlipidemia, unspecified; Z95.1 Presence of aortocoronary bypass graft; Z79.82 Long term (current) use of aspirin; Z79.899 Other long term (current) drug therapy; Z87.891 Personal history of nicotine dependence
CPT/HCPCS: 10140; 74177; 80048; 85025; 99285; Q9967; A4216

== ENCOUNTER 2024-03-16 14:30 | Outpatient (RCR) | payer MEDICARE, OTHER, SELFPAY ==
[2024-02-16 00:16] VITALS: BP 119/86; PULSE 62; RESP 18; TEMP 36.4; BMI 34.4
[2024-02-24 14:59] VITALS: BP 139/80; PULSE 68; RESP 16; TEMP 35.9; BMI 34.4
--- NOTE | 2024-02-24 17:34 | PN.PCM_ITS ---
History of Present Illness Date of Service: 02/24/24 Chief Complaint: Surgical wound dehiscence/nonhealing abdominal surgical wound History of Wound: History of Wound: Kaden Latif is a 78 year-old male with a complicated past medical history who presents for abdominal wound from a ventral hernia repair dehiscence. The hernia had developed at a prior surgical site, as the patient has had multiple previous aortic repairs and other vascular surgeries. On September 28, 2008, the patient underwent left femoral?tibial artery bypass surgery. He underwent open ruptured abdominal aneurysm repair on July 11, 2012. It appears as though the patient subsequently required a second surgical intervention for an abdominal aortic aneurysm. He underwent left carotid endarterectomy on June 04, 2017. A left femoral pseudoaneurysm repair was performed in 2021. The patient then underwent his abdominal hernia repair in December [address] Pierce at [facility]. 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 Has had wound problems ever since. He developed a GI bleed last year and was admitted to the hospital, at which time he had a blood clot in his leg. He was treated with anticoagulation, but is no longer on any anticoagulation because it was considered provoked. He continue to do wound care to the abdominal incision. The most recent cultures of the drainage from the site were performed at [facility] on July 03, 2023. Culture results were positive for Staphylococcus aureus, and the patient was treated with Bactrim double strength orally twice daily at that time. 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 on April 19, 2023, which revealed postsurgical changes of the anterior abdominal wall, without definite focal rim-enhancing fluid collection to suggest an abscess. The other soft tissues including abdominopelvic wall are unremarkable. It has been stated by the patient that prosthetic mesh was used in the repair of his ventral abdominal hernia. He has been following at our [facility] in [place] with Dr. Hancock ever since. In August 2023, he underwent cardiac catheterization at [facility] in [place], [place], following which he required urgent coronary revascularization by means of bypass grafting, which was performed on September 06, 2023. He was subsequently admitted to the [facility] Transitional Care Unit on September 10, 2023, and discharged on September 23, 2023. He returned to the [facility] to resume his care related to the surgical wound dehiscence of his abdominal wall with Dr. Hanccok, who referred the patient to me for surgical management and possible reconstruction. Dr. Hancock has been treating the wound with Nu Gauze packing and weekly wound care/debridements in the wound care center. A wound culture which was again obtained earlier this month and was positive for Staphylococcus aureus, and the patient finished a course of doxycycline 100 mg p.o. twice daily for 10 days. SURGERY PREFORMED 06 Feb 2024: Infected mesh removal/wound debridement and closure over drain. Cultures grew MSSA. Subjective Subjective Has finshed Abx. Has a f/u with ID. Here today 3 days after seroma drainage in the ED. Dressing changes going well. Objective Data Objective Data Vital Signs: Vital Signs Temp Pulse Resp BP 96.6 F L 68 16 139/80 H 02/24/24 14:59 02/24/24 14:59 02/24/24 14:59 02/24/24 14:59 Weight: 220 lb Body Mass Index (BMI) 34.4 Charges/Coding Procedures Integumentary 111xxx-113xx: 12526 Rhonda musc/fascia 20 sq cm/< Physical Exam Narrative Abdomen: 3 x 1.5 cm and 3 cm deep with exposed fascia at the base (intact). No induration and no purulence Debridement Note Debridement Note Wound debrided: Central Abdomen Laterality: Not Applicable Type of Debridement: Excisional debridement Anesthesia Used: 4% Lidocaine Solution Depth: to muscle (and fascia ) Percentage of wound debrided: 100 Instrument Used: 5mm curette Severity: Necrosis of Muscle Amount of bleeding with debridement: Moderate Bleeding Controlled with: Compression and gauze Patient tolerated procedure: Patient tolerated procedure well Post-Debridement Measurements and Additional Note: Post-Debridement Measurements/Treatment - Nurse 1 - General Ulcer Assessment Start: 02/24/24 14:59 Freq: Status: Active Protocol: LIA Activity Type Activity Date Activity User E-sign Co-sign Detail Recorded Client Recorded Date Recorded By Document 02/24/24 14:59 ML [id number] 02/24/24 15:09 ML 02/24/24 14:59 - Today's Visit Information Type of service Follow-up Visit (Physician/ASSOCIATE PROFESSOR OF COMMUNICATION ) Arrival Mode Ambulatory,Cane Transfer Assistance None Patient Identification Verified (Name & Yes ) Patient Requires Transmission-Based No Precautions Height and Weight Body Mass Index (BMI) 34.4 BMI Classification Obese Vital Signs Temperature (97.8 F-99.1 F) 96.6 F L Temperature Source Temporal Pulse Rate (60-100) 68 Pulse Location Monitor Respiratory Rate (12-18) 16 Respiratory rate source Monitor Blood Pressure (90/60-120/80) 139/80 H Blood Pressure Mean (mm Hg) 99 Source Monitor Position Sitting Blood Pressure Location Right Arm History Since Last Visit- (Skip if this is Patient's initial visit) Have you changed medications since your No last visit? Any new allergies or adverse reactions No Had a fall/change in ADL's that may No increase risk of falls Signs or symptoms of abuse and/or No neglect since last visit Have you been in the hospital since your No last visit? Has dressing in place as prescribed Yes Has compression in place as prescribed N/A Has offloadiing in place as prescribed N/A Experienced any changes in pain level or No management Pain Scale: 0-10 Numeric Is Patient Pain Free? Yes WC - Nurse 1 - General Ulcer Measurement Start: 02/24/24 14:59 Freq: Status: Active Protocol: Activity Type Activity Date Activity User E-sign Co-sign Detail Recorded Client Recorded Date Recorded By Document 02/24/24 14:59 ML [id number] 02/24/24 15:09 ML 02/24/24 14:59 Wound Center Nurse 1 #1 abd/Post Op Hernia repair -Current Size (cm) - Length 3 -Current Size (cm) - Width 1 -Current Size (cm) - Depth 6 -Total Square Cm 3 -Exudate Amt Large -Exudate Type Serosanguineous -Wound Margin Distinct, Outline Attached -Granulation Amt Medium (34-66%) -Slough/Fibrin Yes -Necrosis Amt Medium (34-66%) -Necrotic Tissue Type Adherent Slough -Texture (Cleo-wound Skin Appearance) Assessed -Moisture (Cleo-wound Skin Appearance) Assessed -Color (Cleo-wound Skin Appearance) Assessed -Temperature (Cleo-wound Skin No Abnormality Appearance) (Pt Warm) -Tenderness on Palpation (Cleo-wound No Skin Appearance) -Ulcer Cleansing Soap and Water -Foul Odor after Cleansing No -Anesthetic Used 5% Lidocaine Gel WC - Nurse 2 - General Ulcer CM Notes Start: 02/24/24 14:59 Freq: Status: Active Protocol: Activity Type Activity Date Activity User E-sign Co-sign Detail Recorded Client Recorded Date Recorded By Document 02/24/24 15:55 [id number] 02/24/24 15:56 02/24/24 15:55 Wound Center Nurse 2 -Time 15:55 -Correct Patient Yes -Correct Side, Site, Position Yes -Correct Procedure Yes -Procedure Performed Yes -Type of Procedure Debridement -Clinical Debridement Muscle / Fascia -Tissue Removed Muscle -Post Debridement (cm) - Length 3.0 -Post Debridement (cm) - Width 1.5 -Post Debridement (cm) - Depth 3.0 -Total Square (Post) (cm) 4.50 -Area of Debridement (cm) - Length 3.0 -Area of Debridement (cm) - Width 1.5 -Total Square (Area) (cm) 4.50 -Tunneling No -Undermining/Tunneling No -Circular Undermining No -Wound/Ulcer Outcome Not Healed -Ulcer Cleansing Rinsed/ Irrigated with Saline -Foul Odor after Cleansing No -Bioengineered Tissue No -Bleeding Controlled with Pressure -Treatment Response Procedure Tolerated Well -Offloading No -Debridement - Muscle / Fascia, 1st Yes 20sq cm Pain Scale: 0-10 Numeric Is Patient Pain Free? Yes - Nurse 3 - General Ulcer D/C NN Start: 02/24/24 14:59 Freq: Status: Active Protocol: Activity Type Activity Date Activity User E-sign Co-sign Detail Recorded Client Recorded Date Recorded By Document 02/24/24 16:07 [id number] 02/24/24 16:07 02/24/24 16:07 Wound Care Center Nurse 3 #1 abd/Post Op Hernia repair -Primary Dressing Applied Hysept ($) -Other Dressing dakins soaked gauze -Primary Dressing Covered/Secured with Dry Gauze, Secured with Tape Pain Scale: 0-10 Numeric Is Patient Pain Free? Yes - Visit Discharge Discharge Condition Stable Ambulatory Status Ambulatory,Cane Transportation Private Auto Medication Reconcilliation completed & No provided to patient/care provider Clinical Summary of Care Provided Yes Assessment/Plan Assessment/Plan (1) Surgical wound dehiscence: CODE(S): T81.31XA - Disruption of external operation (surgical) wound, not elsewhere classified, initial encounter QUALIFIERS: Encounter type: subsequent encounter Qualified Code(s): T81.31XD - Disruption of external operation (surgical) wound, not elsewhere classified, subsequent encounter PLAN: Abdominal wound after infected Mesh removal by general surgery. S/p seroma I&D on 21 Feb 2024 (3 days ago). Ordering home wound VAC (three times per week changes). No signs of infection. Continue the dressing changes. Patient and wide happy with plan.
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
[2024-03-09 15:48] VITALS: BP 138/77; PULSE 64; RESP 20; TEMP 35.9; BMI 34.4
--- NOTE | 2024-03-09 18:40 | PN.PCM_ITS ---
History of Present Illness Date of Service: 03/09/24 Chief Complaint: Surgical wound dehiscence/nonhealing abdominal surgical wound History of Wound: History of Wound: Kaden Latif is a 78 year-old male with a complicated past medical history who presents for abdominal wound from a ventral hernia repair dehiscence. The hernia had developed at a prior surgical site, as the patient has had multiple previous aortic repairs and other vascular surgeries. On September 28, 2008, the patient underwent left femoral?tibial artery bypass surgery. He underwent open ruptured abdominal aneurysm repair on July 11, 2012. It appears as though the patient subsequently required a second surgical intervention for an abdominal aortic aneurysm. He underwent left carotid endarterectomy on June 04, 2017. A left femoral pseudoaneurysm repair was performed in 2021. The patient then underwent his abdominal hernia repair in December [address] Pierce at [facility]. 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 Has had wound problems ever since. He developed a GI bleed last year and was admitted to the hospital, at which time he had a blood clot in his leg. He was treated with anticoagulation, but is no longer on any anticoagulation because it was considered provoked. He continue to do wound care to the abdominal incision. The most recent cultures of the drainage from the site were performed at [facility] on July 03, 2023. Culture results were positive for Staphylococcus aureus, and the patient was treated with Bactrim double strength orally twice daily at that time. 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 The other soft tissues including abdominopelvic wall are unremarkable. It has been stated by the patient that prosthetic mesh was used in the repair of his ventral abdominal hernia. He has been following at our [facility] in [place] with Dr. Hancock ever since. In August 2023, he underwent cardiac catheterization at [facility] in [place], [place], following which he required urgent coronary revascularization by means of bypass grafting, which was performed on September 06, 2023. He was subsequently admitted to the [facility] Transitional Care Unit on September 10, 2023, and discharged on September 23, 2023. He returned to the [facility]aling [facility] to resume his care related to the surgical wound dehiscence of his abdominal wall with Dr. Hancock, who referred the patient to me for surgical management and possible reconstruction. Dr. Hancock has been treating the wound with Nu Gauze packing and weekly wound care/debridements in the wound care center. A wound culture which was again obtained earlier this month and was positive for Staphylococcus aureus, and the patient finished a course of doxycycline 100 mg p.o. twice daily for 10 days. SURGERY PREFORMED 06 Feb 2024: Infected mesh removal/wound debridement and closure over drain. Cultures grew MSSA. Subjective Subjective 21 Feb 2024: Has finished Abx. Has a f/u with ID. Here today 3 days after seroma drainage in the ED. Dressing changes going well. CURRENT ENCOUNTER, 09 Mar 2024: Doing well. VAC has been khadijah wound. No fevers or chills. Tolerating the VAC therapy. Objective Data Objective Data Vital Signs: Vital Signs Temp Pulse Resp BP 96.7 F L 64 20 H 138/77 H 03/09/24 15:48 03/09/24 15:48 03/09/24 15:48 03/09/24 15:48 Weight: 220 lb Body Mass Index (BMI) 34.4 Charges/Coding Procedures Integumentary 111xxx-113xx: 32962 Rhonda musc/fascia 20 sq cm/< Physical Exam Narrative Abdomen: 2 x 1.1 cm and 3 cm deep with exposed fascia at the base (intact). No induration and no purulence Debridement Note Debridement Note Wound debrided: Abdominal wound , midline Laterality: Not Applicable Type of Debridement: Excisional debridement Anesthesia Used: 4% Lidocaine Solution Depth: to muscle Percentage of wound debrided: 100 Instrument Used: 7mm curette Severity: Necrosis of Muscle Amount of bleeding with debridement: Mild Bleeding Controlled with: Compression and gauze Patient tolerated procedure: Patient tolerated procedure well Post-Debridement Measurements and Additional Note: Post-Debridement Measurements/Treatment WC - Nurse 1 - General Ulcer Assessment Start: 02/24/24 14:59 Freq: Status: Active Protocol: NICOLEEXJean Activity Type Activity Date Activity User E-sign Co-sign Detail Recorded Client Recorded Date Recorded By Document 02/24/24 14:59 ML [id number] 02/24/24 15:09 ML Document 12/23/24 15:48 DL [id number] 03/09/24 15:55 DL 02/24/24 03/09/24 14:59 15:48 WC - Today's Visit Information Type of service Follow-up Visit Follow-up Visit (Physician/PHARMACY CUSTOMER CARE SPECIALIST (Physician/PHARMACY CUSTOMER CARE SPECIALIST ) ) Arrival Mode Ambulatory,Cane Ambulatory Transfer Assistance None None Patient Identification Verified (Name & Yes Yes ) Patient Requires Transmission-Based No No Precautions Height and Weight Body Mass Index (BMI) 34.4 34.4 BMI Classification Obese Obese Vital Signs Temperature (97.8 F-99.1 F) 96.6 F L 96.7 F L Temperature Source Temporal Temporal Pulse Rate (60-100) 68 64 Pulse Location Monitor Monitor Respiratory Rate (12-18) 16 20 H Respiratory rate source Monitor Observation Blood Pressure (90/60-120/80) 139/80 H 138/77 H Blood Pressure Mean (mm Hg) 99 97 Source Monitor Monitor Position Sitting Blood Pressure Location Right Arm History Since Last Visit- (Skip if this is Patient's initial visit) Have you changed medications since your No No last visit? Any new allergies or adverse reactions No No Had a fall/change in ADL's that may No No increase risk of falls Signs or symptoms of abuse and/or No No neglect since last visit Have you been in the hospital since your No No last visit? Has dressing in place as prescribed Yes Yes Has compression in place as prescribed N/A N/A Has offloadiing in place as prescribed N/A N/A Experienced any changes in pain level or No No management Pain Scale: 0-10 Numeric Is Patient Pain Free? Yes Yes WC - Nurse 1 - General Ulcer Measurement Start: 02/24/24 14:59 Freq: Status: Active Protocol: Activity Type Activity Date Activity User E-sign Co-sign Detail Recorded Client Recorded Date Recorded By Document 02/24/24 14:59 ML [id number] 02/24/24 15:09 ML Document 03/09/24 15:48 DL [id number] 03/09/24 15:55 DL 02/24/24 03/09/24 14:59 15:48 Wound Center Nurse 1 #1 abd/Post Op Hernia repair -Current Size (cm) - Length 3 2 -Current Size (cm) - Width 1 1.1 -Current Size (cm) - Depth 6 2.6 -Total Square Cm 3 2.2 -Photo Taken Yes -Exudate Amt Large Medium -Exudate Type Serosanguineous Serosanguineous -Wound Margin Distinct, Distinct, Outline Outline Attached Attached -Granulation Amt Medium (34-66%) Large (67-100%) -Granulation Quality Ritchie -Slough/Fibrin Yes -Necrosis Amt Medium (34-66%) Small (1-33%) -Necrotic Tissue Type Adherent Slough Adherent Slough -Structure Exposed N/A -Texture (Cleo-wound Skin Appearance) Assessed Scarring,Rash -Moisture (Cleo-wound Skin Appearance) Assessed No Abnormality -Color (Cleo-wound Skin Appearance) Assessed No Abnormality -Temperature (Cleo-wound Skin No Abnormality No Abnormality Appearance) (Pt Warm) (Pt Warm) -Tenderness on Palpation (Cleo-wound No No Skin Appearance) -Ulcer Cleansing Soap and Water Soap and Water -Foul Odor after Cleansing No Yes, Due to Product Use -Anesthetic Used 5% Lidocaine 5% Lidocaine Gel Gel WC - Nurse 2 - General Ulcer CM Notes Start: 02/24/24 14:59 Freq: Status: Active Protocol: Activity Type Activity Date Activity User E-sign Co-sign Detail Recorded Client Recorded Date Recorded By Document 02/24/24 15:55 [id number] 02/24/24 15:56 Document 03/09/24 16:14 [id number] 03/09/24 16:16 02/24/24 03/09/24 15:55 16:14 Wound Center Nurse 2 #1 abd/Post Op Hernia repair -Time 15:55 16:15 -Correct Patient Yes Yes -Correct Side, Site, Position Yes Yes -Correct Procedure Yes Yes -Procedure Performed Yes Yes -Type of Procedure Debridement Debridement -Clinical Debridement Muscle / Fascia Muscle / Fascia -Tissue Removed Muscle Muscle,Fascia -Post Debridement (cm) - Length 3.0 2.0 -Post Debridement (cm) - Width 1.5 1.3 -Post Debridement (cm) - Depth 3.0 7.0 -Total Square (Post) (cm) 4.50 2.60 -Area of Debridement (cm) - Length 3.0 2.0 -Area of Debridement (cm) - Width 1.5 1.3 -Total Square (Area) (cm) 4.50 2.60 -Tunneling No No -Undermining/Tunneling No No -Circular Undermining No No -Wound/Ulcer Outcome Not Healed Not Healed -Ulcer Cleansing Rinsed/ Rinsed/ Irrigated with Irrigated with Saline Saline -Foul Odor after Cleansing No No -Bioengineered Tissue No No -Bleeding Controlled with Pressure Pressure -Treatment Response Procedure Procedure Tolerated Well Tolerated Well -Offloading No No -Debridement - Subq, 1st 20sq cm No -Debridement - Muscle / Fascia, 1st Yes Yes 20sq cm Pain Scale: 0-10 Numeric Is Patient Pain Free? Yes Yes - Nurse 3 - General Ulcer D/C NN Start: 02/24/24 14:59 Freq: Status: Active Protocol: Activity Type Activity Date Activity User E-sign Co-sign Detail Recorded Client Recorded Date Recorded By Document 02/24/24 16:07 [id number] 02/24/24 16:07 Document 03/09/24 16:28 [facility] [id number] 03/09/24 16:28 [facility] 02/24/24 03/09/24 16:07 16:28 Wound Care Center Nurse 3 #1 abd/Post Op Hernia repair -Ulcer Cleansing Rinsed/ Irrigated with Saline -Foul Odor after Cleansing No -Negative Pressure Wound Therapy Continue -Setting (mmHg) 125 -Negative Pressure is Continuous -Primary Dressing Applied Hysept ($) -Other Dressing dakins soaked gauze -Primary Dressing Covered/Secured with Dry Gauze, Secured with Tape -NPWT Application Charge NPWT & Debridement (nc ) Treatment Response Procedure Tolerated Well Pain Scale: 0-10 Numeric Is Patient Pain Free? Yes Yes - Visit Discharge Discharge Condition Stable Stable Ambulatory Status Ambulatory,Cane Ambulatory Transportation Private Auto Private Auto Accompanied by Medication Reconcilliation completed & No provided to patient/care provider Clinical Summary of Care Provided Yes Facility Type Home Health Assessment/Plan Assessment/Plan (1) Open abdominal wall wound: CODE(S): S31.109A - Unspecified open wound of abdominal wall, unspecified quadrant without penetration into peritoneal cavity, initial encounter PLAN: Continue three times per week VAC changes. Needs to granulate from the inside out. No signs of infection today. F/u in 1 week
[2024-03-16 14:26] VITALS: BP 134/53; PULSE 87; RESP 18; TEMP 36.1; BMI 34.4
--- NOTE | 2024-03-16 15:20 | PCM.WC.PN ---
History of Present Illness Date of Service: 03/16/24 Chief Complaint: Surgical wound dehiscence/nonhealing abdominal surgical wound History of Wound: History of Wound: Kaden Latif is a 78 year-old male with a complicated past medical history who presents for abdominal wound from a ventral hernia repair dehiscence. The hernia had developed at a prior surgical site, as the patient has had multiple previous aortic repairs and other vascular surgeries. On September 28, 2008, the patient underwent left femoral?tibial artery bypass surgery. He underwent open ruptured abdominal aneurysm repair on July 11, 2012. It appears as though the patient subsequently required a second surgical intervention for an abdominal aortic aneurysm. He underwent left carotid endarterectomy on June 04, 2017. A left femoral pseudoaneurysm repair was performed in 2021. The patient then underwent his abdominal hernia repair in December [address] Pierce at [facility]. 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 Has had wound problems ever since. He developed a GI bleed last year and was admitted to the hospital, at which time he had a blood clot in his leg. He was treated with anticoagulation, but is no longer on any anticoagulation because it was considered provoked. He continue to do wound care to the abdominal incision. The most recent cultures of the drainage from the site were performed at [facility] on July 03, 2023. Culture results were positive for Staphylococcus aureus, and the patient was treated with Bactrim double strength orally twice daily at that time. 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 The other soft tissues including abdominopelvic wall are unremarkable. It has been stated by the patient that prosthetic mesh was used in the repair of his ventral abdominal hernia. He has been following at our [facility] in [place] with Dr. Hancock ever since. In August 2023, he underwent cardiac catheterization at [facility] in [place], [place], following which he required urgent coronary revascularization by means of bypass grafting, which was performed on September 06, 2023. He was subsequently admitted to the [facility] on September 10, 2023, and discharged on September 23, 2023. He returned to the [facility] to resume his care related to the surgical wound dehiscence of his abdominal wall with Dr. Hancock, who referred the patient to me for surgical management and possible reconstruction. Dr. Hancock has been treating the wound with Nu Gauze packing and weekly wound care/debridements in the wound care center. A wound culture which was again obtained earlier this month and was positive for Staphylococcus aureus, and the patient finished a course of doxycycline 100 mg p.o. twice daily for 10 days. SURGERY PREFORMED 06 Feb 2024: Infected mesh removal/wound debridement and closure over drain. Cultures grew MSSA. Subjective Subjective 21 Feb 2024: Has finished Abx. Has a f/u with ID. Here today 3 days after seroma drainage in the ED. Dressing changes going well. 09 Mar 2024: Doing well. VAC has been khadijah wound. No fevers or chills. Tolerating the VAC therapy. CURRENT ENCOUNTER, 16 Mar 2024: Doing well. Feels like wound is smaller with the VAC therapy. Tolerating well. Objective Data Objective Data Vital Signs: Vital Signs Temp Pulse Resp BP O2 Del Method 97 F L 87 18 134/53 H Room Air 03/16/24 14:26 03/16/24 14:26 03/16/24 14:26 03/16/24 14:26 03/16/24 14:26 Oxygen Delivery Method Room Air Weight: 220 lb Body Mass Index (BMI) 34.4 Charges/Coding Procedures Integumentary 111xxx-113xx: 79021 Rhonda musc/fascia 20 sq cm/< Physical Exam Narrative Abdomen: 2 x 1 cm and 3.5 cm deep with exposed fascia at the base (intact). No induration and no purulence Debridement Note Debridement Note Wound debrided: Abdominal wound Laterality: Not Applicable Wound Grade/Stage: Down to fascia Type of Debridement: Excisional debridement Anesthesia Used: 4% Lidocaine Solution Depth: Down to and including healthy tissue Percentage of wound debrided: 100 Instrument Used: 7mm curette Severity: Necrosis of Muscle Amount of bleeding with debridement: Mild Bleeding Controlled with: Compression and gauze Patient tolerated procedure: Patient tolerated procedure well Post-Debridement Measurements and Additional Note: Post-Debridement Measurements/Treatment GINNA - Nurse 1 - General Ulcer Assessment Start: 02/24/24 14:59 Freq: Status: Active Protocol: WC.LOWEXT Activity Type Activity Date Activity User E-sign Co-sign Detail Recorded Client Recorded Date Recorded By Document 02/24/24 14:59 ML [id number] 02/24/24 15:09 ML Document 03/09/24 15:48 DL [id number] 03/09/24 15:55 DL Document 03/16/24 14:26 MT [id number] 03/16/24 14:37 MT 02/24/24 03/09/24 03/16/24 14:59 15:48 14:26 WC - Today's Visit Information Type of service Follow-up Visit Follow-up Visit Follow-up Visit (Physician/HOTEL ADMINISTRATIVE ASSISTANT (Physician/HOTEL ADMINISTRATIVE ASSISTANT (Physician/HOTEL ADMINISTRATIVE ASSISTANT ) ) ) Arrival Mode Ambulatory,Cane Ambulatory Ambulatory Transfer Assistance None None Accompanied by Patient Identification Verified (Name & Yes Yes Yes ) Patient Requires Transmission-Based No No Precautions Safety Precautions Fall Prevention Height and Weight Body Mass Index (BMI) 34.4 34.4 34.4 BMI Classification Obese Obese Obese Vital Signs Temperature (97.8 F-99.1 F) 96.6 F L 96.7 F L 97 F L Temperature Source Temporal Temporal Temporal Pulse Rate (60-100) 68 64 87 Pulse Location Monitor Monitor Monitor Respiratory Rate (12-18) 16 20 H 18 Respiratory rate source Monitor Observation Observation Oxygen Delivery Method Room Air Blood Pressure (90/60-120/80) 139/80 H 138/77 H 134/53 H Blood Pressure Mean (mm Hg) 99 97 80 Source Monitor Monitor Monitor Position Sitting Sitting Blood Pressure Location Right Arm Left Arm History Since Last Visit- (Skip if this is Patient's initial visit) Have you changed medications since your No No last visit? Any new allergies or adverse reactions No No Had a fall/change in ADL's that may No No increase risk of falls Signs or symptoms of abuse and/or No No neglect since last visit Have you been in the hospital since your No No last visit? Has dressing in place as prescribed Yes Yes Yes Has compression in place as prescribed N/A N/A Yes Has offloadiing in place as prescribed N/A N/A Yes Experienced any changes in pain level or No No Yes management Left Footwear Regular Shoe Right Footwear Regular Shoe Pain Scale: 0-10 Numeric Is Patient Pain Free? Yes Yes Yes - Nurse 1 - General Ulcer Measurement Start: 02/24/24 14:59 Freq: Status: Active Protocol: Activity Type Activity Date Activity User E-sign Co-sign Detail Recorded Client Recorded Date Recorded By Document 02/24/24 14:59 ML [id number] 02/24/24 15:09 ML Document 03/09/24 15:48 DL [id number] 03/09/24 15:55 DL Document 03/16/24 14:26 MT [id number] 03/16/24 14:37 MT 02/24/24 03/09/24 03/16/24 14:59 15:48 14:26 Wound Center Nurse 1 #1 abd/Post Op Hernia repair -Current Size (cm) - Length 3 2 2 -Current Size (cm) - Width 1 1.1 1.0 -Current Size (cm) - Depth 6 2.6 5.3 -Total Square Cm 3 2.2 2.0 -Photo Taken Yes No -Tunneling No -Tunneling Position (O'clock) 12 -Tunneling Distance (cm) 5.3 -Undermining/Tunneling No -Circular Undermining No -Change in Wound Grade/Stage No -Exudate Amt Large Medium Small -Exudate Type Serosanguineous Serosanguineous Serosanguineous -Wound Margin Distinct, Distinct, Thickened & Outline Outline Rolled Under Attached Attached -Granulation Amt Medium (34-66%) Large (67-100%) Large (67-100%) -Granulation Quality [place] Pale[place] -Slough/Fibrin Yes No -Necrosis Amt Medium (34-66%) Small (1-33%) None Present (0 %) -Necrotic Tissue Type Adherent Slough Adherent Slough -Structure Exposed N/A -Texture (Cleo-wound Skin Appearance) Assessed Scarring,Rash Assessed -Moisture (Cleo-wound Skin Appearance) Assessed No Abnormality Assessed -Color (Cleo-wound Skin Appearance) Assessed No Abnormality Assessed -Temperature (Cleo-wound Skin No Abnormality No Abnormality No Abnormality Appearance) (Pt Warm) (Pt Warm) (Pt Warm) -Tenderness on Palpation (Cleo-wound No No No Skin Appearance) -Ulcer Cleansing Soap and Water Soap and Water Soap and Water -Foul Odor after Cleansing No Yes, Due to No Product Use -Anesthetic Used 5% Lidocaine 5% Lidocaine 5% Lidocaine Gel Gel Gel Lower Limb Edema Present NA WC - Nurse 2 - General Ulcer CM Notes Start: 02/24/24 14:59 Freq: Status: Active Protocol: Activity Type Activity Date Activity User E-sign Co-sign Detail Recorded Client Recorded Date Recorded By Document 02/24/24 15:55 [id number] 02/24/24 15:56 Document 03/09/24 16:14 [id number] 03/09/24 16:16 Document 03/16/24 14:53 DS [id number] 03/16/24 14:55 DS 02/24/24 03/09/24 03/16/24 15:55 16:14 14:53 Wound Center Nurse 2 #1 abd/Post Op Hernia repair -Time 15:55 16:15 14:53 -Correct Patient Yes Yes Yes -Correct Side, Site, Position Yes Yes Yes -Correct Procedure Yes Yes Yes -Procedure Performed Yes Yes Yes -Type of Procedure Debridement Debridement Debridement -Clinical Debridement Muscle / Fascia Muscle / Fascia Muscle / Fascia -Tissue Removed Muscle Muscle,Fascia Fascia -Post Debridement (cm) - Length 3.0 2.0 1.0 -Post Debridement (cm) - Width 1.5 1.3 2.0 -Post Debridement (cm) - Depth 3.0 7.0 3.5 -Total Square (Post) (cm) 4.50 2.60 2.00 -Area of Debridement (cm) - Length 3.0 2.0 1.0 -Area of Debridement (cm) - Width 1.5 1.3 2.0 -Total Square (Area) (cm) 4.50 2.60 2.00 -Tunneling No No No -Undermining/Tunneling No No No -Circular Undermining No No No -Wound/Ulcer Outcome Not Healed Not Healed Not Healed -Ulcer Cleansing Rinsed/ Rinsed/ Rinsed/ Irrigated with Irrigated with Irrigated with Saline Saline Saline -Foul Odor after Cleansing No No -Bioengineered Tissue No No No -Bleeding Controlled with Pressure Pressure Pressure -Treatment Response Procedure Procedure Procedure Tolerated Well Tolerated Well Tolerated Well -Offloading No No -Debridement - Subq, 1st 20sq cm No -Debridement - Muscle / Fascia, 1st Yes Yes Yes 20sq cm Pain Scale: 0-10 Numeric Is Patient Pain Free? Yes Yes Yes WC - Nurse 3 - General Ulcer D/C NN Start: 02/24/24 14:59 Freq: Status: Active Protocol: Activity Type Activity Date Activity User E-sign Co-sign Detail Recorded Client Recorded Date Recorded By Document 02/24/24 16:07 KW [id number] 02/24/24 16:07 KW Document 03/09/24 16:28 [facility] [id number] 03/09/24 16:28 [facility] Document 03/16/24 15:13 DL [id number] 03/16/24 15:14 DL 02/24/24 03/09/24 03/16/24 16:07 16:28 15:13 Wound Care Center Nurse 3 #1 abd/Post Op Hernia repair -Ulcer Cleansing Rinsed/ Soap and Water Irrigated with Saline -Foul Odor after Cleansing No No -Negative Pressure Wound Therapy Continue Continue -Setting (mmHg) 125 125 -Negative Pressure is Continuous Continuous -Primary Dressing Applied Hysept ($) -Other Dressing dakins soaked gauze -Primary Dressing Covered/Secured with Dry Gauze, Secured with Tape -NPWT Application Charge NPWT & NPWT & Debridement (nc Debridement (nc ) ) Treatment Response Procedure Procedure Tolerated Well Tolerated Well Pain Scale: 0-10 Numeric Is Patient Pain Free? Yes Yes Yes WC - Visit Discharge Discharge Condition Stable Stable Stable Ambulatory Status Ambulatory,Cane Ambulatory Ambulatory,Cane Transportation Private Auto Private Auto Private Auto Accompanied by Medication Reconcilliation completed & No provided to patient/care provider Clinical Summary of Care Provided Yes Facility Type Home Health Home Health Orders Sent Yes Assessment/Plan Assessment/Plan (1) Open abdominal wall wound: CODE(S): S31.109A - Unspecified open wound of abdominal wall, unspecified quadrant without penetration into peritoneal cavity, initial encounter PLAN: Continue three times per week VAC changes. Needs to granulate from the inside out. No signs of infection today. F/u in 1 week
== END 2024-03-17 23:59 | disposition home or self-care (01) ==
LOC: WC 14:30
PROVIDERS: PCP Student in an Organized Health Care Education/Training Program; Referring Provider Student in an Organized Health Care Education/Training Program; Visit Provider Surgery Plastic and Reconstructive Surgery
DX: T81.31XA Disruption of external operation (surgical) wound, not elsewhere classified, initial encounter (principal); Y83.8 Other surgical procedures as the cause of abnormal reaction of the patient, or of later complication, without mention of misadventure at the time of the procedure; Z95.1 Presence of aortocoronary bypass graft; Z79.82 Long term (current) use of aspirin; Z79.85 Long-term (current) use of injectable non-insulin antidiabetic drugs; Z79.899 Other long term (current) drug therapy; Z86.718 Personal history of other venous thrombosis and embolism
CPT/HCPCS: 11043

== ENCOUNTER 2024-04-13 10:15 | Outpatient (RCR) | payer MEDICARE, OTHER, SELFPAY ==
[2024-03-18 00:11] VITALS: BP 119/86; PULSE 62; RESP 18; TEMP 36.4; BMI 34.4
[2024-03-23 13:07] VITALS: BP 149/63; PULSE 53; RESP 15; TEMP 36.6; BMI 34.4
--- NOTE | 2024-03-23 13:49 | PCM.WC.PN ---
History of Present Illness Date of Service: 03/23/24 Chief Complaint: Surgical wound dehiscence/nonhealing abdominal surgical wound History of Wound: History of Wound: Kaden Latif is a 78 year-old male with a complicated past medical history who presents for abdominal wound from a ventral hernia repair dehiscence. The hernia had developed at a prior surgical site, as the patient has had multiple previous aortic repairs and other vascular surgeries. On September 28, 2008, the patient underwent left femoral?tibial artery bypass surgery. He underwent open ruptured abdominal aneurysm repair on July 11, 2012. It appears as though the patient subsequently required a second surgical intervention for an abdominal aortic aneurysm. He underwent left carotid endarterectomy on June 04, 2017. A left femoral pseudoaneurysm repair was performed in 2021. The patient then underwent his abdominal hernia repair in December [address] Pierce at [facility]. 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 Has had wound problems ever since. He developed a GI bleed last year and was admitted to the hospital, at which time he had a blood clot in his leg. He was treated with anticoagulation, but is no longer on any anticoagulation because it was considered provoked. He continue to do wound care to the abdominal incision. The most recent cultures of the drainage from the site were performed at [facility] on July 03, 2023. Culture results were positive for Staphylococcus aureus, and the patient was treated with Bactrim double strength orally twice daily at that time. 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 The other soft tissues including abdominopelvic wall are unremarkable. It has been stated by the patient that prosthetic mesh was used in the repair of his ventral abdominal hernia. He has been following at our [facility] in [place] with Dr. Hancock ever since. In August 2023, he underwent cardiac catheterization at [facility] in [place], [place], following which he required urgent coronary revascularization by means of bypass grafting, which was performed on September 06, 2023. He was subsequently admitted to the [facility] on September 10, 2023, and discharged on September 23, 2023. He returned to the [facility] to resume his care related to the surgical wound dehiscence of his abdominal wall with Dr. Hancock, who referred the patient to me for surgical management and possible reconstruction. Dr. Hancock has been treating the wound with Nu Gauze packing and weekly wound care/debridements in the wound care center. A wound culture which was again obtained earlier this month and was positive for Staphylococcus aureus, and the patient finished a course of doxycycline 100 mg p.o. twice daily for 10 days. SURGERY PREFORMED 06 Feb 2024: Infected mesh removal/wound debridement and closure over drain. Cultures grew MSSA. Subjective Subjective 21 Feb 2024: Has finished Abx. Has a f/u with ID. Here today 3 days after seroma drainage in the ED. Dressing changes going well. 09 Mar 2024: Doing well. VAC has been khadijah wound. No fevers or chills. Tolerating the VAC therapy. 16 Mar 2024: Doing well. Feels like wound is smaller with the VAC therapy. Tolerating well. CURRENT ENCOUNTER, 23 Mar 2023: Doing well overall. No complaints,. No itching or pain. Objective Data Objective Data Vital Signs: Vital Signs Temp Pulse Resp BP 98 F 53 L 15 149/63 H 03/23/24 13:07 03/23/24 13:07 03/23/24 13:07 03/23/24 13:07 Weight: 220 lb Body Mass Index (BMI) 34.4 Charges/Coding Procedures Integumentary 111xxx-113xx: 43010 Rhonda subq tissue 20 sq cm/< Physical Exam Narrative Abdomen: 2 x 1 cm and 2 cm deep without exposure of fascia at the base. No induration and no purulence. Some skin irritation/yeast areas in the periwound Debridement Note Debridement Note Wound debrided: Abdominal wound , central Laterality: Not Applicable Type of Debridement: Excisional debridement Anesthesia Used: 4% Lidocaine Solution Depth: Down to and including healthy tissue and in the subcutaneous layer Percentage of wound debrided: 100 Instrument Used: 7mm curette Severity: Fat Layer Exposed Amount of bleeding with debridement: Mild Bleeding Controlled with: Compression and gauze Patient tolerated procedure: Patient tolerated procedure well Post-Debridement Measurements and Additional Note: Post-Debridement Measurements/Treatment GINNA - Nurse 1 - General Ulcer Assessment Start: 03/23/24 13:07 Freq: Status: Active Protocol: LIA Activity Type Activity Date Activity User E-sign Co-sign Detail Recorded Client Recorded Date Recorded By Document 03/23/24 13:07 [id number] 03/23/24 13:19 ML 03/23/24 13:07 - Today's Visit Information Type of service Follow-up Visit (Physician/CASE MANAGEMENT COORDINATOR ) Arrival Mode Ambulatory Patient Identification Verified (Name & Yes ) Patient Requires Transmission-Based No Precautions Height and Weight Body Mass Index (BMI) 34.4 BMI Classification Obese Vital Signs Temperature (97.8 F-99.1 F) 98 F Temperature Source Temporal Pulse Rate (60-100) 53 L Pulse Location Monitor Respiratory Rate (12-18) 15 Respiratory rate source Observation Blood Pressure (90/60-120/80) 149/63 H Blood Pressure Mean (mm Hg) 91 Source Monitor Position Supine Blood Pressure Location Right Arm History Since Last Visit- (Skip if this is Patient's initial visit) Have you changed medications since your No last visit? Any new allergies or adverse reactions No Had a fall/change in ADL's that may No increase risk of falls Signs or symptoms of abuse and/or No neglect since last visit Has dressing in place as prescribed Yes Has compression in place as prescribed N/A Has offloadiing in place as prescribed N/A Experienced any changes in pain level or No management Pain Scale: 0-10 Numeric Is Patient Pain Free? Yes - Nurse 1 - General Ulcer Measurement Start: 03/23/24 13:07 Freq: Status: Active Protocol: Activity Type Activity Date Activity User E-sign Co-sign Detail Recorded Client Recorded Date Recorded By Document 03/23/24 13:07 [id number] 03/23/24 13:19 03/23/24 13:07 Wound Center Nurse 1 #1 abd/Post Op Hernia repair -Current Size (cm) - Length 1 -Current Size (cm) - Width 1 -Current Size (cm) - Depth 1 -Total Square Cm 1 -Exudate Amt Large -Exudate Type Serosanguineous -Wound Margin Distinct, Outline Attached -Granulation Amt Medium (34-66%) -Granulation Quality [place] -Slough/Fibrin Yes -Necrosis Amt Large (67-100%) -Texture (Cleo-wound Skin Appearance) Assessed -Moisture (Cleo-wound Skin Appearance) Assessed -Color (Cleo-wound Skin Appearance) Assessed -Temperature (Cleo-wound Skin No Abnormality Appearance) (Pt Warm) -Tenderness on Palpation (Cleo-wound No Skin Appearance) -Ulcer Cleansing Soap and Water -Foul Odor after Cleansing Yes -Anesthetic Used 5% Lidocaine Gel - Nurse 2 - General Ulcer CM Notes Start: 03/23/24 13:07 Freq: Status: Active Protocol: Activity Type Activity Date Activity User E-sign Co-sign Detail Recorded Client Recorded Date Recorded By Document 03/23/24 13:25 [email or web address] [id number] 03/23/24 13:26 JF 03/23/24 13:25 Wound Center Nurse 2 -Time 13:25 -Correct Patient Yes -Correct Side, Site, Position Yes -Correct Procedure Yes -Procedure Performed Yes -Type of Procedure Debridement -Clinical Debridement Subcutaneous -Tissue Removed Subcutaneous -Post Debridement (cm) - Length 2.0 -Post Debridement (cm) - Width 1.0 -Post Debridement (cm) - Depth 2.0 -Total Square (Post) (cm) 2.00 -Area of Debridement (cm) - Length 2.0 -Area of Debridement (cm) - Width 1.0 -Total Square (Area) (cm) 2.00 -Tunneling No -Undermining/Tunneling No -Circular Undermining No -Wound/Ulcer Outcome Not Healed -Ulcer Cleansing Rinsed/ Irrigated with Saline -Foul Odor after Cleansing No -Bioengineered Tissue No -Bleeding Controlled with Pressure -Treatment Response Procedure Tolerated Well -Offloading No -Debridement - Subq, 1st 20sq cm Yes Pain Scale: 0-10 Numeric Is Patient Pain Free? Yes - Nurse 3 - General Ulcer D/C NN Start: 03/23/24 13:07 Freq: Status: Active Protocol: Activity Type Activity Date Activity User E-sign Co-sign Detail Recorded Client Recorded Date Recorded By Document 03/23/24 13:33 KW [id number] 03/23/24 13:33 KW 03/23/24 13:33 Wound Care Center Nurse 3 #1 abd/Post Op Hernia repair -Negative Pressure Wound Therapy Continue -Setting (mmHg) 125 -Negative Pressure is Continuous -NPWT Application Charge NPWT & Debridement (nc ) Pain Scale: 0-10 Numeric Is Patient Pain Free? Yes WC - Visit Discharge Discharge Condition Stable Ambulatory Status Ambulatory,Cane Transportation Private Auto Medication Reconcilliation completed & No provided to patient/care provider Clinical Summary of Care Provided Yes Assessment/Plan Assessment/Plan (1) Open abdominal wall wound: CODE(S): S31.109A - Unspecified open wound of abdominal wall, unspecified quadrant without penetration into peritoneal cavity, initial encounter PLAN: Continue three times per week VAC changes. Needs to granulate from the inside out. No signs of infection today. REcommended better skin care around VAC changes (wash with soap and water then dry). If any symptoms (skin irritation) or worsening of periwound, I will have him take a VAC holiday with WTD dressings that day and do a Nystatin powder. F/u in 1 week
--- NOTE | 2024-03-25 15:32 | WC ---
Nenita from [facility] called letting us know that patient's nayeli-wound is more excoriated and irritated today. Jenny the called saying she had to take off the vac last night because the seal was poor. She washed the area and packed it with Dakin's and gauze. She said the wound looks okay, denies any pain. Had some greenish drainage but foam was in the wound cavity. Nenita feels he would benefit from a break to let the periwound recover. They will be back out on Saturday to reassess the area. Patient is scheduled with Geri Easton NP on Saturday. Told Jenny the that if the vac does not get restarted before his next appt, to bring the vac and supplies on 03/30/24. She verbalized understanding.
[2024-03-30 09:08] VITALS: BP 141/95; PULSE 69; RESP 18; TEMP 36.1; BMI 34.4
--- NOTE | 2024-03-30 10:12 | PCM.WC.PN ---
History of Present Illness Date of Service: 03/30/24 Chief Complaint: Surgical wound dehiscence/nonhealing abdominal surgical wound History of Wound: History of Wound: Kaden Latif is a 78 year-old male with a complicated past medical history who presents for abdominal wound from a ventral hernia repair dehiscence. The hernia had developed at a prior surgical site, as the patient has had multiple previous aortic repairs and other vascular surgeries. On September 28, 2008, the patient underwent left femoral?tibial artery bypass surgery. He underwent open ruptured abdominal aneurysm repair on July 11, 2012. It appears as though the patient subsequently required a second surgical intervention for an abdominal aortic aneurysm. He underwent left carotid endarterectomy on June 04, 2017. A left femoral pseudoaneurysm repair was performed in 2021. The patient then underwent his abdominal hernia repair in December [address] Pierce at [facility]. 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 Has had wound problems ever since. He developed a GI bleed last year and was admitted to the hospital, at which time he had a blood clot in his leg. He was treated with anticoagulation, but is no longer on any anticoagulation because it was considered provoked. He continue to do wound care to the abdominal incision. The most recent cultures of the drainage from the site were performed at [facility] on July 03, 2023. Culture results were positive for Staphylococcus aureus, and the patient was treated with Bactrim double strength orally twice daily at that time. 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 The other soft tissues including abdominopelvic wall are unremarkable. It has been stated by the patient that prosthetic mesh was used in the repair of his ventral abdominal hernia. He has been following at our [facility] in [place] with Dr. Hancock ever since. In August 2023, he underwent cardiac catheterization at [facility] in [place], [place], following which he required urgent coronary revascularization by means of bypass grafting, which was performed on September 06, 2023. He was subsequently admitted to the [facility] Transitional Care Unit on September 10, 2023, and discharged on September 23, 2023. He returned to the [facility] to resume his care related to the surgical wound dehiscence of his abdominal wall with Dr. Hancock, who referred the patient to me for surgical management and possible reconstruction. Dr. Hancock has been treating the wound with Nu Gauze packing and weekly wound care/debridements in the wound care center. A wound culture which was again obtained earlier this month and was positive for Staphylococcus aureus, and the patient finished a course of doxycycline 100 mg p.o. twice daily for 10 days. SURGERY PREFORMED 06 Feb 2024: Infected mesh removal/wound debridement and closure over drain. Cultures grew MSSA. Progress of Wound: Cleo wound has improved with a break from the wound VAC. He continues to have some depth at the base of the ulcer but it is too narrow to pack with wound VAC foam. The ulcer has is beefy pink granulation tissue present. Objective Data Objective Data Vital Signs: Vital Signs Temp Pulse Resp BP O2 Del Method 97.0 F L 69 18 141/95 H Room Air 03/30/24 09:08 03/30/24 09:08 03/30/24 09:08 03/30/24 09:08 03/30/24 09:08 Oxygen Delivery Method Room Air Weight: 220 lb Body Mass Index (BMI) 34.4 Charges/Coding Procedures Integumentary 111xxx-113xx: 16489 Global Visit Physical Exam Narrative Lower abdominal ulcer is beefy pink. There continues to be narrow depth at the base of the ulcer. Cleo wound has improved with a break from the wound VAC drape. Debridement Note Debridement Note Wound debrided: Abdominal wound , central Laterality: Not Applicable Type of Debridement: Excisional debridement Anesthesia Used: 4% Lidocaine Solution Depth: Down to and including healthy tissue and in the subcutaneous layer Percentage of wound debrided: 100 Instrument Used: 3mm curette Tissue Removed: Non viable tissue and slough Severity: Fat Layer Exposed Amount of bleeding with debridement: Mild Bleeding Controlled with: Compression and gauze Patient tolerated procedure: Patient tolerated procedure well Post-Debridement Measurements and Additional Note: Post-Debridement Measurements/Treatment GINNA - Nurse 1 - General Ulcer Assessment Start: 03/23/24 13:07 Freq: Status: Active Protocol: LIA Activity Type Activity Date Activity User E-sign Co-sign Detail Recorded Client Recorded Date Recorded By Document 03/23/24 13:07 ML [id number] 03/23/24 13:19 ML Document 03/30/24 09:08 KW [id number] 03/30/24 09:12 KW 03/23/24 03/30/24 13:07 09:08 - Today's Visit Information Type of service Follow-up Visit Follow-up Visit (Physician/CAGE UNLOADER (Physician/CAGE UNLOADER ) ) Arrival Mode Ambulatory Ambulatory,Cane Accompanied by Patient Identification Verified (Name & Yes Yes ) Patient Requires Transmission-Based No Precautions Height and Weight Body Mass Index (BMI) 34.4 34.4 BMI Classification Obese Obese Vital Signs Temperature (97.8 F-99.1 F) 98 F 97.0 F L Temperature Source Temporal Temporal Pulse Rate (60-100) 53 L 69 Pulse Location Monitor Monitor Respiratory Rate (12-18) 15 18 Respiratory rate source Observation Observation Oxygen Delivery Method Room Air Blood Pressure (90/60-120/80) 149/63 H 141/95 H Blood Pressure Mean (mm Hg) 91 110 Source Monitor Monitor Position Supine Semi-Fowlers Blood Pressure Location Right Arm Left Arm History Since Last Visit- (Skip if this is Patient's initial visit) Have you changed medications since your No No last visit? Any new allergies or adverse reactions No No Had a fall/change in ADL's that may No No increase risk of falls Signs or symptoms of abuse and/or No No neglect since last visit Have you been in the hospital since your No last visit? Has dressing in place as prescribed Yes Yes Has compression in place as prescribed N/A N/A Has offloadiing in place as prescribed N/A N/A Experienced any changes in pain level or No No management Left Footwear Regular Shoe Right Footwear Regular Shoe Pain Scale: 0-10 Numeric Is Patient Pain Free? Yes Yes - Nurse 1 - General Ulcer Measurement Start: 03/23/24 13:07 Freq: Status: Active Protocol: Activity Type Activity Date Activity User E-sign Co-sign Detail Recorded Client Recorded Date Recorded By Document 03/23/24 13:07 ML [id number] 03/23/24 13:19 ML Document 03/30/24 09:08 KW [id number] 03/30/24 09:12 KW 03/23/24 03/30/24 13:07 09:08 Wound Center Nurse 1 #1 abd/Post Op Hernia repair -Current Size (cm) - Length 1 1.5 -Current Size (cm) - Width 1 1.9 -Current Size (cm) - Depth 1 1 -Total Square Cm 1 2.85 -Date of Last Picture (Recall this 03/30/24 field) -Exudate Amt Large Small -Exudate Type Serosanguineous Serosanguineous -Wound Margin Distinct, Distinct, Outline Outline Attached Attached -Granulation Amt Medium (34-66%) Large (67-100%) -Granulation Quality [place] Red -Slough/Fibrin Yes -Necrosis Amt Large (67-100%) -Texture (Cleo-wound Skin Appearance) Assessed Assessed -Moisture (Cleo-wound Skin Appearance) Assessed Assessed,Dry/ Scaly -Color (Cleo-wound Skin Appearance) Assessed Assessed -Temperature (Cleo-wound Skin No Abnormality No Abnormality Appearance) (Pt Warm) (Pt Warm) -Tenderness on Palpation (Cleo-wound No No Skin Appearance) -Ulcer Cleansing Soap and Water Soap and Water -Foul Odor after Cleansing Yes No -Anesthetic Used 5% Lidocaine 5% Lidocaine Gel Gel WC - Nurse 2 - General Ulcer CM Notes Start: 03/23/24 13:07 Freq: Status: Active Protocol: Activity Type Activity Date Activity User E-sign Co-sign Detail Recorded Client Recorded Date Recorded By Document 03/23/24 13:25 [id number] 03/23/24 13:26 Document 03/30/24 09:33 [id number] 03/30/24 09:38 03/23/24 03/30/24 13:25 09:33 Wound Center Nurse 2 #1 abd/Post Op Hernia repair -Time 13:25 09:33 -Correct Patient Yes Yes -Correct Side, Site, Position Yes Yes -Correct Procedure Yes Yes -Procedure Performed Yes Yes -Type of Procedure Debridement Debridement -Clinical Debridement Subcutaneous Subcutaneous -Tissue Removed Subcutaneous Subcutaneous -Post Debridement (cm) - Length 2.0 1.3 -Post Debridement (cm) - Width 1.0 0.8 -Post Debridement (cm) - Depth 2.0 3.2 -Total Square (Post) (cm) 2.00 1.04 -Area of Debridement (cm) - Length 2.0 1.3 -Area of Debridement (cm) - Width 1.0 0.8 -Total Square (Area) (cm) 2.00 1.04 -Tunneling No No -Undermining/Tunneling No No -Circular Undermining No No -Wound/Ulcer Outcome Not Healed Not Healed -Ulcer Cleansing Rinsed/ Rinsed/ Irrigated with Irrigated with Saline Saline -Foul Odor after Cleansing No No -Bioengineered Tissue No No -Bleeding Controlled with Pressure Pressure -Treatment Response Procedure Procedure Tolerated Well Tolerated Well -Offloading No -Debridement - Subq, 1st 20sq cm Yes Yes Pain Scale: 0-10 Numeric Is Patient Pain Free? Yes Yes - Nurse 3 - General Ulcer D/C NN Start: 03/23/24 13:07 Freq: Status: Active Protocol: Activity Type Activity Date Activity User E-sign Co-sign Detail Recorded Client Recorded Date Recorded By Document 03/23/24 13:33 KW [id number] 03/23/24 13:33 KW Document 03/30/24 09:47 KW [id number] 03/30/24 09:48 KW 03/23/24 03/30/24 13:33 09:47 Wound Care Center Nurse 3 #1 abd/Post Op Hernia repair -Negative Pressure Wound Therapy Continue -Setting (mmHg) 125 -Negative Pressure is Continuous -Primary Dressing Applied Nugauze, Iodoform 1/2in, Silicone Border Foam 4x4 -Other Dressing FLUFFED GAUZE -Primary Dressing Covered/Secured with Dry Gauze -NPWT Application Charge NPWT & Debridement (nc ) -Nugauze, Iodoform 1/2in 1 -Silicone Border Foam 4x4 1 Pain Scale: 0-10 Numeric Is Patient Pain Free? Yes Yes - Visit Discharge Discharge Condition Stable Stable Ambulatory Status Ambulatory,Cane Ambulatory,Cane Transportation Private Auto Private Auto Medication Reconcilliation completed & No No provided to patient/care provider Clinical Summary of Care Provided Yes Yes Assessment/Plan Assessment/Plan (1) Open abdominal wall wound: CODE(S): S31.109A - Unspecified open wound of abdominal wall, unspecified quadrant without penetration into peritoneal cavity, initial encounter PLAN: Discontinue Wound VAC. The tunnel is too small to pack effectively with foam. We can reconsider the wound VAC in the future after the narrow tunnel closes. Needs to granulate from the inside out. No signs of infection today. Wound care- 1/2 inch iodoform gauze packed into the base of the ulcer cover with gauze or ABD daily. Make sure to wash ulcer and cleo wound with soap and water at the time of the dressing change. F/u in 1 week
[2024-04-06 13:16] VITALS: BP 134/89; PULSE 74; RESP 16; TEMP 36; BMI 34.4
--- NOTE | 2024-04-06 14:04 | PCM.WC.PN ---
History of Present Illness Date of Service: 04/06/24 Chief Complaint: Surgical wound dehiscence/nonhealing abdominal surgical wound History of Wound: History of Wound: Kaden Latif is a 78 year-old male with a complicated past medical history who presents for abdominal wound from a ventral hernia repair dehiscence. The hernia had developed at a prior surgical site, as the patient has had multiple previous aortic repairs and other vascular surgeries. On September 28, 2008, the patient underwent left femoral?tibial artery bypass surgery. He underwent open ruptured abdominal aneurysm repair on July 11, 2012. It appears as though the patient subsequently required a second surgical intervention for an abdominal aortic aneurysm. He underwent left carotid endarterectomy on June 04, 2017. A left femoral pseudoaneurysm repair was performed in 2021. The patient then underwent his abdominal hernia repair in December [address] Pierce at [facility]. 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 Has had wound problems ever since. He developed a GI bleed last year and was admitted to the hospital, at which time he had a blood clot in his leg. He was treated with anticoagulation, but is no longer on any anticoagulation because it was considered provoked. He continue to do wound care to the abdominal incision. The most recent cultures of the drainage from the site were performed at [facility] on July 03, 2023. Culture results were positive for Staphylococcus aureus, and the patient was treated with Bactrim double strength orally twice daily at that time. 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 The other soft tissues including abdominopelvic wall are unremarkable. It has been stated by the patient that prosthetic mesh was used in the repair of his ventral abdominal hernia. He has been following at our [facility] in [place] with Dr. Hancock ever since. In August 2023, he underwent cardiac catheterization at [facility] in [place], [place], following which he required urgent coronary revascularization by means of bypass grafting, which was performed on September 06, 2023. He was subsequently admitted to the [facility] Care Unit on September 10, 2023, and discharged on September 23, 2023. He returned to the [facility]aling Center to resume his care related to the surgical wound dehiscence of his abdominal wall with Dr. Hancock, who referred the patient to me for surgical management and possible reconstruction. Dr. Hancock has been treating the wound with Nu Gauze packing and weekly wound care/debridements in the wound care center. A wound culture which was again obtained earlier this month and was positive for Staphylococcus aureus, and the patient finished a course of doxycycline 100 mg p.o. twice daily for 10 days. SURGERY PREFORMED 06 Feb 2024: Infected mesh removal/wound debridement and closure over drain. Cultures grew MSSA. Progress of Wound: Current encounter 06 Apr 2024: Nayeli wound is much improved now that the wound VAC has been discontinued. There continues to be some depth but it is easier to pack. Ulcer bed is nice beefy pink. Objective Data Objective Data Vital Signs: Vital Signs Temp Pulse Resp BP O2 Del Method 96.8 F L 74 16 134/89 H Room Air 04/06/24 13:16 04/06/24 13:16 04/06/24 13:16 04/06/24 13:16 04/06/24 13:16 Oxygen Delivery Method Room Air Weight: 220 lb Body Mass Index (BMI) 34.4 Charges/Coding Procedures Integumentary 111xxx-113xx: 43978 Global Visit Physical Exam Narrative Lowe abdominal ulcer is nice beefy pink. Nayeli wound is much improved. Debridement Note Debridement Note Wound debrided: Abdominal ulcer , central Laterality: Not Applicable Type of Debridement: Excisional debridement Anesthesia Used: 4% Lidocaine Solution Depth: Down to and including healthy tissue and in the subcutaneous layer Percentage of wound debrided: 100 Instrument Used: 3mm curette Tissue Removed: Non viable tissue and slough Severity: Fat Layer Exposed Amount of bleeding with debridement: Mild Bleeding Controlled with: Compression and gauze Patient tolerated procedure: Patient tolerated procedure well Post-Debridement Measurements and Additional Note: Post-Debridement Measurements/Treatment WC - Nurse 1 - General Ulcer Assessment Start: 03/23/24 13:07 Freq: Status: Active Protocol: LIA Activity Type Activity Date Activity User E-sign Co-sign Detail Recorded Client Recorded Date Recorded By Document 03/23/24 13:07 ML [id number] 03/23/24 13:19 ML Document 03/30/24 09:08 KW [id number] 03/30/24 09:12 KW Document 04/06/24 13:16 BMF [id number] 04/06/24 13:24 BMF 03/23/24 03/30/24 04/06/24 13:07 09:08 13:16 - Today's Visit Information Type of service Follow-up Visit Follow-up Visit Follow-up Visit (Physician/INSPECTOR OF WEIGHTS AND MEASURES (Physician/INSPECTOR OF WEIGHTS AND MEASURES (Physician/INSPECTOR OF WEIGHTS AND MEASURES ) ) ) Arrival Mode Ambulatory Ambulatory,Cane Ambulatory Transfer Assistance None Accompanied by Patient Identification Verified (Name & Yes Yes Yes ) Patient Requires Transmission-Based No No Precautions Height and Weight Body Mass Index (BMI) 34.4 34.4 34.4 BMI Classification Obese Obese Obese Vital Signs Temperature (97.8 F-99.1 F) 98 F 97.0 F L 96.8 F L Temperature Source Temporal Temporal Temporal Pulse Rate (60-100) 53 L 69 74 Pulse Location Monitor Monitor Monitor Respiratory Rate (12-18) 15 18 16 Respiratory rate source Observation Observation Observation Oxygen Delivery Method Room Air Room Air Blood Pressure (90/60-120/80) 149/63 H 141/95 H 134/89 H Blood Pressure Mean (mm Hg) 91 110 104 Source Monitor Monitor Monitor Position Supine Semi-Fowlers Sitting Blood Pressure Location Right Arm Left Arm Left Arm History Since Last Visit- (Skip if this is Patient's initial visit) Have you changed medications since your No No No last visit? Any new allergies or adverse reactions No No No Had a fall/change in ADL's that may No No No increase risk of falls Signs or symptoms of abuse and/or No No No neglect since last visit Have you been in the hospital since your No No last visit? Has dressing in place as prescribed Yes Yes Yes Has compression in place as prescribed N/A N/A N/A Has offloadiing in place as prescribed N/A N/A N/A Experienced any changes in pain level or No No No management Left Footwear Regular Shoe Regular Shoe Right Footwear Regular Shoe Regular Shoe Pain Scale: 0-10 Numeric Is Patient Pain Free? Yes Yes Yes - Nurse 1 - General Ulcer Measurement Start: 03/23/24 13:07 Freq: Status: Active Protocol: Activity Type Activity Date Activity User E-sign Co-sign Detail Recorded Client Recorded Date Recorded By Document 03/23/24 13:07 ML [id number] 03/23/24 13:19 ML Document 03/30/24 09:08 KW [id number] 03/30/24 09:12 KW Document 04/06/24 13:16 BMF [id number] 04/06/24 13:24 BMF 03/23/24 03/30/24 04/06/24 13:07 09:08 13:16 Wound Center Nurse 1 #1 abd/Post Op Hernia repair -Combined with other wound No -Current Size (cm) - Length 1 1.5 0.9 -Current Size (cm) - Width 1 1.9 0.8 -Current Size (cm) - Depth 1 1 2.8 -Total Square Cm 1 2.85 0.72 -Date of Last Picture (Recall this 03/30/24 04/06/24 field) -Photo Taken Yes -Exudate Amt Large Small Large -Exudate Type Serosanguineous Serosanguineous Serosanguineous -Wound Margin Distinct, Distinct, Distinct, Outline Outline Outline Attached Attached Attached -Granulation Amt Medium (34-66%) Large (67-100%) Large (67-100%) -Granulation Quality [place] Red Red -Slough/Fibrin Yes No -Necrosis Amt Large (67-100%) None Present (0 %) -Texture (Nayeli-wound Skin Appearance) Assessed Assessed Assessed, Scarring -Moisture (Nayeli-wound Skin Appearance) Assessed Assessed,Dry/ Assessed,Dry/ Scaly Scaly -Color (Nayeli-wound Skin Appearance) Assessed Assessed Assessed -Temperature (Nayeli-wound Skin No Abnormality No Abnormality No Abnormality Appearance) (Pt Warm) (Pt Warm) (Pt Warm) -Tenderness on Palpation (Nayeli-wound No No No Skin Appearance) -Ulcer Cleansing Soap and Water Soap and Water Rinsed/ Irrigated with Saline -Foul Odor after Cleansing Yes No No -Anesthetic Used 5% Lidocaine 5% Lidocaine 5% Lidocaine Gel Gel Gel WC - Nurse 2 - General Ulcer CM Notes Start: 03/23/24 13:07 Freq: Status: Active Protocol: Activity Type Activity Date Activity User E-sign Co-sign Detail Recorded Client Recorded Date Recorded By Document 03/23/24 13:25 JF [id number] 03/23/24 13:26 JF Document 03/30/24 09:33 [id number] 03/30/24 09:38 GM Document 04/06/24 13:43 DS [id number] 04/06/24 13:44 DS 03/23/24 03/30/24 04/06/24 13:25 09:33 13:43 Wound Center Nurse 2 #1 abd/Post Op Hernia repair -Time 13: 09:33 13:40 -Correct Patient Yes Yes Yes -Correct Side, Site, Position Yes Yes Yes -Correct Procedure Yes Yes Yes -Procedure Performed Yes Yes Yes -Type of Procedure Debridement Debridement Debridement -Clinical Debridement Subcutaneous Subcutaneous Subcutaneous -Tissue Removed Subcutaneous Subcutaneous Subcutaneous -Post Debridement (cm) - Length 2.0 1.3 1.1 -Post Debridement (cm) - Width 1.0 0.8 1.0 -Post Debridement (cm) - Depth 2.0 3.2 4.0 -Total Square (Post) (cm) 2.00 1.04 1.10 -Area of Debridement (cm) - Length 2.0 1.3 1.1 -Area of Debridement (cm) - Width 1.0 0.8 1.0 -Total Square (Area) (cm) 2.00 1.04 1.10 -Tunneling No No No -Undermining/Tunneling No No No -Circular Undermining No No No -Wound/Ulcer Outcome Not Healed Not Healed Not Healed -Ulcer Cleansing Rinsed/ Rinsed/ Rinsed/ Irrigated with Irrigated with Irrigated with Saline Saline Saline -Foul Odor after Cleansing No No No -Bioengineered Tissue No No No -Bleeding Controlled with Pressure Pressure -Treatment Response Procedure Procedure Tolerated Well Tolerated Well -Offloading No -Debridement - Subq, 1st 20sq cm Yes Yes Yes Pain Scale: 0-10 Numeric Is Patient Pain Free? Yes Yes Yes - Nurse 3 - General Ulcer D/C NN Start: 03/23/24 13:07 Freq: Status: Active Protocol: Activity Type Activity Date Activity User E-sign Co-sign Detail Recorded Client Recorded Date Recorded By Document 03/23/24 13:33 KW [id number] 03/23/24 13:33 KW Document 03/30/24 09:47 KW [id number] 03/30/24 09:48 KW Document 04/06/24 13:57 BM [id number] 04/06/24 13:58 BM 03/23/24 03/30/24 04/06/24 13:33 09:47 13:57 Wound Care Center Nurse 3 #1 abd/Post Op Hernia repair -Ulcer Cleansing Rinsed/ Irrigated with Saline -Foul Odor after Cleansing No -Negative Pressure Wound Therapy Continue -Setting (mmHg) 125 -Negative Pressure is Continuous -Primary Dressing Applied Nugauze, Iodoform 1/2in, Silicone Border Foam 4x4 -Primary Dressing Applied Nugauze, Iodoform 1/2in, Silicone Border Foam 4x4 -Other Dressing FLUFFED GAUZE -Primary Dressing Covered/Secured with Dry Gauze Dry Gauze -NPWT Application Charge NPWT & Debridement (nc ) -Nugauze, Iodoform 1/2in 1 1 -Silicone Border Foam 4x4 1 1 Treatment Response Procedure Tolerated Well Pain Scale: 0-10 Numeric Is Patient Pain Free? Yes Yes Yes WC - Visit Discharge Discharge Condition Stable Stable Stable Ambulatory Status Ambulatory,Cane Ambulatory,Cane Ambulatory,Cane Transportation Private Auto Private Auto Private Auto Accompanied by Medication Reconcilliation completed & No No provided to patient/care provider Clinical Summary of Care Provided Yes Yes Assessment/Plan Assessment/Plan (1) Abdominal wall skin ulcer: CODE(S): L98.499 - Non-pressure chronic ulcer of skin of other sites with unspecified severity QUALIFIERS: Non-pressure ulcer stage: with fat layer exposed Qualified Code(s): L98.492 - Non-pressure chronic ulcer of skin of other sites with fat layer exposed PLAN: Plan Patient was evaluated at the wound healing center today. Wound care - Pack with Iodoform gauze and cover with ABD daily. Wash ulcer and nayeli wound with soap and water at the time of dressing changes. Discussed plan of care with Dr. Snell. F/u in 1 week
--- NOTE | 2024-04-07 09:04 | WC ---
PHOTO 04/06/24 ABD
[2024-04-13 10:17] VITALS: BP 127/73; PULSE 63; RESP 16; BMI 34.4
--- NOTE | 2024-04-13 12:53 | PCM.WC.PN ---
History of Present Illness Date of Service: 04/13/24 Chief Complaint: Surgical wound dehiscence/nonhealing abdominal surgical wound History of Wound: History of Wound: Kaden Latif is a 78 year-old male with a complicated past medical history who presents for abdominal wound from a ventral hernia repair dehiscence. The hernia had developed at a prior surgical site, as the patient has had multiple previous aortic repairs and other vascular surgeries. On September 28, 2008, the patient underwent left femoral?tibial artery bypass surgery. He underwent open ruptured abdominal aneurysm repair on July 11, 2012. It appears as though the patient subsequently required a second surgical intervention for an abdominal aortic aneurysm. He underwent left carotid endarterectomy on June 04, 2017. A left femoral pseudoaneurysm repair was performed in 2021. The patient then underwent his abdominal hernia repair in December [address] Pierce at [facility]. 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 Has had wound problems ever since. He developed a GI bleed last year and was admitted to the hospital, at which time he had a blood clot in his leg. He was treated with anticoagulation, but is no longer on any anticoagulation because it was considered provoked. He continue to do wound care to the abdominal incision. The most recent cultures of the drainage from the site were performed at [facility] on July 03, 2023. Culture results were positive for Staphylococcus aureus, and the patient was treated with Bactrim double strength orally twice daily at that time. In an effort to identify the possible cause of the persistent sinus tract, the patient had a CT scan at [facility] on April 19, 2023, which revealed postsurgical changes of the anterior abdominal wall, without definite focal rim-enhancing fluid collection to suggest an abscess. The other soft tissues including abdominopelvic wall are unremarkable. It has been stated by the patient that prosthetic mesh was used in the repair of his ventral abdominal hernia. He has been following at our [facility] in [place] with Dr. Hancock ever since. In August 2023, he underwent cardiac catheterization at [facility] in [place], [place], following which he required urgent coronary revascularization by means of bypass grafting, which was performed on September 06, 2023. He was subsequently admitted to the [facility] on September 10, 2023, and discharged on September 23, 2023. He returned to the [facility] to resume his care related to the surgical wound dehiscence of his abdominal wall with Dr. Hancock, who referred the patient to me for surgical management and possible reconstruction. Dr. Hancock has been treating the wound with Nu Gauze packing and weekly wound care/debridements in the wound care center. A wound culture which was again obtained earlier this month and was positive for Staphylococcus aureus, and the patient finished a course of doxycycline 100 mg p.o. twice daily for 10 days. SURGERY PREFORMED 06 Feb 2024: Infected mesh removal/wound debridement and closure over drain. Cultures grew MSSA. Progress of Wound: Current encounter 13 Apr 2024: Cleo wound is much clear. The depth has really decreased since his last visit. He and his are doing a great job with his wound care. Ulcer is nice beefy pink color. Objective Data Objective Data Vital Signs: Vital Signs Temp Pulse Resp BP O2 Del Method 96.8 F L 63 16 127/73 H Room Air 04/06/24 13:16 04/13/24 10:17 04/13/24 10:17 04/13/24 10:17 04/13/24 10:17 Oxygen Delivery Method Room Air Weight: 220 lb Body Mass Index (BMI) 34.4 Charges/Coding Procedures Integumentary 111xxx-113xx: 33052 Global Visit Debridement Note Debridement Note Wound debrided: Abdominal ulcer , central Laterality: Not Applicable Type of Debridement: Excisional debridement Anesthesia Used: 4% Lidocaine Solution Depth: Down to and including healthy tissue and in the subcutaneous layer Percentage of wound debrided: 100 Instrument Used: 3mm curette Tissue Removed: Non viable tissue and slough Severity: Fat Layer Exposed Amount of bleeding with debridement: Mild Bleeding Controlled with: Compression and gauze Patient tolerated procedure: Patient tolerated procedure well Post-Debridement Measurements and Additional Note: Post-Debridement Measurements/Treatment WC - Nurse 1 - General Ulcer Assessment Start: 03/23/24 13:07 Freq: Status: Active Protocol: LIA Activity Type Activity Date Activity User E-sign Co-sign Detail Recorded Client Recorded Date Recorded By Document 03/23/24 13:07 ML [id number] 03/23/24 13:19 ML Document 03/30/24 09:08 KW [id number] 03/30/24 09:12 KW Document 04/06/24 13:16 BMF [id number] 04/06/24 13:24 BM Document 04/13/24 10:17 KW [id number] 04/13/24 10:21 KW 03/23/24 03/30/24 04/06/24 13:07 09:08 13:16 WC - Today's Visit Information Type of service Follow-up Visit Follow-up Visit Follow-up Visit (Physician/[employer] (Physician/[employer] (Physician/[employer] ) ) ) Arrival Mode Ambulatory Ambulatory,Cane Ambulatory Transfer Assistance None Accompanied by Patient Identification Verified (Name & Yes Yes Yes ) Patient Requires Transmission-Based No No Precautions Height and Weight Body Mass Index (BMI) 34.4 34.4 34.4 BMI Classification Obese Obese Obese Vital Signs Temperature (97.8 F-99.1 F) 98 F 97.0 F L 96.8 F L Temperature Source Temporal Temporal Temporal Pulse Rate (60-100) 53 L 69 74 Pulse Location Monitor Monitor Monitor Respiratory Rate (12-18) 15 18 16 Respiratory rate source Observation Observation Observation Oxygen Delivery Method Room Air Room Air Blood Pressure (90/60-120/80) 149/63 H 141/95 H 134/89 H Blood Pressure Mean (mm Hg) 91 110 104 Source Monitor Monitor Monitor Position Supine Semi-Fowlers Sitting Blood Pressure Location Right Arm Left Arm Left Arm History Since Last Visit- (Skip if this is Patient's initial visit) Have you changed medications since your No No No last visit? Any new allergies or adverse reactions No No No Had a fall/change in ADL's that may No No No increase risk of falls Signs or symptoms of abuse and/or No No No neglect since last visit Have you been in the hospital since your No No last visit? Has dressing in place as prescribed Yes Yes Yes Has compression in place as prescribed N/A N/A N/A Has offloadiing in place as prescribed N/A N/A N/A Experienced any changes in pain level or No No No management Left Footwear Regular Shoe Regular Shoe Right Footwear Regular Shoe Regular Shoe Pain Scale: 0-10 Numeric Is Patient Pain Free? Yes Yes Yes 04/13/24 10:17 WC - Today's Visit Information Type of service Follow-up Visit (Physician/[employer] ) Arrival Mode Ambulatory,Cane Transfer Assistance Accompanied by Patient Identification Verified (Name & Yes ) Patient Requires Transmission-Based Precautions Height and Weight Body Mass Index (BMI) 34.4 BMI Classification Obese Vital Signs Temperature (97.8 F-99.1 F) Temperature Source Pulse Rate (60-100) 63 Pulse Location Monitor Respiratory Rate (12-18) 16 Respiratory rate source Observation Oxygen Delivery Method Room Air Blood Pressure (90/60-120/80) 127/73 H Blood Pressure Mean (mm Hg) 91 Source Monitor Position Semi-Fowlers Blood Pressure Location Right Arm History Since Last Visit- (Skip if this is Patient's initial visit) Have you changed medications since your No last visit? Any new allergies or adverse reactions No Had a fall/change in ADL's that may No increase risk of falls Signs or symptoms of abuse and/or No neglect since last visit Have you been in the hospital since your No last visit? Has dressing in place as prescribed Yes Has compression in place as prescribed N/A Has offloadiing in place as prescribed N/A Experienced any changes in pain level or No management Left Footwear Regular Shoe Right Footwear Regular Shoe Pain Scale: 0-10 Numeric Is Patient Pain Free? Yes WC - Nurse 1 - General Ulcer Measurement Start: 03/23/24 13:07 Freq: Status: Active Protocol: Activity Type Activity Date Activity User E-sign Co-sign Detail Recorded Client Recorded Date Recorded By Document 03/23/24 13:07 ML [id number] 03/23/24 13:19 ML Document 03/30/24 09:08 KW [id number] 03/30/24 09:12 KW Document 04/06/24 13:16 [facility] [id number] 04/06/24 13:24 BM Document 04/13/24 10:17 KW [id number] 04/13/24 10:21 KW 03/23/24 03/30/24 04/06/24 13:07 09:08 13:16 Wound Center Nurse 1 #1 abd/Post Op Hernia repair -Combined with other wound No -Current Size (cm) - Length 1 1.5 0.9 -Current Size (cm) - Width 1 1.9 0.8 -Current Size (cm) - Depth 1 1 2.8 -Total Square Cm 1 2.85 0.72 -Date of Last Picture (Recall this 03/30/24 04/06/24 field) -Photo Taken Yes -Exudate Amt Large Small Large -Exudate Type Serosanguineous Serosanguineous Serosanguineous -Wound Margin Distinct, Distinct, Distinct, Outline Outline Outline Attached Attached Attached -Granulation Amt Medium (34-66%) Large (67-100%) Large (67-100%) -Granulation Quality [place] Red Red -Slough/Fibrin Yes No -Necrosis Amt Large (67-100%) None Present (0 %) -Texture (Cleo-wound Skin Appearance) Assessed Assessed Assessed, Scarring -Moisture (Cleo-wound Skin Appearance) Assessed Assessed,Dry/ Assessed,Dry/ Scaly Scaly -Color (Cleo-wound Skin Appearance) Assessed Assessed Assessed -Temperature (Cleo-wound Skin No Abnormality No Abnormality No Abnormality Appearance) (Pt Warm) (Pt Warm) (Pt Warm) -Tenderness on Palpation (Cleo-wound No No No Skin Appearance) -Ulcer Cleansing Soap and Water Soap and Water Rinsed/ Irrigated with Saline -Foul Odor after Cleansing Yes No No -Anesthetic Used 5% Lidocaine 5% Lidocaine 5% Lidocaine Gel Gel Gel 04/13/24 10:17 Wound Center Nurse 1 #1 abd/Post Op Hernia repair -Combined with other wound -Current Size (cm) - Length 0.8 -Current Size (cm) - Width 0.8 -Current Size (cm) - Depth 2.6 -Total Square Cm 0.64 -Date of Last Picture (Recall this 04/13/24 field) -Photo Taken -Exudate Amt Small -Exudate Type Serosanguineous -Wound Margin Distinct, Outline Attached -Granulation Amt Large (67-100%) -Granulation Quality [place],Red -Slough/Fibrin -Necrosis Amt -Texture (Cleo-wound Skin Appearance) Assessed -Moisture (Cleo-wound Skin Appearance) Assessed -Color (Cleo-wound Skin Appearance) Assessed -Temperature (Cleo-wound Skin No Abnormality Appearance) (Pt Warm) -Tenderness on Palpation (Cleo-wound No Skin Appearance) -Ulcer Cleansing Rinsed/ Irrigated with Saline -Foul Odor after Cleansing No -Anesthetic Used 5% Lidocaine Gel WC - Nurse 2 - General Ulcer CM Notes Start: 03/23/24 13:07 Freq: Status: Active Protocol: Activity Type Activity Date Activity User E-sign Co-sign Detail Recorded Client Recorded Date Recorded By Document 03/23/24 13:25 BETHANY [id number] 03/23/24 13:26 JF Document 03/30/24 09:33 GM [id number] 03/30/24 09:38 GM Document 04/06/24 13:43 DS [id number] 04/06/24 13:44 DS Document 04/13/24 10:38 JF [id number] 04/13/24 10:40 JF 03/23/24 03/30/24 04/06/24 13:25 09:33 13:43 Wound Center Nurse 2 #1 abd/Post Op Hernia repair -Time 13: 09:33 13:40 -Correct Patient Yes Yes Yes -Correct Side, Site, Position Yes Yes Yes -Correct Procedure Yes Yes Yes -Procedure Performed Yes Yes Yes -Type of Procedure Debridement Debridement Debridement -Clinical Debridement Subcutaneous Subcutaneous Subcutaneous -Tissue Removed Subcutaneous Subcutaneous Subcutaneous -Post Debridement (cm) - Length 2.0 1.3 1.1 -Post Debridement (cm) - Width 1.0 0.8 1.0 -Post Debridement (cm) - Depth 2.0 3.2 4.0 -Total Square (Post) (cm) 2.00 1.04 1.10 -Area of Debridement (cm) - Length 2.0 1.3 1.1 -Area of Debridement (cm) - Width 1.0 0.8 1.0 -Total Square (Area) (cm) 2.00 1.04 1.10 -Tunneling No No No -Undermining/Tunneling No No No -Circular Undermining No No No -Wound/Ulcer Outcome Not Healed Not Healed Not Healed -Ulcer Cleansing Rinsed/ Rinsed/ Rinsed/ Irrigated with Irrigated with Irrigated with Saline Saline Saline -Foul Odor after Cleansing No No No -Bioengineered Tissue No No No -Bleeding Controlled with Pressure Pressure -Treatment Response Procedure Procedure Tolerated Well Tolerated Well -Offloading No -Debridement - Subq, 1st 20sq cm Yes Yes Yes Pain Scale: 0-10 Numeric Is Patient Pain Free? Yes Yes Yes 04/13/24 10:38 Wound Center Nurse 2 #1 abd/Post Op Hernia repair -Time 10:39 -Correct Patient Yes -Correct Side, Site, Position Yes -Correct Procedure Yes -Procedure Performed Yes -Type of Procedure Debridement -Clinical Debridement Subcutaneous -Tissue Removed Subcutaneous -Post Debridement (cm) - Length 1.0 -Post Debridement (cm) - Width 1.0 -Post Debridement (cm) - Depth 2.5 -Total Square (Post) (cm) 1.00 -Area of Debridement (cm) - Length 1.0 -Area of Debridement (cm) - Width 1.0 -Total Square (Area) (cm) 1.00 -Tunneling No -Undermining/Tunneling No -Circular Undermining No -Wound/Ulcer Outcome Not Healed -Ulcer Cleansing Rinsed/ Irrigated with Saline -Foul Odor after Cleansing No -Bioengineered Tissue No -Bleeding Controlled with Pressure -Treatment Response Procedure Tolerated Well -Offloading No -Debridement - Subq, 1st 20sq cm Yes Pain Scale: 0-10 Numeric Is Patient Pain Free? Yes - Nurse 3 - General Ulcer D/C NN Start: 03/23/24 13:07 Freq: Status: Active Protocol: Activity Type Activity Date Activity User E-sign Co-sign Detail Recorded Client Recorded Date Recorded By Document 03/23/24 13:33 KW [id number] 03/23/24 13:33 KW Document 03/30/24 09:47 KW [id number] 03/30/24 09:48 KW Document 04/06/24 13:57 BM [id number] 04/06/24 13:58 BM Document 04/13/24 10:53 KW [id number] 04/13/24 10:53 KW 03/23/24 03/30/24 04/06/24 13:33 09:47 13:57 Wound Care Center Nurse 3 #1 abd/Post Op Hernia repair -Ulcer Cleansing Rinsed/ Irrigated with Saline -Foul Odor after Cleansing No -Negative Pressure Wound Therapy Continue -Setting (mmHg) 125 -Negative Pressure is Continuous -Primary Dressing Applied Nugauze, Iodoform 1/2in, Silicone Border Foam 4x4 -Primary Dressing Applied Nugauze, Iodoform 1/2in, Silicone Border Foam 4x4 -Other Dressing FLUFFED GAUZE -Primary Dressing Covered/Secured with Dry Gauze Dry Gauze -NPWT Application Charge NPWT & Debridement (nc ) -Nugauze, Iodoform 1/4in -Nugauze, Iodoform 1/2in 1 1 -Silicone Border Foam 4x4 1 1 Treatment Response Procedure Tolerated Well Pain Scale: 0-10 Numeric Is Patient Pain Free? Yes Yes Yes WC - Visit Discharge Discharge Condition Stable Stable Stable Ambulatory Status Ambulatory,Cane Ambulatory,Cane Ambulatory,Cane Transportation Private Auto Private Auto Private Auto Accompanied by Medication Reconcilliation completed & No No provided to patient/care provider Clinical Summary of Care Provided Yes Yes 04/13/24 10:53 Wound Care Center Nurse 3 #1 abd/Post Op Hernia repair -Ulcer Cleansing -Foul Odor after Cleansing -Negative Pressure Wound Therapy -Setting (mmHg) -Negative Pressure is -Primary Dressing Applied Nugauze, Iodoform 1/4in -Primary Dressing Applied -Other Dressing -Primary Dressing Covered/Secured with Dry Gauze, Secured with Tape -NPWT Application Charge -Nugauze, Iodoform 1/4in 1 -Nugauze, Iodoform 1/2in -Silicone Border Foam 4x4 Treatment Response Pain Scale: 0-10 Numeric Is Patient Pain Free? Yes WC - Visit Discharge Discharge Condition Stable Ambulatory Status Ambulatory,Cane Transportation Private Auto Accompanied by Medication Reconcilliation completed & No provided to patient/care provider Clinical Summary of Care Provided Yes Assessment/Plan Assessment/Plan (1) Abdominal wall skin ulcer: CODE(S): L98.499 - Non-pressure chronic ulcer of skin of other sites with unspecified severity QUALIFIERS: Non-pressure ulcer stage: with fat layer exposed Qualified Code(s): L98.492 - Non-pressure chronic ulcer of skin of other sites with fat layer exposed PLAN: Plan Patient was evaluated at the wound healing center today. Much less depth to the ulcer. Wound care - Pack with 1/2 Iodoform gauze and cover with ABD daily. Wash ulcer and cleo wound with soap and water at the time of dressing changes. Discussed plan of care with Dr. Snell. F/u in 1 week
--- NOTE | 2024-04-14 09:24 | WC ---
PHOTO 04/13/24 ABD
== END 2024-04-17 23:59 | disposition home or self-care (01) ==
LOC: WC 10:15
PROVIDERS: PCP Student in an Organized Health Care Education/Training Program; Referring Provider Student in an Organized Health Care Education/Training Program; Visit Provider Surgery Plastic and Reconstructive Surgery
DX: T81.31XA Disruption of external operation (surgical) wound, not elsewhere classified, initial encounter (principal); L98.492 Non-pressure chronic ulcer of skin of other sites with fat layer exposed; Y83.8 Other surgical procedures as the cause of abnormal reaction of the patient, or of later complication, without mention of misadventure at the time of the procedure; Z79.82 Long term (current) use of aspirin; Z79.84 Long term (current) use of oral hypoglycemic drugs; Z79.899 Other long term (current) drug therapy; Z86.718 Personal history of other venous thrombosis and embolism; Z95.820 Peripheral vascular angioplasty status with implants and grafts
CPT/HCPCS: 11042

== ENCOUNTER 2024-05-07 13:00 | Outpatient (RCR) | payer MEDICARE, OTHER, SELFPAY ==
[2024-04-18 01:45] VITALS: BP 127/73; PULSE 63; RESP 16; TEMP 36; BMI 34.4
[2024-04-20 10:11] VITALS: BP 138/78; PULSE 66; RESP 16; TEMP 35.7; BMI 34.4
--- NOTE | 2024-04-20 12:23 | PCM.WC.PN ---
History of Present Illness Date of Service: 04/20/24 Chief Complaint: Surgical wound dehiscence/nonhealing abdominal surgical wound History of Wound: History of Wound: Kaden Latif is a 78 year-old male with a complicated past medical history who presents for abdominal wound from a ventral hernia repair dehiscence. The hernia had developed at a prior surgical site, as the patient has had multiple previous aortic repairs and other vascular surgeries. On September 28, 2008, the patient underwent left femoral?tibial artery bypass surgery. He underwent open ruptured abdominal aneurysm repair on July 11, 2012. It appears as though the patient subsequently required a second surgical intervention for an abdominal aortic aneurysm. He underwent left carotid endarterectomy on June 04, 2017. A left femoral pseudoaneurysm repair was performed in 2021. The patient then underwent his abdominal hernia repair in December [address] Pierce at [facility]. 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 Has had wound problems ever since. He developed a GI bleed last year and was admitted to the hospital, at which time he had a blood clot in his leg. He was treated with anticoagulation, but is no longer on any anticoagulation because it was considered provoked. He continue to do wound care to the abdominal incision. The most recent cultures of the drainage from the site were performed at [facility] on July 03, 2023. Culture results were positive for Staphylococcus aureus, and the patient was treated with Bactrim double strength orally twice daily at that time. 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 The other soft tissues including abdominopelvic wall are unremarkable. It has been stated by the patient that prosthetic mesh was used in the repair of his ventral abdominal hernia. He has been following at our [facility] in [place] with Dr. Hancock ever since. In August 2023, he underwent cardiac catheterization at [facility] in [place], [place], following which he required urgent coronary revascularization by means of bypass grafting, which was performed on September 06, 2023. He was subsequently admitted to the [facility] on September 10, 2023, and discharged on September 23, 2023. He returned to the [facility] to resume his care related to the surgical wound dehiscence of his abdominal wall with Dr. Hancock, who referred the patient to me for surgical management and possible reconstruction. Dr. Hancock has been treating the wound with Nu Gauze packing and weekly wound care/debridements in the wound care center. A wound culture which was again obtained earlier this month and was positive for Staphylococcus aureus, and the patient finished a course of doxycycline 100 mg p.o. twice daily for 10 days. SURGERY PREFORMED 06 Feb 2024: Infected mesh removal/wound debridement and closure over drain. Cultures grew MSSA. Progress of Wound: Current encounter 20 Apr 2024: Cleo wound clear. The depth us stable. It no longer has the narrow depth at the base of the ulcer that was difficult to pack. He and his are doing a great job with his wound care. Ulcer is nice beefy pink color. Objective Data Objective Data Vital Signs: Vital Signs Temp Pulse Resp BP O2 Del Method 96.2 F L 66 16 138/78 H Room Air 04/20/24 10:11 04/20/24 10:11 04/20/24 10:11 04/20/24 10:11 04/20/24 10:11 Oxygen Delivery Method Room Air Weight: 220 lb Body Mass Index (BMI) 34.4 Charges/Coding Procedures Integumentary 111xxx-113xx: 55412 Global Visit Physical Exam Narrative Mid lower abdominal ulcer is slightly smaller in diameter. The depth continues to be 2.5 cm. The ulcer bed is beefing pink. Debridement Note Debridement Note Wound debrided: Abdominal ulcer , central Laterality: Not Applicable Type of Debridement: Excisional debridement Anesthesia Used: 4% Lidocaine Solution Depth: Down to and including healthy tissue and in the subcutaneous layer Percentage of wound debrided: 100 Instrument Used: 3mm curette Tissue Removed: Non viable tissue and slough Severity: Fat Layer Exposed Amount of bleeding with debridement: Mild Bleeding Controlled with: Compression and gauze Patient tolerated procedure: Patient tolerated procedure well Post-Debridement Measurements and Additional Note: Post-Debridement Measurements/Treatment WC - Nurse 1 - General Ulcer Assessment Start: 04/20/24 10:11 Freq: Status: Active Protocol: LIA Activity Type Activity Date Activity User E-sign Co-sign Detail Recorded Client Recorded Date Recorded By Document 04/20/24 10:11 DUANE [id number] 04/20/24 10:16 04/20/24 10:11 - Today's Visit Information Type of service Follow-up Visit (Physician/APPLICATION DEVELOPMENT INTERN ) Arrival Mode Ambulatory,Cane Accompanied by Patient Identification Verified (Name & Yes ) Height and Weight Body Mass Index (BMI) 34.4 BMI Classification Obese Vital Signs Temperature (97.8 F-99.1 F) 96.2 F L Temperature Source Temporal Pulse Rate (60-100) 66 Pulse Location Monitor Respiratory Rate (12-18) 16 Respiratory rate source Observation Oxygen Delivery Method Room Air Blood Pressure (90/60-120/80) 138/78 H Blood Pressure Mean (mm Hg) 98 Source Monitor Position Semi-Fowlers Blood Pressure Location Left Arm History Since Last Visit- (Skip if this is Patient's initial visit) Have you changed medications since your No last visit? Any new allergies or adverse reactions No Had a fall/change in ADL's that may No increase risk of falls Signs or symptoms of abuse and/or No neglect since last visit Have you been in the hospital since your No last visit? Has dressing in place as prescribed Yes Has compression in place as prescribed N/A Has offloadiing in place as prescribed N/A Experienced any changes in pain level or No management Left Footwear Regular Shoe Right Footwear Regular Shoe Pain Scale: 0-10 Numeric Is Patient Pain Free? Yes - Nurse 1 - General Ulcer Measurement Start: 04/20/24 10:11 Freq: Status: Active Protocol: Activity Type Activity Date Activity User E-sign Co-sign Detail Recorded Client Recorded Date Recorded By Document 04/20/24 10:11 [id number] 04/20/24 10:16 04/20/24 10:11 Wound Center Nurse 1 #1 abd/Post Op Hernia repair -Current Size (cm) - Length 0.8 -Current Size (cm) - Width 0.5 -Current Size (cm) - Depth 3 -Total Square Cm 0.40 -Date of Last Picture (Recall this 04/20/24 field) -Exudate Amt Small -Exudate Type Serosanguineous -Wound Margin Distinct, Outline Attached -Granulation Amt Large (67-100%) -Granulation Quality [place],Red -Texture (Cleo-wound Skin Appearance) Assessed, Scarring -Moisture (Cleo-wound Skin Appearance) Assessed,Dry/ Scaly -Color (Cleo-wound Skin Appearance) Assessed -Temperature (Cleo-wound Skin No Abnormality Appearance) (Pt Warm) -Tenderness on Palpation (Cleo-wound No Skin Appearance) -Ulcer Cleansing Rinsed/ Irrigated with Saline -Foul Odor after Cleansing No -Anesthetic Used 5% Lidocaine Gel GINNA - Nurse 2 - General Ulcer CM Notes Start: 04/20/24 10:11 Freq: Status: Active Protocol: Activity Type Activity Date Activity User E-sign Co-sign Detail Recorded Client Recorded Date Recorded By Document 04/20/24 10:27 [id number] 04/20/24 10:32 04/20/24 10:27 Wound Center Nurse 2 -Time 10:27 -Correct Patient Yes -Correct Side, Site, Position Yes -Correct Procedure Yes -Procedure Performed Yes -Type of Procedure Debridement -Clinical Debridement Subcutaneous -Tissue Removed Subcutaneous -Post Debridement (cm) - Length 1.0 -Post Debridement (cm) - Width 1.0 -Post Debridement (cm) - Depth 2.5 -Total Square (Post) (cm) 1.00 -Area of Debridement (cm) - Length 1.0 -Area of Debridement (cm) - Width 1.0 -Total Square (Area) (cm) 1.00 -Tunneling No -Undermining/Tunneling No -Circular Undermining No -Wound/Ulcer Outcome Not Healed -Ulcer Cleansing Rinsed/ Irrigated with Saline -Foul Odor after Cleansing No -Bioengineered Tissue No -Bleeding Controlled with Pressure -Treatment Response Procedure Tolerated Well -Offloading No -Debridement - Subq, 1st 20sq cm Yes Pain Scale: 0-10 Numeric Is Patient Pain Free? Yes - Nurse 3 - General Ulcer D/C NN Start: 04/20/24 10:11 Freq: Status: Active Protocol: Activity Type Activity Date Activity User E-sign Co-sign Detail Recorded Client Recorded Date Recorded By Document 04/20/24 10:46 BMF [id number] 04/20/24 10:46 BMF Edit Result 04/20/24 10:46 BMF (1) [id number] 04/20/24 10:47 BMF (1) Facility Type => Home Health 04/20/24 10:46 Wound Care Center Nurse 3 #1 abd/Post Op Hernia repair -Ulcer Cleansing Rinsed/ Irrigated with Saline -Foul Odor after Cleansing No -Other Dressing packed w/ iodoform -Primary Dressing Covered/Secured with Dry Gauze, Secured with Tape Treatment Response Procedure Tolerated Well Pain Scale: 0-10 Numeric Is Patient Pain Free? Yes WC - Visit Discharge Discharge Condition Stable Ambulatory Status Ambulatory,Cane Transportation Private Auto Accompanied by Facility Type Home Health Assessment/Plan Assessment/Plan (1) Abdominal wall skin ulcer: CODE(S): L98.499 - Non-pressure chronic ulcer of skin of other sites with unspecified severity QUALIFIERS: Non-pressure ulcer stage: with fat layer exposed Qualified Code(s): L98.492 - Non-pressure chronic ulcer of skin of other sites with fat layer exposed PLAN: Plan Patient was evaluated at the wound healing center today. Depth is stable. Wound care - Pack with 1/2 Iodoform gauze and cover with ABD daily. Wash ulcer and cleo wound with soap and water at the time of dressing changes. Now that the narrow tunnel at the base of the ulcer has resolved, he would benefit from a negative pressure dressing such as a SNAP VAC. Will apply to his insurance company for approval of the SNAP VAC to be applied at 125 mmHg and to be changed twice a week. Discussed plan of care with Dr. Snell. F/u in [address] Snell.
--- NOTE | 2024-04-21 12:10 | WC ---
PHOTO 04/20/24 ABD
[2024-04-24 10:31] VITALS: BP 113/59; PULSE 65; RESP 16; TEMP 35.4; BMI 34.4
[2024-04-29 14:34] VITALS: BP 128/91; PULSE 71; RESP 18; BMI 34.4
--- NOTE | 2024-04-29 15:29 | PN.PCM_ITS ---
<Statement entered by Ramses Snell MD - 04/29/24 16:50> I have personally performed a face to face assessment of the patient and have reviewed the DAVION Note. History of Present Illness Date of Service: 04/29/24 Chief Complaint: Surgical wound dehiscence/nonhealing abdominal surgical wound History of Wound: History of Wound: Kaden Latif is a 78 year-old male with a complicated past medical history who presents for abdominal wound from a ventral hernia repair dehiscence. The hernia had developed at a prior surgical site, as the patient has had multiple previous aortic repairs and other vascular surgeries. On September 28, 2008, the patient underwent left femoral?tibial artery bypass surgery. He underwent open ruptured abdominal aneurysm repair on July 11, 2012. It appears as though the patient subsequently required a second surgical intervention for an abdominal aortic aneurysm. He underwent left carotid endarterectomy on June 04, 2017. A left femoral pseudoaneurysm repair was performed in 2021. The patient then underwent his abdominal hernia repair in December [address] Pierce at [facility]. 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 Has had wound problems ever since. He developed a GI bleed last year and was admitted to the hospital, at which time he had a blood clot in his leg. He was treated with anticoagulation, but is no longer on any anticoagulation because it was considered provoked. He continue to do wound care to the abdominal incision. The most recent cultures of the drainage from the site were performed at [facility] on July 03, 2023. Culture results were positive for Staphylococcus aureus, and the patient was treated with Bactrim double strength orally twice daily at that time. 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 The other soft tissues including abdominopelvic wall are unremarkable. It has been stated by the patient that prosthetic mesh was used in the repair of his ventral abdominal hernia. He has been following at our [facility] in [place] with Dr. Hancock ever since. In August 2023, he underwent cardiac catheterization at [facility] in [place], [place], following which he required urgent coronary revascularization by means of bypass grafting, which was performed on September 06, 2023. He was subsequently admitted to the [facility] Care Unit on September 10, 2023, and discharged on September 23, 2023. He returned to the Wound Healing Center to resume his care related to the surgical wound dehiscence of his abdominal wall with Dr. Hancock, who referred the patient to [facility] for surgical management and possible reconstruction. Dr. Hancock has been treating the wound with Nu Gauze packing and weekly wound care/debridements in the wound care center. A wound culture which was again obtained earlier this month and was positive for Staphylococcus aureus, and the patient finished a course of doxycycline 100 mg p.o. twice daily for 10 days. SURGERY PREFORMED 06 Feb 2024: Infected mesh removal/wound debridement and closure over drain. Cultures grew MSSA. Progress of Wound: Current encounter 29 Apr 2024: Cleo wound clear. The depth has decreased with the use of the SNAP VAC. He is tolerating SNAP VAC well. Objective Data Objective Data Vital Signs: Vital Signs Temp Pulse Resp BP O2 Del Method 95.7 F L 71 18 128/91 H Room Air 04/24/24 10:31 04/29/24 14:34 04/29/24 14:34 04/29/24 14:34 04/29/24 14:34 Oxygen Delivery Method Room Air Weight: 220 lb Body Mass Index (BMI) 34.4 Charges/Coding Procedures Integumentary 111xxx-113xx: 81769 Global Visit Physical Exam Narrative Mid abdominal ulcer has smaller depth. Cleo wound is stable. Debridement Note Debridement Note Wound debrided: Abdominal ulcer , central Laterality: Not Applicable Type of Debridement: Excisional debridement Anesthesia Used: 4% Lidocaine Solution Depth: Down to and including healthy tissue and in the subcutaneous layer Percentage of wound debrided: 100 Instrument Used: 3mm curette Tissue Removed: Non viable tissue and slough Severity: Fat Layer Exposed Amount of bleeding with debridement: Mild Bleeding Controlled with: Compression and gauze Patient tolerated procedure: Patient tolerated procedure well Post-Debridement Measurements and Additional Note: Post-Debridement Measurements/Treatment WC - Nurse 1 - General Ulcer Assessment Start: 04/20/24 10:11 Freq: Status: Active Protocol: LIA Activity Type Activity Date Activity User E-sign Co-sign Detail Recorded Client Recorded Date Recorded By Document 04/20/24 10:11 DUANE [id number] 04/20/24 10:16 KW Document 04/24/24 10:31 KW [id number] 04/24/24 10:39 KW Document 04/29/24 14:34 KW [id number] 04/29/24 14:42 KW 04/20/24 04/24/24 04/29/24 10:11 10:31 14:34 - Today's Visit Information Type of service Follow-up Visit Nurse-only Follow-up Visit (Physician/TAILER IN Visit (Physician/TAILER IN ) ) Arrival Mode Ambulatory,Cane Ambulatory,Cane Ambulatory Accompanied by Patient Identification Verified (Name & Yes Yes Yes ) Height and Weight Body Mass Index (BMI) 34.4 34.4 34.4 BMI Classification Obese Obese Obese Vital Signs Temperature (97.8 F-99.1 F) 96.2 F L 95.7 F L Temperature Source Temporal Temporal Pulse Rate (60-100) 66 65 71 Pulse Location Monitor Monitor Monitor Respiratory Rate (12-18) 16 16 18 Respiratory rate source Observation Observation Observation Oxygen Delivery Method Room Air Room Air Room Air Blood Pressure (90/60-120/80) 138/78 H 113/59 L 128/91 H Blood Pressure Mean (mm Hg) 98 77 103 Source Monitor Monitor Monitor Position Semi-Fowlers Semi-Fowlers Sitting Blood Pressure Location Left Arm Left Arm Left Arm History Since Last Visit- (Skip if this is Patient's initial visit) Have you changed medications since your No No No last visit? Any new allergies or adverse reactions No No No Had a fall/change in ADL's that may No No No increase risk of falls Signs or symptoms of abuse and/or No No No neglect since last visit Have you been in the hospital since your No No No last visit? Has dressing in place as prescribed Yes Yes Yes Has compression in place as prescribed N/A N/A N/A Has offloadiing in place as prescribed N/A N/A N/A Experienced any changes in pain level or No No No management Left Footwear Regular Shoe Regular Shoe Regular Shoe Right Footwear Regular Shoe Regular Shoe Regular Shoe Pain Scale: 0-10 Numeric Is Patient Pain Free? Yes Yes Yes - Nurse 1 - General Ulcer Measurement Start: 04/20/24 10:11 Freq: Status: Active Protocol: Activity Type Activity Date Activity User E-sign Co-sign Detail Recorded Client Recorded Date Recorded By Document 04/20/24 10:11 KW [id number] 04/20/24 10:16 KW Document 04/29/24 14:34 KW [id number] 04/29/24 14:42 KW 04/20/24 04/29/24 10:11 14:34 Wound Center Nurse 1 #1 abd/Post Op Hernia repair -Current Size (cm) - Length 0.8 0.4 -Current Size (cm) - Width 0.5 0.5 -Current Size (cm) - Depth 3 2.3 -Total Square Cm 0.40 0.20 -Date of Last Picture (Recall this 04/20/24 04/29/24 field) -Exudate Amt Small Small -Exudate Type Serosanguineous Serosanguineous -Wound Margin Distinct, Distinct, Outline Outline Attached Attached -Granulation Amt Large (67-100%) Large (67-100%) -Granulation Quality [place],Red Red -Texture (Cleo-wound Skin Appearance) Assessed, Assessed Scarring -Moisture (Cleo-wound Skin Appearance) Assessed,Dry/ Assessed Scaly -Color (Cleo-wound Skin Appearance) Assessed Assessed -Temperature (Cleo-wound Skin No Abnormality No Abnormality Appearance) (Pt Warm) (Pt Warm) -Tenderness on Palpation (Cleo-wound No No Skin Appearance) -Ulcer Cleansing Rinsed/ Soap and Water Irrigated with Saline -Foul Odor after Cleansing No No -Anesthetic Used 5% Lidocaine 5% Lidocaine Gel Gel WC - Nurse 2 - General Ulcer CM Notes Start: 04/20/24 10:11 Freq: Status: Active Protocol: Activity Type Activity Date Activity User E-sign Co-sign Detail Recorded Client Recorded Date Recorded By Document 04/20/24 10:27 [id number] 04/20/24 10:32 Document 04/29/24 15:02 [id number] 04/29/24 15:03 04/20/24 04/29/24 10:27 15:02 Wound Center Nurse 2 #1 abd/Post Op Hernia repair -Time 10:27 15:02 -Correct Patient Yes Yes -Correct Side, Site, Position Yes Yes -Correct Procedure Yes Yes -Procedure Performed Yes Yes -Type of Procedure Debridement Debridement -Clinical Debridement Subcutaneous Subcutaneous -Tissue Removed Subcutaneous Subcutaneous -Post Debridement (cm) - Length 1.0 0.5 -Post Debridement (cm) - Width 1.0 0.5 -Post Debridement (cm) - Depth 2.5 2.0 -Total Square (Post) (cm) 1.00 0.25 -Area of Debridement (cm) - Length 1.0 0.5 -Area of Debridement (cm) - Width 1.0 0.5 -Total Square (Area) (cm) 1.00 0.25 -Tunneling No No -Undermining/Tunneling No No -Circular Undermining No No -Wound/Ulcer Outcome Not Healed Not Healed -Ulcer Cleansing Rinsed/ Not Cleansed Irrigated with Saline -Foul Odor after Cleansing No No -Bioengineered Tissue No No -Bleeding Controlled with Pressure Pressure -Treatment Response Procedure Procedure Tolerated Well Tolerated Well -Offloading No -Debridement - Subq, 1st 20sq cm Yes Yes Pain Scale: 0-10 Numeric Is Patient Pain Free? Yes Yes WC - Nurse 3 - General Ulcer D/C NN Start: 04/20/24 10:11 Freq: Status: Active Protocol: Activity Type Activity Date Activity User E-sign Co-sign Detail Recorded Client Recorded Date Recorded By Document 04/20/24 10:46 BMF [id number] 04/20/24 10:46 BMF Edit Result 04/20/24 10:46 BMF (1) [id number] 04/20/24 10:47 BMF Document 04/24/24 10:31 KW [id number] 04/24/24 10:39 KW (1) Facility Type => Home Health 04/20/24 04/24/24 10:46 10:31 Wound Care Center Nurse 3 #1 abd/Post Op Hernia repair -Ulcer Cleansing Rinsed/ Soap and Water Irrigated with Saline -Foul Odor after Cleansing No -Negative Pressure Wound Therapy Start -Setting (mmHg) 125 -Negative Pressure is Continuous -Other Dressing packed w/ iodoform -Primary Dressing Covered/Secured with Dry Gauze, Secured with Tape -NPWT Application Charge NPWT </= 50 sq cm (disp) ($) Treatment Response Procedure Tolerated Well Vital Signs Temperature (97.8 F-99.1 F) 95.7 F L Temperature Source Temporal Pulse Rate (60-100) 65 Pulse Location Monitor Respiratory Rate (12-18) 16 Respiratory rate source Observation Oxygen Delivery Method Room Air Blood Pressure (90/60-120/80) 113/59 L Blood Pressure Mean (mm Hg) 77 Source Monitor Position Semi-Fowlers Blood Pressure Location Left Arm Pain Scale: 0-10 Numeric Is Patient Pain Free? Yes Yes WC - Visit Discharge Discharge Condition Stable Stable Ambulatory Status Ambulatory,Cane Ambulatory,Cane Transportation Private Auto Private Auto Accompanied by Medication Reconcilliation completed & No provided to patient/care provider Clinical Summary of Care Provided Yes Facility Type Home Health Assessment/Plan Assessment/Plan (1) Abdominal wall skin ulcer: CODE(S): L98.499 - Non-pressure chronic ulcer of skin of other sites with unspecified severity QUALIFIERS: Non-pressure ulcer stage: with fat layer exposed Q ualified Code(s): L98.492 - Non-pressure chronic ulcer of skin of other sites with fat layer exposed PLAN: Plan Patient was evaluated at the wound healing center today. Depth is stable. Wound care - SNAP VAC applied at 125 mmHg and to be changed twice a week. Wash ulcer and cleo wound with soap and water at time of the dressing change. Do not get dressing wet between changes. Discussed plan of care with Dr. Snell. F/u in [address] Snell.
--- NOTE | 2024-04-29 15:30 | NURSING ---
PHOTO 04/29/24 ABD
[2024-05-04 13:55] VITALS: BP 92/57; PULSE 65; RESP 18; TEMP 35.4; BMI 34.4
[2024-05-04 14:54] VITALS: BP 92/56
--- NOTE | 2024-05-04 17:52 | PN.PCM_ITS ---
History of Present Illness Date of Service: 05/04/24 Chief Complaint: Surgical wound dehiscence/nonhealing abdominal surgical wound History of Wound: History of Wound: Kaden Latif is a 78 year-old male with a complicated past medical history who presents for abdominal wound from a ventral hernia repair dehiscence. The hernia had developed at a prior surgical site, as the patient has had multiple previous aortic repairs and other vascular surgeries. On September 28, 2008, the patient underwent left femoral?tibial artery bypass surgery. He underwent open ruptured abdominal aneurysm repair on July 11, 2012. It appears as though the patient subsequently required a second surgical intervention for an abdominal aortic aneurysm. He underwent left carotid endarterectomy on June 04, 2017. A left femoral pseudoaneurysm repair was performed in 2021. The patient then underwent his abdominal hernia repair in December [address] Pierce at [facility]. 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 Has had wound problems ever since. He developed a GI bleed last year and was admitted to the hospital, at which time he had a blood clot in his leg. He was treated with anticoagulation, but is no longer on any anticoagulation because it was considered provoked. He continue to do wound care to the abdominal incision. The most recent cultures of the drainage from the site were performed at [facility] on July 03, 2023. Culture results were positive for Staphylococcus aureus, and the patient was treated with Bactrim double strength orally twice daily at that time. In an effort to identify the possible cause of the persistent sinus tract, the patient had a CT scan at [facility] on April 19, 2023, which revealed postsurgical changes of the anterior abdominal wall, without definite focal rim-enhancing fluid collection to suggest an abscess. The other soft tissues including abdominopelvic wall are unremarkable. It has been stated by the patient that prosthetic mesh was used in the repair of his ventral abdominal hernia. He has been following at our [facility] in [place] with Dr. Hancock ever since. In August 2023, he underwent cardiac catheterization at [facility] in [place], [place], following which he required urgent coronary revascularization by means of bypass grafting, which was performed on September 06, 2023. He was subsequently admitted to the [facility] on September 10, 2023, and discharged on September 23, 2023. He returned to the [facility] to resume his care related to the surgical wound dehiscence of his abdominal wall with Dr. Hancock, who referred the patient to me for surgical management and possible reconstruction. Dr. Hancock has been treating the wound with Nu Gauze packing and weekly wound care/debridements in the wound care center. A wound culture which was again obtained earlier this month and was positive for Staphylococcus aureus, and the patient finished a course of doxycycline 100 mg p.o. twice daily for 10 days. SURGERY PREFORMED 06 Feb 2024: Infected mesh removal/wound debridement and closure over drain. Cultures grew MSSA. Progress of Wound: Current encounter 04 May 2024: He is tolerating SNAP VAC well. Feeling okay today but was recently sick with a stomach virus Objective Data Objective Data Vital Signs: Vital Signs Temp Pulse Resp BP O2 Del Method 95.7 F L 65 18 92/56 L Room Air 05/04/24 13:55 05/04/24 13:55 05/04/24 13:55 05/04/24 14:54 04/29/24 14:34 Oxygen Delivery Method Room Air Weight: 220 lb Body Mass Index (BMI) 34.4 Charges/Coding Procedures Integumentary 111xxx-113xx: [id number] Rhonda subq tissue 20 sq cm/< Physical Exam Narrative Small ulcer at the inferior aspect of the incision is healing well and is 1 x 1 cm and only 2.5 cm deep No undrained fluid collections or surrounding erythema or induration Debridement Note Debridement Note Wound debrided: Midline abdominal wound Laterality: Not Applicable Wound Grade/Stage: Stage III Type of Debridement: Excisional debridement Anesthesia Used: 4% Lidocaine Solution Depth: Down to and including healthy tissue and in the subcutaneous layer Percentage of wound debrided: 100 Instrument Used: 3mm curette Severity: Fat Layer Exposed Amount of bleeding with debridement: Mild Bleeding Controlled with: Pressure Patient tolerated procedure: Patient tolerated procedure well Post-Debridement Measurements and Additional Note: Post-Debridement Measurements/Treatment - Nurse 1 - General Ulcer Assessment Start: 04/20/24 10:11 Freq: Status: Active Protocol: LIA Activity Type Activity Date Activity User E-sign Co-sign Detail Recorded Client Recorded Date Recorded By Document 04/20/24 10:11 KW [id number] 04/20/24 10:16 KW Document 02/07/25 10:31 KW [id number] 04/24/24 10:39 KW Document 04/29/24 14:34 KW [id number] 04/29/24 14:42 KW Document 05/04/24 13:55 DL [id number] 05/04/24 14:03 DL Edit Result 05/04/24 13:55 DL (1) [id number] 05/04/24 14:07 DL (1) Blood Pressure (90/60-120/80) 78/55 L => 92/57 L Blood Pressure Mean (mm Hg) 62 => 68 Source Monitor => Manual Blood Pressure Location => Right Arm 04/20/24 04/24/24 04/29/24 10:11 10:31 14:34 WC - Today's Visit Information Type of service Follow-up Visit Nurse-only Follow-up Visit (Physician/INORGANIC CHEMISTRY TEACHER Visit (Physician/INORGANIC CHEMISTRY TEACHER ) ) Arrival Mode Ambulatory,Cane Ambulatory,Cane Ambulatory Transfer Assistance Accompanied by Patient Identification Verified (Name & Yes Yes Yes ) Patient Requires Transmission-Based Precautions Height and Weight Body Mass Index (BMI) 34.4 34.4 34.4 BMI Classification Obese Obese Obese Vital Signs Temperature (97.8 F-99.1 F) 96.2 F L 95.7 F L Temperature Source Temporal Temporal Pulse Rate (60-100) 66 65 71 Pulse Location Monitor Monitor Monitor Respiratory Rate (12-18) 16 16 18 Respiratory rate source Observation Observation Observation Oxygen Delivery Method Room Air Room Air Room Air Blood Pressure (90/60-120/80) 138/78 H 113/59 L 128/91 H Blood Pressure Mean (mm Hg) 98 77 103 Source Monitor Monitor Monitor Position Semi-Fowlers Semi-Fowlers Sitting Blood Pressure Location Left Arm Left Arm Left Arm History Since Last Visit- (Skip if this is Patient's initial visit) Have you changed medications since your No No No last visit? Any new allergies or adverse reactions No No No Had a fall/change in ADL's that may No No No increase risk of falls Signs or symptoms of abuse and/or No No No neglect since last visit Have you been in the hospital since your No No No last visit? Has dressing in place as prescribed Yes Yes Yes Has compression in place as prescribed N/A N/A N/A Has offloadiing in place as prescribed N/A N/A N/A Experienced any changes in pain level or No No No management Left Footwear Regular Shoe Regular Shoe Regular Shoe Right Footwear Regular Shoe Regular Shoe Regular Shoe Pain Scale: 0-10 Numeric Is Patient Pain Free? Yes Yes Yes 05/04/24 13:55 WC - Today's Visit Information Type of service Follow-up Visit (Physician/INORGANIC CHEMISTRY TEACHER ) Arrival Mode Ambulatory Transfer Assistance None Accompanied by Patient Identification Verified (Name & Yes ) Patient Requires Transmission-Based No Precautions Height and Weight Body Mass Index (BMI) 34.4 BMI Classification Obese Vital Signs Temperature (97.8 F-99.1 F) 95.7 F L Temperature Source Temporal Pulse Rate (60-100) 65 Pulse Location Monitor Respiratory Rate (12-18) 18 Respiratory rate source Observation Oxygen Delivery Method Blood Pressure (90/60-120/80) 92/57 L Blood Pressure Mean (mm Hg) 68 Source Manual Position Blood Pressure Location Right Arm History Since Last Visit- (Skip if this is Patient's initial visit) Have you changed medications since your No last visit? Any new allergies or adverse reactions No Had a fall/change in ADL's that may No increase risk of falls Signs or symptoms of abuse and/or No neglect since last visit Have you been in the hospital since your No last visit? Has dressing in place as prescribed Yes Has compression in place as prescribed N/A Has offloadiing in place as prescribed N/A Experienced any changes in pain level or No management Left Footwear Right Footwear Pain Scale: 0-10 Numeric Is Patient Pain Free? Yes WC - Nurse 1 - General Ulcer Measurement Start: 04/20/24 10:11 Freq: Status: Active Protocol: Activity Type Activity Date Activity User E-sign Co-sign Detail Recorded Client Recorded Date Recorded By Document 04/20/24 10:11 KW [id number] 04/20/24 10:16 KW Document 04/29/24 14:34 KW [id number] 04/29/24 14:42 KW Document 05/04/24 13:55 DL [id number] 05/04/24 14:03 DL 04/20/24 04/29/24 05/04/24 10:11 14:34 13:55 Wound Center Nurse 1 #1 abd/Post Op Hernia repair -Current Size (cm) - Length 0.8 0.4 0.8 -Current Size (cm) - Width 0.5 0.5 0.8 -Current Size (cm) - Depth 3 2.3 1.8 -Total Square Cm 0.40 0.20 0.64 -Date of Last Picture (Recall this 04/20/24 04/29/24 field) -Exudate Amt Small Small Small -Exudate Type Serosanguineous Serosanguineous Serosanguineous -Wound Margin Distinct, Distinct, Distinct, Outline Outline Outline Attached Attached Attached -Granulation Amt Large (67-100%) Large (67-100%) Large (67-100%) -Granulation Quality [place],Red Red Red -Necrosis Amt Small (1-33%) -Necrotic Tissue Type Adherent Slough -Structure Exposed N/A -Texture (Cleo-wound Skin Appearance) Assessed, Assessed Scarring Scarring -Moisture (Cleo-wound Skin Appearance) Assessed,Dry/ Assessed No Abnormality Scaly -Color (Cleo-wound Skin Appearance) Assessed Assessed No Abnormality -Temperature (Cleo-wound Skin No Abnormality No Abnormality No Abnormality Appearance) (Pt Warm) (Pt Warm) (Pt Warm) -Tenderness on Palpation (Cleo-wound No No Skin Appearance) -Ulcer Cleansing Rinsed/ Soap and Water Soap and Water Irrigated with Saline -Foul Odor after Cleansing No No No -Anesthetic Used 5% Lidocaine 5% Lidocaine 5% Lidocaine Gel Gel Gel WC - Nurse 2 - General Ulcer CM Notes Start: 04/20/24 10:11 Freq: Status: Active Protocol: Activity Type Activity Date Activity User E-sign Co-sign Detail Recorded Client Recorded Date Recorded By Document 04/20/24 10:27 [id number] 04/20/24 10:32 Document 04/29/24 15:02 [id number] 04/29/24 15:03 Document 05/04/24 14:37 [id number] 05/04/24 14:38 04/20/24 04/29/24 05/04/24 10:27 15:02 14:37 Wound Center Nurse 2 #1 abd/Post Op Hernia repair -Time 10:27 15:02 14:37 -Correct Patient Yes Yes Yes -Correct Side, Site, Position Yes Yes Yes -Correct Procedure Yes Yes Yes -Procedure Performed Yes Yes Yes -Type of Procedure Debridement Debridement Debridement -Clinical Debridement Subcutaneous Subcutaneous Subcutaneous -Tissue Removed Subcutaneous Subcutaneous Subcutaneous -Post Debridement (cm) - Length 1.0 0.5 1 -Post Debridement (cm) - Width 1.0 0.5 1 -Post Debridement (cm) - Depth 2.5 2.0 2.5 -Total Square (Post) (cm) 1.00 0.25 1 -Area of Debridement (cm) - Length 1.0 0.5 1 -Area of Debridement (cm) - Width 1.0 0.5 1 -Total Square (Area) (cm) 1.00 0.25 1 -Tunneling No No No -Undermining/Tunneling No No No -Circular Undermining No No No -Wound/Ulcer Outcome Not Healed Not Healed Not Healed -Ulcer Cleansing Rinsed/ Not Cleansed Rinsed/ Irrigated with Irrigated with Saline Saline -Foul Odor after Cleansing No No No -Bioengineered Tissue No No No -Bleeding Controlled with Pressure Pressure Pressure -Treatment Response Procedure Procedure Procedure Tolerated Well Tolerated Well Tolerated Well -Offloading No No -Debridement - Subq, 1st 20sq cm Yes Yes Yes Pain Scale: 0-10 Numeric Is Patient Pain Free? Yes Yes Yes - Nurse 3 - General Ulcer D/C NN Start: 04/20/24 10:11 Freq: Status: Active Protocol: Activity Type Activity Date Activity User E-sign Co-sign Detail Recorded Client Recorded Date Recorded By Document 04/20/24 10:46 BMF [id number] 04/20/24 10:46 BMF Edit Result 04/20/24 10:46 BMF (1) [id number] 04/20/24 10:47 BMF Document 04/24/24 10:31 KW [id number] 04/24/24 10:39 KW Document 04/29/24 15:30 GM [id number] 04/29/24 15:31 GM Document 05/04/24 14:54 BMF [id number] 05/04/24 14:55 BMF (1) Facility Type => Home Health 04/20/24 04/24/24 04/29/24 10:46 10:31 15:30 Wound Care Center Nurse 3 #1 abd/Post Op Hernia repair -Ulcer Cleansing Rinsed/ Soap and Water Not Cleansed Irrigated with Saline -Foul Odor after Cleansing No No -Negative Pressure Wound Therapy Start Continue -Setting (mmHg) 125 125 -Negative Pressure is Continuous -Other Dressing packed w/ iodoform -Primary Dressing Covered/Secured with Dry Gauze, Secured with Tape -NPWT Application Charge NPWT </= 50 sq NPWT </= 50 sq cm (disp) ($) cm (disp) ($) -Wound Comment(s) Treatment Response Procedure Tolerated Well Vital Signs Temperature (97.8 F-99.1 F) 95.7 F L Temperature Source Temporal Pulse Rate (60-100) 65 Pulse Location Monitor Respiratory Rate (12-18) 16 Respiratory rate source Observation Oxygen Delivery Method Room Air Blood Pressure (90/60-120/80) 113/59 L Blood Pressure Mean (mm Hg) 77 Source Monitor Position Semi-Fowlers Blood Pressure Location Left Arm Comment Pain Scale: 0-10 Numeric Is Patient Pain Free? Yes Yes Yes WC - Visit Discharge Discharge Condition Stable Stable Stable Ambulatory Status Ambulatory,Cane Ambulatory,Cane Ambulatory,Cane Transportation Private Auto Private Auto Private Auto Accompanied by Medication Reconcilliation completed & No provided to patient/care provider Clinical Summary of Care Provided Yes Facility Type Home Health 05/04/24 14:54 Wound Care Center Nurse 3 #1 abd/Post Op Hernia repair -Ulcer Cleansing Rinsed/ Irrigated with Saline -Foul Odor after Cleansing No -Negative Pressure Wound Therapy Continue -Setting (mmHg) 125 -Negative Pressure is Continuous -Other Dressing -Primary Dressing Covered/Secured with -NPWT Application Charge NPWT & Debridement (nc ) -Wound Comment(s) snap Treatment Response Procedure Tolerated Well Vital Signs Temperature (97.8 F-99.1 F) Temperature Source Pulse Rate (60-100) Pulse Location Respiratory Rate (12-18) Respiratory rate source Oxygen Delivery Method Blood Pressure (90/60-120/80) 92/56 L Blood Pressure Mean (mm Hg) 68 Source Manual Position Sitting Blood Pressure Location Right Arm Comment rechk per dl complaint investigator Pain Scale: 0-10 Numeric Is Patient Pain Free? Yes WC - Visit Discharge Discharge Condition Stable Ambulatory Status Ambulatory Transportation Private Auto Accompanied by Medication Reconcilliation completed & provided to patient/care provider Clinical Summary of Care Provided Facility Type Assessment/Plan Assessment/Plan (1) Abdominal wall skin ulcer: CODE(S): L98.499 - Non-pressure chronic ulcer of skin of other sites with unspecified severity QUALIFIERS: Non-pressure ulcer stage: with fat layer exposed Qualified Code(s): L98.492 - Non-pressure chronic ulcer of skin of other sites with fat layer exposed PLAN: Plan Patient was evaluated at the wound healing center today. Depth is improving Wound care - SNAP VAC applied at 125 mmHg and to be changed twice a week. Wash ulcer and cleo wound with soap and water at time of the dressing change. Do not get dressing wet between changes. Follow-up with me in 2 weeks
[2024-05-07 13:22] VITALS: BP 106/56; PULSE 60; RESP 18; TEMP 35.6; BMI 34.4
== END 2024-05-15 11:03 | disposition home or self-care (01) ==
LOC: WC 13:00
PROVIDERS: PCP Student in an Organized Health Care Education/Training Program; Referring Provider Student in an Organized Health Care Education/Training Program; Visit Provider Surgery Plastic and Reconstructive Surgery
DX: T81.321A Disruption or dehiscence of closure of internal operation (surgical) wound of abdominal wall muscle or fascia, initial encounter (principal); L98.492 Non-pressure chronic ulcer of skin of other sites with fat layer exposed; Y83.8 Other surgical procedures as the cause of abnormal reaction of the patient, or of later complication, without mention of misadventure at the time of the procedure; Z79.82 Long term (current) use of aspirin; Z79.84 Long term (current) use of oral hypoglycemic drugs; Z79.899 Other long term (current) drug therapy; Z95.820 Peripheral vascular angioplasty status with implants and grafts; Z86.718 Personal history of other venous thrombosis and embolism; Z95.1 Presence of aortocoronary bypass graft
CPT/HCPCS: 11042; 97607